=== PATIENT | female | born 2000 | race Caucasian/White ===

== ENCOUNTER 2024-07-14 10:36 | Outpatient (AMB) | payer OTHER, MEDICAID, SELFPAY ==
--- NOTE | 2024-07-14 10:40 | MHC.OFFVIS ---
Vital Signs 07/14/24 10:41 Height 5 ft 9 in Weight 154 lb 5.177 oz BMI 22.8 BP 110/72 Blood Pressure Location Rt brachial Position Sitting Pulse 92 Pulse Source Pulse Oximeter Pulse Oximetry (%) 99 Oxygen Delivery Method Room Air Intake Visit Reasons: asthma Allergies oxycodone Allergy (Intermediate, Verified 07/14/24 10:44) Hallucinations HPI Comments Details: The patient is here for a pulmonary evaluation. The patient is a 24-year-old woman with a known history of childhood asthma. She does have lifelong asthma and she has been followed closely by pediatric Pulmonary for many years. She has been on Wixela for many years and also at times may take additional Flovent HFA in case she is having a flare-up. And she also has a rescue inhaler. She states that throughout the year she will need prednisone between 5-8 times. The last time was over the fall where she had 3 courses of prednisone to try to finally settled on her symptoms. She does not like to take prednisone and she would like to avoid. She has had allergy testing in the past and is been negative that she is aware of. The patient did have a chest x-ray which we personally reviewed together demonstrating hyperinflation of the lungs. She has not had formal pulmonary function studies. Therefore, based on ongoing symptoms will go ahead and optimize her respiratory therapy by switching her from Wixela to Trelegy 200 mcg. She will continue the Singulair for now though she does carry a diagnosis of depression and once her symptoms are better we can see about maybe removing the singular just in case. In addition to that will assess blood work including allergy testing to assess to see biologics will be a reasonable option for the patient. Will plan to follow-up after the PFTs. [facility] Medical History (Updated 07/14/24 @ 20:14 by Josué Hatfield MD) Eczema Allergies Asthma Social History (Updated 07/14/24 @ 10:44 by Rachna Chery CMA) Patient Tobacco Use Status: Never used Tobacco Review of Systems Const Reports no additional complaints Eyes Reports no additional complaints ENT Reports nasal congestion and Reports nasal discharge Card Denies chest pain Resp Reports cough and Reports wheezing GI Reports no additional complaints Musc Reports no additional complaints Skin/Breast Denies rash Leroy/Lymph Reports no additional complaints Aller/Immun Reports wheezing Physical Exam Vital Signs: Last Vital Signs Pulse 92 07/14/24 10:41 BP 110/72 07/14/24 10:41 Pulse Ox 99 07/14/24 10:41 Oxygen Delivery Method Room Air 07/14/24 10:41 BMI result Body Mass Index 22.8 Const General: healthy appearing HEENT Head: Yes normocephalic Eyes General: appearance normal, both eyes and all related structures Neck Neck: Yes supple Chest Chest palpation & inspection: normal inspection of the chest Resp Effort & Inspection: normal respiratory effort Auscultation: clear to auscultation bilaterally Cardio Jugular venous distension: JVD Heart sounds: S1 normal heart sound present and S2 normal heart sound present GI Palpation (GI): Soft to palpation Skin General skin exam: no rashes or lesions noted Extrem General: Yes no clubbing, cyanosis or edema Assessment & Plan Assessment & Plan (1) Asthma: Code(s): J45.909 - Unspecified asthma, uncomplicated Category: Medical Qualifiers: Asthma severity: moderate Asthma persistence: persistent Asthma complication type: uncomplicated Qualified Code(s): J45.40 - Moderate persistent asthma, uncomplicated (2) Allergies: Code(s): T78.40XA - Allergy, unspecified, initial encounter Category: Medical Qualifiers: Encounter type: initial encounter Qualified Code(s): T78.40XA - Allergy, unspecified, initial encounter (3) Eczema: Code(s): L30.9 - Dermatitis, unspecified Category: Medical Qualifiers: Eczema type: flexural Qualified Code(s): L20.82 - Flexural eczema (4) OMAR positive: Code(s): R76.8 - Other specified abnormal immunological findings in serum Category: Medical Plan stop Wixela start Trelegy 200 daily NEW as needed continue singulair for now Bloodwork and allergy testing PFTs F/U 6-8 weeks Orders: Orders Hypersensitive Pneumonitis Prf Today J45.909 - Unspecified asthma, uncomplicated, R91.8 - Other nonspecific abnormal finding of lung field, T78.40XA - Allergy, unspecified, initial encounter OMAR Reflex Titer and Pattern Today J45.909 - Unspecified asthma, uncomplicated, T78.40XA - Allergy, unspecified, initial encounter Cyclic Citrullinated Peptide Today J45.909 - Unspecified asthma, uncomplicated, T78.40XA - Allergy, unspecified, initial encounter PFT pulmonary function test Today J45.909 - Unspecified asthma, uncomplicated, T78.40XA - Allergy, unspecified, initial encounter Resp Allergy Profile Region I Today J45.909 - Unspecified asthma, uncomplicated, R91.1 - Solitary pulmonary nodule, T78.40XA - Allergy, unspecified, initial encounter Complete Blood Count Auto Diff Today J45.909 - Unspecified asthma, uncomplicated, T78.40XA - Allergy, unspecified, initial encounter Immunoglobulin E Today J45.909 - Unspecified asthma, uncomplicated, T7.40XA - Allergy, unspecified, initial encounter Erythrocyte Sedimentation Rate Today J45.909 - Unspecified asthma, uncomplicated, T78.40XA - Allergy, unspecified, initial encounter Medications: New unrmvyztogb-nuvzyrhfh-aoopjzjg 200-62.5-25 mcg (Trelegy Ellipta) 1 inh inhalation DAILY 60 ea 12RF 30 days Coding Level of Care Code New Pt Level 4 (20641) Diagnoses Moderate persistent asthma without complication J45.40 Asthma severity: moderate Asthma persistence: persistent Asthma complication type: uncomplicated Allergy, initial encounter T78.40XA Encounter type: initial encounter Flexural eczema L20.82 Eczema type: flexural OMAR positive R76.8 Time Spent (min) 38
[2024-07-14 10:41] VITALS: BP 110/72; PULSE 92; O2SAT 99; BMI 22.8
--- OUTSIDE RECORDS SUMMARY | 2024-07-14 14:14 | XMS_ITS | Encounter Summary ---
Author Organization [facility] Address [address] [place] [address] Care Team Providers Care Game Farm Helper Name Role Phone Karlene Santana MD Primary Care Provider [phone] Reason for Visit * Consultation (Elective) - Authorized Specialty Diagnoses / Procedures Referred By Florinda chatman Referred To Contact Physical Therapy Diagnoses Knee pain Michael Santillan PA [facility] [address] [place] [address] [place] [address] Henry Watson PT Referral ID Status Reason Start Date Expiration Date Visits Requested Visits Authorized [id number] Authorized Consult and Treat 06/28/2024 06/28/2025 26 26 Encounter Details Date Type Department Care Team ([facility] Contact Info) Description 06/29/2024 9:30 AM EST Evaluation Physical Therapy - [address] [phone] Henry Watson PT Disorder of patellofemoral joint, unspecified laterality (Primary Dx); Knee pain Social History Tobacco Use Types Packs/Day Years Used Date Smoking Tobacco: Never Assessed Sex and Gender Information Value Date Recorded Sex Assigned at Not on file Gender Identity Not on file Sexual Orientation Not on file Job Start Date Occupation Industry Not on file Not on file Not on file documented as of this encounter Progress Notes * Henry Watson PT - 06/29/2024 9:30 AM EST [facility] Rehabilitation - Outpatient PHYSICAL THERAPY EVALUATION Date: 06/29/2024 Visit Number: 1 Patient Name: Usha Alaniz : 2000 Age: 24 y.o. Gender: female Diagnosis: ICD-10-CM ICD-9-CM 1. Knee pain M25.569 719.46 Ambulatory referral to Physical Therapy and Athletic Training Date of Onset/Surgery: Chronic Referring Provider: Michael Santillan PA Insurance: Payor: [facility] / Plan: [facility] / Product Type: *No Product type* / Patient identified by: Henry Watson PT Language: Speaks and understands Sinhala as preferred language with no candles pourer required Chart Reviewed: Yes Medications: No current outpatient medications on file prior to visit. No current facility-administered medications on file prior to visit. Discussed current medications that may impact therapy. Medication list obtained and reviewed. Referto document in medical record. Advised Patient to contact MD with any questions regarding medications and importance of managing medication information. has no past medical history on file. has no past surgical history on file. has no allergies on file. Precautions: None Concurrent Services: No Concurrent Services Previous Medical Care/Therapy: PT x 2 months at [facility] 3 months ago. SUBJECTIVE History of present condition: Patient reports several years ago having medial patellofemoral ligament reconstruction on her left knee by Dr. Martin. Has had some issues with her knee since then and feels like she favors her right side and now has right anterior knee pain as well. Did go through therapy x 2 months 3 months ago with fair to poor success. Patient was unable to pursue strengthening due to knee pain. Patient now trying therapy here but has a cortisone injection scheduled with [facility] orthopedics on July 19. Would like to do the evaluation today but wait to perform therapy till afterthe injection. I agree with this plan. Patient reports her pain is primarily with loading for her left knee with her knee bent. Functionally this affects her ability to get in and out of a chair or perform stairs. 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 Wants to improve her lower extremity mechanics, function and strength to allow her to perform regular daily activities without pain and possibly exercise moving forward. 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 Previous Level of Function: Long history of dysfunction due to the left knee patellar dislocations and subsequent patellofemoral ligament reconstruction and ongoing dysfunction of the left knee. Thatleft knee dysfunction has caused more strain on her right knee and has started to create pain in her right knee as well. Current Level of Function: Currently patient with difficulty with standing from a sitting position,getting at the floor work, squatting, stairs. Aggravating Factors: Squatting, stairs, PF load. Relieving Factors: Repositioning and unloading PF joint Pain: 0 out of 10 to 8 out of 10 with sharp stabbing pain left PF joint under wound OBJECTIVE Posture: Pronation bilaterally causing slight internal rotation at the hips and slight genu valgum. Range of Motion: Good full pain-free range of motion bilateral knees hips and ankles Strength: 3 out of 5 strength left quad, 4 out of 5 strength right quad, 4 out of 5 bilateral hamstrings, 4-5 bilateral hip abductors and extensors. Functional Mobility: Transfers: Difficulty with sit to stands and tends to shift weight significantly to the right. Wheelchair Mobility: N/A Gait/Ambulation: Normal gait pattern on level surface Stairs: Difficulty with stairs especially descending second to anterior left knee pain Special Tests: Positive lateral patellar tracking left greater than right. Positive patellar grind left greater than right. Pain with Genesis test on the left but good flexibility noted. Palpation: Tenderness lateral left PF joint and infrapatellar tendon/fat pad left knee. Mild tenderness right knee Reflexes: N/A Balance: Able to stand single-leg stance right and left x 30 seconds with slight increase hip and ankle instability noted on the left. Additional Findings: Severe lateral tilt and tracking of the left patella especially in the last 15degrees of extension. Patient has x-ray showing poor lateral ridge left knee. Right knee tracking is similar but less drastic. Education: Educated patient on PF syndrome and patellar mechanics. Discussed home exercise program and plan of care. Treatments/Interventions: Tape bilateral knees with 80 50K tape for patellar tracking ASSESSMENT/Response to Treatment: Usha Alaniz is a 24 y.o. female presenting for outpatient physical therapy evaluation with complaints of B anterior knee pain L > R. Significant clinical findings include: Poor patellar mechanics L > R, decreased strength, poor VMO timing, and difficulty with squatting and stairs. Patientsprogress may be limited by Severe lateral tracking L patella. . Skilled Physical therapy is medically necessary to Improved strength and mechanics B knees to allow for normal age appropriate activitiy. Rehabilitation Potential: Rehab Potential: Condition Has Potential to Improve Motivation for Rehab: Good Support Structure: Good Learning Needs: Were Patient Learning needs assessed: Yes Learning Preferences: Explanation, Demonstration, and Printed Materials Barriers to Learning: No Barriers to Learning Patient Education: [x] Discussed, with patient and/or caregiver, the recommended plan of care/goals, the importance oftherapy and appointment compliance in order to achieve goals in a timely manner. Education provided: HEP, POC, LE and PF mechanics Education Provided To: Patient utilizing Explanation and Demonstration as mode(s) of education. Response to Education: Applied Knowledge, Verbal Understanding, and Demonstrated Skills GOALS Short Term Goals: 5-6 visits 1. Able to perform half squat with good mechanics with minimal discomfort 2. Able to a send stairs with normal mechanics 3. Able to stand single-leg stance left lower extremity x 30 seconds without loss of balance 4. Increase VMO activity and improve timing noted with quad set 5. Able to perform 3 sets of 10 of straight leg raise with slight external rotation without lag Geriatrician Goals: 11-12 visits 1. Significantly improved VMO activity and at least 4 out of 5 strength left quad 2. 5 out of 5 strength other than left quad strength 3. Able to perform sit to stand squats with good mechanics 4. Able to descend stairs with good mechanics effectively 5. Independent with home exercise program and ability to initiate gym routine PLAN POC Development/Review: Initial Evaluation; Participants: Patient Skilled Therapy Plan Required: YES- Reasons for Rehab and Medical Necessity -- Function in Community Planned Therapy Interventions: Kinesiotaping, Manual Therapy, Neuromuscular Re- education, and Therapeutic Exercise Recommended Consults: none Equipment Recommended: none; Equipment Provided: none Frequency/Duration: 2x/week x 6 weeks BILLING TOTAL TREATMENT TIME: 55 Minutes Evaluation Medium Complexity Justification ::: A history of present problem with 1 - 2 personal factors and/or co-morbidities that impact the plan of care Documentation completed by Henry Watson PT PHYSICAL THERAPY - [address] [address] Dept: [phone] Dept documented in this encounter Plan of Treatment Upcoming Encounters Date Type Department Care Team (Late st Contact Info) Description 07/25/2024 10:30 AM EST Treatment Physical Therapy - [place] [address] [place] [address] Henry Watson, PT 07/28/2024 9:30 AM EST Treatment Physical Therapy - [place] [address] [facility] [place] [address] Henry Watson, PT 08/01/2024 9:30 AM EST Treatment Physical Therapy - [place] [address] [facility] [place] [address] Henry Watson, PT 08/04/2024 9:30 AM EST Treatment Physical Therapy - [place] [address] [facility] [place] [address] Henry Watson, PT 08/08/2024 9:30 AM EST Treatment Physical Therapy - [place] [address] [place] [address] Henry Watson, PT 08/11/2024 9:30 AM EST Treatment Physical Therapy - [place] [address] [place] [address] Henry Watson, PT 08/15/2024 9:30 AM EST Treatment Physical Therapy - [place] [address] [place] [address] Henry Watson, PT 08/18/2024 9:30 AM EST Treatment Physical Therapy - [place] [address] [place] [address] Henry Watson, PT documented as of this encounter Visit Diagnoses Diagnosis Disorder of patellofemoral joint, unspecified laterality- Primary Knee pain Pain in joint, lower leg documented in this encounter Orders Outpatient Referral Count Last Ordered Date Fir st Ordered Date AMB REFERRAL TO [facility]ICAL [facility] 1 06/29/2024 documented in this encounter Care Teams Game Farm Helper Relationship Specialty Start Date End Date Karlene Santana MD PCP - General 03/30/23 documented as of this encounter
--- OUTSIDE RECORDS SUMMARY | 2024-07-14 14:14 | XMS_ITS | Encounter Summary ---
Author Organization [facility] Address [address] [place] [address] Care Team Providers Care Field Foreman Name Role Phone Karlene Santana MD Primary Care Provider [phone] Encounter Details Date Type Department Care Team ([facility] Contact Info) Description 06/29/2024 Plan of Care Documentation Physical Therapy [facility] [address] [place] [phone] Social History Tobacco Use Types Packs/Day Years Used Date Smoking Tobacco: Never Assessed Sex and Gender Information Value Date Recorded Sex Assigned at Not on file Gender Identity Not on file Sexual Orientation Not on file Job Start Date Occupation Industry Not on file Not on file Not on file documented as of this encounter Plan of Treatment Upcoming Encounters Date Type Department Care Team ([facility] Contact Info) Description 07/25/2024 10:30 AM EST Treatment Physical Therapy [facility] [address] [place] [phone] Henry Watson, PT 07/28/2024 9:30 AM EST Treatment Physical Therapy [facility] [address] [place] [phone] Henry Watson, PT 08/01/2024 9:30 AM EST Treatment Physical Therapy [facility] [address] [place] [phone] Henry Watson, PT 08/04/2024 9:30 AM EST Treatment Physical Therapy [facility] [address] [place] [phone] Henry Watson, PT 08/08/2024 9:30 AM EST Treatment Physical Therapy [facility] [address] [place] [address] Henry Watson, PT 08/11/2024 9:30 AM EST Treatment Physical Therapy [facility] [address] [place] [address] Henry Watson, PT 08/15/2024 9:30 AM EST Treatment Physical Therapy [facility] [address] [place] [phone] Henry Watson, PT 08/18/2024 9:30 AM EST Treatment Physical Therapy [facility] [address] [place] [phone] Henry Watson, PT documented as of this encounter Visit Diagnoses Not on filedocumented in this encounter Care Teams Field Foreman Relationship Specialty Start Date End Date Karlene Santana MD PCP - General 03/30/23 documented as of this encounter
--- OUTSIDE RECORDS SUMMARY | 2024-07-14 14:15 | XMS_ITS | Clinical Summary ---
Author Organization [facility] Address [address] [place] [address] Phone Care Team Providers Care Erector Operator Name Role Phone Karlene Santana MD Primary Care Provider [phone] Encounters Date Type Department Care Team Description 06/29/2024 9:30 AM EST Evaluation Physical Therapy [facility] [address] [place] [phone] Henry Watson, PT Disorder of patellofemoral joint, unspecified laterality (Primary Dx); Knee pain 06/29/2024 Plan of Care Documentation Physical [facility] [place] [place] [phone] from Last 3 Months Social History Tobacco Use Types Packs/Day Years Used Date Smoking Tobacco: Never Assessed Sex and Gender Information Value Date Recorded Sex Assigned at Not on file Gender Identity Not on file Sexual Orientation Not on file Job Start Date Occupation Industry Not on file Not on file Not on file Plan of Treatment Upcoming Encounters Date Type Department Care Team (Late st Contact Info) Description 07/25/2024 10:30 AM EST Treatment Physical Therapy [facility] [address] [place] [phone] Henry Watson, PT 07/28/2024 9:30 AM EST Treatment Physical Therapy [facility] [address] [place] [phone] Henry Watson, PT 08/01/2024 9:30 AM EST Treatment Physical Therapy [facility] [address] [place] [address] Henry Watson, PT 08/04/2024 9:30 AM EST Treatment Physical Therapy - [place] [address] [place] [address] Henry Watson, PT 08/08/2024 9:30 AM EST Treatment Physical Therapy [facility] [address] [facility] [place] [address] Henry Watson, PT 08/11/2024 9:30 AM EST Treatment Physical Therapy [facility] [address] [facility] [place] [address] Henry Watson, PT 08/15/2024 9:30 AM EST Treatment Physical Therapy [facility] [address] [facility] [place] [address] Henry Watson, PT 08/18/2024 9:30 AM EST Treatment Physical Therapy [facility] [address] [place] [address] Henry Watson, PT Health Maintenance Due Date Last Done Comments Gonorrhea/Chlamydia Screening 2000 Pneumococcal Vaccine: Pediatrics (0 to 5 Years) and At-Risk Patients (6 to 64 Years) (1 of 1 - PPSV23 or PCV20) 2008 07/07/2003, 02/03/2003, 2002, Additional history exists Depression Screening 04/13/2023 HIV Screening 04/13/2023 Hepatitis C Screening 04/13/2023 Social Influencers of Health Screening 04/13/2023 Cervical Cancer Screening: Pap Smear 2023 COVID-19 Vaccine ( season) 2024 05/13/2023, 10/06/2021, 05/31/2021, Additional history exists DTaP,Tdap,and Td Vaccines (10 - Td or Tdap) 10/07/2033 10/08/2023, 10/08/2023, 05/26/2014, Additional history exists Hepatitis B Vaccines Completed 04/03/2003, 2002, 2002 HIB Vaccines Completed 11/29/2003, 01/14, 2002, Additional history exists MMR Vaccines Completed 06/05/2006, 11/29/2003 IPV Vaccines Completed 06/09/2007, 01/14, 2002, Additional history exists Varicella Vaccines Completed 06/09/2007, 07/07/2003 HPV Vaccines Completed 12/01/2014, 07/16, 05/26/2014 Meningococcal ACWY Vaccine Completed 08/09/2018, Hepatitis A Vaccines Completed 02/05/2021, 08/07/19 21 Influenza Vaccine Completed 03/22/2024, , 03/07/2021, Additional history exists RSV Immunization Patients Under 20 months Aged Out No longer eligible based on patient's age to complete this topic Care Teams Erector Operator Relationship Specialty Start Date End Date Karlene Santana MD PCP - General 03/30/23
--- OUTSIDE RECORDS SUMMARY | 2024-07-14 14:16 | XMS_ITS | Data Portability ---
Author Organization [place] - [facility], [facility] Address [address] [place] [address] Assessment Encounter Date Assessment Date Assessment LastModified by Organization Details LastModified Time 11/16/2023 11/16/2023 Fatigue - unchanged, nl labs, start mvit with Fe, try to eat regular meals and get good sleep, f/u prn; Plantar warts - resolved [email or web address] Not available 11/16/2023 12:57:42 02/16/2024 02/16/2024 Usha is a 23yo female here for neck pain and headaches. Discussed stretching and heat to the area along with OTC pain medications and supportive care for neck. Discussed referral to neurologist other than [facility], but should continue with regular visits with [facility] until they can be seen at [facility]. Discussed return and emergent precautions. Not available 02/16/2024 17:52:30 03/07/2024 03/07/2024 Pharyngitis - Strep neg, viral vs PND, sx care, f/u prn; Post viral reactive cough - Alb prn since asthmatic, sx care, f/u prn [email or web address] Not available 03/07/2024 14:08:05 03/11/2024 03/11/2024 23 y/o female O2 sat RA 99% scattered end expiratory wheezing, no WOB likely back to back illness (COVID and then another viral illness) will treat with amoxicillin for sinusitis advised to continue on sick asthma plan-will add on course of oral steroids advised to call for fevers, cough that worsens/persists or patient develops any other new concerning symptoms patient expresses understanding and agrees with the above listed plan [email or web address] Not available 03/16/2024 10:06:09 03/19/2024 03/19/2024 cough/ ? pneumonia- will treat- does have fu with pulm next week [email or web address] Not available 03/19/2024 12:29:11 Plan of Treatment Reminders Order Date Submit Date Provider Last Modified By Organization Details Last Modified Time Details Appointments None recorded. Lab strep group A, DNA, swab 2023 charlie In-Office Order, Internal Use Only DO Not Attach Compendium DO Not Attach Compendium, Do Not Delete/merge, [id number] 14:06:44 Referral neurologist referral - Migraine type and tension type headache without control with OTCs 2023 [facility], [address] [address], [place], [address], 04:02:38 Procedures None recorded. Surgeries None recorded. Imaging None recorded. Medication Orders prednisone 20 mg tablet 2023 [id number], [address], [place], [phone], 14:26:45 amoxicillin 875 mg tablet 2023 [id number], [address], [place], [phone], 14:26:45 azithromyci n 250 mg tablet 2023 [facility] #[id number], [address], [place], [phone], 11:38:57 Patient TargetsNo targets recorded. Patient Instructions Encounter Date Encounter Id Patient Instructions Last Modified By Organization Details Last Modified Time 02/16/2024 [id number] neck pain: care instructions Not available 02/16/2024 14:23:18 Reason for Referral Neurologist Referral for [facility] Migraine type and tension type headache without control with OTCs Referring Physician: Rachna Knight, Pediatric Medicine, Encounter Date: 02/16/2024 Results Created Date Observation Date Name Description Value Unit Range Abnormal Flag Note LastModifiedBy Organization Detail LastModifiedTime 10/27/19 24 10/28/2023 TSH+F REE T4 TSH 2.640 uIU/m L 0.450- 4.500 Not Available [facility] ([facility]) [address] [place], [address], 10/29/2023 16:07:02 10/27/19 24 10/28/2023 TSH+F REE T4 T4,free(dire ct) 1.11 NG/dL 0.82-1 .77 Not Available [facility] ([facility]) [address] [place], [address], 10/29/2023 16:07:02 10/27/19 24 10/28/2023 CBC WITH DIFFE RENTI AL/PL ATELE T WBC 7.9 x10e3 /uL 3.4-10 .8 Not Available [facility] ([facility]) [address] [place], [address], 10/29/2023 16:07:03 10/27/19 24 10/28/2023 CBC WITH DIFFE RENTI AL/PL ATELE T RBC 5.01 x10e6 /uL 3.77-5 .28 Not Available [facility] ([facility]) [address] [place], [address], 10/29/2023 16:07:03 10/27/19 24 10/28/2023 CBC WITH DIFFE RENTI AL/PL ATELE T hemoglobin 14.5 g/dL 11.1-1 5.9 Not Available [facility] ([facility]) [address] [place], [address], 10/29/2023 16:07:03 10/27/19 24 10/28/2023 CBC WITH DIFFE RENTI AL/PL ATELE T hematocrit 43.8 % 34.0-4 6.6 Not Available [facility] ([facility]) [address] [facility], [place], [address], 10/29/2023 16:07:03 10/27/19 24 10/28/2023 CBC WITH DIFFE RENTI AL/PL ATELE T MCV 87 fL 79-97 Not Available [facility] ([facility]) [address] [facility], [place], [address], 10/29/2023 16:07:03 10/27/19 24 10/28/2023 CBC WITH DIFFE RENTI AL/PL ATELE T MCH 28.9 pg 26.6-3 3.0 Not Available [facility] ([facility]) [address] [facility], [place], [address], 10/29/2023 16:07:03 10/27/19 24 10/28/2023 CBC WITH DIFFE RENTI AL/PL ATELE T MCHC 33.1 g/dL 31.5-3 5.7 Not Available [facility] ([facility]) [address] [facility], [place], [address], 10/29/2023 16:07:03 10/27/19 24 10/28/2023 CBC WITH DIFFE RENTI AL/PL ATELE T RDW 12.6 % 11.7-1 5.4 Not Available [facility] ([facility]) [address] [facility], [place], [address], 10/29/2023 16:07:03 10/27/19 24 10/28/2023 CBC WITH DIFFE RENTI AL/PL ATELE T platelets 258 x10e3 /uL 150-45 0 Not Available [facility] ([facility]) [address] [facility], [place], [address], 10/29/2023 16:07:03 10/27/19 24 10/28/2023 CBC WITH DIFFE RENTI AL/PL ATELE T neutrophils 63 % not estab. Not Available [facility] ([facility]) [address] [facility], [place], [address], 10/29/2023 16:07:03 10/27/19 24 10/28/2023 CBC WITH DIFFE RENTI AL/PL ATELE T lymphs 29 % not estab. Not Available [facility] ([facility]) [address] [facility], [place], [address], 10/29/2023 16:07:03 10/27/19 24 10/28/2023 CBC WITH DIFFE RENTI AL/PL ATELE T monocytes 7 % not estab. Not Available [facility] ([facility]) [address] [facility], [place], [address], 10/29/2023 16:07:03 10/27/19 24 10/28/2023 CBC WITH DIFFE RENTI AL/PL ATELE T eos 1 % not estab. Not Available [facility] ([facility]) [address] [facility], [place], [address], 10/29/2023 16:07:03 10/27/19 24 10/28/2023 CBC WITH DIFFE RENTI AL/PL ATELE T basos 0 % not estab. Not Available [facility] ([facility]) [address] [facility], [place], [address], 10/29/2023 16:07:03 10/27/19 24 10/28/2023 CBC WITH DIFFE RENTI AL/PL ATELE T immature cells [employer]ATOR Not Available [facility] ([facility]) [address] [facility], [place], [address], 10/29/2023 16:07:03 10/27/19 24 10/28/2023 CBC WITH DIFFE RENTI AL/PL ATELE T neutrophils (absolute) 5.0 x10e3 /uL 1.4-7. 0 Not Available [facility] ([facility]) [address] [facility], [place], [address], 10/29/2023 16:07:03 10/27/19 24 10/28/2023 CBC WITH DIFFE RENTI AL/PL ATELE T lymphs (absolute) 2.3 x10e3 /uL 0.7-3. 1 Not Available [facility] ([facility]) [address] [facility], [place], [address], 10/29/2023 16:07:03 10/27/19 24 10/28/2023 CBC WITH DIFFE RENTI AL/PL ATELE T monocytes(ab solute) 0.5 x10e3 /uL 0.1-0. 9 Not Available [facility] ([facility]) [address] [place], [address], 10/29/2023 16:07:03 10/27/19 24 10/28/2023 CBC WITH DIFFE RENTI AL/PL ATELE T eos (absolute) 0.0 x10e3 /uL 0.0-0. 4 Not Available [facility] ([facility]) [address] [facility], [place], [address], 10/29/2023 16:07:03 10/27/19 24 10/28/2023 CBC WITH DIFFE RENTI AL/PL ATELE T baso (absolute) 0.0 x10e3 /uL 0.0-0. 2 Not Available [facility] ([facility]) [address] [place], [address], 10/29/2023 16:07:03 10/27/19 24 10/28/2023 CBC WITH DIFFE RENTI AL/PL ATELE T immature granulocytes 0 % not estab. Not Available [facility] ([facility]) [address] [place], [address], 10/29/2023 16:07:03 10/27/19 24 10/28/2023 CBC WITH DIFFE RENTI AL/PL ATELE T immature grans (abs) 0.0 x10e3 /uL 0.0-0. 1 Not Available [facility] ([facility]) [address] [facility] [place], [address], 10/29/2023 16:07:03 10/27/19 24 10/28/2023 CBC WITH DIFFE RENTI AL/PL ATELE T NRBC [employer]AG[employer] OPERATOR Not Available [facility] ([facility]) [address], [place], [address], 10/29/2023 16:07:03 10/27/19 24 10/28/2023 CBC WITH DIFFE RENTI AL/PL ATELE T hematology comments: CAT WAGON OPERATOR Not Available [facility] ([facility]) [address], [place], [address], 10/29/2023 16:07:03 10/27/19 24 10/28/2023 COMP. METAB OLIC PANEL (14) glucose 76 mg/dL 70-99 Not Available [facility] ([facility]) [address], [place], [address], 10/29/2023 16:07:03 10/27/19 24 10/28/2023 COMP. METAB OLIC PANEL (14) BUN 6 mg/dL 6-20 Not Available [facility] ([facility]) [address], [place], [address], 10/29/2023 16:07:03 10/27/19 24 10/28/2023 COMP. METAB OLIC PANEL (14) creatinine 0.73 mg/dL 0.57-1 .00 Not Available [facility] ([facility]) [address] [facility], [place], [address], 10/29/2023 16:07:03 10/27/19 24 10/28/2023 COMP. METAB OLIC PANEL (14) BUN/creatini ne ratio 8 9-23 below low normal Not Available [facility] ([facility]) [address] [place], [address], 10/29/2023 16:07:03 10/27/19 24 10/28/2023 COMP. METAB OLIC PANEL (14) sodium 139 mmol/ L 134-14 4 Not Available [facility] ([facility]) [address] [facility] [place], [address], 10/29/2023 16:07:03 10/27/19 24 10/28/2023 COMP. METAB OLIC PANEL (14) potassium 4.0 mmol/ L 3.5-5. 2 Not Available [facility] ([facility]) [address] [facility] [place], [id number], 10/29/2023 16:07:03 10/27/19 24 10/28/2023 COMP. METAB OLIC PANEL (14) chloride 102 mmol/ L 96-106 Not Available [facility] ([facility]) [address] [facility] [place], [address], 10/29/2023 16:07:03 10/27/19 24 10/28/2023 COMP. METAB OLIC PANEL (14) carbon dioxide, total 21 mmol/ L 20-29 Not Available [facility] ([facility]) [address] [place], [address], 10/29/2023 16:07:03 10/27/19 24 10/28/2023 COMP. METAB OLIC PANEL (14) calcium 9.5 mg/dL 8.7-10 .2 Not Available [facility] ([facility]) [address] [facility] [place], [address], 10/29/2023 16:07:03 10/27/19 24 10/28/2023 COMP. METAB OLIC PANEL (14) protein, total 7.5 g/dL 6.0-8. 5 Not Available [facility] ([facility]) [address] [facility] [place], [address], 10/29/2023 16:07:03 10/27/19 24 10/28/2023 COMP. METAB OLIC PANEL (14) albumin 4.7 g/dL 4.0-5. 0 Not Available [facility] ([facility]) [address] [facility] [place], [address], 10/29/2023 16:07:03 10/27/19 24 10/28/2023 COMP. METAB OLIC PANEL (14) globulin, total 2.8 g/dL 1.5-4. 5 Not Available [facility] ([facility]) [address] [facility] [place], [address], 10/29/2023 16:07:03 10/27/19 24 10/28/2023 COMP. METAB OLIC PANEL (14) A/G ratio 1.7 1.2-2. 2 Not Available [facility] ([facility]) [address] [facility] [place], [address], 10/29/2023 16:07:03 10/27/19 24 10/28/2023 COMP. METAB OLIC PANEL (14) bilirubin, total <0.2 mg/dL 0.0-1. 2 Not Available [facility] ([facility]) [address] [facility] [place], [address], 10/29/2023 16:07:03 10/27/19 24 10/28/2023 COMP. METAB OLIC PANEL (14) alkaline phosphatase 46 IU/L 44-121 Not Available [facility] ([facility]) [address] [place], [address], 10/29/2023 16:07:03 10/27/19 24 10/28/2023 COMP. METAB OLIC PANEL (14) AST (SGOT) 19 IU/L 0-40 Not Available [facility] ([facility]) [address] [facility] [place], [address], 10/29/2023 16:07:03 10/27/19 24 10/28/2023 COMP. METAB OLIC PANEL (14) ALT (SGPT) 13 IU/L 0-32 Not Available [facility] ([facility]) [address] [place], [address], 10/29/2023 16:07:03 10/27/19 24 10/28/2023 VITAM IN D, 25-HY DROXY vitamin D, 25-hydroxy 30.9 NG/mL 30.0-1 00.0 Vitam in D defic iency has been defin ed by the Insti tute of Medic ine and an Endoc rine Socie ty pract ice guide line as a level of serum 25-OH vitam in D less than 20 ng/mL (1,2) . The Endoc rine Socie ty went on to furth er defin e vitam in D insuf ficie ncy as a level betwe en 21 and 29 ng/mL (2). 1. IOM (Inst itute of Medic ine). 2010. Dieta ry refer ence intak es for calci um and D. Marcus townsend [place]: [facility] . 2. Ange cabrera MF, Chester mcarthur [place], Diana off-F errar i MONTERO, et al. Evalu ation , treat ment, and preve ntion of vitam in D defic iency : an Endoc rine Socie ty clini amarjit pract ice guide line. JCEM. 2010; 96(7) :1911 -30. Not Available [facility] ([facility]) [address] [facility], [place], [address], 10/29/2023 16:07:04 10/27/19 24 10/28/2023 T-TRA NSGLU TAMIN ASE (TTG) IGA T-transgluta minase (ttg) IgA <2 U/mL 0-3 Negat az 0 - 3 Weak Posit az 4 - 10 Posit az >10 Tissu e Trans gluta carmen e (tTG) has been ident ified as the endom ysial antig en. Studi es have demon str- ated that endom ysial IgA antib odies have over 99% speci ficit y for glute n sensi tive enter opath y. Not Available [facility] ([facility]) [address] [facility], [place], [address], 10/29/2023 16:07:05 10/27/19 24 10/28/2023 MONON UCLEO SIS, QUAL W/REF MARCELL mononucleosi s test, qual Negati ve negati ve The sensi tivit y of Heter ophil e antib carla testi ng is 80-90 %. Epste in Gao IgM testi ng offer s highe r sensi tivit y. Not Available [facility] ([facility]) [address] [facility], [place], [address], 10/29/2023 16:07:05 10/27/19 24 10/28/2023 MONON UCLEO SIS, QUAL W/REF MARCELL interpretati on: Commen t EBV Inter preta tion Chart [place]: Antib carla Prese nt + Antib carla Absen t - Inter preta tion VCA-I gM VCA-I gG EBNA- IgG No previ ous infec tion/ - - - Susce ptibl e Prima ry infec tion (new + + - or recen t) Past Infec tion +or- + + See comme nt below * + - - *Resu lts indic ate infec tion with EBV at some time howev er canno t predi ct the timin g of the infec tion since antib odies to EBNA usual ly devel op after prima ry infec tion or, alter nativ breanna, appro ximat breanna 5-10% of patie nts with EBV never devel op antib odies to EBNA. Not Available [facility] ([facility]) [address] [facility], [place], [address], 10/29/2023 16:07:05 10/27/19 24 10/29/2023 MONON UCLEO SIS, QUAL W/REF MARCELL ebv Ab vca, IgM <36.0 U/mL 0.0-35 .9 Negat az <36.0 Equiv ocal 36.0 - 43.9 Posit az >43.9 Not Available [facility] ([facility]) [address] [facility], [place], [address], 10/29/2023 16:07:05 10/27/19 24 10/29/2023 MONON UCLEO SIS, QUAL W/REF MARCELL ebv Ab vca, IgG >600.0 U/mL 0.0-17 .9 above high normal Negat az <18.0 Equiv ocal 18.0 - 21.9 Posit az >21.9 Not Available [facility] ([facility]) [address] [facility], [place], [address], 10/29/2023 16:07:05 10/27/19 24 10/29/2023 MONON UCLEO SIS, QUAL W/REF MARCELL ebv nuclear antigen Ab, IgG >600.0 U/mL 0.0-17 .9 above high normal Negat az <18.0 Equiv ocal 18.0 - 21.9 Posit az >21.9 Not Available [facility] ([facility]) [address] [facility], [place], [address], 10/29/2023 16:07:05 10/27/19 24 10/28/2023 SEDIM ENTAT ION RATE- WESTE RGREN sedimentatio n rate-westerg omi 5 mm/HR 0-32 Not Available [facility] ([facility]) [address] [facility], [place], [address], 10/29/2023 16:07:06 10/27/19 24 10/28/2023 IMMUN OGLOB ULIN A, QN, SERUM immunoglobul in A, qn, serum 235 mg/dL 87-352 Not Available [facility] ([facility]) [address] [place], [address], 10/29/2023 16:07:06 03/07/20 24 03/07/2024 strep group A, DNA, swab Strep ID NOW negati ve Not Available In-Office Order Internal Use Only DO Not Attach Compendium DO Not Attach Compendium, Do Not Delete/merge, [id number] 03/07/2024 13:53:03 Result Notes None recorded. Problems Name Problem SNOMED Code Status Onset Date Resolution Date Notes Provider Name and Address Organization Details Recorded Time Upper respirat ory infectio n 54484961 Completed 03/10/2016 Karlene Santana MD [address] [place] [address], , [facility] 6 13:56:40 Sinusiti s [id number] Completed 10/06/2022 Karlene Santana MD [address] [place] [address], , [facility] 3 14:34:43 On examinat ion - mouth rash Completed 03/10/2016 Karlene Santana MD [address] [place] [address], , [facility] 6 13:56:53 Asthma without status asthmati cus [id number] Completed 03/10/2016 Karlene Santana MD [address] [place] [address], , [facility] 6 13:56:48 Verruca vulgaris 09559341 Completed 10/06/2022 Karlene Santana MD [address] [place] [address], , [facility] 3 14:34:48 Knee pain Active chronic, sees ortho, started PT, referred to Rheum, has +HLA B27 Karlene Santana MD [address] [place] [address], , [facility] 2 15:15:13 Idiopath ic scoliosi s [id number] Completed 08/09/2018 Karlene Santana MD [address] [place] [address], , [facility] 9 13:27:40 Moderate persiste nt asthma 276183321 Active 2017 onset 12/2008, followed by Dr. Paulino/Jesusita love, on Advair and Sing Karlene Santana MD [address] [place] [address], , [facility] 1 10:14:53 Vocal cord dysfunct ion 831239982 Active 2017 vocal cord adductio n noted by Pulm but not clinical ly signific ant Karlene Santana MD [address] [place] [address], , [facility] 8 08:56:11 Dysmenor chika 531951547 Active 2018 improved on Davian Santana MD [address] [place] [address], , [facility] 3 14:34:32 Menorrha everett 131938423 Active 2018 Karlene Santana MD [address] [place] [address], , [facility] 9 14:38:15 School problem 975509987 Completed 201910/06/2022 multiple tardies and absences Karlene Santana MD [address] [place] [address], , [facility] 3 14:34:40 Perioral dermatit is 614017090 Active 2019 Tierney Sal DO [address] [place] [address], , [facility] 0 20:07:55 Acne 92081276 Active 2020 improved with Davian Santana MD [address] [place] [address], , [facility] 3 14:34:02 Pneumoni tis 374857062 Active 2020 summer 2020 Karlene Santana MD [address] [place] [address], , [facility] 1 10:52:32 Disturba nce of attentio n 40594907 Completed 202004/24/2021 Karlene Santana MD [address] [place] [address], , [facility] 1 16:23:35 Child attentio n deficit disorder 924990272 Active 2020 +Vanderb ilts 2012, neuropsy eval 2012 Karlene Santana MD [address] [place] [address], , [facility] 1 10:13:29 Sleep disorder 55837050 Active 2020 Karlene Santana MD [address] [place] [address], , [facility] 1 15:21:51 Headache 70138792 Active 2020 worsenin g 2020 with college, referred to Neuro; starting cycloben zaprine Karlene Santana MD [address] [place] [address], , [facility] 2 15:13:42 Hemorrha gic cyst of ovary 391451638 Active 2021 R 5.6 x 4.4 x 5.1 cm, vol 64.8 cc 07/15/21 - to RELIEF PILOT Karlene Santana MD [address] [place] [address], , [facility] 3 14:33:51 Diet educatio n Completed 202101/07/2022 Karlene Santana MD [address] [place] [address], , [facility] 2 15:13:18 Migraine without aura 10256328 Active 2021 refer to Neuro 08/2021 Karlene Santaan MD [address] [place] [address], , [facility] 2 18:06:35 Depressi ve disorder 35177871 Active 2021 started Lexapro 11/2021, has psychological operations specialist 01/2022 Karlene Santana MD [address] [place] [address], , [facility] 2 15:13:16 Temporom andibula r joint disorder 68522999 Active 2022 Karlene Santana MD [address] [place] [address], , [facility] 3 08:23:44 Verruca plantari s 28226777 Active 2023 Karlene Santana MD [address] [place] [address], , [facility] 4 11:46:53 Nervous system symptoms Completed 10/06/2022 Karlene Santana MD [address] [place] [address], , [facility] 3 14:34:33 Viral disease 35783526 Completed 09/23/2011 Not Available [facility] 3 03:01:41 Viral disease 79141739 Completed 10/18/2012 Not Available [facility] 3 03:01:41 Viral disease 72817590 Completed 200804/21/2011 Not Available [facility] 3 03:01:41 Influenz a with respirat ory manifest ation other than pneumoni a Completed 04/21/2011 Not Available [facility] 3 03:01:41 Lymphade nopathy 92739805 Completed 200704/21/2011 Not Available [facility] 3 03:01:41 Diaper rash 03011570 Completed 200704/21/2011 Not Available [facility] 3 03:01:41 Allergic rhinitis 80829816 Active 2008 tested neg at allergis t 2022 for common environm ental allergen s Karlene Santana MD [address] [place] [address], , [facility] 3 14:19:41 Acute pharyngi tis 123353313 Completed 03/10/2016 Karlene Santana MD [address] [place] [address], , [facility] 6 13:56:37 Acute pharyngi tis 518103885 Completed 10/18/2012 Karlene Santana MD [address] [place] [address], , [facility] 6 13:56:37 Acute pharyngi tis 739685747 Completed 200704/21/2011 Karlene Santana MD [address] [place] [address], , [facility] 6 13:56:37 Acute bronchio litis 1902981 Completed 04/21/2011 Not Available [facility] 3 03:01:41 Pain in throat 422378306 Completed 04/21/2011 Not Available [facility] 3 03:01:41 Acute upper respirat ory infectio n 14946504 Completed 200604/21/2011 Not Available [facility] 3 03:01:41 Acute upper respirat ory infectio n 29784312 Completed 09/23/2011 Not Available [facility] 3 03:01:41 Pneumoni a 967809536 Completed 04/21/2011 Not Available [facility] 3 03:01:41 Nonvenom ous insect bite of multiple sites 811178615 Completed 200604/21/2011 Not Available [facility] 3 03:01:41 Non-supp urative otitis media with eustachi an tube disorder 559551096 Completed 04/21/2011 Not Available [facility] 3 03:01:41 Acute maxillar y sinusiti s 86978684 Completed 200704/21/2011 Not Available [facility] 3 03:01:41 Otitis externa 6830789 Completed 04/21/2011 Not Available [facility] 3 03:01:41 Conjunct ivitis 8636691 Completed 04/21/2011 Not Available [facility] 3 03:01:41 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 and needed OT, then needed accommod ations yearly for academic issues, IEP in high school Karlene Santana MD [address] [place] [address], , [facility] 1 10:14:13 Acute asthma 536764708 Completed 10/18/2012 Not Available [facility] 3 03:01:41 Acute asthma 519424257 Completed 04/21/2011 Not Available [facility] 3 03:01:41 Asthma 249543985 Completed 200802/08/2018 Karlene Santana MD [address] [place] [address], , [facility] 8 08:56:16 Streptoc occal sore throat 98989851 Completed 04/21/2011 Not Available [facility] 3 03:01:41 Noninfec tious gastroen teritis 22962224 Completed 200804/21/2011 Not Available [facility] 3 03:01:41 Problem Notes None recorded. Procedures Surgical History Date Name Laterality Status Provider Name and Address Organization Details Recorded Time 4 Pulse Oximetry completed Leelee Jenkins [address] [place] [address], , [facility] 03/11/2024 14:21:25 4 Wart removal completed Karlene Santana MD [address] [place] [address], , [facility] 10/19/2023 11:06:56 4 Wart removal completed Karlene Santana MD [address] [place] [address], , [facility] 10/13/2023 11:45:49 2 Wart removal completed Shree Plata MD [address] [place] [address], , [facility] 02/24/2022 12:31:34 2 Wart removal completed Shree Plata MD [address] [place] [address], , [facility] 07/22/2021 10:52:47 7 Knee arthroscopy/low rgery completed Karlene Santana MD [address] [place] [address], , [facility] 07/21/2017 09:11:04 6 Pulse Oximetry completed Karlene Santana MD [address] [place] [address], , [facility] 04/18/2016 17:03:29 5 Wart removal completed Karlene Santana MD [address] [place] [address], , [facility] 12/29/2014 09:40:26 5 Nebulizer tx completed Karlene Santana MD [address] [place] [address], , [facility] 11/22/2014 13:17:46 5 Pulse Oximetry completed Freeman Hernadez [facility] 09/27/2014 11:20:06 Imaging Results None recorded. Procedure Notes None recorded. Medical Equipment None Reported. Allergies No known drug allergies Medications Name Sig Start Date Stop Date Status Note LastModified by Organization Details LastModified Time binaxnow covid-19 ag card home test kit 07/31 completed Not Available Not Available Not Available cyclobenza karie 10 mg tablet TAKE 1 TABLET BY MOUTH EVERY DAY active Not Available Not Available No t Available amoxicilli n 500 mg capsule TAKE 2 CAPSULES BY MOUTH TWICE A DAY FOR 10 DAYS 06/16 completed Not Available Not Available Not Available Qvar 80 mcg/actuat ion Metered Aerosol oral inhaler inhale 2 puffs by mouth twice a day active Not Available Not Available No t Available cefprozil 500 mg tablet TAKE 1 TABLET BY MOUTH TWICE DAILY FOR 14 DAYS 11/11 completed Not Available Not Available Not Available prednisone 10 mg tablet Take 4 tabs PO daily x 5 days, then 2 tabs PO daily x 5 days, then 1 tab PO daily x 5 days. 10/07 completed Not Available Not Available Not Available prednisolo ne sodium phosphate 15 mg/5 mL (3 mg/mL) oral solution take 15 millilite r by mouth once daily for 2 days active Not Available Not Available No t Available albuterol sulfate 2.5 mg/3 mL (0.083 %) solution for nebulizati on USE 1 VIAL VIA NEBULIZER EVERY 4 HOURS NEEDED FOR COUGH OR WHEEZING OR SHORTNESS OF BREATH active Not Available Not Available No t Available Concerta 18 mg tablet,ext ended release TAKE 1 TABLET BY MOUTH EVERY DAY 07/15 completed Not Available Not Available Not Available azithromyc in 250 mg tablet TAKE 2 TABLETS BY MOUTH ONCE DAILY FOR 1 DAY THEN 1 TABLET ONCE DAILY FOR 4 DAYS active Not Available Not Available No t Available ibuprofen 800 mg tablet take 1 tablet by mouth three times a day 12/28 completed Not Available Not Available Not Available fluconazol e 150 mg tablet TAKE 1 TABLET BY MOUTH TODAY. REPEAT WITH 2 ND TABLET IN 72 HOURS 09/17 completed Not Available Not Available Not Available tretinoin 0.025 % topical cream APPLY TOPICALLY TO THE AFFECTED AREA EVERY DAY AT BEDTIME 03/26 completed Not Available Not Available Not Available prednisone 20 mg tablet TAKE 3 TABLETS BY MOUTH EVERY DAY FOR 5 DAYS active Not Available Not Available No t Available prednisone 5 mg tablet 4 po bid for 2 days, then 2 po bid for 2, then 1 bid for 2, then 1 po qd for 2 active Not Available Not Available No t Available penicillin V potassium 500 mg tablet take 1 tablet by mouth twice a day for 10 days 11/25 completed Not Available Not Available Not Available Advair Diskus 100 mcg-50 mcg/dose powder for inhalation INHALE 1 PUFF BY MOUTH EVERY DAY 03/26 completed Not Available Not Available Not Available metronidaz ole 500 mg tablet TAKE 1 TABLET BY MOUTH TWICE DAILY FOR 7 DAYS 01/07 completed Not Available Not Available Not Available sulfametho xazole 800 mg-trimeth oprim 160 mg tablet TK 1 T PO BID FOR 10 DAYS 12/11 completed Not Available Not Available Not Available SF 1.1 % dental gel AFTER BRUSHING WITH TOOTHPAST E, RINSE USUAL. APPLY GEL TO TEET... (REFER TO PRESCRIPT ION NOTES). 03/26 completed Not Available Not Available Not Available amoxicilli n 500 mg tablet TAKE 1 TABLET BY MOUTH EVERY 6 HOURS UNTIL GONE 06/26 completed Not Available Not Available Not Available oxycodone- acetaminop hen 5 mg-325 mg tablet TAKE 2 TABLETS BY MOUTH EVERY 6 HOURS NEEDED FOR PAIN DIRECTED (DO NOT DRIVE WHILE ON THIS MEDICATIO N) 04/15 completed Not Available Not Available Not Available amoxicilli n 875 mg tablet TAKE 1 TABLET BY MOUTH TWICE DAILY FOR 10 DAYS active Not Available Not Available No t Available clindamyci n 1 % topical gel GERALD THIN LAYER EXT AA BID 12/28 completed Not Available Not Available Not Available amoxicilli n 250 mg/5 mL oral suspension Take 10 mL twice a day by oral route for 10 days. 10/31 completed Not Available Not Available Not Available amitriptyl ine 10 mg tablet TAKE 2 TABLETS BY MOUTH DAILY AT SUPPER active Not Available Not Available No t Available benzonatat e 100 mg capsule take 1 capsule by mouth three times a day 11/25 completed Not Available Not Available Not Available Zithromax 200 mg/5 mL oral suspension Take 6 millilite rs (250 mg) by oral route once daily for 1 day then 3 millilite rs (125 mg) by oral route once daily for 4 days 2010 active Not Available Not Available Not Avai lable oseltamivi r 75 mg capsule Take 1 capsule twice a day by oral route for 5 days. 11/03 completed Not Available Not Available Not Available cephalexin 250 mg/5 mL oral suspension Take 5 mL 3 times a day by oral route for 10 days. 11/10 completed Not Available Not Available Not Available clotrimazo le-betamet hasone 1 %-0.05 % topical cream APPLY TOPICALLY TO THE AFFECTED AND SURROUNDI NG AREAS TWICE DAILY IN THE MORNING AND IN THE EVENING FOR 1 TO 2 WEEKS 09/17 completed Not Available Not Available Not Available polymyxin B sulfate 10,000 unit-trime thoprim 1 mg/mL eye drops INSTILL 2 DROPS IN BOTH EYES THREE TIMES DAILY FOR 5 DAYS 03/17 completed Not Available Not Available Not Available fluticason e 500 mcg-salmet mera 50 mcg/dose blistr powdr for inhalation INHALE 1 PUFF BY MOUTH EVERY 12 HOURS DIRECTED active Not Available Not Available No t Available Advair Diskus 250 mcg-50 mcg/dose powder for inhalation 02/08 completed Not Available Not Available Not Available Singulair 5 mg chewable tablet take 1 tablet by mouth once daily 2010 active Not Available Not Available Not Avai lable Adderall XR 10 mg capsule,ex tended release TAKE 1 CAPSULE BY MOUTH EVERY DAY 07/15 completed Not Available Not Available Not Available diclofenac sodium 75 mg tablet,del ayed release TAKE 1 TABLET BY MOUTH TWICE DAILY 09/04 completed Not Available Not Available Not Available azithromyc in 100 mg/5 mL oral suspension Take 10ml today, then 5 ml once daily for the next 4 days active Not Available Not Available No t Available montelukas t 10 mg tablet TAKE 1 TABLET BY MOUTH EVERY EVENING active Not Available Not Available No t Available hydroxyzin e HCl 25 mg tablet TAKE 1 TABLET BY MOUTH EVERY DAY NEEDED FOR ANXIETY active Not Available Not Available No t Available amoxicilli n 400 mg/5 mL oral suspension SHAKE LIQUID AND TAKE 12.5 ML BY MOUTH TWICE DAILY FOR 10 DAYS 11/11 completed Not Available Not Available Not Available mupirocin 2 % topical ointment APPLY BY TOPICAL ROUTE THREE TIMES A DAY UNTIL CLEAR 11/03 completed Not Available Not Available Not Available mirtazapin e 15 mg tablet TAKE 1 TABLET BY MOUTH DAILY AT SUPPER 09/17 completed Not Available Not Available Not Available lotepredno l etabonate 0.5 % eye drops,susp ension 03/26 completed Not Available Not Available Not Available methylpred nisolone 4 mg tablets in a dose pack FOLLOW PACKAGE DIRECTION S 11/18 completed Not Available Not Available Not Available albuterol sulfate HFA 90 mcg/actuat ion aerosol inhaler INHALE 2 TO 4 PUFFS BY MOUTH EVERY 4 HOURS NEEDED FOR COUGH OR WHEEZING OR SHORTNESS OF BREATH active Not Available Not Available No t Available ondansetro n 4 mg disintegra ting tablet DISSOLVE 1 TABLET ON THE TONGUE EVERY 8 HOURS FOR 3 DAYS NEEDED FOR NAUSEA OR VOMITING 10/06 completed Not Available Not Available Not Available SF 5000 Plus 1.1 % dental cream BRUSH WITH A PEA SIZED AMOUNT ON TEETH twice a day 06/01 completed Not Available Not Available Not Available fluticason e propionate 50 mcg/actuat ion nasal spray,susp ension SHAKE LIQUID AND USE 1 SPRAY IN EACH NOSTRIL EVERY DAY active Not Available Not Available No t Available adapalene 0.1 % topical gel APPLY A THIN LAYER TO THE AFFECTED AREAS EVERY DAY AT AT BEDTIME. 12/04 completed Not Available Not Available Not Available ipratropiu m bromide 21 mcg (0.03 %) nasal spray USE 1 SPRAY IN EACH NOSTRIL 1 TO 2 TIMES EVERY DAY NEEDED active Not Available Not Available No t Available naproxen 500 mg tablet TAKE 1 TABLET BY MOUTH TWICE DAILY WITH MEALS FOR 14 DAYS 07/21 completed Not Available Not Available Not Available amoxicilli n 875 mg-potassi um clavulanat e 125 mg tablet TAKE 1 TABLET BY MOUTH TWICE DAILY FOR 10 DAYS 07/31 completed Not Available Not Available Not Available erythromyc in with ethanol 2 % topical gel APPLY A THIN LAYER TO THE AFFECTED AREA(S) BY TOPICAL ROUTE 2 TIMES PER DAY IN THE MORNING AND EVENING UNTIL RESOLVED (up to 4 weeks) 12/28 completed PRN Not Available Not Available Not Available etonogestr el 0.12 mg-ethinyl estradiol 0.015 mg/24 hr vaginal ring INSERT 1 RING VAGINALLY FOR 3 WEEKS THEN REMOVE FOR 1 WEEK active Not Available Not Available No t Available Vortex Holding Chamber with Toddler Mask active Not Available Not Available Not Available escitalopr am 10 mg tablet TAKE 1 TABLET BY MOUTH EVERY DAY 06/26 completed Not Available Not Available Not Available atomoxetin e 25 mg capsule TAKE 1 CAPSULE BY MOUTH EVERY MORNING 06/26 completed Not Available Not Available Not Available atomoxetin e 40 mg capsule TAKE 1 CAPSULE BY MOUTH EVERY MORNING 06/26 completed Not Available Not Available Not Available cyclobenza karie 5 mg tablet TAKE 1 TABLET BY MOUTH THREE TIMES DAILY FOR UP TO 7 DAYS NEEDED FOR MUSCLE SPASMS 09/17 completed Not Available Not Available Not Available Vigamox 0.5 % eye drops Instill 1 drop into affected eye(s) by ophthalmi c route 3 times per day 2010 active Not Available Not Available Not Avai lable escitalopr am 5 mg tablet TAKE 1 TABLET BY MOUTH DAILY active Not Available Not Available No t Available OptiChambe r Advantage spacer active Not Available Not Available Not Available Flovent HFA 44 mcg/actuat ion aerosol inhaler active Not Available Not Available Not Available levalbuter ol HFA 45 mcg/actuat ion aerosol inhaler INHALE 2 PUFFS BY MOUTH EVERY 4 TO 6 HOURS NEEDED 06/26 completed Not Available Not Available Not Available chlorhexid ine gluconate 0.12 % mouthwash 12/09 completed Not Available Not Available Not Available multivitam in 03/22 completed Not Available Not Available Not Available atomoxetin e 80 mg capsule TAKE 1 CAPSULE BY MOUTH EVERY MORNING active Not Available Not Available No t Available Pulmicort Flexhaler 180 mcg/actuat ion breath activated active 2 puffs BID Not Available Not Available Not Available Symbicort 160 mcg-4.5 mcg/actuat ion HFA aerosol inhaler inhale 2 puffs by mouth twice a day active Not Available Not Available No t Available PreviDent 5000 Booster Plus 1.1 % dental paste USE DIRECTED TWICE DAILY 09/17 completed Not Available Not Available Not Available Isibloom 0.15 mg-0.03 mg tablet TAKE 1 TABLET BY MOUTH EVERY DAY 03/22 completed Not Available Not Available Not Available Aurovela Fe 1-20 (28) 1 mg-20 mcg (21)/75 mg (7) tablet TAKE 1 TABLET BY MOUTH EVERY DAY 01/27 completed Not Available Not Available Not Available COVID-19 test specimen collection TEST DIRECTED TODAY 07/22 completed Not Available Not Available Not Available BinaxNOW COVID-19 Ag Self Test kit FOLLOW PACKAGE DIRECTION S active Not Available Not Available No t Available Vitals Date Recorded Body height Provider Name an d Address Organization Details Last Updated DateTime 11/16/2023 173.99 cm Beata Plascencia R.N. [facility] 11/16/2023 10:22:09 Date Recorded Body height Oxygen saturation Oxygen saturation in Arterial blood by Pulse oximetry Systolic blood pressure Diastolic blood pressure Provider Name and Address Organization Details Last Updated DateTime 173.99 cm 99 % 99 % 114 mm[Hg] 64 mm[Hg] Alexsandra Roberts CMA [facility] 13:56:52 Social History Question Answer Notes LastModified by Organizat ion Details LastModified Time Tobacco Smoking Status Never Smoker Not Available [facility] 04/17/2020 03:14:38 What Type Of Diet Are You Following? REGULAR [id number] Information not available 04/17/2020 Have There Been Any Changes To Your Family Or Social Situation? No [id number] Information not available 04/17/2020 Hard Of Hearing Or Deaf In One Or Both Ears? No Information not available 11/06/2015 Legally Blind In One Or Both Eyes? 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 08/09/2018 [id number] Information not available 04/17/2020 What Is The Name Of Your School? [employer] [id number] Information not available 04/17/2020 Do You Use Your Seat Belt Or Car Seat Routinely? Yes [id number] Information not available 04/17/2020 Are You Passively Exposed To Smoke? No Information not available 10/20/2013 How Much Tobacco Do You Smoke? No [id number] Information not available 04/17/2020 Do You Use Any Illicit Or Recreational Drugs? No Information not available 08/07/2020 Have You Recently Traveled Abroad? No Information not available 08/07/2020 Year In School 1 Information not available 04/19/2011 Sex: Female Functional Status None recorded. Mental Status None recorded. Family History Relationship Description Onset Age of this Age Resolved Age Notes LastModified by Organization Details LastModified Time Father Asthma klisien Not available 08:34:15 Father Obese klisien Not available 08:34:15 Paternal Grandmother Mental disorder klisien Not available 2014 08:34:15 Maternal Grandfather Heart disease klisien Not available 2014 08:34:15 Sister Asthma klisien Not available 08:34:15 Sister Mental disorder klisien Not available 2014 08:34:15 Sister Allergy klisien Not available 1 07/29/2014 08:34:15 Sister Rheumatoid arthritis klisien Not available 2014 08:34:15 Mother Autoimmune disease klisien Not available 2014 08:34:15 Brother Mental disorder klisien Not available 2014 08:34:15 Maternal Grandmother Malignant tumor of lung 08/2021 kcamera Not available 09/11/2021 15:04:45 Notes:MUCH ASTHMA IN FAMILY !! Updated 10/06 Medical History Condition Response CARDIAC PROBLEMS N ALLERGIC AND IMMUNOLOGIC PROBLEMS N DEVELOPMENTAL/ BEHAVIORAL PROBLEMS Y GENITOURINARY N HOSPITALIZATIONS N ACCIDENTS INJURIES N VISION IMPAIRMENT N ENDOCRINE PROBLEMS/DIABETES N GI PROBLEMS/CONSTIPATION N OPHTHALMOLOGIC PROBLEMS N ORTHOPEDIC PROBLEMS Y CHICKEN POX / VARICELLA HISTORY or POSIT AZ TITER N HEARING IMPAIRMENT N MUSCLE/ JOINT/ BONE PROBLEMS N RHEUMATOLOGIC PROBLEMS N DERMATOLOGIC PROBLEMS/ECZEMA Y ENT PROBLEMS/OTITIS MEDIA/ CHRONIC N RELIEF PILOT PROBLEMS Y HEMATOLOGIC /ONCOLOGIC PROBLEMS N RENAL PROBLEMS N OTHER N NEUROLOGIC/ SEIZURES OR CONVULSIONS N ADHD N HEADACHES/MIGRAINES/DIZZINESS Y CONGENITAL AND GENETIC PROBLEMS N INFECTIOUS DISEASE PROBLEMS Y PUMONARY PROBLEMS/ ASTHMA Y PSYCH PROBLEMS Y Gynecological History Statement/Question Response Y Date of LMP 09/23/2023 Age at onset of periods 14 YRS Obstetrics History GPAL:G 0 P 0 0 0 0 Immunizations Vaccine Type Date Status Note Provider Name and Address Organization Details Recorded Time varicella 06/09/20 07 completed Not Available [facility] 04/19/2011 03:16:44 Influenza, split virus, trivalent, preservative 03/24/20 11 completed Not Available [facility] 07/02/2019 02:35:18 IPV 02/09/20 04 completed Not Available [facility] 04/19/2011 03:18:43 DTaP, unspecified formulation 02/09/20 04 completed Not Available [facility] 04/19/2011 03:18:43 varicella 07/07/19 04 completed Not Available [facility] 04/19/2011 03:18:43 DTaP, unspecified formulation 02/04/20 03 completed Not Available [facility] 04/19/2011 03:18:43 DTaP, unspecified formulation 11/19/19 03 completed Not Available [facility] 04/19/2011 03:18:43 IPV 08/23/19 03 completed Not Available [facility] 04/19/2011 03:18:43 DTaP, unspecified formulation 08/23/19 03 completed Not Available [facility] 04/19/2011 03:18:43 IPV 11/19/19 03 completed Not Available [facility] 04/19/2011 03:18:43 MMR 06/05/20 06 completed Not Available [facility] 04/19/2011 03:18:43 MMR 11/29/19 04 completed Not Available [facility] 04/19/2011 03:18:43 Hep B, unspecified formulation 04/03/20 03 completed Not Available [facility] 04/19/2011 03:18:43 Hep B, unspecified formulation 06/22/19 03 completed Not Available [facility] 04/19/2011 03:18:43 Hib, unspecified formulation 11/19/19 03 completed Not Available [facility] 04/19/2011 03:18:43 Hib, unspecified formulation 11/29/19 04 completed Not Available [facility] 04/19/2011 03:18:43 Hib, unspecified formulation 08/23/19 03 completed Not Available [facility] 04/19/2011 03:18:43 Hib, unspecified formulation 02/04/20 03 completed Not Available [facility] 04/19/2011 03:18:43 Hep B, unspecified formulation 07/20/19 03 completed Not Available [facility] 04/19/2011 03:18:43 pneumococcal conjugate PCV 7 11/19/19 03 completed Not Available [facility] 04/19/2011 03:18:43 pneumococcal conjugate PCV 7 07/07/19 04 completed Not Available [facility] 04/19/2011 03:19:20 pneumococcal conjugate PCV 7 08/23/19 03 completed Not Available [facility] 04/19/2011 03:18:43 pneumococcal conjugate PCV 7 02/04/20 03 completed Not Available [facility] 04/19/2011 03:18:43 Influenza, split virus, trivalent, preservative 06/17/19 13 completed Not Available [facility] 07/02/2019 02:35:26 Influenza, split virus, quadrivalent, PF 03/04/20 13 completed Not Available [facility] 07/02/2019 02:35:35 Influenza, split virus, quadrivalent, PF 03/20/20 14 completed Not Available [facility] 07/02/2019 02:35:57 Tdap 05/26/20 14 completed Not Available [facility] 07/02/2019 02:33:47 meningococcal MCV4P 05/26/20 14 completed Not Available [facility] 07/02/2019 02:33:36 HPV, quadrivalent 05/26/20 14 completed Not Available [facility] 07/02/2019 02:34:15 HPV, quadrivalent 08/01/19 15 completed Not Available [facility] 07/02/2019 02:34:17 HPV, quadrivalent 12/02/19 15 completed Not Available [facility] 07/02/2019 02:36:07 Influenza, split virus, quadrivalent, PF 04/05/20 15 completed Not Available [facility] 07/02/2019 02:36:20 Influenza, split virus, quadrivalent, PF 04/14/20 16 completed Not Available [facility] 07/02/2019 02:37:13 COVID-19, mRNA, LNP-S, PF, 30 mcg/0.3 mL dose 09/25/19 21 completed Kalpesh Ornelas, [facility] 09/04/2021 14:05:49 COVID-19, mRNA, LNP-S, PF, 30 mcg/0.3 mL dose 10/25/19 21 [facility] 14:06:00 COVID-19, mRNA, LNP-S, PF, 100 mcg/0.5mL dose or 50 mcg/0.25mL dose 05/30/20 21 [facility] 14:07:01 Influenza, split virus, quadrivalent, PF 07/02/19 18 completed Not Available [facility] 07/02/2019 02:38:10 meningococcal MCV4P 08/09/19 19 completed Not Available [facility] 07/02/2019 02:38:57 Influenza, split virus, quadrivalent, PF 04/05/20 19 completed Not Available [facility] 07/02/2019 02:39:12 meningococcal B, OMV 08/09/19 20 cancelled patient objection Karlene Santana MD [address] [place] [address], , [facility] 08/09/2019 13:52:44 Influenza, split virus, quadrivalent, PF 03/10/20 20 [facility]10[facility]2020 14:24:45 Hep A, ped/adol, 2 dose 08/07/19 21 completed Karlene Santana MD [address] [place] [address], , [facility] 08/07/2020 14:03:05 meningococcal B, OMV 08/07/19 21 completed Karlene Santana MD [address] [place] [address], , [facility] 08/07/2020 14:03:05 Hep A, ped/adol, 2 dose 02/06/20 21 [facility] 02/05/2021 08:21:00 meningococcal B, OMV 02/06/20 21 [facility]/05/2021 08:21:00 Influenza, split virus, quadrivalent, PF 03/08/20 22 completed Karlene Santana MD [address] [place] [address], , [facility] 03/08/2022 10:52:18 Tdap 10/08/19 24 completed Karlene Santana MD [address] [place] [address], , [facility] 10/08/2023 17:23:36 DTaP, unspecified formulation 06/09/20 07 completed Not Available [facility] 04/19/2011 03:16:44 IPV 06/09/20 07 completed Not Available [facility] 04/19/2011 03:16:44 Past Encounters Encounter ID Performer Location Encounter Start Date Encounter Closed Date Diagnosis/Indication Diagnosis SNOMED-CT Code Diagnosis ICD10 Code Diagnosis Note [id number] PVP Tingolu silva [address] [place] [address] [place] [id number] 01/18/2007 15:55:16 01/18/2007 17:18:16 [id number] PVP Narciso w [address] [place] [address] [place] [address] 03/02/2007 09:20:55 03/02/2007 10:01:54 [id number] PVP Sukhdevmeado w [address] [place] [address] 06/09/2007 14:15:04 06/09/2007 16:03:48 [id number] PVP Sukhdevmeado w [address] [place] [address] 06/09/2007 14:15:04 06/09/2007 16:03:48 [id number] PVP Sukhdevmeado w [address] [place] [id number] 08/20/2007 10:57:22 08/20/2007 11:17:38 [id number] PVP Sukhdevmeado w [address] [place] [address] 10/14/2007 15:42:44 02/22/2009 01:23:50 [id number] PVP [facility] [address] [place] [id number] 10/19/2007 10:35:29 10/19/2007 11:16:10 [id number] PVP Sukhdevmeado w [address] [place] [id number] 11/09/2007 17:36:13 11/09/2007 18:16:56 [id number] PVP Sukhdevmeado w [address] [place] [id number] 05/12/2008 17:04:58 05/12/2008 17:34:20 [id number] PVP Sukhdevmeado w [address] [place] [address] 07/12/2008 14:03:36 07/12/2008 14:51:19 [id number] PVP Sukhdevmeado w [address] [place] [id number] 07/25/2008 10:36:56 07/25/2008 11:06:57 [id number] PVP Sukhdevmeado w [address] [place] [address] 08/14/2008 13:17:39 02/22/2009 01:23:50 [id number] PVP Long[place] w [address] [place] [address] 10/28/2008 10:50:37 10/28/2008 11:27:44 [id number] PVP [place] w [address] [place] [address] 11/07/2008 14:31:35 11/07/2008 15:20:09 [id number] [facility] [address] [place] [address] 4 12/12/2008 17:08:10 12/12/2008 17:32:00 [id number] [facility] [address] [place] [address] 4 12/18/2008 16:33:02 12/18/2008 17:13:33 [id number] [facility] [address] [place] [address] 4 12/21/2008 13:05:00 12/21/2008 14:27:22 [id number] [facility] [address] [place] [address] 4 12/28/2008 10:57:32 12/28/2008 11:15:35 [id number] [facility] [address] [place] [address] 4 04/05/2009 10:21:51 04/05/2009 12:29:53 [id number] [facility] [address] [place] [address] 4 04/08/2009 12:57:27 04/08/2009 13:52:19 [id number] [facility] [address] [place] [address] 4 04/09/2009 15:04:14 04/09/2009 16:51:38 [id number] [facility] [address] [place] [address] 4 05/15/2009 16:12:57 05/15/2009 17:21:24 [id number] [facility] [address] [place] [address] 4 05/21/2009 14:00:45 05/21/2009 15:01:23 [id number] [facility] [address] [place] [address] 4 05/25/2009 11:16:12 05/25/2009 11:58:59 [id number] [facility] [address] [place] [address] 4 07/24/2009 17:18:34 07/24/2009 17:43:16 [id number] [facility] [address] [place] [address] 4 08/31/2009 17:13:07 08/31/2009 17:36:57 [id number] [facility] [address] [place] [address] 4 09/04/2009 16:00:08 09/04/2009 16:57:53 [id number] [facility] [address] [place] [address] 4 09/10/2009 15:46:08 09/10/2009 16:36:26 [id number] [facility] [address] [place] [address] 4 09/14/2009 11:02:44 09/14/2009 15:12:59 [id number] [facility] [address] [place] [address] 4 09/20/2009 16:32:13 09/20/2009 17:47:45 [id number] [facility] [address] [place] [address] 4 11/07/2009 16:39:38 11/08/2009 08:08:22 [id number] [facility] [address] [place] [address] 4 01/04/2010 15:57:00 01/04/2010 16:50:34 [id number] [facility] [address] [place] [address] 4 01/08/2010 12:47:46 01/08/2010 14:42:12 [id number] [facility] [address] [place] [address] 4 02/28/2010 16:53:36 02/28/2010 17:54:51 [id number] [facility] [address] [place] [address] 4 02/28/2010 16:53:55 02/28/2010 16:55:32 [id number] [facility] [address] [place] [address] 4 05/06/2010 12:57:39 05/06/2010 13:55:43 [id number] [facility] [address] [place] [address] 4 07/04/2010 10:15:06 07/04/2010 11:12:04 [id number] [facility] [address] [place] [address] 4 08/27/2010 16:22:49 08/27/2010 17:15:08 [id number] [facility] [address] [place] [address] 4 09/06/2010 12:53:57 09/06/2010 13:27:03 [id number] [facility] [address] [place] [address] 4 09/13/2010 10:29:20 09/13/2010 11:04:13 [id number] [facility] [address] [place] [address] 4 10/21/2010 13:32:17 10/21/2010 14:02:50 [id number] [facility] [address] [place] [address] 4 10/31/2010 13:32:35 10/31/2010 14:24:36 [id number] PVP [address] [address] 2 11/07/2010 11:44:04 11/07/2010 12:23:03 [id number] [facility] [address] [place] [address] 4 04/23/2011 13:32:49 04/23/2011 13:54:44 [id number] [facility] [address] [place] [address] 4 06/18/2011 16:29:57 06/18/2011 17:14:35 [id number] [facility] [address] [place] [address] 4 06/19/2011 10:57:31 06/19/2011 11:31:36 [id number] [facility] [address] [place] [address] 4 09/23/2011 16:11:31 09/23/2011 16:57:43 [id number] [facility] [address] [place] [address] 4 11/05/2011 10:17:40 11/05/2011 12:19:01 [id number] [facility] [address] [facility] [place] [address] 4 01/29/2012 11:41:16 01/29/2012 12:45:31 [id number] Freeman Hernadez P[facility] [address] [facility] [place] [address] 4 03/09/2012 10:58:19 03/09/2012 11:45:29 [id number] Ada Mayo [facility] [address] [place] [address] 4 07/15/2012 11:29:47 07/15/2012 13:20:52 [id number] Karlene Santana MD [facility] [address] [place] [address] [place] [address] 4 09/22/2012 12:47:56 09/22/2012 14:58:57 [id number] Zunilda Coffey [facility] [address] [facility] [place] [address] 4 10/18/2012 15:15:50 10/18/2012 16:30:47 [id number] Karlene Santana MD [facility] [address] [place] [address] 4 10/28/2012 16:52:04 10/28/2012 17:43:48 [id number] [facility] [address] [place] [address] 4 07/21/2013 16:59:25 07/21/2013 17:44:21 Upper respiratory infection 93157390 [id number] [facility] [address] [place] [address] 4 10/20/2013 12:53:31 10/20/2013 13:15:48 Acute pharyngitis 234643914 [id number] Pearl Shore M.A. [facility] [address] [place] [address] 4 10/25/2013 11:01:19 10/25/2013 11:38:39 Sinusitis 91507973 [id number] Shazia Arauz [facility] [address] [place] [address] 4 11/16/2013 14:30:34 11/17/2013 08:23:16 Acute pharyngitis 322098399 Asthma 952087442 [id number] Catherine Mejia [address] [address] 4 12/19/2013 14:26:31 12/19/2013 14:55:05 On examination - mouth rash 040593845 [id number] Karlene Santana MD [address] [address] 4 01/09/2014 16:42:01 01/09/2014 17:09:45 Upper respiratory infection 65795505 Asthma wit hout status asthmaticus 20744795 [id number] Catherine Mejia [address] [address] 2 01/12/2014 13:20:12 01/12/2014 14:12:36 Sinusitis 94501269 [id number] Tania Jarquin R.N. [address] [address] 4 02/24/2014 14:53:27 02/24/2014 15:20:14 Sinusitis 37530575 Asthma 628319392 [id number] Karlene Santana MD [address] [address] 4 03/20/2014 15:27:56 03/20/2014 15:43:38 Influenza vaccine needed 8990637208 106 [id number] Alexandra Trivedi M.A. [address] [address] 4 05/26/2014 09:57:08 05/26/2014 11:33:44 Well child 538531917 [id number] Yamile Qingever [address] [address] 4 06/04/2014 13:09:52 06/04/2014 13:46:54 Acute pharyngitis 202495266 Upper resp iratory infection 89552539 Asthma 788037760 968382 Becca Davis [address] [address] 4 07/12/2014 11:16:15 07/12/2014 12:12:30 Asthma without status asthmaticus 84312570 Acute pharyngitis 726475973 271643 [address] [address]557 2 07/15/2014 11:30:03 07/15/2014 11:57:50 Asthma 128494898 Cough 72343340 [id number] Martha Bella [address] [address] 4 08/01/2014 09:40:57 08/01/2014 09:54:25 Administration of viral vaccine [id number] Shot only HPV [id number] [address] [address]592 4 09/27/2014 10:59:46 09/27/2014 11:25:57 Acute pharyngitis 029455777 Upper resp iratory infection 74646787 3360[address] [address]734 4 11/19/2014 11:54:20 11/19/2014 12:28:21 Acute pharyngitis 571055648 Asthma wit hout status asthmaticus 98341523 [id number] Alexandra Trivedi M.A. [address] [address]896 4 11/22/2014 13:03:04 11/22/2014 14:34:24 Asthma without status asthmaticus 21028005 [id number] Catherine Mejia [address] [address] 4 11/24/2014 16:29:59 11/24/2014 16:57:23 Asthma without status asthmaticus 31312375 Sinusitis 42857600 [address] [address] 4 12/01/2014 09:12:26 12/01/2014 09:57:22 Administration of viral vaccine 56606601 Shot only HPV [id number] Karlene Santana MD [address] [address] 4 12/29/2014 09:20:52 12/29/2014 09:43:14 Verruca vulgaris 89453046 [id number] Lucero Hughes R.N. [address] [address]696 4 01/25/2015 16:27:51 01/25/2015 17:09:37 Knee pain 52608928 [id number] Shree Plata MD [address] [address]596 4 03/05/2015 10:58:50 03/05/2015 11:41:53 Acute pharyngitis 534380795 Upper resp iratory infection 87508202 916124 [address] [address]386 4 03/12/2015 16:18:46 03/12/2015 17:01:51 Asthma 610402942 Looks well without any evidence of wheeze despite no nebs today. Stressed importance of continuing sick plan - will do advair BID and albuterol q4hr. If not improving or worsening will RTO but do not think she needs oral steroids at this point. [id number] Karlene Santana MD [address] [address] 4 05/28/2015 08:22:53 05/28/2015 09:15:11 Well child 111292878 Z00.121 Knee pain 22963526 M25.5 69 M25.562 Idiopathic scoliosis 203 078654 M41.119 Asthma 861915746 J45.90 9 [id number] Isa Palma MD [address] [address]835 4 09/06/2015 11:24:58 09/06/2015 13:00:48 Viral syndrome 707292979 B34.9 [id number] Karlene Santana MD [address] [address] 4 09/21/2015 10:41:40 09/21/2015 13:03:38 Acute asthma 244345892 J45.901 Upper resp iratory infection 88441150 J06.9 Feeling stressed 4268190 06 Z73.3 [id number] Martha Bella [address] [address]776 4 11/06/2015 11:42:58 11/06/2015 12:29:59 Acute pharyngitis 651772653 J02.9 Strep throat-crystal l start antibiotic s. Sx Care for pain/disco mfort. F/u if not getting better over the next 3 days or worsening- sooner prn. Streptococ amarjit sore throat 62081719 J02.0 [id number] Karlene Santana MD [address] [address]33 4 03/10/2016 13:41:39 03/10/2016 14:38:57 Acute pharyngitis 119380076 J02.9 [id number] Karlene Santana MD [address] [address]254 4 03/17/2016 15:51:55 03/17/2016 16:49:04 Acute asthma 448557918 J45.901 Acute sinusitis 80052076 J01.90 Fatigue 57291050 R53.83 [id number] Karlene Santana MD [address] [address] 4 04/18/2016 16:26:27 04/18/2016 17:07:11 Acute asthma 894139133 J45.901 Anxiety 15335847 F41.9 [id number] Karlene Santana MD [address] [address] 4 04/22/2016 16:12:30 04/22/2016 17:07:27 Acute asthma 560435214 J45.901 Acute bronchitis 0092459 2 J20.9 [id number] Karlene Santana MD [address] [address]137 4 06/23/2016 12:53:15 06/23/2016 14:01:40 Well child 934977797 Z00.129 Asthma 870774376 J45.90 9 Idiopathic scoliosis 203 979009 M41.119 Knee pain 53673327 M25.5 69 M25.562 Anxiety 14740362 F41.9 [id number] Karlene Santana MD [address] [address]977 4 09/12/2016 11:01:16 09/12/2016 11:52:09 Streptococcal sore throat 69468191 J02.0 Pain in cheek 460900554 R51 [id number] Karlene Santana MD [address] [address]748 4 09/17/2016 09:43:00 09/17/2016 12:56:01 Acute asthma 729157990 J45.901 Streptococ amarjit sore throat 26539697 J02.0 414104 Karlene Santana MD [address] [address]559 4 09/19/2016 17:06:59 09/19/2016 17:54:48 Acute asthma 353233983 J45.901 [id number] Lalo Walden MD [address] [address] 4 09/22/2016 13:35:11 09/22/2016 15:55:19 Cough 15101943 R05 Lingering cough after asthma exacerbati on Streptococ amarjit sore throat 62118551 J02.0 Resolving - still on meds Acute asthma 245136281 J 45.901 Finished Prednisone , still on nebulizerN o wheeze, but cough persists [id number] Karlene Santana MD [address] [address]351 4 11/25/2016 10:48:29 11/25/2016 12:29:26 Acute pharyngitis 413192764 J02.9 Acute asthma 314815537 J 45.901 [id number] Freeman Hernadez [address] [address]72 4 04/13/2017 11:36:51 04/13/2017 13:40:33 Acute pharyngitis 903058973 J02.9 [id number] Karlene Santana MD [address] [address] 4 04/15/2017 13:55:36 04/15/2017 15:16:45 Acute asthma 601651907 J45.901 Acute otitis media 28067 03 H66.91 [id number] Shree Plata MD [address] [address]252 4 04/30/2017 14:02:00 04/30/2017 14:54:28 Pain in throat 748414759 R07.0 Viral syndrome 115789513 B34.9 [id number] Shree Plata MD [address] [address] 4 06/25/2017 16:52:27 06/25/2017 17:15:18 Acute pharyngitis 815089553 J02.9 [id number] Karlene Santana MD [address] [address]158 4 07/02/2017 15:07:13 07/02/2017 17:03:37 Well child 463868307 Z00.129 Normal weight 15222284 Z 68.52 Active or passive immunization 221013598 Z23 Asthma 575244815 J45.90 9 Knee pain 17718949 M25.5 69 M25.562 Developmen gwen academic disorder 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.9 [id number] Karlene Santana MD [address] [address] 4 10/28/2017 11:26:28 10/28/2017 13:49:09 Acute asthma 550527262 J45.901 Upper resp iratory infection 05205726 J06.9 Headache 58184834 R51 Disorder o f nasal cavity 899018498 J34.9 [id number] Karlene Santana MD [address] [address] 4 11/03/2017 11:29:29 11/03/2017 13:01:05 Acute asthma 684269170 J45.901 Acute sinusitis 13749400 J01.90 Headache 50355351 R51 [id number] Shree Plata MD [address] [address]774 4 03/05/2018 10:22:36 03/05/2018 12:40:44 Acute pharyngitis 905722762 J02.9 540014 Karlene Santana MD [address] [address]277 4 03/09/2018 14:40:48 03/09/2018 15:38:57 Acute asthma 247475926 J45.901 [id number] Karlene Santana MD [address] [address]429 4 03/16/2018 16:57:31 03/16/2018 17:59:07 Acute asthma 498741436 J45.901 Vocal cord dysfunction 843963897 R49.9 Allergic rhinitis 756009 04 J30.9 [id number] Martha Bella [address] [address] 4 04/14/2018 14:44:56 04/14/2018 15:10:35 Acute pharyngitis 988916624 J02.9 URI sx tx f/u prn- temp control- sore throat r/o strep but likely viral illness disc with parent Posterior rhinorrhea 758 25610 R09.82 saline nasal spray [id number] Nathalie Sepulveda MD [address] [address]82 2 06/01/2018 12:14:56 06/02/2018 08:20:15 Acute pharyngitis 661535311 J02.9 Upper resp iratory infection 40822464 J06.9 Asthma 135839022 J45.90 9 Exposure t o Bordetella pertussis 066895309 Z20.818 [id number] Karlene Santana MD [address] [address]210 4 08/09/2018 12:48:24 08/09/2018 15:15:50 Active or passive immunization 104900257 Z23 Well child 374625629 Z00 .129 Normal weight 78538838 Z 68.52 Moderate p ersistent asthma 033452312 J45.40 Anxiety 43574485 F41.9 Developmen gwen academic disorder 2771657 F81.9 Knee pain 06117643 M25.5 69 M25.562 [id number] Karlene Santana MD [address] [address]886 4 02/08/2019 14:04:16 02/08/2019 16:07:56 Dysmenorrhea 771747542 N94.6 Menorrhagia 263314362 N9 2.0 [id number] Karlene Santana MD [address] [address]-828 4 04/05/2019 13:53:46 04/05/2019 16:34:50 Dysmenorrhea 160553541 N94.6 Menorrhagia 479305580 N9 2.0 Active or passive immunization 817215546 Z23 [id number] Isa Palma MD [address] [address]207 4 04/21/2019 10:14:14 04/21/2019 17:52:22 Acute pharyngitis 680506583 J02.9 Asthma 347039094 J45.90 9 [id number] Myrnaher Shafereck [address] [address]482 4 05/30/2019 16:11:45 05/30/2019 17:45:36 Acute pharyngitis 202424845 J02.9 Lymphadenopathy 63510540 R59.0 [id number] Karlene Santana MD [facility] [address] [address] 4 08/09/2019 12:54:13 08/09/2019 16:54:13 Well child 487496975 Z00.129 Normal weight 18665983 Z 68.52 Active or passive immunization 077635517 Z23 Acne 58243285 L70.9 Developmen gwen academic disorder 9072294 F81.9 Moderate p ersistent asthma 554813023 J45.40 Anxiety 81230961 F41.9 Dysmenorrhea 905852160 N 94.6 Menorrhagia 852485716 N9 2.0 [id number] Tierney BolañosDO manuela [facility] [address] [place] [address] 4 08/17/2019 12:53:15 08/17/2019 13:44:55 Dysuria 62122234 R30.0 Urinary tr act infectious disease 57980908 N39.0 132454 Tierney Bolañosmanuela DO [facility] [address] [place] [address]148 4 12/12/2019 15:57:01 12/12/2019 16:42:21 Contact dermatitis 99336137 L25.9 [id number] Tierney Bolañosmanuela DO [facility] [address] [place] [address]-230 4 12/23/2019 17:37:28 12/23/2019 18:09:06 Perioral dermatitis 686607676 L71.0 [id number] Martha Bella [address] [address]-726 4 03/10/2020 10:32:21 03/10/2020 14:03:46 Active or passive immunization 932329818 Z23 [id number] Karlene Santana MD [address] [address]215 4 08/07/2020 12:45:51 08/07/2020 14:25:10 Active or passive immunization 730796883 Z23 Adult heal th examination 913341109 Z00.00 Normal bod y mass index 09577811 Z68.1 Anxiety 78911820 F41.9 Developmen gwen academic disorder 5785005 F81.9 Knee pain 02632077 M25.5 69 M25.562 Moderate p ersistent asthma 441849135 J45.40 [id number] Shree Plata MD [facility] [address] [address] 4 08/14/2020 15:54:59 08/14/2020 18:37:44 Nasal congestion 98457231 R09.81 Ear problem 016650602 H9 3.92 [id number] Karlene Santana MD [address] [address]-388 4 09/04/2020 15:29:41 09/04/2020 16:41:33 Impacted third molar tooth 958213127 K01.1 [id number] Shree Plata MD [address] [address]-395 4 11/18/2020 09:36:58 11/18/2020 10:01:16 Asthma 763065487 J45.909 [id number] Tierney Sal DO [address] [address]-592 4 11/28/2020 11:28:06 11/28/2020 14:11:25 Dysfunction of eustachian tube 43123756 H69.90 [id number] Karlene Santana MD [address] [address] 2 12/28/2020 09:46:00 12/28/2020 12:49:04 Acne 74123838 L70.9 [id number] ALVARO MODI MD [address] [address]-652 4 02/05/2021 08:12:35 02/05/2021 17:27:30 Active or passive immunization 764997417 Z23 [id number] Isa Palma MD [address] [address]-980 4 03/22/2021 16:57:23 03/23/2021 00:52:19 Viral syndrome 638452957 B34.9 Asthma 263408988 J45.90 9 [id number] Karlene Santana MD [address] [address] 4 03/27/2021 13:56:14 03/27/2021 17:04:38 Anxiety 09462092 F41.9 Disturbanc e of attention 48515812 R41.840 Developmen gwen academic disorder 1938281 F81.9 Child atte ntion deficit disorder 402982242 F90.9 Sleep disorder 56563755 G47.9 098348 Shree Plata MD [address] [address]-741 4 03/26/2021 16:17:27 03/26/2021 16:51:24 Asthma 876446992 J45.909 [id number] Karlene Santana MD [address] [address]-450 4 04/24/2021 15:53:56 04/24/2021 17:00:43 Headache 14066594 R51.9 Moderate p ersistent asthma 482286416 J45.40 Anxiety 20497659 F41.9 Child atte ntion deficit disorder 510699723 F90.9 Developmen gwen academic disorder 3488804 F81.9 [id number] Tierney Sal DO [address] [address]263 4 07/15/2021 14:14:22 07/15/2021 17:03:01 Dysuria 16396626 R30.0 Abdominal pain 48990857 R10.9 Lower abdominal pain 545 59689 R10.30 [id number] Shree Plata MD [address] [address]-506 4 07/22/2021 10:33:07 07/22/2021 10:54:00 Verruca vulgaris 58907167 B07.9 [id number] Karlene Santana MD [address] 8[address]-470 4 09/04/2021 13:56:00 09/04/2021 15:54:47 Adult health examination 478728400 Z00.00 Diet education 49996044 Z71.3 Exercises education, guidance, and counseling 876605718 Z71.82 Normal bod y mass index 71626264 Z68.1 Developmen gwen academic disorder 9272756 F81.9 Child atte ntion deficit disorder 570403154 F90.9 Anxiety 05886578 F41.9 Migraine without aura 56 675935 G43.009 Moderate p ersistent asthma 174080181 J45.40 [id number] Karlene Santana MD [address] [address]-875 4 09/11/2021 14:36:33 09/11/2021 15:07:17 Acute sinusitis 85393220 J01.90 [id number] Karlene Santana MD [address] [address]-659 4 12/04/2021 09:51:55 12/04/2021 13:02:24 Anxiety 78721502 F41.9 Child atte ntion deficit disorder 147123610 F90.9 Depressive disorder 3548 9007 F32.A Developmen gwen academic disorder 9337902 F81.9 Headache 42311466 R51.9 [id number] Karlene Santana MD [address] [address]77-201 4 01/07/2022 13:53:47 01/07/2022 15:23:43 Anxiety 57005146 F41.9 Child atte ntion deficit disorder 446194602 F90.9 Depressive disorder 3548 9007 F32.A Anterior knee pain 78617 3006 M25.569 132321 Tierney Sal DO [place] [address] [place] [address] 4 01/27/2022 16:37:36 01/28/2022 07:30:05 Suspected COVID-19 907465097 Z20.822 Fever 954930369 R50.9 Acute pharyngitis 548958 003 J02.9 [id number] Shree Plata MD [address] [address]-713 4 02/24/2022 11:35:53 02/24/2022 12:32:30 Verruca vulgaris 86898721 B07.9 [id number] Lalo Walden MD [address] [address] 2 03/17/2022 16:31:37 03/18/2022 07:56:25 Suspected COVID-19 954570587 Z20.822 Will isolate pending covid results Sinusitis 24897565 J32.9 clinical dx - will treat with PO amox. Will call by end of week if not improving and will switch to augmentin. Reviewed nasal saline/net tipot. [id number] Tierney Bolañosmanuela, [address] [address]882 4 06/26/2022 13:51:26 06/27/2022 07:14:30 Suspected COVID-19 682388744 Z20.822 Acute pharyngitis 920171 003 J02.9 Headache 91846163 R51.9 [id number] Karlene Santana MD [address] [address]-030 4 07/09/2022 10:48:40 07/09/2022 14:41:03 Acute sinusitis 04955238 J01.90 Moderate p ersistent asthma 877977972 J45.40 [id number] Karlene Santana MD [address] [address]-800 4 07/31/2022 13:40:08 07/31/2022 14:30:36 Suspected COVID-19 899353715 Z20.822 Acute sinusitis 45517600 J01.90 Exacerbati on of moderate persistent asthma 668954439 J45.41 [id number] Karlene Santana MD [address] [address]631 4 10/06/2022 12:39:26 10/06/2022 14:49:09 Active or passive immunization 140645341 Z23 Adult heal th examination 470005922 Z00.00 Diet education 14446210 Z71.3 Exercises education, guidance, and counseling 073215864 Z71.82 Normal bod y mass index 06623138 Z68.20 Hyperlipid emia screening 365947343 Z13.220 Developmen gwen academic disorder 4251665 F81.9 Depressive disorder 3548 9007 F32.A Anxiety 31142710 F41.9 Child atte ntion deficit disorder 930814625 F90.9 Acne 09359938 L70.9 Allergic rhinitis 767226 04 J30.9 Dysmenorrhea 014590362 N 94.6 Migraine without aura 56 537737 G43.009 Moderate p ersistent asthma 068346750 J45.40 589046 ALVARO MODI MD [address] [address]909 4 10/19/2022 08:28:49 10/19/2022 10:26:02 Acute pharyngitis 433904844 J02.9 [id number] ALVARO MODI MD [address] [address]-515 4 11/11/2022 09:37:10 11/11/2022 12:52:54 Diarrhea 97502355 R19.7 [id number] Karlene Santana MD [address] 9[address]22-101 4 12/09/2022 09:09:43 12/09/2022 10:33:59 Acute pharyngitis 577081093 J02.9 Suspected COVID-19 10117 4004 Z20.822 [id number] Shree Plata MD [address] [address]-666 4 01/01/2023 13:58:20 01/01/2023 14:32:08 Acute pharyngitis 038205653 J02.9 [id number] Nidia Carias MD P[facility] [address] [address]-086 4 01/02/2023 09:35:56 01/02/2023 10:04:46 Cough 96251508 R05.9 Exacerbati on of moderate persistent asthma 729423293 J45.41 [id number] Nidia Carias MD [address] 99021-829 4 01/07/2023 16:35:27 01/08/2023 07:10:09 Acute sinusitis 62910263 J01.90 Exacerbati on of moderate persistent asthma 604488245 J45.41 [id number] Lalo Walden MD [address] [address]216 4 03/21/2023 12:11:38 03/21/2023 13:22:50 Reactive lymphadenopathy 116540339 R59.1 Preauricul ar node - suspect related to acne but will need to monitor closely. She knows to call if increasing in size, red overlying, more painful, fevers, etc. [id number] Karlene Santana MD [address] [address]647 4 06/03/2023 13:27:48 06/03/2023 14:41:45 Exacerbation of moderate persistent asthma [id number] J45.41 [id number] ALVARO MODI MD [address] [address] 4 06/07/2023 11:33:21 06/07/2023 12:43:16 Atypical pneumonia 427626284 J18.9 Acute left otitis media 649197210 H66.92 Asthma 820578200 J45.90 9 [id number] Shree Plata MD [address] [address] 4 06/16/2023 13:32:38 06/16/2023 13:50:49 Upper respiratory infection 36734745 J06.9 [id number] Karlene Santana MD [address] [address] 4 07/21/2023 10:46:12 07/21/2023 12:54:53 Otalgia of right ear 5073159088 H92.01 Exacerbati on of mild persistent asthma 707891460 J45.31 [id number] Isa Palma MD [address] [address] 4 09/18/2023 12:49:25 09/18/2023 13:56:54 Acute pharyngitis 502496889 J02.9 Viral syndrome 736347149 B34.9 [id number] Karlene Santana MD [address] [address] 4 09/23/2023 13:46:22 09/23/2023 14:29:28 Exacerbation of moderate persistent asthma 672897698 J45.41 [id number] Karlene Santana MD [address] [address] 4 10/08/2023 15:02:09 10/08/2023 17:25:57 Active or passive immunization [id number] Z23 Adult [facility] th examination 151861792 Z00.00 Normal bod y mass index 50772245 Z68.21 Hyperlipid emia screening 451624471 Z13.220 Diet education 47556665 Z71.3 Exercises education, guidance, and counseling 124673485 Z71.82 Child atte ntion deficit disorder 426142590 F90.9 Depressive disorder 3548 9007 F32.A Developmen gwen academic disorder 5780859 F81.9 Moderate p ersistent asthma 661805302 J45.40 Headache 43133559 R51.9 Anxiety 64993655 F41.9 [id number] Karlene Santana MD [address] [address] 4 10/13/2023 10:53:29 10/13/2023 12:31:05 Verruca plantaris 61764050 B07.0 [id number] Karlene Santana MD [address] [address] 4 10/19/2023 10:49:01 10/19/2023 11:47:08 Verruca plantaris 78383769 B07.0 [id number] ALVARO MODI MD [address] [address] 4 10/27/2023 12:49:03 10/27/2023 19:03:34 Fatigue 35277043 R53.[address] rt of left foot [id number] 3185006 B07.0 [id number] Karlene Santana MD [address] [address] 4 11/16/2023 10:20:33 11/16/2023 15:13:03 Fatigue [id number] R53.83 Verruca plantaris [id number] 08 B07.0 [id number] RACHNA KNIGHT DO [address] [address] 02/16/2024 13:24:25 02/16/2024 19:36:36 Migraine 80060176 G43.909 Neck pain [id number] M54.2 [id number] Karlene Santana MD [address] [address] 4 03/07/2024 13:49:39 03/07/2024 14:18:41 Acute pharyngitis 329999021 J02.9 Postviral cough [id number] R05.3 [id number] Leelee HairTarik Jenkins [address] [address] 03/11/2024 13:39:42 03/16/2024 16:52:55 Exacerbation of moderate persistent asthma [id number] J45.41 Acute sinusitis 19460112 J01.90 [id number] Shree Plata MD [address] [address] 03/19/2024 11:19:49 03/19/2024 12:29:45 Atypical pneumonia [id number] J18.9 Health Concerns Section Related Observation LastModified by Organization Detai ls LastModified Time None Recorded Concern Status LastModified by Organization Details LastModified Time None Recorded Advance Directives Directive None Recorded Payers Encounter Date Sequence Insurance Name Policy Number Policy Haines Covered Member ID Haines Member ID Guarantor Name 11/16/2023 2 [place] Emalie Polanek [id number] Deepali Polanek 11/16/2023 1 [facility] [id number] Edjosé miguel Salazar Polanek [id number] Deepali Polanek 02/16/2024 2 [place] Emalie Polanek [id number] Deepali Polanek 02/16/2024 1 [facility] [id number] Edjosé miguel Salazar Pol[place] [id number] Deepali Polanek 03/07/2024 2 [place] Emalie Polanek [id number] Deepali Polanek 03/07/2024 1 [facility] [id number] Edjosé miguel Salazar Pol[place]k [id number] Deepali Polanek 03/11/2024 2 [place] Emalie Polanek [id number] Deepali Polanek 03/11/2024 1 [facility] [id number] Edjosé miguel Salazar Pol[place] [id number] Deepali Polanek 03/19/2024 2 [place] Emalie Polanek [id number] Deepali Polanek 03/19/2024 1 [facility] [id number] Edjosé miguel Salazar Polanek [id number] Deepali Polanek Notes Date Note Type Note Provider Name and Address Organization Details Recorded Time 11/16/2023 text/html RS Sick Visit Narrative HistoryReported bypatient.Notes:Pt here for recheck of fatigue and warts.Pt reports swollen lymph nodes and tonsil stones on and off.No recent sick sxs.Had screening labs done for ?thyroid disorder. Has strong FHx.Saw manager of product last week for asthma flare up. Rx'd ZPak w/good relief. PFTs are better than one month ago. Not taking allergy meds since worried will make her tired. On Sing at bedtime. Followed by [facility] - all negative results per pt. Has some plantar wart on feet she would like removed.Not taking any vits, could eat healthier but skips meals often, not depressed. Getting good amt of sleep. Karlene Santana MD [address] [place] [address], [place], [address], [facility] 11/16/2023 12:58:04 02/16/2024 text/html RS Sick Visit Narrative HistoryReported bypatient.Notes:Yina lo is a 23yo F here for Ongoing neck tension. Neck pain x 1 week. Started after dusting/cleaning up high and reaching. Mostly R side. Painful to look to the left and radiates down back. HAs and migraines have worsened/become daily since neck pain started. Also having difficulty focusing x 1 week. She has no numbness and tingling, no acute injury or direct trauma to the area. Would like to see different neurologist - Currently seeing [facility], Dr. Hutson. Is on amitryptaline nightly with no relief in migraine frequency. Tried Excedrin, tylenol and ibuprofen without much relief. No OTC meds taken today. Had swollen gland to R axilla 1 week ago - was tender to touch. No redness noticed. Now resolved. Afebrile, no cough, no congestion. RACHNA KNIGHT DO [address] [place] [address], , [facility] 02/16/2024 17:52:44 03/07/2024 text/html RS Sick Visit Narrative HistoryReported bypatient.Notes:Pt coming in w/continued congestion x2 weeks.Had covid 2 weeks ago. Sxs seemed to be resolving but then started w/ST 2 days ago. Resolved after 1 day. Now having sneezing and congestion but rare nasal drainage. Nonproductive cough Karlene Santana MD [address] [place] [address], , [facility] 03/07/2024 14:08:54 03/11/2024 text/html RS Sick Visit Narrative HistoryReported bypatient.Notes:Pt is here for a cough x 1-2wks. Pt is having SOB and chest tightness.Using inhaler w/ slight improvement feels like glue in the chest . Using albuterol inhaler 4p Q2-4hrs Last used 2hr ago. Hx of an asthma attack 2 days ago- resolved w/ inhaler, still having lingering chest tightness.continues to take advair BID (well plan)Will use nebulizer BID w/o relief and improvement.Intermitt ent Raspy wheezing and voice.Hot flashes, night sweats, (no fevers) brain fog x 2-3days.MONTERO and body aches x 1 wk. Head pressure when bending down, slight dizziness when standing up to quickly.Abd pain and decreased appetite x 1 wk. - No sharp pains. Nl voids and BM.Nasal congestion and drainage x 2-3 weeks - green mucus Pt had covid 2-3 wks ago (felt like she was getting better and then caught another viral illness)Will take tylenol and ibu prn- none today. Tried OTC cough and cold meds w/o relief.Afebrile, No N/V/D, No ear pain, No ST. had COVID, recovered and per patient got sick with other viral illness [place]en[place], tuckerd OTC Leelee Jenkins [address] [place], [place], , [facility] 03/16/2024 10:06:41 03/19/2024 text/html RS Sick Visit Narrative HistoryReported bypatient.Notes:Pt here for continued cough, MONTERO/sinus pressure, and wheezing. Still has green mucus.On day 8 of amox for sinusitis.Finished course of prednisone. Noticed improvement, but sx returned 1 day after completing course.Using albuterol inhaler every 3 hrs with only slight improvement. Afebrile. No N/V/D. Decreased appetite, still drinking fluids. Not sleeping well due to cough and night sweats. More tired during the day. No OTC meds taken recently. Shree Plata MD [address], [place], , [facility] 03/19/2024 12:29:15 OBGyn Episode No OBEpisode recorded.
--- OUTSIDE RECORDS SUMMARY | 2024-07-14 14:16 | XMS_ITS ---
Author Name [facility] Organization Unknown History of Medication Use Medication Directions Dispensed Refills Start Date End Date [facility] cefprozil 500 mg tablet TAKE 1 TABLET BY MOUTH TWICE DAILY FOR 14 DAYS 3 completed etonogestrel 0.12 mg-ethinyl estradiol 0.015 mg/24 hr vaginal ring INSERT 1 RING VAGINALLY FOR 3 WEEKS THEN REMOVE FOR 1 WEEK INSERT 1 RING VAGINALLY FOR 3 WEEKS THEN REMOVE FOR 1 WEEK completed Vigamox 0.5 % eye drops Instill 1 drop into affected eye(s) by ophthalmic route 3 times per day 07/04/2010 active metronidazole 500 mg tablet TAKE 1 TABLET BY MOUTH TWICE DAILY FOR 7 DAYS TAKE 1 TABLET BY MOUTH TWICE DAILY FOR 7 DAYS completed amoxicillin 400 mg/5 mL oral suspension SHAKE LIQUID AND TAKE 12.5 ML BY MOUTH TWICE DAILY FOR 10 DAYS 3 completed Singulair 5 mg chewable tablet take 1 tablet by mouth once daily 05/06/2011 active amoxicillin 875 mg-potassium clavulanate 125 mg tablet TAKE 1 TABLET BY MOUTH TWICE DAILY FOR 10 DAYS 3 completed benzonatate 100 mg capsule take 1 capsule by mouth three times a day 7 completed PreviDent 5000 Booster Plus 1.1 % dental paste USE DIRECTED TWICE DAILY 4 completed montelukast 10 mg tablet TAKE 1 TABLET BY MOUTH EVERY EVENING TAKE 1 TABLET BY MOUTH EVERY EVENING complete d fluticasone propionate 50 mcg/actuation nasal spray,suspension SHAKE LIQUID AND USE 1 SPRAY IN EACH NOSTRIL EVERY DAY active Wixela Inhub 500 mcg-50 mcg/dose powder for inhalation INHALE 1 PUFF BY MOUTH EVERY 12 HOURS DIRECTED active oxycodone-acetamino phen 5 mg-325 mg tablet TAKE 2 TABLETS BY MOUTH EVERY 6 HOURS NEEDED FOR PAIN DIRECTED (DO NOT DRIVE WHILE ON THIS MEDICATION) 7 completed amoxicillin 875 mg tablet active prednisone 10 mg tablet Take 4 tabs PO daily x 5 days, then 2 tabs PO daily x 5 days, then 1 tab PO daily x 5 days. 09/23/2023 4 active amoxicillin 875 mg tablet Take 1 tablet twice a day by oral route for 10 days. 03/11/2024 3 active chlorhexidine gluconate 0.12 % mouthwash chlorhexidine gluconate 0.12 % mouthwash completed amoxicillin 400 mg/5 mL oral suspension Take 12.5 mL every day by oral route for 10 days. Take 12.5 mL every day by oral route for 10 days. completed adapalene 0.1 % topical gel APPLY A THIN LAYER TO THE AFFECTED AREAS EVERY DAY AT AT BEDTIME. 12/31/2020 2 completed amitriptyline 10 mg tablet TAKE 2 TABLETS BY MOUTH DAILY AT SUPPER active Qvar 80 mcg/actuation Metered Aerosol oral inhaler inhale 2 puffs by mouth twice a day active albuterol sulfate 2.5 mg/3 mL (0.083 %) solution for nebulization USE 1 VIAL VIA NEBULIZER EVERY 4 TO 6 HOURS USE 1 VIAL VIA NEBULIZER EVERY 4 TO 6 HOURS completed Qvolve 5000 Booster Plus 1.1 % dental paste USE DIRECTED TWICE DAILY USE DIRECTED TWICE DAILY completed prednisone 20 mg tablet Take 3 tablets every day by oral route for 5 days. 06/03/2023 4 active NuvaRing 0.12 mg-0.015 mg/24 hr vaginal INSERT 1 RING VAGINALLY FOR 3 WEEKS THEN REMOVE FOR 1 WEEK INSERT 1 RING VAGINALLY FOR 3 WEEKS THEN REMOVE FOR 1 WEEK completed metronidazole 500 mg tablet TAKE 1 TABLET BY MOUTH TWICE DAILY FOR 7 DAYS 3 completed ibuprofen 800 mg tablet take 1 tablet by mouth three times a day 1 completed prednisone 20 mg tablet active adapalene 0.1 % topical gel APPLY A THIN LAYER TO THE AFFECTED AREAS EVERY DAY AT AT BEDTIME. APPLY A THIN LAYER TO THE AFFECTED AREAS EVERY DAY AT AT BEDTIME. completed Flovent HFA 44 mcg/actuation aerosol inhaler active mupirocin 2 % topical ointment APPLY BY TOPICAL ROUTE THREE TIMES A DAY UNTIL CLEAR 8 completed escitalopram 10 mg tablet TAKE 1 TABLET BY MOUTH EVERY DAY 3 completed amoxicillin 500 mg capsule TAKE 2 CAPSULES BY MOUTH TWICE A DAY FOR 10 DAYS 4 completed azithromycin 100 mg/5 mL oral suspension Take 10ml today, then 5 ml once daily for the next 4 days active etonogestrel 0.12 mg-ethinyl estradiol 0.015 mg/24 hr vaginal ring INSERT 1 RING VAGINALLY FOR 3 WEEKS THEN REMOVE FOR 1 WEEK active naproxen 500 mg tablet TAKE 1 TABLET BY MOUTH TWICE DAILY TAKE 1 TABLET BY MOUTH TWICE DAILY completed fluconazole 150 mg tablet TAKE 1 TABLET BY MOUTH TODAY. REPEAT WITH 2 ND TABLET IN 72 HOURS completed albuterol sulfate HFA 90 mcg/actuation aerosol inhaler INHALE 2 PUFFS BY MOUTH EVERY 4 TO 6 HOURS NEEDED INHALE 2 PUFFS BY MOUTH EVERY 4 TO 6 HOURS NEEDED completed atomoxetine 80 mg capsule TAKE 1 CAPSULE BY MOUTH EVERY MORNING TAKE 1 CAPSULE BY MOUTH EVERY MORNING complete d Symbicort 160 mcg-4.5 mcg/actuation HFA aerosol inhaler inhale 2 puffs by mouth twice a day active Problems Problem Status Onset Date Problem Type Date of Resoluti on Source Child attention deficit disorder active 2021-03-27 ProblemAct [facility]P Developmental academic disorder active ProblemAct [facility] Sleep disorder active 2021-03-27 ProblemAct CTH LPVP Dysmenorrhea active 2019-02-08 ProblemAct [facility]LP [employer] Headache active 2021-04-24 ProblemAct [facility] Acne active 2020-12-28 ProblemAct [facility] Depressive disorder active 2021-12-04 ProblemAct [facility] Pneumonitis active 2021-02-20 ProblemAct CTHLPV P Moderate persistent asthma active 2018-02-08 ProblemAct C[facility]P Verruca plantaris active 2023-10-13 ProblemAct [facility] Perioral dermatitis active 2019-12-23 ProblemAct [facility] 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 ProblemAct [facility] Hemorrhagic cyst of ovary active 2021-07-16 ProblemAct [facility] Migraine without aura active 2021-09-04 ProblemAct [facility] Vocal cord dysfunction active 2018-02-08 ProblemAct [facility] Allergic rhinitis active 2008-12-12 ProblemAct [facility] Menorrhagia active 2019-02-08 ProblemAct [facility]LPV P Immunizations Vaccine Date Source Lot Number Status IPV 2002 [facility]PVP completed pneumococcal conjugate PCV 7 07/07/2003 [facility]PVP completed Influenza, split virus, quadrivalent, PF 03/20/2014 CTHLPV P [id number] completed Influenza, split virus, triv alent, preservative 03/24/2011 [facility]P [id number] completed Influenza, split virus, quadrivalent, PF 07/02/2017 CTHLPV P [id number] completed COVID-19, mRNA, LNP-S, PF, 30 mcg/0.3 mL dose 10/24/2020 C THLPVP completed meningococcal MCV4P 08/09/2018 CTHLPVP [id number] compl eted Hib, unspecified formulation 02/03/2003 C[facility]LPVP completed COVID-19, mRNA, LNP-S, PF, 1 00 mcg/0.5mL dose or 50 mcg/0.25mL dose 05/30/2021 CTHLPVP completed HPV, quadrivalent 08/01/2014 C[facility]LPVP [id number] complet ed Hib, unspecified formulation 11/29/2003 C[facility]PVP completed Tdap 10/08/2023 [facility]PVP [id number] completed Hib, unspecified formulation 2002 C[facility]LPVP completed Hib, unspecified formulation 2002 C[facility]LPVP completed Influenza, split virus, triv alent, preservative 06/17/2012 C[facility]LPVP [id number] completed Influenza, split virus, quadrivalent, PF 04/05/2019 CTHLPV P [id number] completed pneumococcal conjugate PCV 7 2002 CTHLPVP completed Hep A, ped/adol, 2 dose 02/05/2021 CTHLPVP [id number] c ompleted Hep B, unspecified formulation 2002 C[facility]LPVP completed Influenza, split virus, quadrivalent, PF 04/14/2016 CTHLPV P [id number] completed DTaP, unspecified formulation 02/09/2004 CTHLPVP completed IPV 2002 C[facility]LPVP completed HPV, quadrivalent 05/26/2014 CTHLPVP [id number] complet ed Hep A, ped/adol, 2 dose 08/07/2020 CTHLPVP [id number] c ompleted MMR 06/05/2006 [facility]LPVP completed MMR 11/29/2003 C[facility]LPVP completed HPV, quadrivalent 12/01/2014 C[facility]LPVP [id number] complet ed meningococcal MCV4P 05/26/2014 CTHLPVP [id number] compl eted IPV 02/09/2004 C[facility]LPVP completed varicella 07/07/2003 CTHLPVP completed Hep B, unspecified formulation 2002 CTHLPVP completed DTaP, unspecified formulation 02/03/2003 CTHLPVP completed DTaP, unspecified formulation 2002 C[facility]LPVP completed Hep B, unspecified formulation 04/03/2003 CTHLPVP completed Influenza, split virus, quadrivalent, PF 03/08/2022 CTHLPV P [id number] completed pneumococcal conjugate PCV 7 02/03/2003 CTHLPVP completed pneumococcal conjugate PCV 7 2002 C[facility]LPVP completed Influenza, split virus, quadrivalent, PF 03/10/2020 CTHLPV P [id number] completed Influenza, split virus, quadrivalent, PF 03/04/2013 CTHLPV P [id number] completed Influenza, split virus, quadrivalent, PF 04/05/2015 CTHLPV P [id number] completed meningococcal B, OMV 02/05/2021 CTHLPVP [id number] comp leted Tdap 05/26/2014 CTHLPVP [id number] completed varicella 06/09/2007 CTHLPVP completed meningococcal B, OMV 08/07/2020 CTHLPVP [id number] comp leted DTaP, unspecified formulation 2002 C[facility]LPVP completed IPV 06/09/2007 C[facility]LPVP completed DTaP, unspecified formulation 06/09/2007 CTHLPVP completed COVID-19, mRNA, LNP-S, PF, 30 mcg/0.3 mL dose 09/24/2020 C THLPVP completed
== END 2024-07-14 11:19 | disposition home or self-care (01) ==
PROVIDERS: PCP Physician Assistant Medical; Visit Provider Hospitalist
DX: J45.40 Moderate persistent asthma, uncomplicated (principal); T78.40XA Allergy, unspecified, initial encounter; L20.82 Flexural eczema; R76.8 Other specified abnormal immunological findings in serum
CPT/HCPCS: 99204

== ENCOUNTER → 2024-07-14 10:36 | Outpatient (BNVA) | payer OTHER, MEDICAID, SELFPAY | PROVIDERS: PCP Physician Assistant Medical; Visit Provider Hospitalist ==

== ENCOUNTER 2024-08-10 13:35 | Outpatient (AMB) | payer OTHER, MEDICAID, SELFPAY ==
--- NOTE | 2024-08-10 13:15 | MHC.OFFVIS ---
Vital Signs 08/10/24 13:35 Height 5 ft 9 in Weight 158 lb BMI 23.3 BP 114/62 Blood Pressure Location Rt brachial Position Sitting Pulse 114 H Pulse Source Pulse Oximeter Pulse Oximetry (%) 98 Oxygen Delivery Method Room Air Intake Visit Reasons: Shortness of breath [employer] Solution Specialist Required: No Network Project Manager: Network Project Manager offered & declined Accompanied by: Self / Same As Patient Allergies oxycodone Allergy (Intermediate, Verified 08/10/24 13:41) Hallucinations Medication List - Last Reconciled 08/10/24 by Namrata Anderson LPN albuterol sulfate 90 mcg/actuation (Ventolin HFA) 2 puffs inhalation Q4-6H PRN amitriptyline 25 mg PO BEDTIME atomoxetine (Strattera) 80 mg PO DAILY doxycycline hyclate 100 mg PO BID 10 days escitalopram oxalate (Lexapro) 5 mg PO DAILY eyzvpsltycg-ayetsktvp-bbkbpvbr 200-62.5-25 mcg (Trelegy Ellipta) 1 inh inhalation DAILY 30 days montelukast (Singulair) 10 mg PO DAILY HPI HPI Shortness of breath: Details: Usha is a pleasant 24 year old female, never smoker, with underlying asthma since childhood. She is under the care of Dr. Hatfield and presents today for an acute visit. She was recently switched from Wixela 500 mcg to Trelegy 200 mcg 4 weeks ago and unfortunately contracted the flu so unable to assess effectiveness. During that time she had worsening respiratory symptoms warranting doxycycline and prednisone on 07/28. Per previous documentation she completed the prednisone however did not start the doxycycline as she noted cough was less productive now with clear sputum. Today reports overall improvement in symptoms and wanted to ensure her respiratory exam was unremarkable. Of note, she has labs, including RAST as well as screening for autoimmune conditions given +OMAR and PFT pending from Dr. Hatfield. She is aware of labs and plans to get done on Thursday. [facility] Medical History (Updated 07/14/24 @ 20:14 by Josué Hatfield MD) Eczema Allergies Asthma Social History Patient Tobacco Use Status: Never used Tobacco Review of Systems Const Denies chills, Denies excessive sweating, Denies fever(s), Denies headache(s) and Denies night sweats Eyes Denies dry eyes, Denies irritation and Denies itchy eyes ENT Reports Normal hearing present, Denies headache(s), Denies nasal congestion, Denies nasal discharge, Denies post nasal drip and Denies sore throat Card Denies chest pain, Denies chest pain at rest, Denies chest pain with activity, Denies claudication, Denies leg edema, Denies orthopnea and Denies paroxysmal nocturnal dyspnea Resp Denies chest congestion, Denies excessive phlegm production, Denies pain on inspiration, Denies pain with cough, Denies stridor and Denies wheezing Musc Denies myalgias Neuro Reports Normal hearing present and Denies headache(s) Endo Denies excessive sweating Leroy/Lymph Denies lymphadenopathy Aller/Immun Denies itchy eyes, Denies seasonal rhinorrhea and Denies wheezing Physical Exam Vital Signs: Last Vital Signs Pulse 114 H 08/10/24 13:35 BP 114/62 08/10/24 13:35 Pulse Ox 98 08/10/24 13:35 Oxygen Delivery Method Room Air 08/10/24 13:35 BMI result Body Mass Index 23.3 Const General: cooperative, healthy appearing, comfortable, no acute distress, well developed and alert Orientation/consciousness: patient oriented x3 Limitations: no limitations HEENT Head: Yes normal to inspection, Yes normocephalic and Yes atraumatic Ears: hearing grossly normal bilaterally and external ears normal Eyes General: appearance normal, both eyes and all related structures Eyelids: Yes eyelids normal Sclerae: sclerae normal EOM: EOMs intact bilaterally Neck Neck: Yes normal visual inspection and Yes no lymphadenopathy Lymphatic: no lymphadenopathy noted Chest Chest palpation & inspection: normal inspection of the chest Resp Effort & Inspection: normal respiratory effort, able to speak in complete sentences, no audible wheezes, no cough, no stridor, not tachypneic, no tripod positioning and no use of accessory muscles Auscultation: clear to auscultation bilaterally Cardio Jugular venous distension: no JVD Rate: regular rate Rhythm: regular rhythm Skin Other: warm, dry General skin exam: no rashes or lesions noted Neuro General: patient oriented x3 Cranial nerves: Yes Normal hearing present Cognition (Neuro): normal cognition Gait exam (Neuro): Normal gait present Extrem General: Yes normal to inspection, Yes capillary refill normal, Yes no clubbing, cyanosis or edema and Yes no pedal edema Psych Appearance: grossly normal and well kempt Speech and movement: Normal speech and movement present and Clear speech present Affect: normal affect Attitude: cooperative Thought process: Normal thought process present Thought content: Normal thought content present Insight: Good insight present (Psych) Judgement: Good judgement present (Psych) Assessment & Plan Assessment & Plan (1) Asthma: Code(s): J45.909 - Unspecified asthma, uncomplicated Category: Medical Qualifiers: Asthma complication type: uncomplicated Asthma persistence: persistent Asthma severity: moderate Qualified Code(s): J45.40 - Moderate persistent asthma, uncomplicated (2) Allergies: Code(s): T78.40XA - Allergy, unspecified, initial encounter Category: Medical Qualifiers: Encounter type: initial encounter Qualified Code(s): T78.40XA - Allergy, unspecified, initial encounter (3) OMAR positive: Code(s): R76.8 - Other specified abnormal immunological findings in serum Category: Medical Plan At this time Usha's respiratory exam and VSS WNL, with notable improvement in respiratory symptoms since completing prednisone. Advised to continue Trelegy and albuterol PRN. She is requesting refills for albuterol neb solution, will send as well as spacer. All questions were answered and patient is in agreement of plan. Will follow up for regularly scheduled with Dr. Hatfield next week. Medications: New albuterol sulfate 2.5 mg (3 mL) inhalation Q4-6H PRN 180 mL 1RF shortness of breath or wheezing inhalational spacing device (Aerochamber Plus Z Stat spacer) As directed 1 ea 0RF Coding Level of Care Code Est Pt Level 4 (66010) Diagnoses Moderate persistent asthma without complication J45.40 Asthma complication type: uncomplicated Asthma persistence: persistent Asthma severity: moderate Allergy, initial encounter T78.40XA Encounter type: initial encounter OMAR positive R76.8
[2024-08-10 13:35] VITALS: BP 114/62; PULSE 114; O2SAT 98; BMI 23.3
--- OUTSIDE RECORDS SUMMARY | 2024-08-10 16:41 | XMS_ITS | Continuity of Care Document ---
Author Organization [facility] Address [address] [facility], 3r d Floor, [address] [place] [phone] Care Team Providers Care Epic Manager Name Role Phone Capri Soliz Primary Care Physician [id number] Date(s): 04/08/24 - 07/23/24 [facility] [address] [facility] 3rd Floor, [address] [place] [address] Attending Physician: Charo Sung NP Admitting Physician: Charo Sung NP Encounter Type: Pre-OutPatient One Time Allergies, Adverse Reactions, Alerts Substance Criticality Severity Reaction Reaction Severity Status oxyCODONE Unable to assess criticality Persistent Moderate Vomiting Itching Hallucinations Active Immunizations Given and Recorded Vaccine Date Status Refusal Reason pneumococcal 23-valent vaccine 07/18/24 Recorded influenza virus vaccine, inactivated 03/22/24 Give n influenza virus vaccine, inactivated 03/07/21 Doroteo rded diphtheria/tetanus/pertussis, acel(DTaP) 1 10/08/23 Recorded diphtheria/tetanus/pertussis, acel(DTaP) 2 05/26/14 Recorded diphtheria/tetanus/pertussis, acel(DTaP) 06/09/07 Recorded diphtheria/tetanus/pertussis, acel(DTaP) 02/09/04 Recorded diphtheria/tetanus/pertussis, acel(DTaP) 02/03/03 Recorded diphtheria/tetanus/pertussis, acel(DTaP) 02 Recorded diphtheria/tetanus/pertussis, acel(DTaP) 02 Recorded tetanus/diphtheria/pertussis, acel(Tdap) 10/08/23 Recorded tetanus/diphtheria/pertussis, acel(Tdap) 05/26/14 Recorded SARS-CoV-2(COVID-19)mRNA-LNP vac([id number]) 05/13/23 Recorded Influenza Virus Vaccine (oldterm) 3 03/08/22 Recor ded Influenza Virus Vaccine (oldterm) 4 03/10/20 Recor ded Influenza Virus Vaccine (oldterm) 5 04/05/19 Recor ded Influenza Virus Vaccine (oldterm) 6 07/02/17 Recor ded Influenza Virus Vaccine (oldterm) 7 04/14/16 Recor ded Influenza Virus Vaccine (oldterm) 8 04/05/15 Recor ded Influenza Virus Vaccine (oldterm) 9 03/20/14 Recor ded Influenza Virus Vaccine (oldterm) 10 03/04/13 Doroteo rded Influenza Virus Vaccine (oldterm) 11 06/17/12 Doroteo rded Influenza Virus Vaccine (oldterm) 12 03/24/11 Doroteo rded SARS-CoV-2 (COVID-19) mRNA-1273 vaccine 10/06/21 R ecorded SARS-CoV-2 (COVID-19) mRNA-1273 vaccine 05/31/21 R ecorded SARS-CoV-2 mRNA (aipuipz-gcbc-bwuix) vax 13 05/30/21 Recorded SARS-CoV-2 mRNA (midlgve-pkho-rcdtx) vax 14 10/24/20 Recorded SARS-CoV-2 mRNA (rrepmel-wvpn-bzkiw) vax 15 09/24/20 Recorded Hepatitis A Vaccine (oldterm) 16 02/05/21 Recorded Hepatitis A Vaccine (oldterm) 17 08/07/20 Recorded meningococcal group B vaccine 18 02/05/21 Recorded meningococcal group B vaccine 19 08/07/20 Recorded SARS-CoV-2 (COVID-19) mRNA BNT-162b2 vac 10/16/20 Recorded Meningococcal Conjugate Vaccine 20 08/09/18 Record ed Meningococcal Conjugate Vaccine 21 05/26/14 Record ed Human Papillomavirus Vaccine 22 12/01/14 Recorded Human Papillomavirus Vaccine 23 08/01/14 Recorded Human Papillomavirus Vaccine 24 05/26/14 Recorded Poliovirus Vaccine, Inactivated 06/09/07 Recorded Poliovirus Vaccine, Inactivated 02/09/04 Recorded Poliovirus Vaccine, Inactivated 02 Recorded Poliovirus Vaccine, Inactivated 02 Recorded Varicella Virus Vaccine 06/09/07 Recorded Varicella Virus Vaccine 07/07/03 Recorded Measles/Mumps/Rubella Virus Vaccine 06/05/06 Recor ded Measles/Mumps/Rubella Virus Vaccine 11/29/03 Recor ded Hepatitis B Immune Globulin 11/29/03 Recorded Hepatitis B Immune Globulin 02/03/03 Recorded Hepatitis B Immune Globulin 02 Recorded Hepatitis B Immune Globulin 02 Recorded Haemophilus B Conj Vaccine (oldterm) 11/29/03 Doroteo rded Haemophilus B Conj Vaccine (oldterm) 02/03/03 Doroteo rded Haemophilus B Conj Vaccine (oldterm) 02 Doroteo rded Haemophilus B Conj Vaccine (oldterm) 02 Doroteo rded pneumococcal 13-valent vaccine 07/07/03 Recorded pneumococcal 13-valent vaccine 07/07/03 Recorded pneumococcal 13-valent vaccine 02/03/03 Recorded pneumococcal 13-valent vaccine 02/03/03 Recorded pneumococcal 13-valent vaccine 02 Recorded pneumococcal 13-valent vaccine 02 Recorded pneumococcal 13-valent vaccine 02 Recorded pneumococcal 13-valent vaccine 02 Recorded Hepatitis B Vaccine (old term) 04/03/03 Recorded Hepatitis B Vaccine (old term) 02 Recorded Hepatitis B Vaccine (old term) 02 Recorded 1Result Comment: Unit: Unknown Route: Intramuscular use 2Result Comment: Chip Bin Operator: Sanofi Pasteur 3Result Comment: Chip Bin Operator: Sanofi Pasteur 4Result Comment: Chip Bin Operator: [employer] 5Result Comment: Chip Bin Operator: [employer] 6Result Comment: Unit: Unknown Chip Bin Operator: [employer] 7Result Comment: Chip Bin Operator: GlaxoSmithKline 8Result Comment: Chip Bin Operator: GlaxoSmithKline 9Result Comment: Unit: Unknown Chip Bin Operator: GlaxoSmithKline 10Result Comment: Chip Bin Operator: Sanofi Pasteur 11Result Comment: Chip Bin Operator: Sanofi Pasteur 12Result Comment: Chip Bin Operator: Sanofi Pasteur 13Result Comment: Unit: Unknown Chip Bin Operator: [employer] 14Result Comment: Chip Bin Operator: [employer] 15Result Comment: Chip Bin Operator: Pfizer, Inc 16Result Comment: Chip Bin Operator: Merck and Co., Inc. 17Result Comment: Chip Bin Operator: Merck and Co., Inc. 18Result Comment: Unit: Unknown Chip Bin Operator: GlaxoSmithKline 19Result Comment: Unit: Unknown Chip Bin Operator: GlaxoSmithKline 20Result Comment: Chip Bin Operator: Sanofi Pasteur 21Result Comment: Chip Bin Operator: Sanofi Pasteur 22Result Comment: Chip Bin Operator: Merck and Co., Inc. 23Result Comment: Chip Bin Operator: Merck and Co., Inc. 24Result Comment: Chip Bin Operator: Merck and Co[employer] Inc. Medications Albuterol 2 puffs, Inhalation, Every 4 hours, PRN Wheezing/Shortness of Breath, 0 Refills, Maintenance, 01/05/12 10:06:14 PM EDT Start Date: 01/05/12 Status: Ordered Repeat number: 1 albuterol 0.083% inhalation solution 3 mL = 2.5 mg, Inhalation, Every 6 hours, PRN for wheezing, # 25 each, 0 Refills, Maintenance, 09/05/20 3:18:00 PM EDT, Solution, Partial fill upon patient request if the prescription is for a schedule II opioid drug. Start Date: 09/05/20 Status: Ordered Quantity: 25.0 Unit: each Repeat number: 1 amitriptyline 25 mg oral tablet 37.5 mg, 1.5, tablet, By Mouth, Daily at bedtime, # 60 tablet, Refills 3, Tot. Refills 3, Maintenance, 06/28/24 3:03:00 PM EST, Route to Pharmacy Electronically, [facility] #[id number], Partial fill upon patient request if the prescription is for a schedule II opioid drug., 175.26, cm, 06/28/24 14:43:00 EST, Height, 71.81, kg, 06/28/24 14:43:00 EST, Dry Weight Start Date: 06/28/24 Status: Ordered Quantity: 60.0 Unit: tablet Repeat number: 4 atomoxetine 80 mg oral capsule 30 each, 0 Refill(s), TAKE 1 CAPSULE BY MOUTH EVERY MORNING, 0 Refills, 03/15/24 10:12:00 AM EDT, Partial fill upon patient request if the prescription is for a schedule II opioid drug. Start Date: 03/15/24 Status: Ordered Repeat number: 1 Benefiber oral powder for reconstitution See Instructions, 4 Gm dissolved in 4 to 8 oz of beverage- hot or cold taking by mouth daily. May inrease up to 3 times a day as needed., # 245 Gm, 2 Refills, Maintenance, 03/25/24 4:26:00 PM EDT, REC Powder, [facility] #[id number], Partial fill upon patient request if the prescription is for a schedule II opioid drug., 4 Gm dissolved in 4 to 8 oz of beverage- hot or cold taking by mouth daily. May inrease up to 3 times a day as needed., 175.26, cm, 03/25/24 16:03:00 EDT, Height Start Date: 03/25/24 Status: Ordered Quantity: 245.0 Unit: g Repeat number: 3 Indication: Constipation, unspecified ethinyl estradiol-etonogestrel 0.015 mg-0.120 mg/24 hours vaginal ring 3 each, 0 Refill(s), INSERT 1 RING VAGINALLY FOR 3 WEEKS THEN REMOVE FOR 1 WEEK, 0 Refills, 03/15/2410:12:00 AM EDT, Partial fill upon patient request if the prescription is for a schedule II opioid drug. Start Date: 03/15/24 Status: Ordered Repeat number: 1 fluticasone 50 mcg/inh nasal spray 16 Gm, 0 Refill(s), SHAKE LIQUID AND USE 1 SPRAY IN EACH NOSTRIL EVERY DAY, 0 Refills, 03/15/24 10:12:00 AM EDT, Partial fill upon patient request if the prescription is for a schedule II opioid drug. Start Date: 03/15/24 Status: Ordered Repeat number: 1 fluticasone 50 mcg/inh nasal spray 1 sprays = 50 mcg, Nares, Both, 2 times a day, # 16 Gm, 0 Refills, Maintenance, 06/05/24 11:31:00 AM EST, [place], [facility]/pharmacy #[id number], Partial fill upon patient request if the prescription is for a schedule II opioid drug., 1 sprays Nares, Both 2 times a day, 175.26, cm, 06/05/24 10:50:00 EST, Height, 67.9, kg, 04/08/24 13:46:00 EDT, Dry Weight Start Date: 06/05/24 Status: Ordered Quantity: 16.0 Unit: g Repeat number: 1 Lexapro 5 mg oral tablet 2 tablet = 10 mg, By Mouth, Daily, 0 Refills, Maintenance, 10/27/22 1:05:00 PM EDT, Partial fill upon patient request if the prescription is for a schedule II opioid drug. Start Date: 10/27/22 Status: Ordered Repeat number: 1 MiraLax oral powder for reconstitution = 17 Gm, By Mouth, Daily, dissolve in water or juice. My increase to 2-3 times a day as needed for constipation, # 255 Gm, 2 Refills, Maintenance, 03/25/24 4:26:00 PM EDT, [facility] #[id number], Partial fill upon patient request if the prescription is for a schedule II opioid drug., 17 Gm By Mouth Daily,x30 days,Instr:dissolve in water or juice. My increase to 2-3 times a day as needed for constipation, 175.26, cm, 03/25/24 16:03:00 EDT, Height Start Date: 03/25/24 Stop Date: 06/23/24 Status: Ordered Quantity: 255.0 Unit: g Repeat number: 3 Indication: Constipation, unspecified MiraLax oral powder for reconstitution = 17 Gm, By Mouth, Daily, # 1 bottle, 0 Refills, Maintenance, 01/06/12 12:12:21 AM EDT Start Date: 01/06/12 Status: Ordered Quantity: 1.0 Unit: bottle Repeat number: 1 montelukast 10 mg oral tablet 10 mg, 1, tablet, By Mouth, Daily, Refills 0, Maintenance, 03/15/24 10:13:00 AM EDT, Partial fill upon patient request if the prescription is for a schedule II opioid drug. Start Date: 03/15/24 Status: Ordered Repeat number: 1 SUMAtriptan 50 mg oral tablet 1 tablet, By Mouth, Daily, PRN NEEDED FOR MIGRAINE HEADACHE, MAY REPEAT DOSE AFTER 2 HOURS UP TOA. MAXIMUM OF 2, # 9 tablet, 4 Refills, Maintenance, 06/28/24 3:04:00 PM EST, [facility] #[id number], 175.26, cm, 06/28/24 14:43:00 EST, Height, 71.81, kg, 06/28/24 14:43:00 EST, Dry Weight Start Date: 06/28/24 Status: Ordered Quantity: 9.0 Unit: tablet Repeat number: 5 Wixela Inhub 500 mcg-50 mcg inhalation powder 1 inhalation, Inhalation, 2 times a day, 0 Refills, Maintenance, 03/15/24 10:10:00 AM EDT, Partial fill upon patient request if the prescription is for a schedule II opioid drug. Start Date: 03/15/24 Status: Ordered Repeat number: 1 Xyzal 5 mg oral tablet 1 tablet = 5 mg, By Mouth, Daily in PM, # 30 tablet, 5 Refills, Maintenance, 06/16/24 8:30:00 AM EST,Tablet, [facility] #[id number], Partial fill upon patient request if the prescription is for aschedule II opioid drug., 1 tablet By Mouth Daily in PM, 175.26, cm, 06/16/24 8:06:00 EST, Height, 67.9, kg, 04/08/24 13:46:00 EDT, Dry Weight Start Date: 06/16/24 Status: Ordered Quantity: 30.0 Unit: tablet Repeat number: 6 Problem List Condition Confirmation Course Effective Dates Status H ealth Status Informant Asthma Confirmed 12/18/08 Active ADHD (attention deficit hyperactivity disorder) Confirmed Active Constipation Confirmed Active BRBPR (bright red blood per rectum) Confirmed Active HLA B27 positive Confirmed Active Migraine without aura 1 Confirmed 09/04/21 Active Sleep disorder Confirmed 03/27/21 Active 1Outside Source Comment: refer to Neuro 08/2021 Social History Social History Type Response Smoking Status Never (less than 100 in lifetime) entered on: 03/22/24 Sex Sex Representation Female (finding) Patient Care team information Care Team Personnel Name: Capri Soliz Position: [facility] Associate Professional Member Role: PCP Address: [address] [place] [address] Telecom: Care Team Related Persons Name: JULES ERIC Name: LUCILA ERIC Name: LUCILA ERIC Name: SAQIB ERIC Name: SAQIB ERIC Name: SAQIB ERIC Insurance Providers Guarantor name: SAQIB ERIC Health Plan Information #: 2 Payer: [employer] Member Number: [id number] Policy Number: DARLENE Group Number: DARLENE Health Plan Information #: 1 Payer: [place] [employer] Member Number: [id number] Policy Number: DARLENE Group Number: [id number]
--- OUTSIDE RECORDS SUMMARY | 2024-08-10 16:42 | XMS_ITS | Encounter Summary ---
Author Organization [facility] Address [address] [place] [address] Care Team Providers Care Labor Trainer Name Role Phone Karlene Santana MD Primary Care Provider [phone] Reason for Visit * Consultation (Elective) - Authorized Specialty Diagnoses / Procedures Referred By Florinda chatman Referred To Contact Physical Therapy Diagnoses Knee pain Michael Santillan PA [facility] [address] [place] [address] [place] [address] Phone: tel: fax: Henry Watson PT Referral ID Status Reason Start Date Expiration Date Visits Requested Visits Authorized [id number] Authorized Consult and Treat 06/28/2024 06/28/2025 Encounter Details Date Type Department Care Team ([facility] st Contact Info) Description 08/10/2024 12:00 PM EST Treatment Physical Therapy - [address] [phone] Henry Watson PT Chronic pain of both knees (Primary Dx); Disorder of patellofemoral joint, unspecified laterality Social History Tobacco Use Types Packs/Day Years Used Date Smoking Tobacco: Never Assessed Comments Unknown Sex and Gender Information Value Date Recorded Sex Assigned at Not on file Legal Sex Female 8:03 PM EDT Gender Identity Not on file Sexual Orientation Not on file documented as of this encounter Progress Notes * Henry Watson PT - 08/10/2024 12:00 PM EST [facility] - Outpatient PHYSICAL THERAPY DAILY TREATMENT NOTE - OP Date: 08/10/2024 Visit Number: 4 Patient Name: Usha Alaniz : 2000 Age: 24 y.o. Gender: female Diagnosis: ICD-10-CM ICD-9-CM 1. Chronic pain of both knees M25.561 719.46 M25.562 338.29 G89.29 2. Disorder of patellofemoral joint, unspecified laterality M22.2X9 719.96 Date of Onset/Surgery: 06/29/2024 Referring Provider: Michael Santillan PA Insurance: Payor: [place] [employer] / Plan: [facility] [employer] / Product Type: *No Product type* / Patient Identified by: Henry Watson PT Language: Speaks and understands Bulgarian as preferred language with no keg raiser required Medications: No current outpatient medications on file prior to visit. No current facility-administered medications on file prior to visit. Allergies: has no allergies on file. Precautions: None Fall risk: No SUBJECTIVE: Subjective Report: A little sore after last visit. Chart Reviewed: Yes Pain: 2/10 coming up the stairs to PT L > R. OBJECTIVE: Vitals: There were no vitals filed for this visit.; TREATMENT INTERVENTION: Manual Tech: L patella medial glides B Resendez taping for medial glides Therex: Nu step x 4min SLR with slight ER L and R 3 x 10 Bridges x 10. Bridges with marching x 10 Calf raises 2 x 10 Sit to stands 2 x 10 Stool scoots x 2 laps Sidestepping with green at ankles x 6 lengths of table ASSESSMENT/Response to Treatment Good Needed Cuing to improve sit to stand ex to be more like a squat from the frontal plane. Patient Education: Education provided: Tape management Education Provided To: Patient utilizing Explanation, Demonstration, and Printed Material mode(s) of education Response to Education: Applied Knowledge, Verbal Understanding, and Demonstrated Skills PLAN POC Development/Review: No Change in the Plan of Care; Participants: Patient Interventions Time Entry: Therapeutic procedures: Manual Therapy Time Entry: 13 Therapeutic Exercise Time Entry: 31 Total Treatment Time: 45 Documentation completed by Henry Watson PT documented in this encounter Plan of Treatment Upcoming Encounters Date Type Department Care Team (Late st Contact Info) Description 08/15/2024 9:30 AM EST Treatment Physical Therapy [facility] [address] [facility] [place] [address] Henry Watson, PT 08/18/2024 9:30 AM EST Treatment Physical Therapy [facility] [address] [place] [address] Henry Watson, PT 08/22/2024 11:00 AM EDT Treatment Physical Therapy [facility] [address] [place] [address] Henry Watson, PT 08/26/2024 9:30 AM EDT Treatment Physical [facility] [address] [place] [address] Henry Watson, PT 08/29/2024 10:15 AM EDT Treatment Physical [facility] [address] [facility] [place] [address] Henry Watson, PT documented as of this encounter Visit Diagnoses Diagnosis Chronic pain of both knees- Primary Disorder of patellofemoral joint, unspecified laterality documented in this encounter Care Teams Labor Trainer Relationship Specialty Start Date End Date Karlene Santana MD [address] [place] [address] [place] [address] PCP - General 03/30/23 documented as of this encounter
--- OUTSIDE RECORDS SUMMARY | 2024-08-10 16:42 | XMS_ITS | Encounter Summary ---
Author Organization [facility] Address [address] [place] [address] Care Team Providers Care Entry Operator Name Role Phone Karlene Santana MD Primary Care Provider [phone] Reason for Visit * Consultation (Elective) - Authorized Specialty Diagnoses / Procedures Referred By Florinda chatman Referred To Contact Physical Therapy Diagnoses Knee pain Michael Santillan PA [facility] [address] [place] [address] [place] [address] Phone: tel: fax: Henry Watson PT Referral ID Status Reason Start Date Expiration Date Visits Requested Visits Authorized [id number] Authorized Consult and Treat 06/28/2024 06/28/2025 26 26 Encounter Details Date Type Department Care Team (Late st Contact Info) Description 08/08/2024 9:30 AM EST Treatment Physical Therapy - [address] [phone] Henry Watson PT Chronic pain of both [...] Progress Notes * Henry Watson PT - 08/08/2024 9:30 AM EST [facility] - Outpatient PHYSICAL THERAPY DAILY TREATMENT NOTE - OP Date: 08/08/2024 Visit Number: 3 Patient Name: Usha Alaniz : 2000 Age: 24 y.o. Gender: female Diagnosis: ICD-10-CM ICD-9-CM 1. Chronic pain of both knees M25.561 719.46 M25.562 338.29 G89.29 2. Disorder of patellofemoral joint, unspecified laterality M22.2X9 719.96 Date of Onset/Surgery: 06/29/2024 Referring Provider: Michael Santillan PA Insurance: Payor: [place] [employer] / Plan: [facility] [employer] / Product Type: *No Product type* / Patient Identified by: Henry Watson PT Language: Speaks and understands Bolivian as preferred language with no die inspector required Medications: No current outpatient medications on file prior to visit. No current facility-administered medications on file prior to visit. Allergies: has no allergies on file. Precautions: None Fall risk: No SUBJECTIVE: Subjective Report: Still feel better since cortisone. Sick with flu so missed a couple visits. Better now. Chart Reviewed: Yes Pain: 0/10 right now OBJECTIVE: Vitals: There were no vitals filed [...] lengths of table ASSESSMENT/Response to Treatment Good Pt did well today. Mild Pes ansurine irritation L > R. No pain with exs. Patient Education: Education provided: HEP and POC Education Provided To: Patient utilizing Explanation, Demonstration, and Printed Material mode(s) of education Response to Education: Applied Knowledge, Verbal Understanding, and Demonstrated Skills PLAN POC Development/Review: No Change in the Plan of Care; Participants: Patient Interventions Time Entry: Therapeutic procedures: Manual Therapy Time Entry: 13 Therapeutic Exercise Time Entry: 30 Total Treatment Time: 45 Documentation completed by Henry Watson PT documented in this encounter Plan of Treatment Upcoming Encounters Date Type Department Care Team (Late st Contact Info) Description 08/15/2024 9:30 AM EST Treatment Physical Therapy [facility] [address] [place] [address] Henry Watson, PT 08/18/2024 9:30 AM EST Treatment Physical Therapy [facility] [address] [facility] [place] [address] Henry Watson, PT 08/22/2024 11:00 AM EDT Treatment Physical [facility] [address] [place] [address] Henry Watson, PT 08/26/2024 9:30 AM EDT Treatment Physical [facility] [address] [place] [address] Henry Watson, PT 08/29/2024 10:15 AM EDT Treatment Physical [facility] [address] [place] [address] Henry Watson, PT documented as of this encounter Visit Diagnoses Diagnosis Chronic pain of both knees- Primary Disorder of patellofemoral joint, unspecified laterality documented in this encounter Care Teams Entry Operator Relationship Specialty Start Date End Date Karlene Santana MD [address] [place] [address] [place] [address] PCP - General 03/30/23 documented as of this encounter
--- OUTSIDE RECORDS SUMMARY | 2024-08-10 16:42 | XMS_ITS | Encounter Summary ---
Author Organization [facility] Address [address] [place] [address] Care Team Providers Care Real Estate Lawyer Name Role Phone Karlene Santana MD Primary Care Provider [phone] Reason for Visit * Consultation (Elective) - Authorized Specialty Diagnoses / Procedures Referred By Florinda chatman Referred To Contact Physical Therapy Diagnoses Knee pain Michael Santillan PA [facility] [address] [place] [address] [place] [address] Phone: tel: fax: Henry Watson PT Referral ID Status Reason Start Date Expiration Date Visits Requested Visits Authorized [id number] Authorized Consult and Treat 06/28/2024 06/28/2025 26 26 Encounter Details Date Type Department Care Team ([facility] st Contact Info) Description 07/25/2024 10:30 AM EST Treatment Physical Therapy - [address] [phone] Henry Watson PT Chronic pain of both [...] Progress Notes * Henry Watson PT - 07/25/2024 10:30 AM EST [facility] - Outpatient PHYSICAL THERAPY DAILY TREATMENT NOTE - OP Date: 07/25/2024 Visit Number: 2 Patient Name: Usha Alaniz : 2000 Age: 24 y.o. Gender: female Diagnosis: ICD-10-CM ICD-9-CM 1. Chronic pain of both knees M25.561 719.46 M25.562 338.29 G89.29 2. Disorder of patellofemoral joint, unspecified laterality M22.2X9 719.96 Date of Onset/Surgery: 06/29/2024 Referring Provider: Michael Santillan PA Insurance: Payor: [id number] / Plan: [facility] [employer] / Product Type: *No Product type* / Patient Identified by: Henry Watson PT Language: Speaks and understands Scottish as preferred language with no deaf interpreter required Medications: No current outpatient medications on file prior to visit. No current facility-administered medications on file prior to visit. Allergies: has no allergies on file. Precautions: None Fall risk: No SUBJECTIVE: Subjective Report: OK. The cortisone helped. Minimal pain L knee and no pain R right now. Still really weak and difficulty with stairs and sit to stand Chart Reviewed: Yes Pain: 2/10 L knee OBJECTIVE: Vitals: There were no vitals filed for this visit.; TREATMENT INTERVENTION: Manual Tech: L patella medial glides B Resendez taping for medial glides Therex: Nu step x 3 min SLR with slight ER L and R 3 x 10 Bridges with abd 2 x 10 Calf raises 2 x 10 Sit to stands 2 x 10 Brief reassessment B knees Issued printout and reviewed HEP as above. ASSESSMENT/Response to Treatment Good Pt demonstrates improved tolerance to PF load but still has significant lateral tracking B patellas L > R. Increased sx with PF load on sit to stands and stairs. Minimal VMO activity on L. General weakness B quads but today was able to tolerate some PF load since cortisone. Patient Education: Education provided: HEP and POC Education Provided To: Patient utilizing Explanation, Demonstration, and Printed Material mode(s) of education Response to Education: Applied Knowledge, Verbal Understanding, and Demonstrated Skills PLAN POC Development/Review: No Change in the Plan of Care; Participants: Patient Interventions Time Entry: Therapeutic procedures: Manual Therapy Time Entry: 12 Therapeutic Exercise Time Entry: 30 Total Treatment Time: 45 Documentation completed by Henry Brown, PT documented in this encounter Plan of Treatment Upcoming Encounters Date Type Department Care Team (Late st Contact Info) Description 08/15/2024 9:30 AM EST Treatment Physical Therapy [facility] [address] [facility] [place] [address] Henry Watson, PT 08/18/2024 9:30 AM EST Treatment Physical Therapy [facility] [address] [place] [address] Henyr Watson, PT 08/22/2024 11:00 AM EDT Treatment Physical [facility] [address] [facility] [place] [address] Henry Watson, PT 08/26/2024 9:30 AM EDT Treatment Physical [facility] [address] [place] [phone] Henry Watson, PT 08/29/2024 10:15 AM EDT Treatment Physical [facility] [address] [place] [address] Henry Watson, PT documented as of this encounter Visit Diagnoses Diagnosis Chronic pain of both knees- Primary Disorder of patellofemoral joint, unspecified laterality documented in this encounter Care Teams Real Estate Lawyer Relationship Specialty Start Date End Date Karlene Santana MD [address] [facility] [place] [address] PCP - General 03/30/23 documented as of this encounter
--- OUTSIDE RECORDS SUMMARY | 2024-08-10 16:42 | XMS_ITS | Data Portability ---
Author Organization [place] - [facility], [facility] Address [address] [place] [address] Assessment Encounter Date Assessment Date Assessment LastModified [...] neck. Discussed referral to neurologist other than [facility], but should continue with regular visits with [facility] until they can be seen at [...] DO Not Attach Compendium, Do Not Delete/merge, 52012 14:06:44 Referral neurologist referral - Migraine type and tension type headache without control with OTCs 2023 [facility], [address] [address], [place], [address], 04:02:38 Procedures None recorded. Surgeries None recorded. Imaging None recorded. Medication Orders azithromyci n 250 mg tablet 2023 [facility] #[id number], [address], [place], [phone], 11:38:57 prednisone 20 mg tablet 2023 [facility] #[id number], [address], [place], [id number], 14:26:45 amoxicillin 875 mg tablet 2023 024 [facility] #[id number], [address], [place], [phone], 14:26:45 Patient TargetsNo targets recorded. Patient Instructions Encounter Date Encounter Id Patient Instructions Last Modified By Organization Details Last Modified Time 02/16/2024 [id number] neck pain: care instructions Not available 02/16/2024 14:23:18 Reason for Referral Neurologist Referral for [facility] Migraine type and tension type headache without control with OTCs Referring Physician: Rachna Knight, Pediatric Medicine, Encounter Date: 02/16/2024 Results Created Date Observation Date Name Description Value Unit Range Abnormal Flag Note LastModifiedBy Organization Detail LastModifiedTime 10/27/19 24 10/28/2023 TSH+F REE T4 TSH 2.640 uIU/m L 0.450- 4.500 Not Available [facility] ([facility]) [address] [place], [address], 10/29/2023 16:07:02 10/27/19 24 10/28/2023 TSH+F REE T4 T4,free(dire ct) 1.11 NG/dL 0.82-1 .77 Not Available [facility] ([facility]) [address] [place], [address], 10/29/2023 16:07:02 10/27/19 24 10/28/2023 CBC WITH DIFFE RENTI AL/PL ATELE T WBC 7.9 x10e3 /uL 3.4-10 .8 Not Available [facility] ([facility]) [address] [place], [address], 10/29/2023 16:07:03 10/27/19 24 10/28/2023 CBC WITH DIFFE RENTI AL/PL ATELE T RBC 5.01 x10e6 /uL 3.77-5 .28 Not Available [facility] ([facility]) [address] [place], [address], 10/29/2023 16:07:03 10/27/19 24 10/28/2023 CBC WITH DIFFE RENTI AL/PL ATELE T hemoglobin 14.5 g/dL 11.1-1 5.9 Not Available [facility] ([facility]) [address] [place], [address], 10/29/2023 16:07:03 10/27/19 24 10/28/2023 CBC WITH DIFFE RENTI AL/PL ATELE T hematocrit 43.8 % 34.0-4 6.6 Not Available [facility] ([facility]) [address] [facility], [place], [address], 10/29/2023 16:07:03 10/27/19 24 10/28/2023 CBC WITH DIFFE RENTI AL/PL ATELE T MCV 87 fL 79-97 Not Available [facility] ([facility]) [address] [facility], [place], [address], 10/29/2023 16:07:03 10/27/19 24 10/28/2023 CBC WITH DIFFE RENTI AL/PL ATELE T MCH 28.9 pg 26.6-3 3.0 Not Available [facility] ([facility]) [address] [facility], [place], [address], 10/29/2023 16:07:03 10/27/19 24 10/28/2023 CBC WITH DIFFE RENTI AL/PL ATELE T MCHC 33.1 g/dL 31.5-3 5.7 Not Available [facility] ([facility]) [address] [facility], [place], [address], 10/29/2023 16:07:03 10/27/19 24 10/28/2023 CBC WITH DIFFE RENTI AL/PL ATELE T RDW 12.6 % 11.7-1 5.4 Not Available [facility] ([facility]) [address] [facility], [place], [address], 10/29/2023 16:07:03 10/27/19 24 10/28/2023 CBC WITH DIFFE RENTI AL/PL ATELE T platelets 258 x10e3 /uL 150-45 0 Not Available [facility] ([facility]) [address] [facility], [place], [address], 10/29/2023 16:07:03 10/27/19 24 10/28/2023 CBC WITH DIFFE RENTI AL/PL ATELE T neutrophils 63 % not estab. Not Available [facility] ([facility]) [address] [facility], [place], [address], 10/29/2023 16:07:03 10/27/19 24 10/28/2023 CBC WITH DIFFE RENTI AL/PL ATELE T lymphs 29 % not estab. Not Available [facility] ([facility]) [address] [facility], [place], [address], 10/29/2023 16:07:03 10/27/19 24 10/28/2023 CBC WITH DIFFE RENTI AL/PL ATELE T monocytes 7 % not estab. Not Available [facility] ([facility]) [address] [facility], [place], [address], 10/29/2023 16:07:03 10/27/19 24 10/28/2023 CBC WITH DIFFE RENTI AL/PL ATELE T eos 1 % not estab. Not Available [facility] ([facility]) [address] [facility], [place], [address], 10/29/2023 16:07:03 10/27/19 24 10/28/2023 CBC WITH DIFFE RENTI AL/PL ATELE T basos 0 % not estab. Not Available [facility] ([facility]) [address] [facility], [place], [address], 10/29/2023 16:07:03 10/27/19 24 10/28/2023 CBC WITH DIFFE RENTI AL/PL ATELE T immature cells GOLF TECHNICIAN Not Available [facility] ([facility]) [address] [facility], [place], [address], 10/29/2023 16:07:03 10/27/19 24 10/28/2023 CBC WITH DIFFE RENTI AL/PL ATELE T neutrophils (absolute) 5.0 x10e3 /uL 1.4-7. 0 Not Available [facility] ([facility]) [address] [facility], [place], [address], 10/29/2023 16:07:03 10/27/19 24 10/28/2023 CBC WITH DIFFE RENTI AL/PL ATELE T lymphs (absolute) 2.3 x10e3 /uL 0.7-3. 1 Not Available [facility] ([facility]) [address] [facility], [place], [address], 10/29/2023 16:07:03 10/27/19 24 10/28/2023 CBC WITH DIFFE RENTI AL/PL ATELE T monocytes(ab solute) 0.5 x10e3 /uL 0.1-0. 9 Not Available [facility] ([facility]) [address] [place], [address], 10/29/2023 16:07:03 10/27/19 24 10/28/2023 CBC WITH DIFFE RENTI AL/PL ATELE T eos (absolute) 0.0 x10e3 /uL 0.0-0. 4 Not Available [facility] ([facility]) [address] [facility], [place], [address], 10/29/2023 16:07:03 10/27/19 24 10/28/2023 CBC WITH DIFFE RENTI AL/PL ATELE T baso (absolute) 0.0 x10e3 /uL 0.0-0. 2 Not Available [facility] ([facility]) [address] [place], [address], 10/29/2023 16:07:03 10/27/19 24 10/28/2023 CBC WITH DIFFE RENTI AL/PL ATELE T immature granulocytes 0 % not estab. Not Available [facility] ([facility]) [address] [place], [address], 10/29/2023 16:07:03 10/27/19 24 10/28/2023 CBC WITH DIFFE RENTI AL/PL ATELE T immature grans (abs) 0.0 x10e3 /uL 0.0-0. 1 Not Available [facility] ([facility] [facility]) [address] [place], [address], 10/29/2023 16:07:03 10/27/19 24 10/28/2023 CBC WITH DIFFE RENTI AL/PL ATELE T NRBC GOLF TECHNICIAN Not Available [facility] ([facility]) [address], [place], [address], 10/29/2023 16:07:03 10/27/19 24 10/28/2023 CBC WITH DIFFE RENTI AL/PL ATELE T hematology comments: GOLF TECHNICIAN Not Available [facility] ([facility]) [address], [place], [address], 10/29/2023 16:07:03 10/27/19 24 10/28/2023 COMP. METAB OLIC PANEL (14) glucose 76 mg/dL 70-99 Not Available [facility] ([facility]) [address], [place], [address], 10/29/2023 16:07:03 10/27/19 24 10/28/2023 COMP. METAB OLIC PANEL (14) BUN 6 mg/dL 6-20 Not Available [facility] ([facility]) [address], [place], [address], 10/29/2023 16:07:03 10/27/19 24 10/28/2023 COMP. METAB OLIC PANEL (14) creatinine 0.73 mg/dL 0.57-1 .00 Not Available [facility] ([facility]) [address] [facility], [place], [address], 10/29/2023 16:07:03 10/27/19 24 10/28/2023 COMP. METAB OLIC PANEL (14) BUN/creatini ne ratio 8 9-23 below low normal Not Available [facility] ([facility]) [address] [place], [address], 10/29/2023 16:07:03 10/27/19 24 10/28/2023 COMP. METAB OLIC PANEL (14) sodium 139 mmol/ L 134-14 4 Not Available [facility] ([facility]) [address] [facility] [place], [address], 10/29/2023 16:07:03 10/27/19 24 10/28/2023 COMP. METAB OLIC PANEL (14) potassium 4.0 mmol/ L 3.5-5. 2 Not Available [facility] ([facility]) [address] [facility] [place], [address], 10/29/2023 16:07:03 10/27/19 24 10/28/2023 COMP. METAB OLIC PANEL (14) chloride 102 mmol/ L 96-106 Not Available [facility] ([facility]) [address] [facility] [place], [address], 10/29/2023 16:07:03 10/27/19 24 10/28/2023 COMP. METAB OLIC PANEL (14) carbon dioxide, total 21 mmol/ L 20-29 Not Available [facility] ([facility]) [address] [facility] [place], [address], 10/29/2023 16:07:03 10/27/19 24 10/28/2023 COMP. METAB OLIC PANEL (14) calcium 9.5 mg/dL 8.7-10 .2 Not Available [facility] ([facility]) [address] [facility] [place], [address], 10/29/2023 16:07:03 10/27/19 24 10/28/2023 COMP. METAB OLIC PANEL (14) protein, total 7.5 g/dL 6.0-8. 5 Not Available [facility] ([facility]) [address] [facility] [place], [address], 10/29/2023 16:07:03 10/27/19 24 10/28/2023 COMP. METAB OLIC PANEL (14) albumin 4.7 g/dL 4.0-5. 0 Not Available [facility] ([facility]) [address] [facility] [place], [address], 10/29/2023 16:07:03 10/27/19 24 10/28/2023 COMP. METAB OLIC PANEL (14) globulin, total 2.8 g/dL 1.5-4. 5 Not Available [facility] ([facility]) [address] [facility] [place], [address], 10/29/2023 16:07:03 10/27/19 24 10/28/2023 COMP. METAB OLIC PANEL (14) A/G ratio 1.7 1.2-2. 2 Not Available [facility] ([facility]) [address] [facility] [place], [address], 10/29/2023 16:07:03 10/27/19 24 10/28/2023 COMP. METAB OLIC PANEL (14) bilirubin, total <0.2 mg/dL 0.0-1. 2 Not Available [facility] ([facility]) [address] [facility] [place], [address], 10/29/2023 16:07:03 10/27/19 24 10/28/2023 COMP. METAB OLIC PANEL (14) alkaline phosphatase 46 IU/L 44-121 Not Available [facility] ([facility]) [address] [facility] [place], [address], 10/29/2023 16:07:03 10/27/19 24 10/28/2023 COMP. METAB OLIC PANEL (14) AST (SGOT) 19 IU/L 0-40 Not Available [facility] ([facility]) [address] [facility] [place], [address], 10/29/2023 16:07:03 10/27/19 24 10/28/2023 COMP. METAB OLIC PANEL (14) ALT (SGPT) 13 IU/L 0-32 Not Available [facility] ([facility]) [address] [place], [address], 10/29/2023 16:07:03 10/27/19 24 10/28/2023 VITAM IN [...] um and D. Marcus townsend [place]: [facility] . 2. Ange cabrera MF, Chester mcarthur [place], Diana off-F errar i MONTERO, et al. Evalu ation , treat ment, and preve ntion of vitam in D defic iency : an Endoc rine Socie ty clini amarjit pract ice guide line. JCEM. 2010; 96(7) :1911 -30. Not Available [facility] ([facility]) [address] [facility], [place], [address], 10/29/2023 16:07:04 10/27/19 24 10/28/2023 T-TRA NSGLU [...] tive enter opath y. Not Available [facility] ([facility]) [address] [facility], [place], [address], 10/29/2023 16:07:05 10/27/19 24 10/28/2023 MONON UCLEO SIS, QUAL W/REF MARCELL mononucleosi s test, qual Negati ve negati ve The sensi tivit y of Heter ophil e antib carla testi ng is 80-90 %. Epste in Gao IgM testi ng offer s highe r sensi tivit y. Not Available [facility] ([facility]) [address] [facility], [place], [address], 10/29/2023 16:07:05 10/27/19 24 10/28/2023 MONON UCLEO [...] antib odies to [facility]NA. Not Available [facility] ([facility]) [address] [facility] [address], [place], [address], 10/29/2023 16:07:05 10/27/19 24 10/29/2023 MONON UCLEO SIS, QUAL W/REF MARCELL ebv Ab vca, IgM <36.0 U/mL 0.0-35 .9 Negat az <36.0 Equiv ocal 36.0 - 43.9 Posit az >43.9 Not Available [facility] ([facility]) [address] [facility], [place], [address], 10/29/2023 16:07:05 10/27/19 24 10/29/2023 MONON UCLEO SIS, QUAL W/REF MARCELL ebv Ab vca, IgG >600.0 U/mL 0.0-17 .9 above high normal Negat az <18.0 Equiv ocal 18.0 - 21.9 Posit az >21.9 Not Available [facility] ([facility]) [address] [facility], [place], [address], 10/29/2023 16:07:05 10/27/19 24 10/29/2023 MONON UCLEO SIS, QUAL W/REF MARCELL ebv nuclear antigen Ab, IgG >600.0 U/mL 0.0-17 .9 above high normal Negat az <18.0 Equiv ocal 18.0 - 21.9 Posit az >21.9 Not Available [facility] ([facility]) [address] [facility], [place], [address], 10/29/2023 16:07:05 10/27/19 24 10/28/2023 SEDIM ENTAT ION RATE- WESTE RGREN sedimentatio n rate-westerg omi 5 mm/HR 0-32 Not Available [facility] ([facility]) [address] [facility], [place], [address], 10/29/2023 16:07:06 10/27/19 24 10/28/2023 IMMUN OGLOB ULIN A, QN, SERUM immunoglobul in A, qn, serum 235 mg/dL 87-352 Not Available [facility] ([facility]) [address] [place], [address], 10/29/2023 16:07:06 03/07/20 24 03/07/2024 strep group A, DNA, swab Strep ID NOW negati ve Not Available In-Office Order Internal Use Only DO Not Attach Compendium DO Not Attach Compendium, Do Not Delete/merge, [id number] 03/07/2024 13:53:03 Result Notes None recorded. Problems Name Problem SNOMED Code Status Onset Date Resolution Date Notes Provider Name and Address Organization Details Recorded Time Upper respirat ory infectio n 45650167 Completed 03/10/2016 Karlene Santana MD [address] [place] [address], , [facility] 6 13:56:40 Sinusiti s [id number] Completed 10/06/2022 Karlene Santana MD [address] [place] [address], , [facility] 3 14:34:43 On examinat ion - mouth rash Completed 03/10/2016 Karlene Santana MD [address] [place] [address], , [facility] 6 13:56:53 Asthma without status asthmati cus [id number] Completed 03/10/2016 Karlene Santana MD [address] [place] [address], , [facility] 6 13:56:48 Verruca vulgaris 98908294 Completed 10/06/2022 Karlene Santana MD [address] [place] [address], , [facility] 3 14:34:48 Knee pain Active chronic, sees ortho, started PT, referred to Rheum, has +HLA B27 Karlene Santana MD [address] [place] [address], , [facility] 2 15:15:13 Idiopath ic scoliosi s [id number] Completed 08/09/2018 Karlene Santana MD [address] [place] [address], , [facility] 9 13:27:40 Moderate persiste nt asthma 427833493 Active 2017 onset 12/2008, followed by Dr. 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 noted by Pulm but not clinical ly signific ant Karlene Santana MD [address] [place] [address], , [facility] 8 08:56:11 Dysmenor chika 481482610 Active 2018 improved on Davian Santana MD [address] [place] [address], , [facility] 3 14:34:32 Menorrha everett 555936893 Active 2018 Karlene Santana MD [address] [place] [address], , [facility] 9 14:38:15 School problem [id number] Completed 201910/06/2022 multiple tardies and absences Karlene Santana MD [address] [place] [address], , [facility] 3 14:34:40 Perioral dermatit is 871735652 Active 2019 Tierney Sal DO [address] [place] [address], , [facility] 0 20:07:55 Acne 80163485 Active 2020 improved with Davian Santana MD [address] [place] [address], , [facility] 3 14:34:02 Pneumoni tis 839973558 Active 2020 summer 2020 Karlene Santana MD [address] [place] [address], , [facility] 1 10:52:32 Disturba nce of attentio n 46642745 Completed 202004/24/2021 Karlene Santana MD [address] [place] [address], , [facility] 1 16:23:35 Child attentio n deficit disorder 468939256 Active 2020 +Vanderb ilts 2012, neuropsy eval 2012 Karlene Santana MD [address] [place] [address], , [facility] 1 10:13:29 Sleep disorder 84380526 Active 2020 Karlene Santana MD [address] [place] [address], , [facility] 1 15:21:51 Headache 50298733 Active 2020 worsenin g 2020 with college, referred to Neuro; starting cycloben zaprine Karlene Santana MD [address] [place] [address], , [facility] 2 15:13:42 Hemorrha gic cyst of ovary 756119343 Active 2021 R 5.6 x 4.4 x 5.1 cm, vol 64.8 cc 07/15/21 - 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 Karlene Santana MD [address] [place] [address], , [facility] 3 14:33:51 Diet educatio n Completed 202101/07/2022 Karlene Santana MD [address] [place] [address], , [facility] 2 15:13:18 Migraine without aura 04740917 Active 2021 refer to Neuro 08/2021 Karlene Santana MD [address] [place] [address], , [facility] 2 18:06:35 Depressi ve disorder 29192289 Active 2021 started Lexapro 11/2021, has psychiatry adult physician 01/2022 Karlene Santana MD [address] [place] [address], , [facility] 2 15:13:16 Temporom andibula r joint disorder 94952339 Active 2022 Karlene Santana MD [address] [place] [address], , [facility] 3 08:23:44 Verruca plantari s 09483220 Active 2023 Karlene Santana MD [address] [place] [address], , [facility] 4 11:46:53 Nervous system symptoms Completed 10/06/2022 Karlene Santana MD [address] [place] [address], , [facility] 3 14:34:33 Viral disease 00243673 Completed 09/23/2011 Not Available [facility] 3 03:01:41 Viral disease 09592915 Completed 10/18/2012 Not Available [facility] 3 03:01:41 Viral disease 80571898 Completed 200804/21/2011 Not Available [facility] 3 03:01:41 Influenz a with respirat ory manifest ation other than pneumoni a Completed 04/21/2011 Not Available [facility] 3 03:01:41 Lymphade nopathy 00117667 Completed 200704/21/2011 Not Available [facility] 3 03:01:41 Diaper rash 34461856 Completed 200704/21/2011 Not Available [facility] 3 03:01:41 Allergic rhinitis 41242035 Active 2008 tested neg at allergis t 2022 for common environm ental allergen s Karlene Santana MD [address] [place] [address], , [facility] 3 14:19:41 Acute pharyngi tis 478944992 Completed 03/10/2016 Karlene Santana MD [address] [place] [address], , [facility] 6 13:56:37 Acute pharyngi tis 066674701 Completed 10/18/2012 Karlene Santana MD [address] [place] [address], , [facility] 6 13:56:37 Acute pharyngi tis 016374600 Completed 200704/21/2011 Karlene Santana MD [address] [place] [address], , [facility] 6 13:56:37 Acute bronchio litis 5157284 Completed 04/21/2011 Not Available [facility] 3 03:01:41 Pain in throat 471199103 Completed 04/21/2011 Not Available [facility] 3 03:01:41 Acute upper respirat ory infectio n 33973775 Completed 200604/21/2011 Not Available [facility] 3 03:01:41 Acute upper respirat ory infectio n 79180910 Completed 09/23/2011 Not Available [facility] 3 03:01:41 Pneumoni a 681460287 Completed 04/21/2011 Not Available [facility] 3 03:01:41 Nonvenom ous insect bite of multiple sites 352495996 Completed 200604/21/2011 Not Available [facility] 3 03:01:41 Non-supp urative otitis media with eustachi an tube disorder 865889664 Completed 04/21/2011 Not Available [facility] 3 03:01:41 Acute maxillar y sinusiti s 86020353 Completed 200704/21/2011 Not Available [facility] 3 03:01:41 Otitis externa 4940018 Completed 04/21/2011 Not Available [facility] 3 03:01:41 Conjunct ivitis 5589889 Completed 04/21/2011 Not Available [facility] 3 03:01:41 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 and needed OT, then needed accommod ations yearly for academic issues, IEP in high school Karlene Santana MD [address] [place] [address], , [facility] 1 10:14:13 Acute asthma 085954049 Completed 10/18/2012 Not Available [facility] 3 03:01:41 Acute asthma 595996583 Completed 04/21/2011 Not Available [facility] 3 03:01:41 Asthma 596241916 Completed 200802/08/2018 Karlene Santana MD [address] [place] [address], , [facility] 8 08:56:16 Streptoc occal sore throat 81621668 Completed 04/21/2011 Not Available [facility] 3 03:01:41 Noninfec tious gastroen teritis 57523903 Completed 200804/21/2011 Not Available [facility] 3 03:01:41 Problem Notes None recorded. Procedures Surgical History Date Name Laterality Status Provider Name and Address Organization Details Recorded Time 4 Pulse Oximetry completed Leelee Jenkins [address] [place] [address], , [facility] 03/11/2024 14:21:25 4 Wart removal completed Karlene Santana MD [address] [place] [address], , [facility] 10/19/2023 11:06:56 4 Wart removal completed Karlene Santana MD [address] [place] [address], , [facility] 10/13/2023 11:45:49 2 Wart removal completed Shree Plata MD [address] [place] [address], , [facility] 02/24/2022 12:31:34 2 Wart removal completed Shree Plata MD [address] [place] [address], , [facility] 07/22/2021 10:52:47 7 Knee arthroscopy/low rgery completed Karlene Santana MD [address] [place] [address], , [facility] 07/21/2017 09:11:04 6 Pulse Oximetry completed Karlene Santana MD [address] [place] [address], , [facility] 04/18/2016 17:03:29 5 Wart removal completed Karlene Santana MD [address] [place] [address], , [facility] 12/29/2014 09:40:26 5 Nebulizer tx completed Karlene Santana MD [address] [place] [address], , [facility] 11/22/2014 13:17:46 5 Pulse Oximetry completed [facility] 09/27/2014 11:20:06 Imaging Results None recorded. [...] Available Not Available prednisone 10 mg tablet TAKE 4 TABLETS BY MOUTH DAILY FOR 5 DAYS THEN TAKE 2 TABLETS BY MOUTH DAILY FOR 5 DAYS THEN TAKE 1 TABLET BY MOUTH DAILY FOR 5 DAYS active Not Available Not Available No t Available prednisolo ne sodium phosphate 15 mg/5 [...] DateTime 11/16/2023 173.99 cm Beata Plascencia R.N. [facility] 11/16/2023 10:22:09 Date Recorded Body height Oxygen saturation Oxygen saturation in Arterial blood by Pulse oximetry Systolic blood pressure Diastolic blood pressure Provider Name and Address Organization Details Last Updated DateTime 173.99 cm 99 % 99 % 114 mm[Hg] 64 mm[Hg] Alexsandra Roberts CMA [facility] 13:56:52 Social History Question Answer Notes LastModified by Organizat ion Details LastModified Time Tobacco Smoking Status Never Smoker Not Available [facility] 04/17/2020 03:14:38 What Type Of Diet Are You Following? REGULAR [id number] Information not available 04/17/2020 Have There Been Any Changes To Your Family Or Social Situation? 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 08/09/2018 [id number] Information not available 04/17/2020 What Is The Name Of Your School? [employer] [id number] Information not available 04/17/2020 Do You Use Your Seat Belt Or Car Seat Routinely? Yes [id number] Information not available 04/17/2020 Are You Passively Exposed To Smoke? No Information not available 10/20/2013 How Much Tobacco Do You Smoke? No [id number] Information not available 04/17/2020 Do You Use [...] PROBLEMS/ECZEMA Y ENT PROBLEMS/OTITIS MEDIA/ CHRONIC N DEPUTY COMMISSIONER PROBLEMS Y HEMATOLOGIC /ONCOLOGIC PROBLEMS N RENAL [...] Time varicella 06/09/20 07 completed Not Available [facility] 04/19/2011 03:16:44 Influenza, split virus, trivalent, preservative 03/24/20 11 completed Not Available [facility] 07/02/2019 02:35:18 IPV 02/09/20 04 completed Not Available [facility] 04/19/2011 03:18:43 DTaP, unspecified formulation 02/09/20 04 completed Not Available [facility] 04/19/2011 03:18:43 varicella 07/07/19 04 completed Not Available [facility] 04/19/2011 03:18:43 DTaP, unspecified formulation 02/04/20 03 completed Not Available [facility] 04/19/2011 03:18:43 DTaP, unspecified formulation 11/19/19 03 completed Not Available [facility] 04/19/2011 03:18:43 IPV 08/23/19 03 completed Not Available [facility] 04/19/2011 03:18:43 DTaP, unspecified formulation 08/23/19 03 completed Not Available [facility] 04/19/2011 03:18:43 IPV 11/19/19 03 completed Not Available [facility] 04/19/2011 03:18:43 MMR 06/05/20 06 completed Not Available [facility] 04/19/2011 03:18:43 MMR 11/29/19 04 completed Not Available [facility] 04/19/2011 03:18:43 Hep B, unspecified formulation 04/03/20 03 completed Not Available [facility] 04/19/2011 03:18:43 Hep B, unspecified formulation 06/22/19 03 completed Not Available [facility] 04/19/2011 03:18:43 Hib, unspecified formulation 11/19/19 03 completed Not Available [facility] 04/19/2011 03:18:43 Hib, unspecified formulation 11/29/19 04 completed Not Available [facility] 04/19/2011 03:18:43 Hib, unspecified formulation 08/23/19 03 completed Not Available [facility] 04/19/2011 03:18:43 Hib, unspecified formulation 02/04/20 03 completed Not Available [facility] 04/19/2011 03:18:43 Hep B, unspecified formulation 07/20/19 03 completed Not Available [facility] 04/19/2011 03:18:43 pneumococcal conjugate PCV 7 11/19/19 03 completed Not Available [facility] 04/19/2011 03:18:43 pneumococcal conjugate PCV 7 07/07/19 04 completed Not Available [facility] 04/19/2011 03:19:20 pneumococcal conjugate PCV 7 08/23/19 03 completed Not Available [facility] 04/19/2011 03:18:43 pneumococcal conjugate PCV 7 02/04/20 03 completed Not Available [facility] 04/19/2011 03:18:43 Influenza, split virus, trivalent, preservative 06/17/19 13 completed Not Available [facility] 07/02/2019 02:35:26 Influenza, split virus, quadrivalent, PF 03/04/20 13 completed Not Available [facility] 07/02/2019 02:35:35 Influenza, split virus, quadrivalent, PF 03/20/20 14 completed Not Available [facility] 07/02/2019 02:35:57 Tdap 05/26/20 14 completed Not Available [facility] 07/02/2019 02:33:47 meningococcal MCV4P 05/26/20 14 completed Not Available [facility] 07/02/2019 02:33:36 HPV, quadrivalent 05/26/20 14 completed Not Available [facility] 07/02/2019 02:34:15 HPV, quadrivalent 08/01/19 15 completed Not Available [facility] 07/02/2019 02:34:17 HPV, quadrivalent 12/02/19 15 completed Not Available [facility] 07/02/2019 02:36:07 Influenza, split virus, quadrivalent, PF 04/05/20 15 completed Not Available [facility] 07/02/2019 02:36:20 Influenza, split virus, quadrivalent, PF 04/14/20 16 completed Not Available [facility] 07/02/2019 02:37:13 COVID-19, mRNA, LNP-S, PF, 30 mcg/0.3 mL dose 09/25/19 21 completed Kalpesh Ornelas, [facility] 09/04/2021 14:05:49 COVID-19, mRNA, LNP-S, PF, 30 mcg/0.3 mL dose 10/25/19 21 completed Kalpesh Ornelas [facility] 09/04/2021 14:06:00 COVID-19, mRNA, LNP-S, PF, 100 mcg/0.5mL dose or 50 mcg/0.25mL dose 05/30/20 21 completed Kalpesh Ornelas [facility] 09/04/2021 14:07:01 Influenza, split virus, quadrivalent, PF 07/02/19 18 completed Not Available [facility] 07/02/2019 02:38:10 meningococcal MCV4P 08/09/19 19 completed Not Available [facility] 07/02/2019 02:38:57 Influenza, split virus, quadrivalent, PF 04/05/20 19 completed Not Available [facility] 07/02/2019 02:39:12 meningococcal B, OMV 08/09/19 20 cancelled patient objection Karlene Santana MD [address] [place] [address], [id number], [facility] 08/09/2019 13:52:44 Influenza, split virus, quadrivalent, PF 03/10/20 20 completed Martah erickson, [facility] 03/10/2020 14:24:45 Hep A, ped/adol, 2 dose 08/07/19 21 completed Karlene Santana MD [address] [place] [address], , [facility] 08/07/2020 14:03:05 meningococcal B, OMV 08/07/19 21 completed Karlene Santana MD [address] [place] [address], , [facility] 08/07/2020 14:03:05 Hep A, ped/adol, 2 dose 02/06/20 21 completed Mariella erickson, [facility] 02/05/2021 08:21:00 meningococcal B, OMV 02/06/20 21 [facility] 02/05/2021 08:21:00 Influenza, split virus, quadrivalent, PF 03/08/20 22 completed Karlene Santana MD [address] [place] [address], , [facility] 03/08/2022 10:52:18 Tdap 10/08/19 24 completed Karlene Santana MD [address] [place] [address], , [facility] 10/08/2023 17:23:36 DTaP, unspecified formulation 06/09/20 07 completed Not Available [facility] 04/19/2011 03:16:44 IPV 06/09/20 07 completed Not Available [facility] 04/19/2011 03:16:44 Past Encounters Encounter ID Performer Location Encounter Start Date Encounter Closed Date Diagnosis/Indication Diagnosis SNOMED-CT Code Diagnosis ICD10 Code Diagnosis Note [id number] [facility] w [address] [place] [address] [place] [address] 01/18/2007 15:55:16 01/18/2007 17:18:16 [id number] [facility] [address] [place] [address] [place] [address] 4 03/02/2007 09:20:55 03/02/2007 10:01:54 [id number] [facility] [address] [place] [address] 06/09/2007 14:15:04 06/09/2007 16:03:48 [id number] [facility] [address] [place] [address] 4 06/09/2007 14:15:04 06/09/2007 16:03:48 [id number] [facility] [address] [place] [address] 4 08/20/2007 10:57:22 08/20/2007 11:17:38 [id number] [facility] [address] [place] [address] 4 10/14/2007 15:42:44 02/22/2009 01:23:50 [id number] [facility] [place] [address] [place] [address] 10/19/2007 10:35:29 10/19/2007 11:16:10 [id number] [facility] [address] [place] [address] 4 11/09/2007 17:36:13 11/09/2007 18:16:56 [id number] P[facility] [address] [place] [address] 4 05/12/2008 17:04:58 05/12/2008 17:34:20 [id number] [facility] [address] [place] [address] 4 07/12/2008 14:03:36 07/12/2008 14:51:19 [id number] P[facility] [address] [place] [address] 4 07/25/2008 10:36:56 07/25/2008 11:06:57 [id number] [facility] [address] [place] [address] 4 08/14/2008 13:17:39 02/22/2009 01:23:50 [id number] P[facility] [address] [place] [address] 4 10/28/2008 10:50:37 10/28/2008 11:27:44 [id number] [facility] [address] [place] [address] 4 11/07/2008 14:31:35 11/07/2008 15:20:09 [id number] [facility] [address] [place] [address] 4 12/12/2008 17:08:10 12/12/2008 17:32:00 [id number] [facility] [address] [place] [address] 4 12/18/2008 16:33:02 12/18/2008 17:13:33 [id number] [facility] [address] [place] [address] 4 12/21/2008 13:05:00 12/21/2008 14:27:22 [id number] [facility] [address] [place] [address] 4 12/28/2008 10:57:32 12/28/2008 11:15:35 [id number] [facility] [address] [place] [address] 4 04/05/2009 10:21:51 04/05/2009 12:29:53 [id number] [facility] [address] [place] [address] 4 04/08/2009 12:57:27 04/08/2009 13:52:19 [id number] P[facility] [address] [place] [address] 4 04/09/2009 15:04:14 04/09/2009 16:51:38 [id number] [facility] [address] [place] [address] 4 05/15/2009 16:12:57 05/15/2009 17:21:24 [id number] [facility] [address] [place] [address] 4 05/21/2009 14:00:45 05/21/2009 15:01:23 [id number] P[facility] [address] [place] [address] 4 05/25/2009 11:16:12 05/25/2009 11:58:59 [id number] [facility] [address] [place] [address] 4 07/24/2009 17:18:34 07/24/2009 17:43:16 [id number] P[facility] [address] [place] [address] 4 08/31/2009 17:13:07 08/31/2009 17:36:57 [id number] P[facility] [address] [place] [address] 4 09/04/2009 16:00:08 09/04/2009 16:57:53 [id number] [facility] [address] [place] [address] 4 09/10/2009 15:46:08 09/10/2009 16:36:26 [id number] P[facility] [address] [place] [address] 4 09/14/2009 11:02:44 09/14/2009 15:12:59 [id number] P[facility] [address] [place] [address] 4 09/20/2009 16:32:13 09/20/2009 17:47:45 [id number] P[facility] [address] [place] [address] 4 11/07/2009 16:39:38 11/08/2009 08:08:22 [id number] P[facility] [address] [place] [address] 4 01/04/2010 15:57:00 01/04/2010 16:50:34 [id number] [facility] [address] [place] [address] 4 01/08/2010 12:47:46 01/08/2010 14:42:12 [id number] P[facility] [address] [place] [address] 4 02/28/2010 16:53:36 02/28/2010 17:54:51 [id number] [facility] [address] [place] [address] 4 02/28/2010 16:53:55 02/28/2010 16:55:32 [id number] [facility] [address] [place] [address] 4 05/06/2010 12:57:39 05/06/2010 13:55:43 [id number] P[facility] [address] [place] [address] 4 07/04/2010 10:15:06 07/04/2010 11:12:04 [id number] P[facility] [address] [place] [address] 4 08/27/2010 16:22:49 08/27/2010 17:15:08 [id number] [facility] [address] [place] [address] 4 09/06/2010 12:53:57 09/06/2010 13:27:03 [id number] P[facility] [address] [place] [address] 4 09/13/2010 10:29:20 09/13/2010 11:04:13 [id number] P[facility] [address] [place] [address] 4 10/21/2010 13:32:17 10/21/2010 14:02:50 [id number] P[facility] [address] [place] [address] 4 10/31/2010 13:32:35 10/31/2010 14:24:36 [id number] PVP [address] [place] [address] 11/07/2010 11:44:04 11/07/2010 12:23:03 [id number] P[facility] [address] [place] [address] 4 04/23/2011 13:32:49 04/23/2011 13:54:44 [id number] PVP [facility] w [address] [place] [address] 4 06/18/2011 16:29:57 06/18/2011 17:14:35 [id number] P[facility] [address] [place] [address] 4 06/19/2011 10:57:31 06/19/2011 11:31:36 [id number] PVP [facility] w [address] [place] [address] 4 09/23/2011 16:11:31 09/23/2011 16:57:43 [id number] PVP [facility] [address] [place] [address] 4 11/05/2011 10:17:40 11/05/2011 12:19:01 [id number] P[facility] [address] [place] [address] 01/29/2012 11:41:16 01/29/2012 12:45:31 [id number] Freeman Hernadez P[facility] [address] [facility] [place] [address] 4 03/09/2012 10:58:19 03/09/2012 11:45:29 [id number] Ada Mayo [facility] [address] [place] [address] 4 07/15/2012 11:29:47 07/15/2012 13:20:52 [id number] Karlene Santana MD [facility] [address] [place] [address] [place] [address] 4 09/22/2012 12:47:56 09/22/2012 14:58:57 [id number] Zunilda Bonillarmgina [facility] [address] [facility] [place] [address] 4 10/18/2012 15:15:50 10/18/2012 16:30:47 [id number] Karlene Santana MD [facility] [address] [place] [address] 4 10/28/2012 16:52:04 10/28/2012 17:43:48 [id number] [facility] [address] [place] [address] 4 07/21/2013 16:59:25 07/21/2013 17:44:21 Upper respiratory infection [id number] P[facility] [address] [place] [address] 4 10/20/2013 12:53:31 10/20/2013 13:15:48 Acute pharyngitis [id number] Pearl Shore M.A. [facility] [address] [place] [address] 4 10/25/2013 11:01:19 10/25/2013 11:38:39 Sinusitis 97683231 [id number] Shazia Arauz [facility] [address] [place] [address] 4 11/16/2013 14:30:34 11/17/2013 08:23:16 Acute pharyngitis 458485456 Asthma 161541620 [id number] Catherine Mejia [address] [address] 4 12/19/2013 14:26:31 12/19/2013 14:55:05 On examination - mouth rash 186891533 [id number] Karlene Santana MD [address] [address] 4 01/09/2014 16:42:01 01/09/2014 17:09:45 Upper respiratory infection 31440366 Asthma wit hout status asthmaticus 61007302 [id number] Catherine Mejia [address] [address] 2 01/12/2014 13:20:12 01/12/2014 14:12:36 Sinusitis 84609513 [id number] Tania Jarquin R.N. [address] [address] 4 02/24/2014 14:53:27 02/24/2014 15:20:14 Sinusitis 38521891 Asthma 912061971 [id number] Karlene Santana MD [address] [address] 4 03/20/2014 15:27:56 03/20/2014 15:43:38 Influenza vaccine needed 3470188205 106 [id number] Alexandra Trivedi M.A. [address] [address] 4 05/26/2014 09:57:08 05/26/2014 11:33:44 Well child 670734209 [id number] Yamile Philippe [address] [address] 4 06/04/2014 13:09:52 06/04/2014 13:46:54 Acute pharyngitis 035471870 Upper resp iratory infection 98804583 Asthma 458464992 [id number] Becca Davis [address] [address] 4 07/12/2014 11:16:15 07/12/2014 12:12:30 Asthma without status asthmaticus 72079886 Acute pharyngitis 596059188 [id number] [address] [address] 2 07/15/2014 11:30:03 07/15/2014 11:57:50 Asthma 259031555 Cough 41028157 [id number] Martha Bella [address] [address] 4 08/01/2014 09:40:57 08/01/2014 09:54:25 Administration of viral vaccine [id number] Shot only HPV [id number] [address] [address] 4 09/27/2014 10:59:46 09/27/2014 11:25:57 Acute pharyngitis 400317579 Upper resp iratory infection 79223013 [id number] [address] [address] 4 11/19/2014 11:54:20 11/19/2014 12:28:21 Acute pharyngitis 437470960 Asthma wit hout status asthmaticus 68617651 [id number] Alexandra Trivedi M.A. [address] [address] 4 11/22/2014 13:03:04 11/22/2014 14:34:24 Asthma without status asthmaticus 03715706 [id number] Catherine Mejia [address] [address] 4 11/24/2014 16:29:59 11/24/2014 16:57:23 Asthma without status asthmaticus 69877269 Sinusitis 31812779 [id number] [address] 4 12/01/2014 09:12:26 12/01/2014 09:57:22 Administration of viral vaccine [id number] Shot only HPV [id number] Karlene Santana MD [address] [address] 4 12/29/2014 09:20:52 12/29/2014 09:43:14 Verruca vulgaris 37432848 [id number] Lucero Hughes R.N. [address] [address] 4 01/25/2015 16:27:51 01/25/2015 17:09:37 Knee pain 24132956 [id number] Shree Plata MD [address] [address] 4 03/05/2015 10:58:50 03/05/2015 11:41:53 Acute pharyngitis 835883559 Upper resp iratory infection 03426869 [id number] [address] [address] 4 03/12/2015 16:18:46 03/12/2015 17:01:51 Asthma 779910961 Looks well without any evidence of wheeze despite no nebs today. Stressed importance of continuing sick plan - will do advair BID and albuterol q4hr. If not improving or worsening will RTO but do not think she needs oral steroids at this point. 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 Sx Care for pain/disco mfort. F/u if not getting better over the next 3 days or worsening- sooner prn. Streptococ amarjit sore throat 12280029 J02.0 [id number] Karlene Santana MD [address] [address] 4 03/10/2016 13:41:39 03/10/2016 14:38:57 Acute pharyngitis 131826982 J02.9 [id number] Karlene Santana MD [address] [address] 4 03/17/2016 15:51:55 03/17/2016 16:49:04 Acute asthma 662408982 J45.901 Acute sinusitis 73567730 J01.90 Fatigue 32395703 R53.83 [id number] Karlene Santana MD [address] [address] 4 04/18/2016 16:26:27 04/18/2016 17:07:11 Acute asthma 980586470 J45.901 Anxiety 35996443 F41.9 [id number] Karlene Santana MD [address] [address] 4 04/22/2016 16:12:30 04/22/2016 17:07:27 Acute asthma 878174236 J45.901 Acute bronchitis 8960118 2 J20.9 [id number] Karlene Santana MD [address] [address] 4 06/23/2016 12:53:15 06/23/2016 14:01:40 Well child 513340137 Z00.129 Asthma 129238725 J45.90 9 Idiopathic scoliosis 203 740619 M41.119 Knee pain 20561981 M25.5 69 M25.562 Anxiety 75158848 F41.9 [id number] Karlene Santana MD [address] [address] 4 09/12/2016 11:01:16 09/12/2016 11:52:09 Streptococcal sore throat 20298920 J02.0 Pain in cheek 827241512 R51 [id number] Karlene Santana MD [address] [address] 4 09/17/2016 09:43:00 09/17/2016 12:56:01 Acute asthma 622675571 J45.901 Streptococ amarjit sore throat 09847416 J02.0 [id number] Karlene Santana MD [address] [address] 4 09/19/2016 17:06:59 09/19/2016 17:54:48 Acute asthma 504299226 J45.901 [id number] Lalo Walden MD [address] [address] 4 09/22/2016 13:35:11 09/22/2016 15:55:19 Cough 96836866 R05 Lingering cough after asthma exacerbati on Streptococ amarjit sore throat 41641222 J02.0 Resolving - still on meds Acute asthma 300792190 J 45.901 Finished Prednisone , still on nebulizerN o wheeze, but cough persists [id number] Karlene Santana MD [address] [address] 4 11/25/2016 10:48:29 11/25/2016 12:29:26 Acute pharyngitis 111866412 J02.9 Acute asthma 757921240 J 45.901 [id number] Freeman Hernadez [address] [address] 4 04/13/2017 11:36:51 04/13/2017 13:40:33 Acute pharyngitis 706885930 J02.9 [id number] Karlene Santana MD [address] [address] 4 04/15/2017 13:55:36 04/15/2017 15:16:45 Acute asthma 266349958 J45.901 Acute otitis media 14493 03 H66.91 [id number] Shree Plata MD [address] [address] 4 04/30/2017 14:02:00 04/30/2017 14:54:28 Pain in throat 619941242 R07.0 Viral syndrome 704994688 B34.9 [id number] Shree Plata MD [facility] [address] [address] 4 06/25/2017 16:52:27 06/25/2017 17:15:18 Acute pharyngitis 432463128 J02.9 [id number] Karlene Santana MD [address] [address] 4 07/02/2017 15:07:13 07/02/2017 17:03:37 Well child 140733472 Z00.129 Normal weight 56368896 Z 68.52 Active or passive immunization 181744319 Z23 Asthma 215479442 J45.90 9 Knee pain 35627384 M25.5 69 M25.562 Developmen gwen academic disorder 3744643 F81.9 [id number] Karlene Santana MD [facility] [address] [address] 4 10/28/2017 11:26:28 10/28/2017 13:49:09 Acute asthma 806266694 J45.901 Upper resp iratory infection 08627489 J06.9 Headache 78393083 R51 Disorder o f nasal cavity 927423404 J34.9 [id number] Karlene Santana MD [facility] [address] [address] 4 11/03/2017 11:29:29 11/03/2017 13:01:05 Acute asthma 834226956 J45.901 Acute sinusitis 22689221 J01.90 Headache 96675713 R51 [id number] Shree Plata MD [address] [address] 4 03/05/2018 10:22:36 03/05/2018 12:40:44 Acute pharyngitis 581611825 J02.9 [id number] Karlene Santana MD [address] [address] 4 03/09/2018 14:40:48 03/09/2018 15:38:57 Acute asthma 370586935 J45.901 [id number] Karlene Santana MD [address] [address] 4 03/16/2018 16:57:31 03/16/2018 17:59:07 Acute asthma 606770785 J45.901 Vocal cord dysfunction 481203952 R49.9 Allergic rhinitis 635602 04 J30.9 [id number] Martha Bella [address] [address] 4 04/14/2018 14:44:56 04/14/2018 15:10:35 Acute pharyngitis 714563197 J02.9 URI sx tx f/u prn- temp control- sore throat r/o strep but likely viral illness disc with parent Posterior rhinorrhea 758 97918 R09.82 saline nasal spray [id number] Nathalie Sepulveda MD [address] [address] 06/01/2018 12:14:56 06/02/2018 08:20:15 Acute pharyngitis 157711333 J02.9 Upper resp iratory infection 75739440 J06.9 Asthma 001593230 J45.90 9 Exposure t o Bordetella pertussis 753539469 Z20.818 [id number] Karlene Santana MD [address] [address] 4 08/09/2018 12:48:24 08/09/2018 15:15:50 Active or passive immunization 872994839 Z23 Well child 618101866 Z00 .129 Normal weight 02527878 Z 68.52 Moderate p ersistent asthma 513688749 J45.40 Anxiety 74741112 F41.9 Developmen gwen academic disorder 8668578 F81.9 Knee pain 57635046 M25.5 69 M25.562 [id number] Karlene Santana MD [address] [address] 4 02/08/2019 14:04:16 02/08/2019 16:07:56 Dysmenorrhea 960314849 N94.6 Menorrhagia 271483255 N9 2.0 [id number] Karlene Santnaa MD [address] [address] 4 04/05/2019 13:53:46 04/05/2019 16:34:50 Dysmenorrhea 802710203 N94.6 Menorrhagia 685684487 N9 2.0 Active or passive immunization 679630612 Z23 [id number] Isa Palma MD [address] [address] 4 04/21/2019 10:14:14 04/21/2019 17:52:22 Acute pharyngitis 803198541 J02.9 Asthma [id number] J45.90 9 [id number] Myrna Tirpaeck [address] [address] 05/30/2019 16:11:45 05/30/2019 17:45:36 Acute pharyngitis 285079041 J02.9 Lymphadenopathy 20199308 R59.0 [id number] Karlene Santana MD [address] [address] 08/09/2019 12:54:13 08/09/2019 16:54:13 Well child [id number] Z00.129 Normal weight 22301681 Z 68.52 Active or passive immunization 505143384 Z23 Acne 19016258 L70.9 Developmen gwen academic disorder 7564501 F81.9 Moderate p ersistent asthma 983060785 J45.40 Anxiety 65037249 F41.9 Dysmenorrhea 184549489 N 94.6 Menorrhagia [id number] N9 2.0 [id number] Tierney SalDO PVP [address] [address] 4 08/17/2019 12:53:15 08/17/2019 13:44:55 Dysuria 27543893 R30.0 Urinary tr act infectious disease 87006370 N39.0 [id number] [facility] Sal [facility] [address] [place] [address]715 4 12/12/2019 15:57:01 12/12/2019 16:42:21 Contact dermatitis 50481299 L25.9 [id number] Tierney Sal DO PVP [facility] w [address] [place] [address]854-798 4 12/23/2019 17:37:28 12/23/2019 18:09:06 Perioral dermatitis 070263040 L71.0 [id number] Martha Bella PVP [address] [address] 4 03/10/2020 10:32:21 03/10/2020 14:03:46 Active or passive immunization 200425830 Z23 [id number] Karlene Santana MD [facility] [address] [address] 4 08/07/2020 12:45:51 08/07/2020 14:25:10 Active or passive immunization 969079662 Z23 Adult heal th examination 018510287 Z00.00 Normal bod y mass index 75463584 Z68.1 Anxiety 18953423 F41.9 Developmen gwen academic disorder 3290600 F81.9 Knee pain 93100328 M25.5 69 M25.562 Moderate p ersistent asthma 148316765 J45.40 [id number] Shree Plata MD [facility] [address] [address] 4 08/14/2020 15:54:59 08/14/2020 18:37:44 Nasal congestion 13566753 R09.81 Ear problem 156006693 H9 3.92 [id number] Karlene Santana MD [address] [address]442 4 09/04/2020 15:29:41 09/04/2020 16:41:33 Impacted third molar tooth 391721888 K01.1 [id number] Shree Plata MD [address] [address]583 4 11/18/2020 09:36:58 11/18/2020 10:01:16 Asthma 463510912 J45.909 [id number] Tierney Sal DO [address] [address]-873 4 11/28/2020 11:28:06 11/28/2020 14:11:25 Dysfunction of eustachian tube 19312411 H69.90 [id number] Karlene Santana MD [address] [address] 2 12/28/2020 09:46:00 12/28/2020 12:49:04 Acne 60507278 L70.9 [id number] ALVARO MODI MD [address] [address]117 4 02/05/2021 08:12:35 02/05/2021 17:27:30 Active or passive immunization 082159027 Z23 [id number] Isa Palma MD [address] [address]890 4 03/22/2021 16:57:23 03/23/2021 00:52:19 Viral syndrome 416644512 B34.9 Asthma 283914530 J45.90 9 [id number] Karlene Santana MD [address] [address]39-770 4 03/27/2021 13:56:14 03/27/2021 17:04:38 Anxiety 43858721 F41.9 Disturbanc e of attention 56857811 R41.840 Developmen gwen academic disorder 6322410 F81.9 Child atte ntion deficit disorder 504972062 F90.9 Sleep disorder 56433626 G47.9 [id number] Shree Plata MD [address] [address]308 4 03/26/2021 16:17:27 03/26/2021 16:51:24 Asthma 953362526 J45.909 [id number] Karlene aSntana MD [address] [address] 4 04/24/2021 15:53:56 04/24/2021 17:00:43 Headache 46273331 R51.9 Moderate p ersistent asthma 759758492 J45.40 Anxiety 38710023 F41.9 Child atte ntion deficit disorder 329236109 F90.9 Developmen gwen academic disorder 1926185 F81.9 [id number] Tierney Sal DO [address] [address] 4 07/15/2021 14:14:22 07/15/2021 17:03:01 Dysuria 80592965 R30.0 Abdominal pain 48499225 R10.9 Lower abdominal pain 545 96025 R10.30 [id number] Shree Plata MD [address] [address]-506 4 07/22/2021 10:33:07 07/22/2021 10:54:00 Verruca vulgaris 35378399 B07.9 [id number] Karlene Santana MD [address] [address]706 4 09/04/2021 13:56:00 09/04/2021 15:54:47 Adult health examination 623508751 Z00.00 Diet education 50655674 Z71.3 Exercises education, guidance, and counseling 073911927 Z71.82 Normal bod y mass index 87265405 Z68.1 Developmen gewn academic disorder 8617828 F81.9 Child atte ntion deficit disorder 824971794 F90.9 Anxiety 55620957 F41.9 Migraine without aura 56 842412 G43.009 Moderate p ersistent asthma 700813602 J45.40 [id number] Karlene Santana MD [address] [address]-031 4 09/11/2021 14:36:33 09/11/2021 15:07:17 Acute sinusitis 62167107 J01.90 [id number] Karlene Santana MD [address] [address]-491 4 12/04/2021 09:51:55 12/04/2021 13:02:24 Anxiety 66266679 F41.9 Child atte ntion deficit disorder 435679662 F90.9 Depressive disorder 3548 9007 F32.A Developmen gwen academic disorder 4572286 F81.9 Headache 42225294 R51.9 [id number] Karlene Santana MD [address] [address]-275 4 01/07/2022 13:53:47 01/07/2022 15:23:43 Anxiety 21131944 F41.9 Child atte ntion deficit disorder 807634102 F90.9 Depressive disorder 3548 9007 F32.A Anterior knee pain 41224 3006 M25.569 [id number] Tierney Sal DO PVP [address] [address] 4 01/27/2022 16:37:36 01/28/2022 07:30:05 Suspected COVID-19 487531272 Z20.822 Fever 499103567 R50.9 Acute pharyngitis 066569 003 J02.9 [id number] Shree Plata MD [address] [address] 4 02/24/2022 11:35:53 02/24/2022 12:32:30 Verruca vulgaris 30943350 B07.9 [id number] Lalo Walden MD [address] [address] 2 03/17/2022 16:31:37 03/18/2022 07:56:25 Suspected COVID-19 370119603 Z20.822 Will isolate pending covid results Sinusitis 61936163 J32.9 clinical dx - will treat with PO amox. Will call by end of week if not improving and will switch to augmentin. Reviewed nasal saline/net tipot. [id number] Tierney Sal DO [address] [address]420 4 06/26/2022 13:51:26 06/27/2022 07:14:30 Suspected COVID-19 626653546 Z20.822 Acute pharyngitis 702167 003 J02.9 Headache 62839531 R51.9 [id number] Karlene Santana MD [address] [address]-560 4 07/09/2022 10:48:40 07/09/2022 14:41:03 Acute sinusitis 27622157 J01.90 Moderate p ersistent asthma 217504707 J45.40 [id number] Karlene Santana MD [address] [address]257-560 4 07/31/2022 13:40:08 07/31/2022 14:30:36 Suspected COVID-19 287646757 Z20.822 Acute sinusitis 99809654 J01.90 Exacerbati on of moderate persistent asthma 257502318 J45.41 [id number] Karlene Santana MD [address] 7[address]03-363 4 10/06/2022 12:39:26 10/06/2022 14:49:09 Active or passive immunization 686427219 Z23 Adult heal th examination 789666174 Z00.00 Diet education 54311947 Z71.3 Exercises education, guidance, and counseling 545216677 Z71.82 Normal bod y mass index 39237498 Z68.20 Hyperlipid emia screening 059737645 Z13.220 Developmen gwen academic disorder 3650218 F81.9 Depressive disorder 3548 9007 F32.A Anxiety 52461040 F41.9 Child atte ntion deficit disorder 959772603 F90.9 Acne 02196951 L70.9 Allergic rhinitis 849472 04 J30.9 Dysmenorrhea 254003493 N 94.6 Migraine without aura 56 876863 G43.009 Moderate p ersistent asthma 638462971 J45.40 [id number] ALVARO MODI MD [address] [address]-502 4 10/19/2022 08:28:49 10/19/2022 10:26:02 Acute pharyngitis 535549929 J02.9 [id number] ALVARO MODI MD [address] 04116-080 4 11/11/2022 09:37:10 11/11/2022 12:52:54 Diarrhea 08449968 R19.7 [id number] Karlene Santana MD [address] 98946-543 4 12/09/2022 09:09:43 12/09/2022 10:33:59 Acute pharyngitis 344749873 J02.9 Suspected COVID-19 98030 4004 Z20.822 [id number] Shree Plata MD [address] [address]152-841 4 01/01/2023 13:58:20 01/01/2023 14:32:08 Acute pharyngitis 337478860 J02.9 [id number] Nidia Carias MD [address] [address]-574 4 01/02/2023 09:35:56 01/02/2023 10:04:46 Cough 65936462 R05.9 Exacerbati on of moderate persistent asthma 388729563 J45.41 [id number] Nidia Carias MD [address] [address]-775 4 01/07/2023 16:35:27 01/08/2023 07:10:09 Acute sinusitis 72806003 J01.90 Exacerbati on of moderate persistent asthma 684774531 J45.41 [id number] Lalo Walden MD [address] [address]-913 4 03/21/2023 12:11:38 03/21/2023 13:22:50 Reactive lymphadenopathy 053404382 R59.1 Preauricul ar node - suspect related to acne but will need to monitor closely. She knows to call if increasing in size, red overlying, more painful, fevers, etc. [id number] Karlene Santana MD [address] [address]54-693 4 06/03/2023 13:27:48 06/03/2023 14:41:45 Exacerbation of moderate persistent asthma 006808050 J45.41 [id number] ALVARO MODI MD [address] [address]79-075 4 06/07/2023 11:33:21 06/07/2023 12:43:16 Atypical pneumonia 124567921 J18.9 Acute left otitis media 695422247 H66.92 Asthma 501519859 J45.90 9 [id number] Shree Plata MD [address] [address]39-881 4 06/16/2023 13:32:38 06/16/2023 13:50:49 Upper respiratory infection 31069566 J06.9 [id number] Karlene Santana MD [address] 76[address]-991 4 07/21/2023 10:46:12 07/21/2023 12:54:53 Otalgia of right ear 9464131276 H92.01 Exacerbati on of mild persistent asthma 656496421 J45.31 [id number] Isa Palma MD [address] [address]804-852 4 09/18/2023 12:49:25 09/18/2023 13:56:54 Acute pharyngitis 481455328 J02.9 Viral syndrome 503461434 B34.9 [id number] Karlene Santana MD [address] 89464-815 4 09/23/2023 13:46:22 09/23/2023 14:29:28 Exacerbation of moderate persistent asthma 586853544 J45.41 [id number] Karlene Santana MD [address] [address]750-672 4 10/08/2023 15:02:09 10/08/2023 17:25:57 Active or passive immunization 998270285 Z23 Adult heal th examination 498131160 Z00.00 Normal bod y mass index 29534944 Z68.21 Hyperlipid emia screening 695963107 Z13.220 Diet education 80176044 Z71.3 Exercises education, guidance, and counseling 736274191 Z71.82 Child atte ntion deficit disorder 057636100 F90.9 Depressive disorder 3548 9007 F32.A 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 Moderate p ersistent asthma 445571076 J45.40 Headache 05942978 R51.9 Anxiety 50480710 F41.9 [id number] Karlene Santana MD [address] 04455-112 4 10/13/2023 10:53:29 10/13/2023 12:31:05 Verruca plantaris 57200742 B07.0 [id number] Karlene Santana MD [address] 07608-593 4 10/19/2023 10:49:01 10/19/2023 11:47:08 Verruca plantaris 74397167 B07.0 [id number] ALVARO MODI MD [address] [address]-602 4 10/27/2023 12:49:03 10/27/2023 19:03:34 Fatigue 43438264 R53.83 Plantar wa rt of left foot 1439977899 1284667 B07.0 [id number] Karlene Santana MD [address] [address]-951 4 11/16/2023 10:20:33 11/16/2023 15:13:03 Fatigue 17618970 R53.83 Verruca plantaris 383015 08 B07.0 [id number] RACHNA KNIGHT DO [address] 98558-587 4 02/16/2024 13:24:25 02/16/2024 19:36:36 Migraine 22241396 G43.909 Neck pain 50383378 M54.2 [id number] Karlene Santana MD [address] [address]-514 4 03/07/2024 13:49:39 03/07/2024 14:18:41 Acute pharyngitis 551482567 J02.9 Postviral cough 68862203 4 R05.3 [id number] Leelee HairTarik Jenkins [address] [address]889 4 03/11/2024 13:39:42 03/16/2024 16:52:55 Exacerbation of moderate persistent asthma 243468483 J45.41 Acute sinusitis 48842206 J01.90 [id number] Shree Plata MD [address] [address]-391 4 03/19/2024 11:19:49 03/19/2024 12:29:45 Atypical pneumonia 247754255 J18.9 Health Concerns Section Related Observation LastModified by Organization Detai ls LastModified Time None Recorded Concern Status LastModified by Organization Details LastModified Time None Recorded Advance Directives Directive None Recorded Payers Encounter Date Sequence Insurance Name Policy Number Policy Haines Covered Member ID Haines Member ID Guarantor Name 11/16/2023 2 [place] Emalie Polanek [id number] Deepali Polanek 11/16/2023 1 [facility] [id number] Edjosé miguel Salazar Polanek [id number] Deepali Polanek 02/16/2024 2 [place] Emalie Polanek [id number] Deepali Polanek 02/16/2024 1 [facility] [id number] Edjosé miguel Salazar Polanek [id number] Deepali Polanek 03/07/2024 2 [place] Emalie Polanek [id number] Deepali Polanek 03/07/2024 1 [facility] [id number] Edjosé miguel Salazar Polanek [id number] Deepali Polanek 03/11/2024 2 [place] Emalie Polanek [id number] Deepali Polanek 03/11/2024 1 [facility] [id number] Edjosé miguel Salazar Polanek [id number] Deepali Polanek 03/19/2024 2 [place] Emalie Polanek [id number] Deepali Polanek 03/19/2024 1 [facility] [id number] Edjosé miguel Salazar Polanek [id number] Deepali Polanek Notes Date Note Type Note Provider Name and Address Organization Details Recorded Time 11/16/2023 text/html RS Sick Visit Narrative HistoryReported bypatient.Notes:Pt here for recheck of fatigue and warts.Pt reports swollen lymph nodes and tonsil stones on and off.No recent sick sxs.Had screening labs done for ?thyroid disorder. 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 Rx'd [...] good amt of sleep. Karlene Santana MD [address] [place] [address], [phone], [facility] 11/16/2023 12:58:04 02/16/2024 text/html RS Sick [...] to see different neurologist - Currently seeing [facility], Dr. Hutson. Is on amitryptaline nightly with no relief in migraine frequency. Tried Excedrin, tylenol and ibuprofen without much relief. No OTC meds taken today. Had swollen gland to R axilla 1 week ago - was tender to touch. No redness noticed. Now resolved. Afebrile, no cough, no congestion. RACHNA KNIGHT DO [address] [place], [place], , [facility] 02/16/2024 17:52:44 03/07/2024 text/html RS Sick Visit Narrative HistoryReported bypatient.Notes:Pt coming in w/continued congestion x2 weeks.Had covid 2 weeks ago. Sxs seemed to be resolving but then started w/ST 2 days ago. Resolved after 1 day. Now having sneezing and congestion but rare nasal drainage. Nonproductive cough Karlene Santana MD [address] [place] [address], , [facility] 03/07/2024 14:08:54 03/11/2024 text/html RS Sick [...] patient got sick with other viral illness mucinex, sudafed OTC Leelee Jenkins [address] [place], [place], , [facility] 03/16/2024 10:06:41 03/19/2024 text/html RS Sick [...] meds taken recently. Shree Plata MD [address] [place], [place], , [facility] 03/19/2024 12:29:15 OBGyn Episode No OBEpisode recorded.
--- OUTSIDE RECORDS SUMMARY | 2024-08-10 16:42 | XMS_ITS | Clinical Summary ---
Author Organization [facility] Address [address] [place] [address] Phone Care Team Providers Care Getterer Name Role Phone Karlene Santana MD Primary Care Provider [phone] Encounters Date Type Department Care Team Description 08/10/2024 12:00 PM EST Treatment Physical [facility] [address] [place] [phone] Brown, Henry, PT Chronic pain of both knees (Primary Dx); Disorder of patellofemoral joint, unspecified laterality 08/08/2024 9:30 AM EST Treatment Physical [facility] [place] [address] [place] [address] Brown, Henry, PT Chronic pain of both knees (Primary Dx); Disorder of patellofemoral joint, unspecified laterality 07/25/2024 10:30 AM EST Treatment Physical [facility] [address] [place] [address] Brown, Henry, PT Chronic pain of both knees (Primary Dx); Disorder of patellofemoral joint, unspecified laterality 06/29/2024 9:30 AM EST Evaluation Physical [facility] [address] [place] [address] Brown, Henry, PT Disorder of patellofemoral joint, unspecified laterality (Primary Dx); Knee pain 06/29/2024 Plan of Care Documentation Physical [place] [address] [place] [phone] from Last 3 Months Social History Tobacco Use Types Packs/Day Years Used Date Smoking Tobacco: Never Assessed Comments Unknown Sex and Gender Information Value Date Recorded Sex Assigned at Not on file Legal Sex Female 8:03 PM EDT Gender Identity Not on file Sexual Orientation Not on file Plan of Treatment Upcoming Encounters Date Type Department Care Team (Late st Contact Info) Description 08/15/2024 9:30 AM EST Treatment Physical Therapy - [place] [address] [place] [address] Henry Watson, PT 08/18/2024 9:30 AM EST Treatment Physical Therapy - [place] [address] [place] [address] Henry Watson, PT 08/22/2024 11:00 AM EDT Treatment Physical Therapy [facility] [address] [place] [address] Henry Watson, PT 08/26/2024 9:30 AM EDT Treatment Physical Therapy [facility] [address] [place] [address] Henry Watson, PT 08/29/2024 10:15 AM EDT Treatment Physical Therapy [facility] [address] [place] [address] Henry Watson, PT Health Maintenance Due Date Last Done Comments Gonorrhea/Chlamydia Screening 2002 Depression Screening 04/13/2023 HIV Screening 04/13/2023 Hepatitis C Screening 04/13/2023 Social Influencers of Health Screening 04/13/2023 Cervical Cancer Screening: Pap Smear 2023 COVID-19 Vaccine ( season) 2024 05/13/2023, 10/06/2021, 05/31/2021, Additional history exists DTaP,Tdap,and Td Vaccines (10 - Td or Tdap) 10/07/2033 10/08/2023, 10/08/2023, 05/26/2014, Additional history exists Pneumococcal Vaccine: Pediatrics (0 to 5 Years) and At-Risk Patients (6 to 64 Years) (2 of 2 - PCV20 or PCV21) 2052 07/18/2024, 07/07/2003, 02/03/2003, Additional history exists Hepatitis B Vaccines Completed 04/03/2003, 2002, 2002 HIB Vaccines Completed 11/29/2003, 01/14, 2002, Additional history exists MMR Vaccines Completed 06/05/2006, 11/29/2003 IPV Vaccines Completed 06/09/2007, 01/14, 2002, Additional history exists Varicella Vaccines Completed 06/09/2007, 07/07/2003 HPV Vaccines Completed 12/01/2014, 07/16, 05/26/2014 Meningococcal ACWY Vaccine Completed 08/09/2018, Hepatitis A Vaccines Completed 02/05/2021, 08/07/19 21 Meningococcal B Vacine Completed 02/05/2021, 2020 Influenza Vaccine Completed 03/22/2024, , 03/07/2021, Additional history exists RSV Immunization Patients Under 20 months Aged Out No longer eligible based on patient's age to complete this topic Insurance [place] Member Subscriber Plan / Payer (Ef fective 2024-Present) Name:Usha Alaniz Relation to Subscriber:Self Name:Usha Alaniz Payer ID:[id number] Group ID:Not on file Type:Not on file Address: [facility] [address] Care Teams Getterer Relationship Specialty Start Date End Date Karlene Santana MD [address] [place] [address] PCP - General 03/30/23
== END 2024-08-10 14:02 | disposition home or self-care (01) ==
PROVIDERS: PCP Physician Assistant Medical; Visit Provider Nurse Practitioner Family
DX: J45.40 Moderate persistent asthma, uncomplicated (principal); T78.40XA Allergy, unspecified, initial encounter; R76.8 Other specified abnormal immunological findings in serum
CPT/HCPCS: 99214

== ENCOUNTER → 2024-08-10 13:35 | Outpatient (BNVA) | payer OTHER, MEDICAID, SELFPAY | PROVIDERS: PCP Physician Assistant Medical; Visit Provider Nurse Practitioner Family ==

== ENCOUNTER 2024-08-24 11:07 | Outpatient (REF) | payer OTHER, MEDICAID, SELFPAY ==
--- NOTE | 2024-08-24 11:12 | PFT_ITS ---
Flows: FEV1: 102 % of predicted at 3.92 L FVC: 103 % of predicted at 5.03 L FEV1/FVC: 78 % Bronchodilator response: Absent Volumes: Total lung capacity: 112 % of predicted at 6.49 L Residual volume: 115 % of predicted at 1.45 L Slow vital capacity: 115 % of predicted at 5.04 L Expiratory reserve volume: 102 % of predicted at 1.55 L Diffusion capacity: Normal Impression: No obstructive or restrictive ventilatory defect. No bronchodilator response. Normal pulmonary function test. MTDD
[2024-08-24 11:42] VITALS: PULSE 100
--- OUTSIDE RECORDS SUMMARY | 2024-08-24 13:07 | XMS_ITS | Encounter Summary ---
Author Organization [facility] Address [address] [place] [address] Care Team Providers Care Director Fraud Name Role Phone Karlene Santana MD Primary Care Provider [phone] Reason for Visit * Consultation (Elective) - Authorized Specialty Diagnoses / Procedures Referred By Florinda chatman Referred To Contact Physical Therapy Diagnoses Knee pain Michael Santillan PA [facility] [address] [place] [address] [place] [address] Phone: tel: fax: Henry Watson PT Referral ID Status Reason Start Date Expiration Date Visits Requested Visits Authorized [id number] Authorized Consult and Treat 06/28/2024 06/28/2025 26 26 Encounter Details Date Type Department Care Team ([facility] st Contact Info) Description 08/18/2024 9:30 AM EST Treatment Physical Therapy - [address] [phone] Henry Watson PT Chronic pain of both [...] Progress Notes * Henry Watson PT - 08/18/2024 9:30 AM EST [facility] - Outpatient PHYSICAL THERAPY DAILY TREATMENT NOTE - OP Date: 08/18/2024 Visit Number: [id number] Patient Name: Usha Alaniz : 2000 Age: 24 y.o. Gender: female Diagnosis: ICD-10-CM ICD-9-CM 1. Chronic pain of both knees M25.561 719.46 M25.562 338.29 G89.29 2. Disorder of patellofemoral joint, unspecified laterality M22.2X9 719.96 Date of Onset/Surgery: 06/29/2024 Referring Provider: Michael Santillan PA Insurance: Payor: [place] Modify / Plan: [facility] [employer] / Product Type: *No Product type* / Patient Identified by: Henry Watson PT Language: Speaks and understands Bermudian as preferred language with no historical interpreter required Medications: No current outpatient medications on file prior to visit. No current facility-administered medications on file prior to visit. Allergies: has no allergies on file. Precautions: None Fall risk: No SUBJECTIVE: Subjective Report: My hip muscle were sore. L knee still hurts on stairs. Tape is helpful. Chart Reviewed: Yes OBJECTIVE: Vitals: There were no vitals filed for this visit.; TREATMENT INTERVENTION: Manual Tech: L patella medial glides B Resendez taping for medial glides Taught self taping Therex: Nu step x 4min SLR with slight ER L and R 3 x 10 Bridges x 10. Bridges with marching (4) x 5, U bridges x 5 on R and 5 with min A on L. Calf raises 2 x 10 Side and zig zag stepping with green at ankles x 3 lengths of gym SLS with fwd and rotational reaches to ball x 10 each L and R. ASSESSMENT/Response to Treatment Good. L quad weakness is the greatest limitation, but some proprioceptive limitation noted as well. Patient Education: Education provided: Tape management and hip control benefits Education Provided To: Patient utilizing Explanation, Demonstration, and Printed Material mode(s) of education Response to Education: Applied Knowledge, Verbal Understanding, and Demonstrated Skills PLAN POC Development/Review: No Change in the Plan of Care; Participants: Patient Interventions Time Entry: Therapeutic procedures: Manual Therapy Time Entry: 16 Therapeutic Exercise Time Entry: 28 Total Treatment Time: 45 Documentation completed by Henry Watson PT documented in this encounter Plan of Treatment Upcoming Encounters Date Type Department Care Team (Late st Contact Info) Description 08/26/2024 9:30 AM EDT Treatment Physical [facility] [address] [address] Henry Watson, PT 08/29/2024 10:15 AM EDT Treatment Physical [facility] [address] [place] [address] Henry Watson, PT documented as of this encounter Visit Diagnoses Diagnosis Chronic pain of both knees- Primary Disorder of patellofemoral joint, unspecified laterality documented in this encounter Care Teams Director Fraud Relationship Specialty Start Date End Date Karlene Santana MD [address] [facility] [place] [address] PCP - General 03/30/23 documented as of this encounter
--- OUTSIDE RECORDS SUMMARY | 2024-08-24 13:07 | XMS_ITS | Encounter Summary ---
Author Organization [facility] Address [address] [place] [address] Care Team Providers Care Latex Caster Name Role Phone Karlene Santana MD Primary Care Provider [phone] Reason for Visit * Consultation (Elective) - Authorized Specialty Diagnoses / Procedures Referred By Florinda chatman Referred To Contact Physical Therapy Diagnoses Knee pain Michael Santillan PA [facility] [address] [place] [address] [place] [address] Phone: tel: fax: Henry Watson PT Referral ID Status Reason Start Date Expiration Date Visits Requested Visits Authorized [id number] Authorized Consult and Treat 06/28/2024 06/28/2025 26 26 Encounter Details Date Type Department Care Team ([facility] st Contact Info) Description 08/22/2024 11:00 AM EDT Treatment Physical Therapy - [address] [phone] Henry Watson PT Chronic pain of both [...] Progress Notes * Henry Watson PT - 08/22/2024 11:00 AM EDT [facility] - Outpatient PHYSICAL THERAPY DAILY TREATMENT NOTE - OP Date: 08/22/2024 Visit Number: 7 Patient Name: Usha Alaniz : 2000 Age: 24 y.o. Gender: female Diagnosis: ICD-10-CM ICD-9-CM 1. Chronic pain of both knees M25.561 719.46 M25.562 338.29 G89.29 2. Disorder of patellofemoral joint, unspecified laterality M22.2X9 719.96 Date of Onset/Surgery: 06/29/2024 Referring Provider: Michael Santillan PA Insurance: Payor: [employer] / Plan: [facility] [employer] ACO / Product Type: *No Product type* / Patient Identified by: Henry Watson PT Language: Speaks and understands Kazakh as preferred language with no immersion metal cleaner required Medications: No current outpatient medications on [...] for this visit.; TREATMENT INTERVENTION: Manual Tech: B Dipti taping for medial glides Therex: Nu step x 4min SLR with slight ER L and R 3 x 10 Bridges x 10. Bridges with marching (4) x 5, U bridges 2 x 5 each Sit to stands x 10 and slight offset footing x 10 L and R Calf raises 2 x 10 Side and zig zag stepping with green at ankles x 3 lengths of gym SLS with fwd and rotational reaches to ball x 10 each L and R. ASSESSMENT/Response to Treatment Good. Overall gaining strength but having slight increased pain with PF load recently. Patient Education: Education provided: Tape management and [...] Description 08/26/2024 9:30 AM EDT Treatment Physical Therapy [facility] [address] [place] [address] Henry Watson, PT 08/29/2024 10:15 AM EDT Treatment Physical [facility] [address] [place] [address] Henry Watson, PT documented as of this encounter Visit Diagnoses Diagnosis Chronic pain of both knees- Primary Disorder of patellofemoral joint, unspecified laterality documented in this encounter Care Teams Latex Caster Relationship Specialty Start Date End Date Karlene Santana MD [address] [place] [address] PCP - General 03/30/23 documented as of this encounter
--- OUTSIDE RECORDS SUMMARY | 2024-08-24 13:08 | XMS_ITS | Encounter Summary ---
Author Organization [facility] Address [address] [place] [address] Care Team Providers Care Retarder Operator Name Role Phone Karlene Santana MD Primary Care Provider [phone] Reason for Visit * Consultation (Elective) - Authorized Specialty Diagnoses / Procedures Referred By Florinda chatman Referred To Contact Physical Therapy Diagnoses Knee pain Michael Santillan PA [facility] [address] [place] [address] [place] [address] Phone: tel: fax: Henry Watson PT Referral ID Status Reason Start Date Expiration Date Visits Requested Visits Authorized [id number] Authorized Consult and Treat 06/28/2024 06/28/2025 26 26 Encounter Details Date Type Department Care Team ([facility] st Contact Info) Description 08/15/2024 9:30 AM EST Treatment Physical Therapy - [address] [phone] Henry Watson PT Chronic pain of both [...] Progress Notes * Henry Watson PT - 08/15/2024 9:30 AM EST [facility] - Outpatient PHYSICAL THERAPY DAILY TREATMENT NOTE - OP Date: 08/15/2024 Visit Number: 5 Patient Name: Usha Alaniz : 2000 Age: 24 y.o. Gender: female Diagnosis: ICD-10-CM ICD-9-CM 1. Chronic pain of both knees M25.561 719.46 M25.562 338.29 G89.29 2. Disorder of patellofemoral joint, unspecified laterality M22.2X9 719.96 Date of Onset/Surgery: 06/29/2024 Referring Provider: Michael Santillan PA Insurance: Payor: [employer] / Plan: [facility] [employer] ACO / Product Type: *No Product type* / Patient Identified by: Henry Watson PT Language: Speaks and understands Ivorian as preferred language with no media buyer required Medications: No current outpatient medications on file prior to visit. No current facility-administered medications on file prior to visit. Allergies: has no allergies on file. Precautions: None Fall risk: No SUBJECTIVE: Subjective Report: Feeling a little stronger Chart Reviewed: Yes Pain: 2/10 coming up the stairs to PT L > R. OBJECTIVE: Vitals: There were no vitals filed for this visit.; TREATMENT INTERVENTION: Manual Tech: L patella medial glides B Resendez taping for medial glides Therex: Nu step x 4min SLR with slight ER L and R 3 x 10 Bridges x 10. Bridges with marching (4) x 10 Calf raises 2 x 10 Sit to stands x 10 squats at table x 10 Stool scoots x 1 lap. U x 1 laps R and L. Side and zig zag stepping with green at ankles x 3 lengths of gym ASSESSMENT/Response to Treatment Good Progressing well with closed chain exs. Patient Education: Education provided: Tape management Education Provided To: Patient utilizing Explanation, Demonstration, and Printed Material mode(s) of education Response to Education: Applied Knowledge, Verbal Understanding, and Demonstrated Skills PLAN POC Development/Review: No Change in the Plan of Care; Participants: Patient Interventions Time Entry: Therapeutic procedures: Manual Therapy Time Entry: 15 Therapeutic Exercise Time Entry: 30 Total Treatment Time: 45 Documentation completed by Henry Watson PT documented in this encounter Plan of Treatment Upcoming Encounters Date Type Department Care Team (Late st Contact Info) Description 08/26/2024 9:30 AM EDT Treatment Physical [facility] [address] [place] [address] Henry Watson, PT 08/29/2024 10:15 AM EDT Treatment Physical Therapy [facility] [address] [place] [phone] Henry Watson, PT documented as of this encounter Visit Diagnoses Diagnosis Chronic pain of both knees- Primary Disorder of patellofemoral joint, unspecified laterality documented in this encounter Care Teams Retarder Operator Relationship Specialty Start Date End Date Karlene Santana MD [address] [place] [address] PCP - General 03/30/23 documented as of this encounter
--- OUTSIDE RECORDS SUMMARY | 2024-08-24 13:08 | XMS_ITS | Encounter Summary ---
Author Organization [facility] Address [address] [place] [address] Care Team Providers Care Contact Lens Blocker Name Role Phone Karlene Santana MD Primary Care Provider [phone] Reason for Visit * Consultation (Elective) - Authorized Specialty Diagnoses / Procedures Referred By Florinda chatman Referred To Contact Physical Therapy Diagnoses Knee pain Michael Santillan PA [facility] [address] [place] [address] [place] [address] Phone: tel: fax: Henry Watson PT Referral ID Status Reason Start Date Expiration Date Visits Requested Visits Authorized [id number] Authorized Consult and Treat 06/28/2024 06/28/2025 26 26 Encounter Details Date Type Department Care Team ([facility] st Contact Info) Description 08/08/2024 9:30 AM EST Treatment Physical Therapy - [address] [phone] eHnry Watson PT Chronic pain of both knees [...] Watson PT - 08/08/2024 9:30 AM EST [facility] - Outpatient PHYSICAL THERAPY DAILY TREATMENT NOTE - OP Date: 08/08/2024 Visit Number: 3 Patient Name: Usha Alaniz : 2000 Age: 24 y.o. Gender: female Diagnosis: ICD-10-CM ICD-9-CM 1. Chronic pain of both knees M25.561 719.46 M25.562 338.29 G89.29 2. Disorder of patellofemoral joint, unspecified laterality M22.2X9 719.96 Date of Onset/Surgery: 06/29/2024 Referring Provider: Michael Santillan PA Insurance: Payor: [employer] / Plan: [facility] [employer] ACO / Product Type: *No Product type* / Patient Identified by: Henry Watson PT Language: Speaks and understands North Korean as preferred language with no cell room supervisor required Medications: No current outpatient medications on [...] Description 08/26/2024 9:30 AM EDT Treatment Physical [facility] [address] [place] [address] Henry Watson, PT 08/29/2024 10:15 AM EDT Treatment Physical Therapy [facility] [address] [place] [phone] Henry Watson, PT documented as of this encounter Visit Diagnoses Diagnosis Chronic pain of both knees- Primary Disorder of patellofemoral joint, unspecified laterality documented in this encounter Care Teams Contact Lens Blocker Relationship Specialty Start Date End Date Karlene Santana MD [address] [place] [address] PCP - General 03/30/23 documented as of this encounter
--- OUTSIDE RECORDS SUMMARY | 2024-08-24 13:08 | XMS_ITS | Encounter Summary ---
Author Organization [facility] Address [address] [place] [address] Care Team Providers Care Yard Associate Name Role Phone Karlene Santana MD Primary Care Provider [phone] Reason for Visit * Consultation (Elective) - Authorized Specialty Diagnoses / Procedures Referred By Florinda chatman Referred To Contact Physical Therapy Diagnoses Knee pain Michael Santillan PA [facility] [address] [place] [address] [place] [address] Phone: tel: fax: Henry Watson PT Referral ID Status Reason Start Date Expiration Date Visits Requested Visits Authorized [id number] Authorized Consult and Treat 06/28/2024 06/28/2025 26 26 Encounter Details Date Type Department Care Team ([facility] Contact Info) Description 08/10/2024 12:00 PM EST Treatment Physical Therapy - [address] [phone] Henry Watson PT Chronic pain of both [...] Watson PT - 08/10/2024 12:00 PM EST [facility] - Outpatient PHYSICAL THERAPY DAILY TREATMENT NOTE - OP Date: 08/10/2024 Visit Number: 4 Patient Name: Usha Alaniz : 2000 Age: 24 y.o. Gender: female Diagnosis: ICD-10-CM ICD-9-CM 1. Chronic pain of both knees M25.561 719.46 M25.562 338.29 G89.29 2. Disorder of patellofemoral joint, unspecified laterality M22.2X9 719.96 Date of Onset/Surgery: 06/29/2024 Referring Provider: Michael Santillan PA Insurance: Payor: [employer] / Plan: [facility] [employer] ACO / Product Type: *No Product type* / Patient Identified by: Henry Watson PT Language: Speaks and understands Maori as preferred language with no faceter required Medications: No current outpatient medications on [...] 08/26/2024 9:30 AM EDT Treatment Physical Therapy [facility] [address] [place] [phone] Henry Watson, PT 08/29/2024 10:15 AM EDT Treatment Physical Therapy [facility] [address] [place] [phone] Henry Watson, PT documented as of this encounter Visit Diagnoses Diagnosis Chronic pain of both knees- Primary Disorder of patellofemoral joint, unspecified laterality documented in this encounter Care Teams Yard Associate Relationship Specialty Start Date End Date Karlene Santana MD [address] [facility] [place] [address] PCP - General 03/30/23 documented as of this encounter
--- OUTSIDE RECORDS SUMMARY | 2024-08-24 13:08 | XMS_ITS | Clinical Summary ---
Author Organization [facility] Address [address] [place] [address] Phone Care Team Providers Care Dna Analyst Name Role Phone Karlene Santana MD Primary Care Provider [phone] Encounters Date Type Department Care Team Description 08/22/2024 11:00 AM EDT Treatment Physical [facility] [address] [place] [phone] Brown, Henry, PT Chronic pain of both knees (Primary Dx); Disorder of patellofemoral joint, unspecified laterality 08/18/2024 9:30 AM EST Treatment Physical [facility] [address] [place] [phone] Brown, Henry, PT Chronic pain of both knees (Primary Dx); Disorder of patellofemoral joint, unspecified laterality 08/15/2024 9:30 AM EST Treatment Physical [facility] [address] [place] [phone] Brown, Henry, PT Chronic pain of both knees (Primary Dx); Disorder of patellofemoral joint, unspecified laterality 08/10/2024 12:00 PM EST Treatment Physical [facility] [address] [place] [phone] Brown, Henry, PT Chronic pain of both knees (Primary Dx); Disorder of patellofemoral joint, unspecified laterality 08/08/2024 9:30 AM EST Treatment Physical Therapy [place] [address] [place] [address] Henry Watson, PT Chronic pain of both knees (Primary Dx); Disorder of patellofemoral joint, unspecified laterality 07/25/2024 10:30 AM EST Treatment Physical [place] [address] [place] [address] Henry Watson, PT Chronic pain of both knees (Primary Dx); Disorder of patellofemoral joint, unspecified laterality 06/29/2024 9:30 AM EST Evaluation Physical [place] [address] [place] [address] Henry Watson, PT Disorder of patellofemoral joint, unspecified laterality (Primary Dx); Knee pain 06/29/2024 Plan of Care Documentation Physical [address] [place] [address] from Last 3 Months Social History Tobacco [...] Description 08/26/2024 9:30 AM EDT Treatment Physical [address] [place] [address] Henry Watson, PT 08/29/2024 10:15 AM EDT Treatment Physical Therapy [address] [place] [address] Henry Watson, PT Health Maintenance Due Date [...] ID:Not on file Type:Not on file Address: [facility] [address] Care Teams Dna Analyst Relationship Specialty Start Date End Date Karlene Santana MD [address] [place] [address] PCP - General 03/30/23
--- OUTSIDE RECORDS SUMMARY | 2024-08-24 13:08 | XMS_ITS | Data Portability ---
Author Organization [place] - [facility], [facility] Address [address] [place] [address] Assessment Encounter Date Assessment Date Assessment LastModified by Organization Details LastModified Time 11/16/2023 11/16/2023 Fatigue - unchanged, nl labs, start mvit with Fe, try to eat regular meals and get good sleep, f/u prn; Plantar warts - resolved kcamera Not available 11/16/2023 12:57:42 02/16/2024 02/16/2024 sUha is a 23yo female here for neck pain and headaches. Discussed stretching and heat to the area along with OTC pain medications and supportive care for neck. Discussed referral to neurologist other than [facility], but should continue with regular visits with [facility] until they can be seen at [...] DO Not Attach Compendium, Do Not Delete/merge, [id number] 14:06:44 Referral neurologist referral - Migraine type and tension type headache without control with OTCs 2023 [facility], [address] [address], [place], [address], 04:02:38 Procedures None recorded. Surgeries None recorded. Imaging None recorded. Medication Orders azithromyci n 250 mg tablet 2023 [facility] #[id number], [address], [place], [id number], 11:38:57 prednisone 20 mg tablet 2023 [facility] #[id number], [address], [place], [phone], 14:26:45 amoxicillin 875 mg tablet 2023 024 [facility] #[id number], [address], [place], [phone], 14:26:45 Patient TargetsNo targets recorded. Patient Instructions Encounter Date Encounter Id Patient Instructions Last Modified By Organization Details Last Modified Time 02/16/2024 [id number] neck pain: care instructions Not available 02/16/2024 14:23:18 Reason for Referral Neurologist Referral for [facility] Migraine type and tension type headache without control with OTCs Referring Physician: Rachna Knight, Pediatric Medicine, Encounter Date: 02/16/2024 Results Created Date Observation Date Name Description Value Unit Range Abnormal Flag Note LastModifiedBy Organization Detail LastModifiedTime 10/27/19 24 10/28/2023 TSH+F REE T4 TSH 2.640 uIU/m L 0.450- 4.500 Not Available [facility] ([facility]) [address] [place], [address], 10/29/2023 16:07:02 10/27/19 24 10/28/2023 TSH+F REE T4 T4,free(dire ct) 1.11 NG/dL 0.82-1 .77 Not Available [facility] ([facility]) [address] [place], [address], 10/29/2023 16:07:02 10/27/19 24 10/28/2023 CBC WITH DIFFE RENTI AL/PL ATELE T WBC 7.9 x10e3 /uL 3.4-10 .8 Not Available [facility] ([facility]) [address] [place], [address], 10/29/2023 16:07:03 10/27/19 24 10/28/2023 CBC WITH DIFFE RENTI AL/PL ATELE T RBC 5.01 x10e6 /uL 3.77-5 .28 Not Available [facility] ([facility]) [address] [place], [address], 10/29/2023 16:07:03 10/27/19 24 10/28/2023 CBC WITH DIFFE RENTI AL/PL ATELE T hemoglobin 14.5 g/dL 11.1-1 5.9 Not Available [facility] ([facility]) [address] [place], [address], 10/29/2023 16:07:03 10/27/19 24 10/28/2023 CBC WITH DIFFE RENTI AL/PL ATELE T hematocrit 43.8 % 34.0-4 6.6 Not Available [facility] ([facility]) [address] [facility], [place], [address], 10/29/2023 16:07:03 10/27/19 24 10/28/2023 CBC WITH DIFFE RENTI AL/PL ATELE T MCV 87 fL 79-97 Not Available [facility] ([facility]) [address] [facility], [place], [address], 10/29/2023 16:07:03 10/27/19 24 10/28/2023 CBC WITH DIFFE RENTI AL/PL ATELE T MCH 28.9 pg 26.6-3 3.0 Not Available [facility] ([facility]) [address] [facility], [place], [address], 10/29/2023 16:07:03 10/27/19 24 10/28/2023 CBC WITH DIFFE RENTI AL/PL ATELE T MCHC 33.1 g/dL 31.5-3 5.7 Not Available [facility] ([facility]) [address] [facility], [place], [address], 10/29/2023 16:07:03 10/27/19 24 10/28/2023 CBC WITH DIFFE RENTI AL/PL ATELE T RDW 12.6 % 11.7-1 5.4 Not Available [facility] ([facility]) [address] [facility], [place], [address], 10/29/2023 16:07:03 10/27/19 24 10/28/2023 CBC WITH DIFFE RENTI AL/PL ATELE T platelets 258 x10e3 /uL 150-45 0 Not Available [facility] ([facility]) [address] [facility], [place], [address], 10/29/2023 16:07:03 10/27/19 24 10/28/2023 CBC WITH DIFFE RENTI AL/PL ATELE T neutrophils 63 % not estab. Not Available [facility] ([facility]) [address] [facility], [place], [address], 10/29/2023 16:07:03 10/27/19 24 10/28/2023 CBC WITH DIFFE RENTI AL/PL ATELE T lymphs 29 % not estab. Not Available [facility] ([facility]) [address] [facility], [place], [address], 10/29/2023 16:07:03 10/27/19 24 10/28/2023 CBC WITH DIFFE RENTI AL/PL ATELE T monocytes 7 % not estab. Not Available [facility] ([facility]) [address] [facility], [place], [address], 10/29/2023 16:07:03 10/27/19 24 10/28/2023 CBC WITH DIFFE RENTI AL/PL ATELE T eos 1 % not estab. Not Available [facility] ([facility]) [address] [facility], [place], [address], 10/29/2023 16:07:03 10/27/19 24 10/28/2023 CBC WITH DIFFE RENTI AL/PL ATELE T basos 0 % not estab. Not Available [facility] ([facility]) [address] [facility], [place], [address], 10/29/2023 16:07:03 10/27/19 24 10/28/2023 CBC WITH DIFFE RENTI AL/PL ATELE T immature cells [employer] Not Available [facility] ([facility]) [address] [facility], [place], [address], 10/29/2023 16:07:03 10/27/19 24 10/28/2023 CBC WITH DIFFE RENTI AL/PL ATELE T neutrophils (absolute) 5.0 x10e3 /uL 1.4-7. 0 Not Available [facility] ([facility]) [address] [facility], [place], [address], 10/29/2023 16:07:03 10/27/19 24 10/28/2023 CBC WITH DIFFE RENTI AL/PL ATELE T lymphs (absolute) 2.3 x10e3 /uL 0.7-3. 1 Not Available [facility] ([facility]) [address] [facility], [place], [address], 10/29/2023 16:07:03 10/27/19 24 10/28/2023 CBC WITH DIFFE RENTI AL/PL ATELE T monocytes(ab solute) 0.5 x10e3 /uL 0.1-0. 9 Not Available [facility] ([facility]) [address] [place], [address], 10/29/2023 16:07:03 10/27/19 24 10/28/2023 CBC WITH DIFFE RENTI AL/PL ATELE T eos (absolute) 0.0 x10e3 /uL 0.0-0. 4 Not Available [facility] ([facility]) [address] [facility], [place], [address], 10/29/2023 16:07:03 10/27/19 24 10/28/2023 CBC WITH DIFFE RENTI AL/PL ATELE T baso (absolute) 0.0 x10e3 /uL 0.0-0. 2 Not Available [facility] ([facility]) [address] [place], [address], 10/29/2023 16:07:03 10/27/19 24 10/28/2023 CBC WITH DIFFE RENTI AL/PL ATELE T immature granulocytes 0 % not estab. Not Available [facility] ([facility]) [address] [place], [address], 10/29/2023 16:07:03 10/27/19 24 10/28/2023 CBC WITH DIFFE RENTI AL/PL ATELE T immature grans (abs) 0.0 x10e3 /uL 0.0-0. 1 Not Available [facility] ([facility]) [address] [place], [address], 10/29/2023 16:07:03 10/27/19 24 10/28/2023 CBC WITH DIFFE RENTI AL/PL ATELE T NRBC [employer] Not Available [facility] ([facility]) [address], [place], [address], 10/29/2023 16:07:03 10/27/19 24 10/28/2023 CBC WITH DIFFE RENTI AL/PL ATELE T hematology comments: [employer] Not Available [facility] ([facility]) [address], [place], [address], 10/29/2023 16:07:03 10/27/19 24 10/28/2023 COMP. METAB OLIC PANEL (14) glucose 76 mg/dL 70-99 Not Available [facility] ([facility]) [address], [place], [address], 10/29/2023 16:07:03 10/27/19 24 10/28/2023 COMP. METAB OLIC PANEL (14) BUN 6 mg/dL 6-20 Not Available [facility] ([facility]) [address], [place], [address], 10/29/2023 16:07:03 10/27/19 24 10/28/2023 COMP. METAB OLIC PANEL (14) creatinine 0.73 mg/dL 0.57-1 .00 Not Available [facility] ([facility]) [address] [facility], [place], [address], 10/29/2023 16:07:03 10/27/19 24 10/28/2023 COMP. METAB OLIC PANEL (14) BUN/creatini ne ratio 8 9-23 below low normal Not Available [facility] ([facility]) [address], [address], 10/29/2023 16:07:03 10/27/19 24 10/28/2023 COMP. METAB OLIC PANEL (14) sodium 139 mmol/ L 134-14 4 Not Available [facility] ([facility]) [address] [facility] [place], [address], 10/29/2023 16:07:03 10/27/19 24 10/28/2023 COMP. METAB OLIC PANEL (14) potassium 4.0 mmol/ L 3.5-5. 2 Not Available [facility] ([facility]) [address] [facility] [place], [address], 10/29/2023 16:07:03 10/27/19 24 10/28/2023 COMP. METAB OLIC PANEL (14) chloride 102 mmol/ L 96-106 Not Available [facility] ([facility]) [address] [facility] [place], [address], 10/29/2023 16:07:03 10/27/19 24 10/28/2023 COMP. METAB OLIC PANEL (14) carbon dioxide, total 21 mmol/ L 20-29 Not Available [facility] ([facility]) [address] [facility] [place], [address], 10/29/2023 16:07:03 10/27/19 24 10/28/2023 COMP. METAB OLIC PANEL (14) calcium 9.5 mg/dL 8.7-10 .2 Not Available [facility] ([facility]) [address] [facility] [place], [address], 10/29/2023 16:07:03 10/27/19 24 10/28/2023 COMP. METAB OLIC PANEL (14) protein, total 7.5 g/dL 6.0-8. 5 Not Available [facility] ([facility]) [address] [facility] [place], [address], 10/29/2023 16:07:03 10/27/19 24 10/28/2023 COMP. METAB OLIC PANEL (14) albumin 4.7 g/dL 4.0-5. 0 Not Available [facility] ([facility]) [address] [facility] [place], [address], 10/29/2023 16:07:03 10/27/19 24 10/28/2023 COMP. METAB OLIC PANEL (14) globulin, total 2.8 g/dL 1.5-4. 5 Not Available [facility] ([facility]) [address] [facility] [place], [address], 10/29/2023 16:07:03 10/27/19 24 10/28/2023 COMP. METAB OLIC PANEL (14) A/G ratio 1.7 1.2-2. 2 Not Available [facility] ([facility]) [address] [facility] [place], [address], 10/29/2023 16:07:03 10/27/19 24 10/28/2023 COMP. METAB OLIC PANEL (14) bilirubin, total <0.2 mg/dL 0.0-1. 2 Not Available [facility] ([facility]) [address] [facility] [place], [address], 10/29/2023 16:07:03 10/27/19 24 10/28/2023 COMP. METAB OLIC PANEL (14) alkaline phosphatase 46 IU/L 44-121 Not Available [facility] ([facility]) [address] [facility] [place], [address], 10/29/2023 16:07:03 10/27/19 24 10/28/2023 COMP. METAB OLIC PANEL (14) AST (SGOT) 19 IU/L 0-40 Not Available [facility] ([facility]) [address] [facility] [place], [address], 10/29/2023 16:07:03 10/27/19 24 10/28/2023 COMP. METAB OLIC PANEL (14) ALT (SGPT) 13 IU/L 0-32 Not Available [facility] ([facility]) [address] [place], [address], 10/29/2023 16:07:03 10/27/19 24 10/28/2023 VITAM IN [...] um and D. Marcus townsend [place]: [facility] . 2. Ange cabrera [place], Chester mcarthur [place], Diana off-F errar i MONTERO, et al. Evalu ation , treat ment, and preve ntion of vitam in D defic iency : an Endoc rine Socie ty clini amarjit pract ice guide line. JCEM. 2010; 96(7) :1911 -30. Not Available [facility] ([facility]) [address] [facility], [place], [address], 10/29/2023 16:07:04 10/27/19 24 10/28/2023 T-TRA NSGLU [...] tive enter opath y. Not Available [facility] ([facility]) [address] [facility], [place], [address], 10/29/2023 16:07:05 10/27/19 24 10/28/2023 MONON UCLEO SIS, QUAL W/REF MARCELL mononucleosi s test, qual Negati ve negati ve The sensi tivit y of Heter ophil e antib carla testi ng is 80-90 %. Epste in Gao IgM testi ng offer s highe r sensi tivit y. Not Available [facility] ([facility]) [address] [facility], [place], [address], 10/29/2023 16:07:05 10/27/19 24 10/28/2023 MONON UCLEO [...] antib odies to EBNA. Not Available [facility] ([facility]) [address] [facility], [place], [address], 10/29/2023 16:07:05 10/27/19 24 10/29/2023 MONON UCLEO SIS, QUAL W/REF MARCELL ebv Ab vca, IgM <36.0 U/mL 0.0-35 .9 Negat az <36.0 Equiv ocal 36.0 - 43.9 Posit az >43.9 Not Available [facility] ([facility]) [address] [facility], [place], [address], 10/29/2023 16:07:05 10/27/19 24 10/29/2023 MONON UCLEO SIS, QUAL W/REF MARCELL ebv Ab vca, IgG >600.0 U/mL 0.0-17 .9 above high normal Negat az <18.0 Equiv ocal 18.0 - 21.9 Posit az >21.9 Not Available [facility] ([facility]) [address] [facility], [place], [address], 10/29/2023 16:07:05 10/27/19 24 10/29/2023 MONON UCLEO SIS, QUAL W/REF MARCELL ebv nuclear antigen Ab, IgG >600.0 U/mL 0.0-17 .9 above high normal Negat az <18.0 Equiv ocal 18.0 - 21.9 Posit az >21.9 Not Available [facility] ([facility]) [address] [facility], [place], [address], 10/29/2023 16:07:05 10/27/19 24 10/28/2023 SEDIM ENTAT ION RATE- WESTE RGREN sedimentatio n rate-westerg omi 5 mm/HR 0-32 Not Available [facility] ([facility]) [address] [facility], [place], [address], 10/29/2023 16:07:06 10/27/19 24 10/28/2023 IMMUN OGLOB ULIN A, QN, SERUM immunoglobul in A, qn, serum 235 mg/dL 87-352 Not Available [facility] ([facility]) [address] [place], [address], 10/29/2023 16:07:06 03/07/20 24 03/07/2024 strep group A, DNA, swab Strep ID NOW negati ve Not Available In-Office Order Internal Use Only DO Not Attach Compendium DO Not Attach Compendium, Do Not Delete/merge, [id number] 03/07/2024 13:53:03 Result Notes None recorded. Problems Name Problem SNOMED Code Status Onset Date Resolution Date Notes Provider Name and Address Organization Details Recorded Time Upper respirat ory infectio n 44381180 Completed 03/10/2016 Karlene Santana MD [address] [place] [address], , [facility] 6 13:56:40 Sinusiti s [id number] Completed 10/06/2022 Karlene Santana MD [address] [place] [address], , [facility] 3 14:34:43 On examinat ion - mouth rash Completed 03/10/2016 Karlene Santana MD [address] [place] [address], , [facility] 6 13:56:53 Asthma without status asthmati cus [id number] Completed 03/10/2016 Karlene Santana MD [address] [place] [address], , [facility] 6 13:56:48 Verruca vulgaris 04870003 Completed 10/06/2022 Karlene Santana MD [address] [place] [address], , [facility] 3 14:34:48 Knee pain Active chronic, sees ortho, started PT, referred to Rheum, has +HLA B27 Karlene Santana MD [address] [place] [address], , [facility] 2 15:15:13 Idiopath ic scoliosi s [id number] Completed 08/09/2018 Karlene Santana MD [address] [place] [address], , [facility] 9 13:27:40 Moderate persiste nt asthma 778250436 Active 2017 onset 12/2008, followed by Dr. 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 Active 2017 vocal cord adductio n noted by Pulm but not clinical ly signific ant Karlene Santana MD [address] [place] [address], , [facility] 8 08:56:11 Dysmenor chika 122409500 Active 2018 improved on Davian Santana MD [address] [place] [address], , [facility] 3 14:34:32 Menorrha everett 896178014 Active 2018 Karlene Santana MD [address] [place] [address], , [facility] 9 14:38:15 School problem 542317150 Completed 201910/06/2022 multiple tardies and absences Karlene Santana MD [address] [place] [address], , [facility] 3 14:34:40 Perioral dermatit is 271607944 Active 2019 Tierney Sal DO [address] [place] [address], , [facility] 0 20:07:55 Acne 54083244 Active 2020 improved with Davian Santana MD [address] [place] [address], , [facility] 3 14:34:02 Pneumoni tis 278152849 Active 2020 summer 2020 Karlene Santana MD [address] [place] [address], , [facility] 1 10:52:32 Disturba nce of attentio n 53236259 Completed 202004/24/2021 Karlene Santana MD [address] [place] [address], , [facility] 1 16:23:35 Child attentio n deficit disorder 361986978 Active 2020 +Vanderb ilts 2012, neuropsy eval 2012 Karlene Santana MD [address] [place] [address], , [facility] 1 10:13:29 Sleep disorder 50949070 Active 2020 Karlene Santana MD [address] [place] [address], , [facility] 1 15:21:51 Headache 20155564 Active 2020 worsenin g 2020 with college, referred to Neuro; starting cycloben zaprine Karlene Santana MD [address] [place] [address], , [facility] 2 15:13:42 Hemorrha gic cyst of ovary 526752423 Active 2021 R 5.6 x 4.4 x 5.1 cm, vol 64.8 cc 07/15/21 - 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 Karlene Santana MD [address] [place] [address], , [facility] 3 14:33:51 Diet educatio n Completed 202101/07/2022 Karlene Santana MD [address] [place] [address], , [facility] 2 15:13:18 Migraine without aura 21358308 Active 2021 refer to Neuro 08/2021 Karlene Santana MD [address] [place] [address], , [facility] 2 18:06:35 Depressi ve disorder 07374218 Active 2021 started Lexapro 11/2021, has biopsychologist 01/2022 Karlene Santana MD [address] [place] [address], , [facility] 2 15:13:16 Temporom andibula r joint disorder 36878942 Active 2022 Karlene Santana MD [address] [place] [address], , [facility] 3 08:23:44 Verruca plantari s 31806497 Active 2023 Karlene Santana MD [address] [place] [address], , [facility] 4 11:46:53 Nervous system symptoms Completed 10/06/2022 Karlene Santana MD [address] [place] [address], , [facility] 3 14:34:33 Viral disease 13098895 Completed 09/23/2011 Not Available [facility] 3 03:01:41 Viral disease 84327929 Completed 10/18/2012 Not Available [facility] 3 03:01:41 Viral disease 59865331 Completed 200804/21/2011 Not Available [facility] 3 03:01:41 Influenz a with respirat ory manifest ation other than pneumoni a Completed 04/21/2011 Not Available [facility] 3 03:01:41 Lymphade nopathy 73071966 Completed 200704/21/2011 Not Available [facility] 3 03:01:41 Diaper rash 91691727 Completed 200704/21/2011 Not Available [facility] 3 03:01:41 Allergic rhinitis 13356237 Active 2008 tested neg at allergis t 2022 for common environm ental allergen s Karlene Santana MD [address] [place] [address], , [facility] 3 14:19:41 Acute pharyngi tis 541989710 Completed 03/10/2016 Karlene Santana MD [address] [place] [address], , [facility] 6 13:56:37 Acute pharyngi tis 016052590 Completed 10/18/2012 Karlene Santana MD [address] [place] [address], , [facility] 6 13:56:37 Acute pharyngi tis 280769472 Completed 200704/21/2011 Karlene Santana MD [address] [place] [address], , [facility] 6 13:56:37 Acute bronchio litis 3603408 Completed 04/21/2011 Not Available [facility] 3 03:01:41 Pain in throat 607023275 Completed 04/21/2011 Not Available [facility] 3 03:01:41 Acute upper respirat ory infectio n 70664954 Completed 200604/21/2011 Not Available [facility] 3 03:01:41 Acute upper respirat ory infectio n 17569451 Completed 09/23/2011 Not Available [facility] 3 03:01:41 Pneumoni a 165131436 Completed 04/21/2011 Not Available [facility] 3 03:01:41 Nonvenom ous insect bite of multiple sites 131947588 Completed 200604/21/2011 Not Available [facility] 3 03:01:41 Non-supp urative otitis media with eustachi an tube disorder 502219074 Completed 04/21/2011 Not Available [facility] 3 03:01:41 Acute maxillar y sinusiti s 75331565 Completed 200704/21/2011 Not Available [facility] 3 03:01:41 Otitis externa 6581864 Completed 04/21/2011 Not Available [facility] 3 03:01:41 Conjunct ivitis 5565380 Completed 04/21/2011 Not Available [facility] 3 03:01:41 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 and needed OT, then needed accommod ations yearly for academic issues, IEP in high school Karlene Santana MD [address] [place] [address], , [facility] 1 10:14:13 Acute asthma 758464604 Completed 10/18/2012 Not Available [facility] 3 03:01:41 Acute asthma 700310966 Completed 04/21/2011 Not Available [facility] 3 03:01:41 Asthma 075229713 Completed 200802/08/2018 Karlene Santana MD [address] [place] [address], , [facility] 8 08:56:16 Streptoc occal sore throat 13289052 Completed 04/21/2011 Not Available [facility] 3 03:01:41 Noninfec tious gastroen teritis 20358038 Completed 200804/21/2011 Not Available [facility] 3 03:01:41 Problem Notes None recorded. Procedures Surgical History Date Name Laterality Status Provider Name and Address Organization Details Recorded Time 4 Pulse Oximetry completed Leelee Jenkins [address] [place] [address], , [facility] 03/11/2024 14:21:25 4 Wart removal completed Karlene Santana MD [address] [place] [address], , [facility] 10/19/2023 11:06:56 4 Wart removal completed Karlene Santana MD [address] [place] [address], , [facility] 10/13/2023 11:45:49 2 Wart removal completed Shree Plata MD [address] [place] [address], , [facility] 02/24/2022 12:31:34 2 Wart removal completed Shree Plata MD [address] [place] [address], , [facility] 07/22/2021 10:52:47 7 Knee arthroscopy/low rgery completed Karlene Santana MD [address] [place] [address], , [facility] 07/21/2017 09:11:04 6 Pulse Oximetry completed Karlene Santana MD [address] [place] [address], , [facility] 04/18/2016 17:03:29 5 Wart removal completed Karlene Santana MD [address] [place] [address], , [facility] 12/29/2014 09:40:26 5 Nebulizer tx completed Karlene Santnaa MD [address] [place] [address], , [facility] 11/22/2014 13:17:46 5 Pulse Oximetry completed Freeman Hernadez [facility] 09/27/2014 11:20:06 Imaging Results None [...] DateTime 11/16/2023 173.99 cm Beata Plascencia R.N. [facility] 11/16/2023 10:22:09 Date Recorded Body height Oxygen saturation Oxygen saturation in Arterial blood by Pulse oximetry Systolic blood pressure Diastolic blood pressure Provider Name and Address Organization Details Last Updated DateTime 173.99 cm 99 % 99 % 114 mm[Hg] 64 mm[Hg] Alexsandra Roberts CMA [facility] [facility] 13:56:52 Social History Question Answer Notes LastModified by Organizat ion Details LastModified Time Tobacco Smoking Status Never Smoker Not Available [facility] 04/17/2020 03:14:38 What Type Of Diet Are You Following? REGULAR [id number] Information not available 04/17/2020 Have There Been Any Changes To Your Family Or Social Situation? No [id number] Information not available 04/17/2020 Hard Of Hearing [...] available 04/19/2011 Year In School College Working [employer] Information not available 09/04/2021 Parent's Name Deepali Alaniz Information not available 04/19/2011 Parent's Name Johnny Alaniz [id number] Information not available 04/19/2011 DSS/DCF Custody No Informati on not available 11/06/2015 What Was The Date Of Your Most Recent Tobacco Screening? 08/09/2018 [id number] Information not available 04/17/2020 What Is The Name Of Your School? [employer] [id number] Information not available 04/17/2020 Do You Use Your Seat Belt Or Car Seat Routinely? Yes [id number] Information not available 04/17/2020 Are You Passively Exposed To Smoke? No Information not available 10/20/2013 How Much Tobacco Do You Smoke? No [id number] Information not available 04/17/2020 Do You Use [...] PROBLEMS/ECZEMA Y ENT PROBLEMS/OTITIS MEDIA/ CHRONIC N CAMP MANAGER PROBLEMS Y HEMATOLOGIC /ONCOLOGIC PROBLEMS N RENAL [...] Time varicella 06/09/20 07 completed Not Available [facility] 04/19/2011 03:16:44 Influenza, split virus, trivalent, preservative 03/24/20 11 completed Not Available [facility] 07/02/2019 02:35:18 IPV 02/09/20 04 completed Not Available [facility] 04/19/2011 03:18:43 DTaP, unspecified formulation 02/09/20 04 completed Not Available [facility] 04/19/2011 03:18:43 varicella 07/07/19 04 completed Not Available [facility] 04/19/2011 03:18:43 DTaP, unspecified formulation 02/04/20 03 completed Not Available [facility] 04/19/2011 03:18:43 DTaP, unspecified formulation 11/19/19 03 completed Not Available [facility] 04/19/2011 03:18:43 IPV 08/23/19 03 completed Not Available [facility] 04/19/2011 03:18:43 DTaP, unspecified formulation 08/23/19 03 completed Not Available [facility] 04/19/2011 03:18:43 IPV 11/19/19 03 completed Not Available [facility] 04/19/2011 03:18:43 MMR 06/05/20 06 completed Not Available [facility] 04/19/2011 03:18:43 MMR 11/29/19 04 completed Not Available [facility] 04/19/2011 03:18:43 Hep B, unspecified formulation 04/03/20 03 completed Not Available [facility] 04/19/2011 03:18:43 Hep B, unspecified formulation 06/22/19 03 completed Not Available [facility] 04/19/2011 03:18:43 Hib, unspecified formulation 11/19/19 03 completed Not Available [facility] 04/19/2011 03:18:43 Hib, unspecified formulation 11/29/19 04 completed Not Available [facility] 04/19/2011 03:18:43 Hib, unspecified formulation 08/23/19 03 completed Not Available [facility] 04/19/2011 03:18:43 Hib, unspecified formulation 02/04/20 03 completed Not Available [facility] 04/19/2011 03:18:43 Hep B, unspecified formulation 07/20/19 03 completed Not Available [facility] 04/19/2011 03:18:43 pneumococcal conjugate PCV 7 11/19/19 03 completed Not Available [facility] 04/19/2011 03:18:43 pneumococcal conjugate PCV 7 07/07/19 04 completed Not Available [facility] 04/19/2011 03:19:20 pneumococcal conjugate PCV 7 08/23/19 03 completed Not Available [facility] 04/19/2011 03:18:43 pneumococcal conjugate PCV 7 02/04/20 03 completed Not Available [facility] 04/19/2011 03:18:43 Influenza, split virus, trivalent, preservative 06/17/19 13 completed Not Available [facility] 07/02/2019 02:35:26 Influenza, split virus, quadrivalent, PF 03/04/20 13 completed Not Available [facility] 07/02/2019 02:35:35 Influenza, split virus, quadrivalent, PF 03/20/20 14 completed Not Available [facility] hospital 07/02/2019 02:35:57 Tdap 05/26/20 14 completed Not Available [facility] 07/02/2019 02:33:47 meningococcal MCV4P 05/26/20 14 completed Not Available [facility] 07/02/2019 02:33:36 HPV, quadrivalent 05/26/20 14 completed Not Available [facility] 07/02/2019 02:34:15 HPV, quadrivalent 08/01/19 15 completed Not Available [facility] 07/02/2019 02:34:17 HPV, quadrivalent 12/02/19 15 completed Not Available [facility] 07/02/2019 02:36:07 Influenza, split virus, quadrivalent, PF 04/05/20 15 completed Not Available [facility] 07/02/2019 02:36:20 Influenza, split virus, quadrivalent, PF 04/14/20 16 completed Not Available [facility] 07/02/2019 02:37:13 COVID-19, mRNA, LNP-S, PF, 30 mcg/0.3 mL dose 09/25/19 21 completed Kalpesh Ornelas, [facility] 09/04/2021 14:05:49 COVID-19, mRNA, LNP-S, PF, 30 mcg/0.3 mL dose 10/25/19 21 completed Kalpesh Ornelas [facility] 09/04/2021 14:06:00 COVID-19, mRNA, LNP-S, PF, 100 mcg/0.5mL dose or 50 mcg/0.25mL dose 05/30/20 21 completed Kalpesh Ornelas [facility] 09/04/2021 14:07:01 Influenza, split virus, quadrivalent, PF 07/02/19 18 completed Not Available [facility] 07/02/2019 02:38:10 meningococcal MCV4P 08/09/19 19 completed Not Available [facility] 07/02/2019 02:38:57 Influenza, split virus, quadrivalent, PF 04/05/20 19 completed Not Available [facility] 07/02/2019 02:39:12 meningococcal B, OMV 08/09/19 20 cancelled patient objection Karlene Santana MD [address] [place] [address], [id number], [facility] 08/09/2019 13:52:44 Influenza, split virus, quadrivalent, PF 03/10/20 20 completed Martha erickson, [facility] 03/10/2020 14:24:45 Hep A, ped/adol, 2 dose 08/07/19 21 completed Karlene Santana MD [address] [place] [address], , [facility] 08/07/2020 14:03:05 meningococcal B, OMV 08/07/19 21 completed Karlene Santana MD [address] [place] [address], , [facility] 08/07/2020 14:03:05 Hep A, ped/adol, 2 dose 02/06/20 21 completed Mariella erickson, [facility] 02/05/2021 08:21:00 meningococcal B, OMV 02/06/20 [facility] 08:21:00 Influenza, split virus, quadrivalent, PF 03/08/20 22 completed Karlene Santana MD [address] [place] [address], , [facility] 03/08/2022 10:52:18 Tdap 10/08/19 24 completed Karlene Santana MD [address] [place] [address], , [facility] 10/08/2023 17:23:36 DTaP, unspecified formulation 06/09/20 07 completed Not Available [facility] 04/19/2011 03:16:44 IPV 06/09/20 07 completed Not Available [facility] 04/19/2011 03:16:44 Past Encounters Encounter ID Performer Location Encounter Start Date Encounter Closed Date Diagnosis/Indication Diagnosis SNOMED-CT Code Diagnosis ICD10 Code Diagnosis Note [id number] [facility] [address] [place] [address] [place] [address] 4 01/18/2007 15:55:16 01/18/2007 17:18:16 [id number] [facility] [address] [place] [address] [place] [address] 4 03/02/2007 09:20:55 03/02/2007 10:01:54 [id number] [facility] [address] [place] [address] 4 06/09/2007 14:15:04 06/09/2007 16:03:48 [id number] [facility] [address] [place] [address] 4 06/09/2007 14:15:04 06/09/2007 16:03:48 [id number] [facility] [address] [place] [address] 4 08/20/2007 10:57:22 08/20/2007 11:17:38 [id number] [facility] [address] [place] [address] 4 10/14/2007 15:42:44 02/22/2009 01:23:50 [id number] [facility] [place] [address] [place] [address] 10/19/2007 10:35:29 10/19/2007 11:16:10 [id number] [facility] [address] [place] [address] 4 11/09/2007 17:36:13 11/09/2007 18:16:56 [id number] [facility] [address] [place] [address] 4 05/12/2008 17:04:58 05/12/2008 17:34:20 [id number] [facility] [address] [place] [address] 4 07/12/2008 14:03:36 07/12/2008 14:51:19 [id number] [facility] [address] [place] [address] 4 07/25/2008 10:36:56 07/25/2008 11:06:57 [id number] [facility] [address] [place] [address] 4 08/14/2008 13:17:39 02/22/2009 01:23:50 [id number] [facility] [address] [place] [address] 4 10/28/2008 10:50:37 10/28/2008 11:27:44 [id number] [facility] [address] [place] [address] 4 11/07/2008 14:31:35 11/07/2008 15:20:09 [id number] [facility] [address] [place] [address] 4 12/12/2008 17:08:10 12/12/2008 17:32:00 [id number] [facility] [address] [place] [address] 4 12/18/2008 16:33:02 12/18/2008 17:13:33 [id number] [facility] [address] [place] [address] 4 12/21/2008 13:05:00 12/21/2008 14:27:22 [id number] [facility] [address] [place] [address] 4 12/28/2008 10:57:32 12/28/2008 11:15:35 [id number] [facility] [address] [place] [address] 4 04/05/2009 10:21:51 04/05/2009 12:29:53 [id number] [facility] [address] [place] [address] 4 04/08/2009 12:57:27 04/08/2009 13:52:19 [id number] [facility] [address] [place] [address] 4 04/09/2009 15:04:14 04/09/2009 16:51:38 [id number] [facility] [address] [place] [address] 4 05/15/2009 16:12:57 05/15/2009 17:21:24 [id number] [facility] [address] [place] [address] 4 05/21/2009 14:00:45 05/21/2009 15:01:23 [id number] [facility] [address] [place] [address] 4 05/25/2009 11:16:12 05/25/2009 11:58:59 [id number] [facility] [address] [place] [address] 4 07/24/2009 17:18:34 07/24/2009 17:43:16 [id number] [facility] [address] [place] [address] 4 08/31/2009 17:13:07 08/31/2009 17:36:57 [id number] [facility] [address] [place] [address] 4 09/04/2009 16:00:08 09/04/2009 16:57:53 [id number] [facility] [address] [place] [address] 4 09/10/2009 15:46:08 09/10/2009 16:36:26 [id number] [facility] [address] [place] [address] 4 09/14/2009 11:02:44 09/14/2009 15:12:59 [id number] [facility] [address] [place] [address] 4 09/20/2009 16:32:13 09/20/2009 17:47:45 [id number] [facility] [address] [place] [address] 4 11/07/2009 16:39:38 11/08/2009 08:08:22 [id number] [facility] [address] [place] [address] 4 01/04/2010 15:57:00 01/04/2010 16:50:34 [id number] [facility] [address] [place] [address] 4 01/08/2010 12:47:46 01/08/2010 14:42:12 [id number] [facility] [address] [place] [address] 4 02/28/2010 16:53:36 02/28/2010 17:54:51 [id number] [facility] [address] [place] [address] 4 02/28/2010 16:53:55 02/28/2010 16:55:32 [id number] [facility] [address] [place] [address] 4 05/06/2010 12:57:39 05/06/2010 13:55:43 [id number] [facility] [address] [place] [address] 4 07/04/2010 10:15:06 07/04/2010 11:12:04 [id number] [facility] [address] [place] [address] 4 08/27/2010 16:22:49 08/27/2010 17:15:08 [id number] [facility] [address] [place] [address] 4 09/06/2010 12:53:57 09/06/2010 13:27:03 [id number] [facility] [address] [place] [address] 4 09/13/2010 10:29:20 09/13/2010 11:04:13 [id number] [facility] [address] [place] [address] 4 10/21/2010 13:32:17 10/21/2010 14:02:50 [id number] [facility] [address] [place] [address] 4 10/31/2010 13:32:35 10/31/2010 14:24:36 [id number] [address] [place] [address] 11/07/2010 11:44:04 11/07/2010 12:23:03 [id number] [facility] [address] [place] [address] 4 04/23/2011 13:32:49 04/23/2011 13:54:44 [id number] [facility] [address] [place] [address] 4 06/18/2011 16:29:57 06/18/2011 17:14:35 [id number] [facility] [address] [place] [address] 4 06/19/2011 10:57:31 06/19/2011 11:31:36 [id number] [facility] [address] [place] [address] 4 09/23/2011 16:11:31 09/23/2011 16:57:43 [id number] [facility] [address] [place] [address] 4 11/05/2011 10:17:40 11/05/2011 12:19:01 [id number] [facility] [address] [place] [address] 4 01/29/2012 11:41:16 01/29/2012 12:45:31 [id number] Freeman Hernadez [facility] [address] [facility] [place] [address] 4 03/09/2012 10:58:19 03/09/2012 11:45:29 [id number] Ada Mayo [facility] [address] [place] [address] 4 07/15/2012 11:29:47 07/15/2012 13:20:52 [id number] Karlene Santana MD [facility] [address] [place] [address] [place] [address] 4 09/22/2012 12:47:56 09/22/2012 14:58:57 [id number] Zunilda Bonillarmgina [facility] [address] [facility] [place] [address] 4 10/18/2012 15:15:50 10/18/2012 16:30:47 [id number] Karlene Santana MD [facility] [address] [place] [address] 4 10/28/2012 16:52:04 10/28/2012 17:43:48 [id number] [facility] [address] [place] [address] 4 07/21/2013 16:59:25 07/21/2013 17:44:21 Upper respiratory infection [id number] [facility] [address] [place] [address] 4 10/20/2013 12:53:31 10/20/2013 13:15:48 Acute pharyngitis [id number] Pearl Shore M.A. [facility] [address] [place] [address] 4 10/25/2013 11:01:19 10/25/2013 11:38:39 Sinusitis [id number] Shazia Arauz [facility] [address] [place] [address] 4 11/16/2013 14:30:34 11/17/2013 08:23:16 Acute pharyngitis [id number] Asthma [id number] Catherine Mejia [address] [address] 4 12/19/2013 14:26:31 12/19/2013 14:55:05 On examination - mouth rash 954157933 [id number] Karlene Santana MD [address] [address] 4 01/09/2014 16:42:01 01/09/2014 17:09:45 Upper respiratory infection 76406773 Asthma wit hout status asthmaticus [id number] Catherine Mejia [address] [address] 2 01/12/2014 13:20:12 01/12/2014 14:12:36 Sinusitis 93896491 [id number] Tania Jarquin R.N. [address] [address] 4 02/24/2014 14:53:27 02/24/2014 15:20:14 Sinusitis 81591685 Asthma 692796794 [id number] Karlene Santana MD [address] [address] 4 03/20/2014 15:27:56 03/20/2014 15:43:38 Influenza vaccine needed [id number] 106 [id number] Alexandra Trivedi M.A. [address] [address] 4 05/26/2014 09:57:08 05/26/2014 11:33:44 Well child [id number] Yamile Philippe [address] [address] 4 06/04/2014 13:09:52 06/04/2014 13:46:54 Acute pharyngitis 774660530 Upper resp iratory infection 72755297 Asthma 332058856 [id number] Becca Davis [address] [address] 4 07/12/2014 11:16:15 07/12/2014 12:12:30 Asthma without status asthmaticus [id number] Acute pharyngitis 003947260 436756 [address] [address] 2 07/15/2014 11:30:03 07/15/2014 11:57:50 Asthma 223970226 Cough 55592128 [id number] Martha Bella [address] [address] 4 08/01/2014 09:40:57 08/01/2014 09:54:25 Administration of viral vaccine 65655419 Shot only HPV [id number] [address] [address] 4 09/27/2014 10:59:46 09/27/2014 11:25:57 Acute pharyngitis 464492363 Upper resp iratory infection 93519288 335346 [address] [address] 4 11/19/2014 11:54:20 11/19/2014 12:28:21 Acute pharyngitis 499254007 Asthma wit hout status asthmaticus 02113593 [id number] Alexandra Trivedi M.A. [address] [address] 4 11/22/2014 13:03:04 11/22/2014 14:34:24 Asthma without status asthmaticus 48168412 [id number] Catherine Mejia [address] [address] 4 11/24/2014 16:29:59 11/24/2014 16:57:23 Asthma without status asthmaticus 62549925 Sinusitis 28266238 295339 [address] [address] 4 12/01/2014 09:12:26 12/01/2014 09:57:22 Administration of viral vaccine 34547010 Shot only HPV [id number] Karlene Santana MD [address] [address] 4 12/29/2014 09:20:52 12/29/2014 09:43:14 Verruca vulgaris 04469211 [id number] Lucero Hughes R.N. [address] [address] 4 01/25/2015 16:27:51 01/25/2015 17:09:37 Knee pain 52286929 [id number] Shree Plata MD [address] [address] 4 03/05/2015 10:58:50 03/05/2015 11:41:53 Acute pharyngitis 440313244 Upper resp iratory infection 44403472 [id number] [address] 4 03/12/2015 16:18:46 03/12/2015 17:01:51 Asthma 201266377 Looks well without any evidence of wheeze despite no nebs today. Stressed importance of continuing sick plan - will do advair BID and albuterol q4hr. If not improving or worsening will RTO but do not think she needs oral steroids at this point. 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 Sx Care for pain/disco mfort. F/u if not getting better over the next 3 days or worsening- sooner prn. Streptococ amarjit sore throat 47342490 J02.0 [id number] Karlene Santana MD [address] [address] 4 03/10/2016 13:41:39 03/10/2016 14:38:57 Acute pharyngitis 001189614 J02.9 [id number] Karlene Santana MD [address] [address] 4 03/17/2016 15:51:55 03/17/2016 16:49:04 Acute asthma 679668594 J45.901 Acute sinusitis 33627080 J01.90 Fatigue 80745056 R53.83 [id number] Karlene Santana MD [address] [address] 4 04/18/2016 16:26:27 04/18/2016 17:07:11 Acute asthma 991407227 J45.901 Anxiety 27333127 F41.9 [id number] Karlene Santana MD [address] [address] 4 04/22/2016 16:12:30 04/22/2016 17:07:27 Acute asthma 976078731 J45.901 Acute bronchitis 5269602 2 J20.9 [id number] Karlene Santana MD [address] [address] 4 06/23/2016 12:53:15 06/23/2016 14:01:40 Well child 305972239 Z00.129 Asthma 168527774 J45.90 9 Idiopathic scoliosis 203 854120 M41.119 Knee pain 79036863 M25.5 69 M25.562 Anxiety 79001790 F41.9 [id number] Karlene Santana MD [address] [address] 4 09/12/2016 11:01:16 09/12/2016 11:52:09 Streptococcal sore throat 62330277 J02.0 Pain in cheek 409315641 R51 [id number] Karlene Santana MD [address] [address] 4 09/17/2016 09:43:00 09/17/2016 12:56:01 Acute asthma 012603249 J45.901 Streptococ amarjit sore throat 75861784 J02.0 [id number] Karlene Santana MD [address] [address] 4 09/19/2016 17:06:59 09/19/2016 17:54:48 Acute asthma 163220978 J45.901 [id number] Lalo Walden MD [address] [address] 4 09/22/2016 13:35:11 09/22/2016 15:55:19 Cough 62199152 R05 Lingering cough after asthma exacerbati on Streptococ amarjit sore throat 20841974 J02.0 Resolving - still on meds Acute asthma 772043082 J 45.901 Finished Prednisone , still on nebulizerN o wheeze, but cough persists [id number] Karlene Santana MD [address] [address] 4 11/25/2016 10:48:29 11/25/2016 12:29:26 Acute pharyngitis 599851983 J02.9 Acute asthma 452857644 J 45.901 [id number] Freeman Hernadez [address] [address] 4 04/13/2017 11:36:51 04/13/2017 13:40:33 Acute pharyngitis 121130211 J02.9 [id number] Karlene Santana MD [address] [address] 4 04/15/2017 13:55:36 04/15/2017 15:16:45 Acute asthma 793663239 J45.901 Acute otitis media 12020 03 H66.91 [id number] Shree Plata MD [address] [address] 4 04/30/2017 14:02:00 04/30/2017 14:54:28 Pain in throat 483763574 R07.0 Viral syndrome 401992481 B34.9 [id number] Shere Plata MD [facility] [address] [address] 4 06/25/2017 16:52:27 06/25/2017 17:15:18 Acute pharyngitis 059547479 J02.9 [id number] Karlene Santana MD [address] [address] 4 07/02/2017 15:07:13 07/02/2017 17:03:37 Well child 155863766 Z00.129 Normal weight 59325216 Z 68.52 Active or passive immunization 846195794 Z23 Asthma 593877040 J45.90 9 Knee pain 17051372 M25.5 69 M25.562 Developmen gwen academic disorder 8675808 F81.9 [id number] Karlene Santana MD [facility] [address] [address] 4 10/28/2017 11:26:28 10/28/2017 13:49:09 Acute asthma 130812596 J45.901 Upper resp iratory infection 78799582 J06.9 Headache 56113588 R51 Disorder o f nasal cavity 479305353 J34.9 [id number] Karlene Santana MD [facility] [address] [address] 4 11/03/2017 11:29:29 11/03/2017 13:01:05 Acute asthma 885014251 J45.901 Acute sinusitis 81523316 J01.90 Headache 02337160 R51 [id number] Shree Plata MD [address] [address] 4 03/05/2018 10:22:36 03/05/2018 12:40:44 Acute pharyngitis 669700481 J02.9 [id number] Karlene Santana MD [address] [address] 4 03/09/2018 14:40:48 03/09/2018 15:38:57 Acute asthma 251750047 J45.901 [id number] Karlene Santana MD [address] [address] 4 03/16/2018 16:57:31 03/16/2018 17:59:07 Acute asthma 592272102 J45.901 Vocal cord dysfunction 522077539 R49.9 Allergic rhinitis 820257 04 J30.9 [id number] Martha Bella [address] [address] 4 04/14/2018 14:44:56 04/14/2018 15:10:35 Acute pharyngitis 947293503 J02.9 URI sx tx f/u prn- temp control- sore throat r/o strep but likely viral illness disc with parent Posterior rhinorrhea 758 54714 R09.82 saline nasal spray [id number] Nathalie Sepulveda MD [address] [address] 2 06/01/2018 12:14:56 06/02/2018 08:20:15 Acute pharyngitis 385925699 J02.9 Upper resp iratory infection 64210518 J06.9 Asthma 998290307 J45.90 9 Exposure t o Bordetella pertussis 215639418 Z20.818 [id number] Karlene Santana MD [address] [address] 4 08/09/2018 12:48:24 08/09/2018 15:15:50 Active or passive immunization 265111931 Z23 Well child 804303645 Z00 .129 Normal weight 05063939 Z 68.52 Moderate p ersistent asthma 826293979 J45.40 Anxiety 20285695 F41.9 Developmen gwen academic disorder 5046434 F81.9 Knee pain 81817897 M25.5 69 M25.562 [id number] Karlene Santana MD [address] [address] 4 02/08/2019 14:04:16 02/08/2019 16:07:56 Dysmenorrhea 204570096 N94.6 Menorrhagia 774900093 N9 2.0 [id number] Karlene Santana MD [address] [address] 4 04/05/2019 13:53:46 04/05/2019 16:34:50 Dysmenorrhea 476663968 N94.6 Menorrhagia 506115360 N9 2.0 Active or passive immunization 022061547 Z23 [id number] Isa Palma MD [address] [address] 4 04/21/2019 10:14:14 04/21/2019 17:52:22 Acute pharyngitis 755754653 J02.9 Asthma 531766477 J45.90 9 [id number] Myrna Tirpaeck [address] [address] 4 05/30/2019 16:11:45 05/30/2019 17:45:36 Acute pharyngitis 981733563 J02.9 Lymphadenopathy 39878212 R59.0 [id number] Karlene Santana MD [address] [address] 4 08/09/2019 12:54:13 08/09/2019 16:54:13 Well child 849458501 Z00.129 Normal weight 97432200 Z 68.52 Active or passive immunization 639057995 Z23 Acne 32256738 L70.9 Developmen gwen academic disorder 6188898 F81.9 Moderate p ersistent asthma 190018925 J45.40 Anxiety 71969987 F41.9 Dysmenorrhea 133422060 N 94.6 Menorrhagia 410468245 N9 2.0 [id number] Tierney SalDO PVP [facility] [address] 08/17/2019 12:53:15 08/17/2019 13:44:55 Dysuria 23975688 R30.0 Urinary tr act infectious disease 21184688 N39.0 [id number] Tierney Sal DO [facility] [address] [place] [address] 4 12/12/2019 15:57:01 12/12/2019 16:42:21 Contact dermatitis 62047304 L25.9 [id number] Tierney Sal DO [facility] [address] [place] [address] 4 12/23/2019 17:37:28 12/23/2019 18:09:06 Perioral dermatitis 656334975 L71.0 [id number] Martha Bella PVP [address] [address] 4 03/10/2020 10:32:21 03/10/2020 14:03:46 Active or passive immunization 314054206 Z23 [id number] Karlene Santana MD [facility] [address] [address] 4 08/07/2020 12:45:51 08/07/2020 14:25:10 Active or passive immunization 602021832 Z23 Adult heal th examination 683015662 Z00.00 Normal bod y mass index 60238812 Z68.1 Anxiety 04882967 F41.9 Developmen gwen academic disorder 1159660 F81.9 Knee pain 51008033 M25.5 69 M25.562 Moderate p ersistent asthma 339524006 J45.40 [id number] Shree Plata MD [facility] [address] [address] 4 08/14/2020 15:54:59 08/14/2020 18:37:44 Nasal congestion 92476341 R09.81 Ear problem 817549946 H9 3.92 [id number] Karlene Santana MD [address] [address] 4 09/04/2020 15:29:41 09/04/2020 16:41:33 Impacted third molar tooth 549119353 K01.1 [id number] Shree Plata MD [address] [address] 4 11/18/2020 09:36:58 11/18/2020 10:01:16 Asthma 232545889 J45.909 [id number] Tierney Sal DO [address] [address] 4 11/28/2020 11:28:06 11/28/2020 14:11:25 Dysfunction of eustachian tube 72142726 H69.90 [id number] Karlene Santana MD [address] [address] 2 12/28/2020 09:46:00 12/28/2020 12:49:04 Acne 26489114 L70.9 [id number] ALVARO MODI MD [address] [address]665 4 02/05/2021 08:12:35 02/05/2021 17:27:30 Active or passive immunization 325119679 Z23 [id number] Isa Palma MD [address] [address] 4 03/22/2021 16:57:23 03/23/2021 00:52:19 Viral syndrome 319501120 B34.9 Asthma 240550669 J45.90 9 [id number] Karlene Santana MD [address] [address]486 4 03/27/2021 13:56:14 03/27/2021 17:04:38 Anxiety 49619854 F41.9 Disturbanc e of attention 80816926 R41.840 Developmen gwen academic disorder 9458719 F81.9 Child atte ntion deficit disorder 236983392 F90.9 Sleep disorder 29662515 G47.9 [id number] Shree Plata MD [address] [address] 4 03/26/2021 16:17:27 03/26/2021 16:51:24 Asthma 260676820 J45.909 [id number] Karlene Santana MD [address] [address]347 4 04/24/2021 15:53:56 04/24/2021 17:00:43 Headache 95145897 R51.9 Moderate p ersistent asthma 902239738 J45.40 Anxiety 96793116 F41.9 Child atte ntion deficit disorder 578800729 F90.9 Developmen gwen academic disorder 8389936 F81.9 [id number] Tierney Sal DO [address] [address]058 4 07/15/2021 14:14:22 07/15/2021 17:03:01 Dysuria 10112842 R30.0 Abdominal pain 75723340 R10.9 Lower abdominal pain 545 20824 R10.30 [id number] hSree Plata MD [address] [address] 4 07/22/2021 10:33:07 07/22/2021 10:54:00 Verruca vulgaris 32432089 B07.9 [id number] Karlene Santana MD [address] [address] 4 09/04/2021 13:56:00 09/04/2021 15:54:47 Adult health examination 579449038 Z00.00 Diet education 91360056 Z71.3 Exercises education, guidance, and counseling 265508482 Z71.82 Normal bod y mass index 50841584 Z68.1 Developmen gewn academic disorder 8778989 F81.9 Child atte ntion deficit disorder 952885566 F90.9 Anxiety 40172660 F41.9 Migraine without aura 56 964354 G43.009 Moderate p ersistent asthma 110540650 J45.40 [id number] Karlene Santana MD [address] [address] 4 09/11/2021 14:36:33 09/11/2021 15:07:17 Acute sinusitis 98585766 J01.90 [id number] Karlene Santana MD [address] [address] 4 12/04/2021 09:51:55 12/04/2021 13:02:24 Anxiety 06246811 F41.9 Child atte ntion deficit disorder 187221164 F90.9 Depressive disorder 3548 9007 F32.A Developmen gwen academic disorder 1764990 F81.9 Headache 18119191 R51.9 [id number] Karlene Santana MD [address] [address]687 4 01/07/2022 13:53:47 01/07/2022 15:23:43 Anxiety 60319789 F41.9 Child atte ntion deficit disorder 878817767 F90.9 Depressive disorder 3548 9007 F32.A Anterior knee pain 45064 3006 M25.569 [id number] Tierney Sal DO [facility] [address] [address]851 4 01/27/2022 16:37:36 01/28/2022 07:30:05 Suspected COVID-19 757428034 Z20.822 Fever 141915299 R50.9 Acute pharyngitis 840633 003 J02.9 [id number] Shree Plata MD [address] [address]463 4 02/24/2022 11:35:53 02/24/2022 12:32:30 Verruca vulgaris 23242222 B07.9 [id number] Lalo Walden MD [address] [address] 2 03/17/2022 16:31:37 03/18/2022 07:56:25 Suspected COVID-19 972251826 Z20.822 Will isolate pending covid results Sinusitis 13491045 J32.9 clinical dx - will treat with PO amox. Will call by end of week if not improving and will switch to augmentin. Reviewed nasal saline/net tipot. [id number] Tierney Sal DO [address] [address]468 4 06/26/2022 13:51:26 06/27/2022 07:14:30 Suspected COVID-19 718758781 Z20.822 Acute pharyngitis 237506 003 J02.9 Headache 93066858 R51.9 [id number] Karlene Santana MD [address] [address] 4 07/09/2022 10:48:40 07/09/2022 14:41:03 Acute sinusitis 81397309 J01.90 Moderate p ersistent asthma 613241863 J45.40 [id number] Karlene Santana MD [address] [address]045 4 07/31/2022 13:40:08 07/31/2022 14:30:36 Suspected COVID-19 141617083 Z20.822 Acute sinusitis 09114953 J01.90 Exacerbati on of moderate persistent asthma 885431371 J45.41 [id number] Karlene Santana MD [address] [address]506 4 10/06/2022 12:39:26 10/06/2022 14:49:09 Active or passive immunization 541333866 Z23 Adult heal th examination 294059662 Z00.00 Diet education 87192064 Z71.3 Exercises education, guidance, and counseling 833366570 Z71.82 Normal bod y mass index 07593102 Z68.20 Hyperlipid emia screening 046903542 Z13.220 Developmen gwen academic disorder 5855525 F81.9 Depressive disorder 3548 9007 F32.A Anxiety 15839777 F41.9 Child atte ntion deficit disorder 685482803 F90.9 Acne 38054968 L70.9 Allergic rhinitis 964939 04 J30.9 Dysmenorrhea 207044755 N 94.6 Migraine without aura 56 537467 G43.009 Moderate p ersistent asthma 390570476 J45.40 [id number] ALVARO MODI MD [address] [address]81 4 10/19/2022 08:28:49 10/19/2022 10:26:02 Acute pharyngitis 232951737 J02.9 [id number] ALVARO MODI MD [address] [address]276 4 11/11/2022 09:37:10 11/11/2022 12:52:54 Diarrhea 10400859 R19.7 [id number] Karlene Santana MD [address] [address]641 4 12/09/2022 09:09:43 12/09/2022 10:33:59 Acute pharyngitis 771507653 J02.9 Suspected COVID-19 13093 4004 Z20.822 [id number] Shree Plata MD [address] [address]-877 4 01/01/2023 13:58:20 01/01/2023 14:32:08 Acute pharyngitis 197728529 J02.9 [id number] Nidia Carias MD [address] [address] 4 01/02/2023 09:35:56 01/02/2023 10:04:46 Cough 76079868 R05.9 Exacerbati on of moderate persistent asthma 205983501 J45.41 [id number] Nidia Carias MD [address] [address] 4 01/07/2023 16:35:27 01/08/2023 07:10:09 Acute sinusitis 97944124 J01.90 Exacerbati on of moderate persistent asthma 115372026 J45.41 [id number] Lalo Walden MD [address] [address]-333 4 03/21/2023 12:11:38 03/21/2023 13:22:50 Reactive lymphadenopathy 054937171 R59.1 Preauricul ar node - suspect related to acne but will need to monitor closely. She knows to call if increasing in size, red overlying, more painful, fevers, etc. [id number] Karlene Santana MD [address] [address]548 4 06/03/2023 13:27:48 06/03/2023 14:41:45 Exacerbation of moderate persistent asthma 066838356 J45.41 [id number] ALVARO MODI MD [address] [address]19-099 4 06/07/2023 11:33:21 06/07/2023 12:43:16 Atypical pneumonia 316178995 J18.9 Acute left otitis media 579656389 H66.92 Asthma 764756776 J45.90 9 [id number] Shree Plata MD [address] [address]547 4 06/16/2023 13:32:38 06/16/2023 13:50:49 Upper respiratory infection 29449654 J06.9 [id number] Karlene Santana MD [address] [address]-171 4 07/21/2023 10:46:12 07/21/2023 12:54:53 Otalgia of right ear 8311192182 H92.01 Exacerbati on of mild persistent asthma 500608715 J45.31 [id number] Isa Palma MD [address] [address]-313 4 09/18/2023 12:49:25 09/18/2023 13:56:54 Acute pharyngitis 761721988 J02.9 Viral syndrome 558002910 B34.9 [id number] Karlene Santana MD [address] [address]-776 4 09/23/2023 13:46:22 09/23/2023 14:29:28 Exacerbation of moderate persistent asthma 760122956 J45.41 [id number] Karlene Santana MD [address] [address]-053 4 10/08/2023 15:02:09 10/08/2023 17:25:57 Active or passive immunization 248492360 Z23 Adult heal th examination 328578965 Z00.00 Normal bod y mass index 71444088 Z68.21 Hyperlipid emia screening 017664681 Z13.220 Diet education 66622951 Z71.3 Exercises education, guidance, and counseling 695221141 Z71.82 Child atte ntion deficit disorder 509393748 F90.9 Depressive disorder 3548 9007 F32.A 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 Moderate p ersistent asthma 388253908 J45.40 Headache 63022893 R51.9 Anxiety 32238649 F41.9 [id number] Karlene Santana MD [address] 04493-041 4 10/13/2023 10:53:29 10/13/2023 12:31:05 Verruca plantaris 16466669 B07.0 [id number] Karlene Santana MD [address] [address]239 4 10/19/2023 10:49:01 10/19/2023 11:47:08 Verruca plantaris 78551492 B07.0 [id number] ALVARO MODI MD [address] [address]-125 4 10/27/2023 12:49:03 10/27/2023 19:03:34 Fatigue 14473991 R53.83 Plantar wa rt of left foot 4928116512 3632028 B07.0 [id number] Karlene Santana MD [address] [address]312 4 11/16/2023 10:20:33 11/16/2023 15:13:03 Fatigue 85008944 R53.83 Verruca plantaris 978478 08 B07.0 [id number] RACHNA KNIGHT DO [address] 6[address]77-410 4 02/16/2024 13:24:25 02/16/2024 19:36:36 Migraine 09504805 G43.909 Neck pain 66666271 M54.2 [id number] Karlene Santana MD [address] [address] 4 03/07/2024 13:49:39 03/07/2024 14:18:41 Acute pharyngitis 775429621 J02.9 Postviral cough 27851388 4 R05.3 [id number] Leelee HairTarik Jenkins [address] [address]177 4 03/11/2024 13:39:42 03/16/2024 16:52:55 Exacerbation of moderate persistent asthma 787203053 J45.41 Acute sinusitis 40377853 J01.90 [id number] Shree Plata MD [address] [address]-712 4 03/19/2024 11:19:49 03/19/2024 12:29:45 Atypical pneumonia 814009322 J18.9 Health Concerns Section Related Observation LastModified by Organization Detai ls LastModified Time None Recorded Concern Status LastModified by Organization Details LastModified Time None Recorded Advance Directives Directive None Recorded Payers Encounter Date Sequence Insurance Name Policy Number Policy Haines Covered Member ID Haines Member ID Guarantor Name 11/16/2023 2 [place] [facility] Emalie Polanek [id number] Deepali Polanek 11/16/2023 1 [facility] [id number] Edjosé miguel Salazar Polanek [id number] Deepali Polanek 02/16/2024 2 [place] [facility] Emalie Polanek [id number] Deepali Polanek 02/16/2024 1 [facility] [id number] Edjosé miguel De Lunaanek [id number] Deepali Polanek 03/07/2024 2 [place] [facility] Emalie Polanek [id number] Deepali Polanek 03/07/2024 1 [facility] [id number] josé miguel Salazar Polanek [id number] Deepali Polanek 03/11/2024 2 [place] [facility] Emalie Polanek [id number] Deepali Polanek 03/11/2024 1 [facility] [id number] josé miguel De Lunaanek [id number] Deepali Polanek 03/19/2024 2 [place] [facility] [employer] Rxlie Polanek [id number] Deepali Polanek 03/19/2024 1 [facility] [id number] josé miguel De Lunaanek [id number] Deepali Polanek Notes Date Note Type Note Provider Name and Address Organization Details Recorded Time 11/16/2023 text/html RS Sick Visit Narrative HistoryReported bypatient.Notes:Pt here for recheck of fatigue and warts.Pt reports swollen lymph nodes and tonsil stones on and off.No recent sick sxs.Had screening labs done for ?thyroid disorder. Has strong FHx.Saw automotive diagnostic technician last week for asthma flare up. Rx'd [...] good amt of sleep. Karlene Santana MD [address], [place], , [facility] 11/16/2023 12:58:04 02/16/2024 text/html RS [...] to see different neurologist - Currently seeing [facility], Dr. Hutson. Is on amitryptaline nightly with no relief in migraine frequency. Tried Excedrin, tylenol and ibuprofen without much relief. No OTC meds taken today. Had swollen gland to R axilla 1 week ago - was tender to touch. No redness noticed. Now resolved. Afebrile, no cough, no congestion. RACHNA KNIGHT DO [address], [place], , [facility] 02/16/2024 17:52:44 03/07/2024 text/html RS Sick Visit Narrative HistoryReported bypatient.Notes:Pt coming in w/continued congestion x2 weeks.Had covid 2 weeks ago. Sxs seemed to be resolving but then started w/ST 2 days ago. Resolved after 1 day. Now having sneezing and congestion but rare nasal drainage. Nonproductive cough Karlene Santana MD [address], [place], , [facility] 03/07/2024 14:08:54 03/11/2024 text/html RS [...] illness mucinex, sudafed OTC Leelee Jenkins [address], [place], , [facility] 03/16/2024 10:06:41 03/19/2024 text/html RS [...] meds taken recently. Shree Plata MD [address], [place], , [facility] 03/19/2024 12:29:15 OBGyn Episode No OBEpisode recorded.
--- OUTSIDE RECORDS SUMMARY | 2024-08-24 13:09 | XMS_ITS | Encounter Summary ---
Author Organization [facility] Address [address] [place] [address] Care Team Providers Care Hand Marker Name Role Phone Karlene Santana MD Primary Care Provider [phone] Reason for Visit * Consultation (Elective) - Authorized Specialty Diagnoses / Procedures Referred By Florinda chatman Referred To Contact Physical Therapy Diagnoses Knee pain Michael Santillan PA [facility] [address] [place] [address] [place] [address] Phone: tel: fax: Henry Watson PT Referral ID Status Reason Start Date Expiration Date Visits Requested Visits Authorized [id number] Authorized Consult and Treat 06/28/2024 06/28/2025 26 26 Encounter Details Date Type Department Care Team ([facility] st Contact Info) Description 07/25/2024 10:30 AM EST Treatment Physical Therapy - [address] [phone] Henry Watson PT Chronic pain of both [...] Watson PT - 07/25/2024 10:30 AM EST [facility] - Outpatient PHYSICAL THERAPY DAILY TREATMENT NOTE - OP Date: 07/25/2024 Visit Number: 2 Patient Name: Usha Alaniz : 2000 Age: 24 y.o. Gender: female Diagnosis: ICD-10-CM ICD-9-CM 1. Chronic pain of both knees M25.561 719.46 M25.562 338.29 G89.29 2. Disorder of patellofemoral joint, unspecified laterality M22.2X9 719.96 Date of Onset/Surgery: 06/29/2024 Referring Provider: Michael Santillan PA Insurance: Payor: [employer] / Plan: [facility] [employer] / Product Type: *No Product type* / Patient Identified by: Henry Watson PT Language: Speaks and understands Upper Sorbian as preferred language with no core cutter and reamer required Medications: No current outpatient medications on [...] Description 08/26/2024 9:30 AM EDT Treatment Physical [facility] [address] [place] [address] Henry Watson, LIA 08/29/2024 10:15 AM EDT Treatment Physical Therapy [facility] [address] [place] [address] Henry Watson, PT documented as of this encounter Visit Diagnoses Diagnosis Chronic pain of both knees- Primary Disorder of patellofemoral joint, unspecified laterality documented in this encounter Care Teams Hand Marker Relationship Specialty Start Date End Date Karlene Santana MD [address] [facility] [place] [address] PCP - General 03/30/23 documented as of this encounter
== END 2024-08-24 11:08 | disposition home or self-care (01) ==
LOC: HO.RESP 11:07
PROVIDERS: PCP Physician Assistant Medical; Visit Provider Hospitalist
DX: J45.909 Unspecified asthma, uncomplicated (principal); T78.40XA Allergy, unspecified, initial encounter
CPT/HCPCS: 94010; 94640; 94727; 94729

== ENCOUNTER → 2024-08-24 11:12 | Outpatient (BNV) | payer OTHER, MEDICAID, SELFPAY | PROVIDERS: PCP Physician Assistant Medical; Visit Provider Internal Medicine Pulmonary Disease | DX: J45.909 Unspecified asthma, uncomplicated (principal) | CPT/HCPCS: 94060; 94727; 94729 ==

== ENCOUNTER 2024-08-31 09:59 | Outpatient (AMB) | payer OTHER, MEDICAID, SELFPAY ==
--- NOTE | 2024-08-31 10:02 | A.OFFVIS_ITS ---
Vital Signs 08/31/24 10:03 Height 5 ft 9 in Weight 154 lb 5.177 oz BMI 22.8 BP 112/80 Blood Pressure Location Rt brachial Position Sitting Pulse 85 Pulse Source Pulse Oximeter Pulse Oximetry (%) 99 Oxygen Delivery Method Room Air Intake Visit Reasons: asthma Allergies oxycodone Allergy (Intermediate, Verified 08/31/24 10:05) Hallucinations HPI Comments Details: The patient is a 24-year-old woman with a known history of childhood asthma. She does have lifelong asthma and she has been followed closely by pediatric P ulmonary for many years. She has been on Wixela for many years and also at times may take additional Flovent HFA in case she is having a flare-up. And she also has a rescue inhaler. She states that throughout the year she will need prednisone between 5-8 times. The last time was over the fall where she had 3 courses of prednisone to try to finally settled on her symptoms. She does not like to take prednisone and she would like to avoid. She has had allergy testing in the past and is been negative that she is aware of. The patient did have a chest x-ray which we personally reviewed together demonstrating hyperinflation of the lungs. She has not had formal pulmonary function studies. Therefore, based on ongoing symptoms will go ahead and optimize her respiratory therapy by switching her from Wixela to Trelegy 200 mcg. She will continue the Singulair for now though she does carry a diagnosis of depression and once her symptoms are better we can see about maybe removing the singular just in case. In addition to that will assess blood work including allergy testing to assess to see biologics will be a reasonable option for the patient. Will plan to follow-up after the PFTs. 08/31/2024 the patient is here for pulmonary follow-up visit. Overall she is doing better. She did have the flu and did develop significant asthma afterwards. She did require prednisone. Definitely is doing better. We did review her blood work. No significant allergies that we can appreciate. And seems like she has a additional blood work including IgG pneumococcal titers were also reassuring suggesting a robust immune system. She did have pulmonary function studies which we did review. She had a little bit of small airways disease which is suspected with a history of asthma. She has been using the Trelegy has been effective. Although she has not been taking it regularly. Going to the spring she should try to get daily. If she would like to be in any inhaler that could be easily titrated up and down the may be Breztri may be a good better option for her in the future. But she can call and I can send a prescription. Otherwise the patient is doing well plan to follow-up in 6-8 months. If she has any difficulties prior to that she will call for an earlier assessment. [facility] Medical History (Updated 07/14/24 @ 20:14 by Josué Hatfield MD) Eczema Allergies Asthma Social History Patient Tobacco Use Status: Never used Tobacco Review of Systems Const Reports no additional complaints Eyes Reports no additional complaints ENT Reports nasal congestion and Reports nasal discharge Card Denies chest pain Resp Reports cough and Reports wheezing GI Reports no additional complaints Musc Reports no additional complaints Skin/Breast Reports rash Leroy/Lymph Reports no additional complaints Aller/Immun Reports wheezing Physical Exam Vital Signs: Last Vital Signs Pulse 85 08/31/24 10:03 BP 112/80 08/31/24 10:03 Pulse Ox 99 08/31/24 10:03 Oxygen Delivery Method Room Air 08/31/24 10:03 BMI result Body Mass Index 22.8 Const General: healthy appearing HEENT Head: Yes normocephalic Eyes General: appearance normal, both eyes and all related structures Neck Neck: Yes supple Chest Chest palpation & inspection: normal inspection of the chest Resp Effort & Inspection: normal respiratory effort Auscultation: clear to auscultation bilaterally Cardio Jugular venous distension: JVD Heart sounds: S1 normal heart sound present and S2 normal heart sound present GI Palpation (GI): Soft to palpation Skin General skin exam: no rashes or lesions noted Extrem General: Yes no clubbing, cyanosis or edema Assessment & Plan Assessment & Plan (1) Asthma: Code(s): J45.909 - Unspecified asthma, uncomplicated Category: Medical Qualifiers: Asthma complication type: uncomplicated Asthma persistence: persistent Asthma severity: moderate Qualified Code(s): J45.40 - Moderate persistent asthma, uncomplicated (2) Allergies: Code(s): T78.40XA - Allergy, unspecified, initial encounter Category: Medical Qualifiers: Encounter type: initial encounter Qualified Code(s): T78.40XA - Allergy, unspecified, initial encounter (3) Eczema: Code(s): L30.9 - Dermatitis, unspecified Category: Medical Qualifiers: Eczema type: flexural Qualified Code(s): L20.82 - Flexural eczema Plan Trelegy 200 daily, consider switching to Breztri NEW as needed continue singulair for now F/U 6-8 months Coding Level of Care Code Est Pt Level 4 (94382) Diagnoses Moderate persistent asthma without complication J45.40 Asthma complication type: uncomplicated Asthma persistence: persistent Asthma severity: moderate Allergy, initial encounter T78.40XA Encounter type: initial encounter Flexural eczema L20.82 Eczema type: flexural Time Spent (min) 17
[2024-08-31 10:03] VITALS: BP 112/80; PULSE 85; O2SAT 99; BMI 22.8
--- OUTSIDE RECORDS SUMMARY | 2024-08-31 11:28 | XMS_ITS | Encounter Summary ---
Author Organization [facility] Address [address] [place] [address] Care Team Providers Care Correspondence Section Supervisor Name Role Phone Karlene Santana MD Primary Care Provider [phone] Reason for Visit * Consultation (Elective) - Authorized Specialty Diagnoses / Procedures Referred By Florinda chatman Referred To Contact Physical Therapy Diagnoses Knee pain Michael Santillan PA [facility] [address] [place] [address] [place] [address] Phone: tel: fax: Henry Watson PT Referral ID Status Reason Start Date Expiration Date Visits Requested Visits Authorized [id number] Authorized Consult and Treat 06/28/2024 06/28/2025 26 26 Encounter Details Date Type Department Care Team ([facility] st Contact Info) Description 08/29/2024 10:15 AM EDT Treatment Physical Therapy - [address] [phone] Henry Watson PT Chronic pain of both [...] Progress Notes * Henry Watson PT - 08/29/2024 10:15 AM EDT [facility] - Outpatient PHYSICAL THERAPY DAILY TREATMENT NOTE - OP Date: 08/29/2024 Visit Number: 9 Patient Name: Usha Alaniz : 2000 Age: 24 y.o. Gender: female Diagnosis: ICD-10-CM ICD-9-CM 1. Chronic pain of both knees M25.561 719.46 M25.562 338.29 G89.29 2. Disorder of patellofemoral joint, unspecified laterality M22.2X9 719.96 Date of Onset/Surgery: 06/29/2024 Referring Provider: Michael Santillan PA Insurance: Payor: [place] [employer] / Plan: [facility] [employer] ACO / Product Type: *No Product type* / Patient Identified by: Henry Watson PT Language: Speaks and understands Tajik as preferred language with no science interpreter required Medications: No current outpatient medications on file prior to visit. No current facility-administered medications on file prior to visit. Allergies: has no allergies on file. Precautions: None Fall risk: No SUBJECTIVE: Subjective Report: Chart Reviewed: Yes Its feeling a little better than last week,. OBJECTIVE: Vitals: There were no vitals filed for this visit.; TREATMENT INTERVENTION: Manual Tech: Pat mobs grade 2 for pain control. B Resendez taping for medial glides Therex: Nu step x 4min SLR with slight ER L and R 3 x 10 LAQ 2 x 10 with emphasis on full ext. Bridges x 10. Bridges with marching (4) x 5, U bridges 2 x 5 each Sit to stands x 10 and slight offset footing 2 x 10 R SLS with rotational and fwd reaching 2 x 10 L and R CP x 10 min B knees (no charge) ASSESSMENT/Response to Treatment Good. Pt did better today with PF load. Improved L knee pain. Still benefits from tape. Pt was 15 min late so did not do the lunges to bosu. Patient Education: Education provided: Tape management and hip control benefits Education Provided To: Patient utilizing Explanation, Demonstration, and Printed Material mode(s) of education Response to Education: Applied Knowledge, Verbal Understanding, and Demonstrated Skills PLAN POC Development/Review: No Change in the Plan of Care return to therex as able L LE. Participants: Patient Interventions Time Entry: Therapeutic procedures: Manual Therapy Time Entry: 9 Therapeutic Exercise Time Entry: 20 Total Treatment Time: 45 Documentation completed by Henry Brown, PT documented in this encounter Plan of Treatment Upcoming Encounters Date Type Department Care Team (Late st Contact Info) Description 09/02/2024 12:45 PM EDT Treatment Physical Therapy [facility] [address] [place] [address] Henry Watson, PT 09/05/2024 1:15 PM EDT Treatment Physical Therapy - [place] [address] [place] [address] Henry Watson, PT 09/09/2024 9:30 AM EDT Treatment Physical Therapy - [place] [address] [facility] [place] [address] Henry Watson, PT 09/12/2024 1:00 PM EDT Treatment Physical Therapy [facility] [address] [place] [address] Henry Watson, PT 09/14/2024 10:15 AM EDT Treatment Physical Therapy [facility] [address] [place] [address] Henry Watson, PT 09/19/2024 9:30 AM EDT Treatment Physical Therapy [facility] [address] [place] [address] Henry Watson, PT 09/21/2024 10:15 AM EDT Treatment Physical Therapy [facility] [address] [place] [address] Henry Watson, PT 09/26/2024 1:00 PM EDT Treatment Physical Therapy [facility] [address] [place] [address] Henry Watson, PT documented as of this encounter Visit Diagnoses Diagnosis Chronic pain of both knees- Primary Disorder of patellofemoral joint, unspecified laterality documented in this encounter Care Teams Correspondence Section Supervisor Relationship Specialty Start Date End Date Karlene Santana MD [address] [place] [address] [place] [address] PCP - General 03/30/23 documented as of this encounter
--- OUTSIDE RECORDS SUMMARY | 2024-08-31 11:28 | XMS_ITS | Clinical Summary ---
Author Organization [facility] Address [address] [place] [address] Phone Care Team Providers Care Tax Collection Coordinator Name Role Phone Karlene Santana MD Primary Care Provider [phone] Encounters Date Type Department Care Team Description 08/29/2024 10:15 AM EDT Treatment Physical [facility] [address] [place] [phone] Brown, Henry, PT Chronic pain of both knees (Primary Dx); Disorder of patellofemoral joint, unspecified laterality 08/26/2024 9:30 AM EDT Treatment Physical [place] [address] [place] [address] Brown, Henry, PT Chronic pain of both knees (Primary Dx); Disorder of patellofemoral joint, unspecified laterality 08/22/2024 11:00 AM EDT Treatment Physical [facility] [address] [place] [address] Brown, Henry, PT Chronic pain of both knees (Primary Dx); Disorder of patellofemoral joint, unspecified laterality 08/18/2024 9:30 AM EST Treatment Physical [facility] [address] [place] [address] Brown, Henry, PT Chronic pain of both knees (Primary Dx); Disorder of patellofemoral joint, unspecified laterality 08/15/2024 9:30 AM EST Treatment Physical Therapy [address] [place] [address] Brown, Henry, PT Chronic pain of both knees (Primary Dx); Disorder of patellofemoral joint, unspecified laterality 08/10/2024 12:00 PM EST Treatment Physical [place] [address] [place] [address] Brown, Henry, PT Chronic pain of both knees (Primary Dx); Disorder of patellofemoral joint, unspecified laterality 08/08/2024 9:30 AM EST Treatment Physical Therapy [place] [address] [place] [address] Brown, Henry, PT Chronic pain of both knees (Primary Dx); Disorder of patellofemoral joint, unspecified laterality 07/25/2024 10:30 AM EST Treatment Physical [place] [address] [place] [address] Brown, Henry, PT Chronic pain of both knees (Primary Dx); Disorder of patellofemoral joint, unspecified laterality 06/29/2024 9:30 AM EST Evaluation Physical [place] [address] [place] [address] Brown, Henry, PT Disorder of patellofemoral joint, unspecified laterality (Primary Dx); Knee pain 06/29/2024 Plan of Care Documentation Physical [place] [address] [place] [address] from Last 3 Months Social History Tobacco [...] Description 09/02/2024 12:45 PM EDT Treatment Physical [place] [address] [place] [address] Brown, Henry, PT 09/05/2024 1:15 PM EDT Treatment Physical Therapy [facility] [address] [place] [address] Henry Watson, PT 09/09/2024 9:30 AM EDT Treatment Physical Therapy - [place] [address] [place] [address] Henry Watson, PT 09/12/2024 1:00 PM EDT Treatment Physical Therapy - [place] [address] [place] [address] Henry Watson, PT 09/14/2024 10:15 AM EDT Treatment Physical Therapy - [place] [address] [place] [address] Henry Watson, PT 09/19/2024 9:30 AM EDT Treatment Physical Therapy [facility] [address] [place] [address] Henry Watson, PT 09/21/2024 10:15 AM EDT Treatment Physical Therapy [facility] [address] [place] [address] Henry Watson, PT 09/26/2024 1:00 PM EDT Treatment Physical Therapy [facility] [address] [place] [address] Henry Watson, PT Health Maintenance Due Date [...] complete this topic Insurance MED[place] - [place] [facility] Care Teams Tax Collection Coordinator Relationship Specialty Start Date End Date Karlene Santana MD [address] [place] [address] PCP - General 03/30/23
--- OUTSIDE RECORDS SUMMARY | 2024-08-31 11:28 | XMS_ITS | Encounter Summary ---
Author Organization [facility] Address [address] [place] [address] Care Team Providers Care Forensic Specialist Name Role Phone Karlene Santana MD Primary Care Provider [phone] Reason for Visit * Consultation (Elective) - Authorized Specialty Diagnoses / Procedures Referred By Florinda chatman Referred To Contact Physical Therapy Diagnoses Knee pain Michael Santillan PA [facility] [address] [place] [address] [place] [address] Phone: tel: fax: Henry Watson PT Referral ID Status Reason Start Date Expiration Date Visits Requested Visits Authorized [id number] Authorized Consult and Treat 06/28/2024 06/28/2025 26 26 Encounter Details Date Type Department Care Team ([facility] st Contact Info) Description 08/26/2024 9:30 AM EDT Treatment Physical Therapy - [address] [phone] Henry Watson PT Chronic pain of both [...] Progress Notes * Henry Watson PT - 08/26/2024 9:30 AM EDT [facility] - Outpatient PHYSICAL THERAPY DAILY TREATMENT NOTE - OP Date: 08/26/2024 Visit Number: 8 Patient Name: Usha Alaniz : 2000 Age: 24 y.o. Gender: female Diagnosis: No diagnosis found. Date of Onset/Surgery: 06/29/2024 Referring Provider: Michael Santillan PA Insurance: Payor: [facility] / Plan: [facility] [employer] ACO / Product Type: *No Product type* / Patient Identified by: Henry Watson PT Language: Speaks and understands Tajik as preferred language with no wax machine operator required Medications: No current outpatient medications on file prior to visit. No current facility-administered medications on file prior to visit. Allergies: has no allergies on file. Precautions: None Fall risk: No SUBJECTIVE: Subjective Report: Chart Reviewed: Yes OBJECTIVE: Vitals: There were no vitals filed for this visit.; TREATMENT INTERVENTION: Manual Tech: Dianna greer grade 2 for pain control. B Resendez taping for medial glides Therex: Nu step x 4min SLR with slight ER L and R 3 x 10 LAQ 2 x 10 with emphasis on full ext. Bridges x 10. Bridges with marching (4) x 5, U bridges 2 x 5 each Sit to stands x 10 and slight offset footing 2 x 10 R Lunge to bosu fwd with R only 2 x 10 Calf raises 2 x 10 CP x 10 min B knees (no charge) ASSESSMENT/Response to Treatment Good. Again had increased sx L knee with taking a walk after PT last visit. L quad activity has decreased and more PF pain under load in Wt bearing Patient Education: Education provided: Tape management and hip control benefits Education Provided To: Patient utilizing Explanation, Demonstration, and Printed Material mode(s) of education Response to Education: Applied Knowledge, Verbal Understanding, and Demonstrated Skills PLAN POC Development/Review: No Change in the Plan of Care return to therex as able L LE. Participants: Patient Interventions Time Entry: Therapeutic procedures: Total Treatment Time: 45 Documentation completed by Henry Watson PT documented in this encounter Plan of Treatment Upcoming Encounters Date Type Department Care Team (Late st Contact Info) Description 09/02/2024 12:45 PM EDT Treatment Physical Therapy - [place] [address] [place] [address] Henry Watson, PT 09/05/2024 1:15 PM EDT Treatment Physical Therapy [facility] [address] [facility] [place] [address] Henry Watson, PT 09/09/2024 9:30 AM EDT Treatment Physical [facility] [address] [facility] [place] [address] Henry Watson, PT 09/12/2024 1:00 PM EDT Treatment Physical Therapy [facility] [address] [facility] [place] [address] Henry Watson, PT 09/14/2024 10:15 AM EDT Treatment Physical [facility] [address] [facility] [place] [address] Henry Watson, PT 09/19/2024 9:30 AM EDT Treatment Physical [facility] [address] [facility] [place] [address] Henry Watson, PT 09/21/2024 10:15 AM EDT Treatment Physical [facility] [address] [place] [address] Henry Watson, PT 09/26/2024 1:00 PM EDT Treatment Physical [facility] [address] [place] [address] Henry Watson, PT documented as of this encounter Visit Diagnoses Diagnosis Chronic pain of both knees- Primary Disorder of patellofemoral joint, unspecified laterality documented in this encounter Care Teams Forensic Specialist Relationship Specialty Start Date End Date Karlene Santana MD [address] [facility] [place] [address] PCP - General 03/30/23 documented as of this encounter
--- OUTSIDE RECORDS SUMMARY | 2024-08-31 11:28 | XMS_ITS | Encounter Summary ---
Author Organization [facility] Address [address] [place] [address] Care Team Providers Care Rn Cvicu Name Role Phone Karlene Santana MD Primary Care Provider [phone] Reason for Visit * Consultation (Elective) - Authorized Specialty Diagnoses / Procedures Referred By Florinda chatman Referred To Contact Physical Therapy Diagnoses Knee pain Michael Santillan PA [facility] [address] [place] [address] [place] [address] Phone: tel: fax: Henry Watson PT Referral ID Status Reason Start Date Expiration Date Visits Requested Visits Authorized [id number] Authorized Consult and Treat 06/28/2024 06/28/2025 26 26 Encounter Details Date Type Department Care Team ([facility] st Contact Info) Description 08/22/2024 11:00 AM EDT Treatment Physical Therapy - [address] [phone] Henry Watson PT Chronic pain of both [...] Watson PT - 08/22/2024 11:00 AM EDT [facility] - Outpatient PHYSICAL THERAPY DAILY TREATMENT NOTE - OP Date: 08/22/2024 Visit Number: 7 Patient Name: Usha Alaniz : 2000 Age: 24 y.o. Gender: female Diagnosis: ICD-10-CM ICD-9-CM 1. Chronic pain of both knees M25.561 719.46 M25.562 338.29 G89.29 2. Disorder of patellofemoral joint, unspecified laterality M22.2X9 719.96 Date of Onset/Surgery: 06/29/2024 Referring Provider: Michael Santillan PA Insurance: Payor: [place] [employer] / Plan: [facility] [employer] ACO / Product Type: *No Product type* / Patient Identified by: Henry Watson PT Language: Speaks and understands Kyrgyz as preferred language with no certified court interpreter required Medications: No current outpatient medications [...] 09/02/2024 12:45 PM EDT Treatment Physical Therapy [facility] [address] [facility] [place] [address] Henry Watson, PT 09/05/2024 1:15 PM EDT Treatment Physical Therapy [facility] [address] [place] [address] Henry Watson, PT 09/09/2024 9:30 AM EDT Treatment Physical Therapy [facility] [address] [facility] [place] [address] Henry Watson, PT 09/12/2024 1:00 PM EDT Treatment Physical Therapy [facility] [address] [facility] [place] [address] Henry Watson, PT 09/14/2024 10:15 AM EDT Treatment Physical Therapy [facility] [address] [address] Henry Watson, PT 09/19/2024 9:30 AM EDT Treatment Physical Therapy [facility] [address] [place] [address] Henry Watson, PT 09/21/2024 10:15 AM EDT Treatment Physical Therapy [facility] [address] [address] Henry Watson, PT 09/26/2024 1:00 PM EDT Treatment Physical Therapy [facility] [address] [address] Henry Watson, PT documented as of this encounter Visit Diagnoses Diagnosis Chronic pain of both knees- Primary Disorder of patellofemoral joint, unspecified laterality documented in this encounter Care Teams Rn Cvicu Relationship Specialty Start Date End Date Karlene Santana MD [address] [facility] [place] [address] PCP - General 03/30/23 documented as of this encounter
--- OUTSIDE RECORDS SUMMARY | 2024-08-31 11:28 | XMS_ITS | Encounter Summary ---
Author Organization [facility] Address [address] [place] [address] Care Team Providers Care Team Facilitator Name Role Phone Karlene Santana MD Primary Care Provider [phone] Reason for Visit * Consultation (Elective) - Authorized Specialty Diagnoses / Procedures Referred By Florinda chatman Referred To Contact Physical Therapy Diagnoses Knee pain Michael Santillan PA [facility] [address] [place] [address] [place] [address] Phone: tel: fax: Henry Watson PT Referral ID Status Reason Start Date Expiration Date Visits Requested Visits Authorized [id number] Authorized Consult and Treat 06/28/2024 06/28/2025 26 26 Encounter Details Date Type Department Care Team ([facility] st Contact Info) Description 08/18/2024 9:30 AM EST Treatment Physical Therapy - [address] [phone] Henry Watson PT Chronic pain of both [...] Watson PT - 08/18/2024 9:30 AM EST [facility] - Outpatient PHYSICAL THERAPY DAILY TREATMENT NOTE - OP Date: 08/18/2024 Visit Number: 6 Patient Name: Usha Alaniz : 2000 Age: 24 y.o. Gender: female Diagnosis: ICD-10-CM ICD-9-CM 1. Chronic pain of both knees M25.561 719.46 M25.562 338.29 G89.29 2. Disorder of patellofemoral joint, unspecified laterality M22.2X9 719.96 Date of Onset/Surgery: 06/29/2024 Referring Provider: Michael Santillan PA Insurance: Payor: [place] [employer] / Plan: [facility] [employer] ACO / Product Type: *No Product type* / Patient Identified by: Henry Watson PT Language: Speaks and understands Monegasque as preferred language with no american sign language interpreter required Medications: No current outpatient medications [...] 09/02/2024 12:45 PM EDT Treatment Physical Therapy [facility] [address] [facility] [place] [address] Henry Watson, PT 09/05/2024 1:15 PM EDT Treatment Physical Therapy [facility] [address] [place] [address] Henry Watson, PT 09/09/2024 9:30 AM EDT Treatment Physical Therapy [facility] [address] [facility] [place] [address] Henry Watson, PT 09/12/2024 1:00 PM EDT Treatment Physical Therapy [facility] [address] [facility] [place] [address] Henry Watson, PT 09/14/2024 10:15 AM EDT Treatment Physical Therapy [facility] [address] [place] [address] Henry Watson, PT 09/19/2024 9:30 AM EDT Treatment Physical Therapy [facility] [address] [facility] [place] [address] Henry Watson, PT 09/21/2024 10:15 AM EDT Treatment Physical Therapy [facility] [address] [place] [address] Henry Watson, PT 09/26/2024 1:00 PM EDT Treatment Physical Therapy [facility] [address] [place] [address] Henry Watson, PT documented as of this encounter Visit Diagnoses Diagnosis Chronic pain of both knees- Primary Disorder of patellofemoral joint, unspecified laterality documented in this encounter Care Teams Team Facilitator Relationship Specialty Start Date End Date Karlene Santana MD [address] [place] [address] PCP - General 03/30/23 documented as of this encounter
--- OUTSIDE RECORDS SUMMARY | 2024-08-31 11:28 | XMS_ITS | Encounter Summary ---
Author Organization [facility] Address [address] [place] [address] Care Team Providers Care Naval Architect Specialist Name Role Phone Karlene Santana MD Primary Care Provider [phone] Reason for Visit * Consultation (Elective) - Authorized Specialty Diagnoses / Procedures Referred By Florinda chatman Referred To Contact Physical Therapy Diagnoses Knee pain Michael Santillan PA [facility] [address] [place] [address] [place] [address] Phone: tel: fax: Henry Watson PT Referral ID Status Reason Start Date Expiration Date Visits Requested Visits Authorized [id number] Authorized Consult and Treat 06/28/2024 06/28/2025 26 26 Encounter Details Date Type Department Care Team ([facility] st Contact Info) Description 08/15/2024 9:30 AM EST Treatment Physical Therapy - [address] [phone] Henry Watson PT Chronic pain of both [...] Watson PT - 08/15/2024 9:30 AM EST [facility] - Outpatient PHYSICAL THERAPY DAILY TREATMENT NOTE - OP Date: 08/15/2024 Visit Number: 5 Patient Name: Usha Alaniz : 2000 Age: 24 y.o. Gender: female Diagnosis: ICD-10-CM ICD-9-CM 1. Chronic pain of both knees M25.561 719.46 M25.562 338.29 G89.29 2. Disorder of patellofemoral joint, unspecified laterality M22.2X9 719.96 Date of Onset/Surgery: 06/29/2024 Referring Provider: Michael Santillan PA Insurance: Payor: [place] Crest[employer] / Plan: [facility] [employer] / Product Type: *No Product type* / Patient Identified by: Henry Watson PT Language: Speaks and understands Japanese as preferred language with no water purifier operator required Medications: No current outpatient medications [...] 09/02/2024 12:45 PM EDT Treatment Physical Therapy [facility] [address] [facility] [place] [address] Henry Watson, PT 09/05/2024 1:15 PM EDT Treatment Physical Therapy [facility] [address] [facility] [place] [address] Henry Watson, PT 09/09/2024 9:30 AM EDT Treatment Physical Therapy [facility] [address] [facility] [place] [address] Henry Watson, PT 09/12/2024 1:00 PM EDT Treatment Physical Therapy [facility] [place] [address] [facility] [place] [address] Henry Watson, PT 09/14/2024 10:15 AM EDT Treatment Physical Therapy [facility] [address] [facility] [place] [address] Henry Watson, PT 09/19/2024 9:30 AM EDT Treatment Physical Therapy [facility] [address] [facility] [place] [address] Henry Watson, PT 09/21/2024 10:15 AM EDT Treatment Physical Therapy [facility] [address] [place] [address] Henry Watson, PT 09/26/2024 1:00 PM EDT Treatment Physical Therapy [facility] [address] [place] [address] Henry Watson, PT documented as of this encounter Visit Diagnoses Diagnosis Chronic pain of both knees- Primary Disorder of patellofemoral joint, unspecified laterality documented in this encounter Care Teams Naval Architect Specialist Relationship Specialty Start Date End Date Karlene Santaan MD [address] [facility] [place] [address] PCP - General 03/30/23 documented as of this encounter
--- OUTSIDE RECORDS SUMMARY | 2024-08-31 11:28 | XMS_ITS | Encounter Summary ---
Author Organization [facility] Address [address] [place] [address] Care Team Providers Care Personal Lines Sales Rep Name Role Phone Karlene Santana MD Primary Care Provider [phone] Reason for Visit * Consultation (Elective) - Authorized Specialty Diagnoses / Procedures Referred By Florinda chatman Referred To Contact Physical Therapy Diagnoses Knee pain Michael Santillan PA [facility] [address] [place] [address] [place] [address] Phone: tel: fax: Henry Watson PT Referral ID Status Reason Start Date Expiration Date Visits Requested Visits Authorized [id number] Authorized Consult and Treat 06/28/2024 06/28/2025 26 26 Encounter Details Date Type Department Care Team ([facility] st Contact Info) Description 08/08/2024 9:30 AM EST Treatment Physical Therapy - [address] [phone] Henry Watson PT Chronic pain of both [...] Watson PT - 08/08/2024 9:30 AM EST [facility] - Outpatient PHYSICAL THERAPY DAILY TREATMENT NOTE - OP Date: 08/08/2024 Visit Number: 3 Patient Name: Usha Alaniz : 2000 Age: 24 y.o. Gender: female Diagnosis: ICD-10-CM ICD-9-CM 1. Chronic pain of both knees M25.561 719.46 M25.562 338.29 G89.29 2. Disorder of patellofemoral joint, unspecified laterality M22.2X9 719.96 Date of Onset/Surgery: 06/29/2024 Referring Provider: Michael Santillan PA Insurance: Payor: [place] [employer] / Plan: [facility] [employer] ACO / Product Type: *No Product type* / Patient Identified by: Henry Watson PT Language: Speaks and understands Armenian as preferred language with no accounts receivable specialist required Medications: No current outpatient medications on [...] 09/02/2024 12:45 PM EDT Treatment Physical Therapy [facility] [address] [facility] [place] [address] Henry Watson, PT 09/05/2024 1:15 PM EDT Treatment Physical Therapy [facility] [address] [facility] [place] [address] Henry Watson, PT 09/09/2024 9:30 AM EDT Treatment Physical Therapy [facility] [address] [facility] [place] [address] Henry Watson, PT 09/12/2024 1:00 PM EDT Treatment Physical Therapy [facility] [address] [facility] [place] [address] Henry Watson, PT 09/14/2024 10:15 AM EDT Treatment Physical Therapy [facility] [address] [facility] [place] [address] Henry Watson, PT 09/19/2024 9:30 AM EDT Treatment Physical Therapy [facility] [address] [facility] [place] [address] Henry Watson, PT 09/21/2024 10:15 AM EDT Treatment Physical Therapy [facility] [address] [place] [address] Henry Watson, PT 09/26/2024 1:00 PM EDT Treatment Physical Therapy [facility] [address] [place] [address] Henry Watson, PT documented as of this encounter Visit Diagnoses Diagnosis Chronic pain of both knees- Primary Disorder of patellofemoral joint, unspecified laterality documented in this encounter Care Teams Personal Lines Sales Rep Relationship Specialty Start Date End Date Karlene Santana MD [address] [facility] [place] [address] PCP - General 03/30/23 documented as of this encounter
--- OUTSIDE RECORDS SUMMARY | 2024-08-31 11:29 | XMS_ITS | Encounter Summary ---
Author Organization [facility] Address [address] [place] [address] Care Team Providers Care Systems Program Manager Name Role Phone Karlene Santana MD Primary Care Provider [phone] Reason for Visit * Consultation (Elective) - Authorized Specialty Diagnoses / Procedures Referred By Florinda chatman Referred To Contact Physical Therapy Diagnoses Knee pain Michael Santillan PA [facility] [address] [place] [address] [place] [address] Phone: tel: fax: Henry Watson PT Referral ID Status Reason Start Date Expiration Date Visits Requested Visits Authorized [id number] Authorized Consult and Treat 06/28/2024 06/28/2025 26 26 Encounter Details Date Type Department Care Team ([facility] Contact Info) Description 08/10/2024 12:00 PM EST Treatment Physical Therapy - [address] [phone] Henry Watson PT Chronic pain of both [...] Watson PT - 08/10/2024 12:00 PM EST [facility] - Outpatient PHYSICAL THERAPY DAILY TREATMENT NOTE - OP Date: 08/10/2024 Visit Number: 4 Patient Name: Usha Alaniz : 2000 Age: 24 y.o. Gender: female Diagnosis: ICD-10-CM ICD-9-CM 1. Chronic pain of both knees M25.561 719.46 M25.562 338.29 G89.29 2. Disorder of patellofemoral joint, unspecified laterality M22.2X9 719.96 Date of Onset/Surgery: 06/29/2024 Referring Provider: Michael Santillan PA Insurance: Payor: SHARON Jostle / Plan: [facility] [employer] / Product Type: *No Product type* / Patient Identified by: Henry Watson PT Language: Speaks and understands Icelandic as preferred language with no ink technician required Medications: No current outpatient medications on [...] 12:45 PM EDT Treatment Physical Therapy [facility] [address] [place] [address] Henry Watson, PT 09/05/2024 1:15 PM EDT Treatment Physical Therapy [facility] [address] [place] [address] Henry Watson, PT 09/09/2024 9:30 AM EDT Treatment Physical Therapy [facility] [address] [place] [address] Henry Watson, PT 09/12/2024 1:00 PM EDT Treatment Physical Therapy [facility] [address] [facility] [place] [address] Henry Watson, PT 09/14/2024 10:15 AM EDT Treatment Physical Therapy [facility] [address] [place] [address] Henry Watson, PT 09/19/2024 9:30 AM EDT Treatment Physical Therapy [facility] [address] [place] [address] Henry Watson, PT 09/21/2024 10:15 AM EDT Treatment Physical Therapy [facility] [address] [place] [address] Henry Watson, PT 09/26/2024 1:00 PM EDT Treatment Physical Therapy [facility] [address] [place] [address] Henry Watson, PT documented as of this encounter Visit Diagnoses Diagnosis Chronic pain of both knees- Primary Disorder of patellofemoral joint, unspecified laterality documented in this encounter Care Teams Systems Program Manager Relationship Specialty Start Date End Date Karlene Santana MD [address] [place] [address] [place] [address] PCP - General 03/30/23 documented as of this encounter
== END 2024-08-31 10:31 | disposition home or self-care (01) ==
LOC: HO.HPS 10:00
PROVIDERS: PCP Physician Assistant Medical; Visit Provider Hospitalist
DX: J45.40 Moderate persistent asthma, uncomplicated (principal); T78.40XA Allergy, unspecified, initial encounter; L20.82 Flexural eczema
CPT/HCPCS: 99214

== ENCOUNTER 2025-03-07 09:51 | Outpatient (REF) | payer OTHER, MEDICAID, SELFPAY ==
--- NOTE | ~2025-03-07 | XR_ITS ---
EXAMINATION: XR CHEST CLINICAL INFORMATION: J45.40 - Moderate persistent asthma, uncomplicated COMPARISON: None available. TECHNIQUE: 2 views of the chest were obtained. FINDINGS: No significant abnormality is noted involving the heart, lungs, mediastinum, bony thorax or soft tissues. XR/XR chest 2V IMPRESSION: Unremarkable examination. Electronically signed by: Eh Villalobos MD 03/07/2025 10:28 AM EDT
--- OUTSIDE RECORDS SUMMARY | 2025-03-07 11:52 | XMS_ITS ---
Author Name [facility] Organization Unknown History of Medication Use Medication Directions Dispensed Refills Start Date End Date [facility] amoxicillin 875 mg tablet Take 1 tablet twice a day by oral route for 10 days. 03/11/2024 3 active prednisone 10 mg tablet Take 4 tabs PO daily x 5 days, then 2 tabs PO daily x 5 days, then 1 tab PO daily x 5 days. 09/23/2023 4 active prednisone 20 mg tablet Take 3 tablets every day by oral route for 5 days. 06/03/2023 4 active adapalene 0.1 % topical gel APPLY A THIN LAYER TO THE AFFECTED AREAS EVERY DAY AT AT BEDTIME. 12/31/2020 2 completed Singulair 5 mg chewable tablet take 1 tablet by mouth once daily 05/06/2011 active Vigamox 0.5 % eye drops Instill 1 drop into affected eye(s) by ophthalmic route 3 times per day 07/04/2010 active fluconazole 150 mg tablet TAKE 1 TABLET BY MOUTH TODAY. REPEAT WITH 2 ND TABLET IN 72 HOURS 4 completed PreviDent 5000 Booster Plus 1.1 % dental paste USE DIRECTED TWICE DAILY 4 completed amoxicillin 500 mg capsule TAKE 2 CAPSULES BY MOUTH TWICE A DAY FOR 10 DAYS 4 completed metronidazole 500 mg tablet TAKE 1 TABLET BY MOUTH TWICE DAILY FOR 7 DAYS 3 completed amoxicillin 400 mg/5 mL oral suspension SHAKE LIQUID AND TAKE 12.5 ML BY MOUTH TWICE DAILY FOR 10 DAYS 3 completed cefprozil 500 mg tablet TAKE 1 TABLET BY MOUTH TWICE DAILY FOR 14 DAYS 3 completed amoxicillin 875 mg-potassium clavulanate 125 mg tablet TAKE 1 TABLET BY MOUTH TWICE DAILY FOR 10 DAYS 3 completed escitalopram 10 mg tablet TAKE 1 TABLET BY MOUTH EVERY DAY 3 completed ibuprofen 800 mg tablet take 1 tablet by mouth three times a day 1 completed mupirocin 2 % topical ointment APPLY BY TOPICAL ROUTE THREE TIMES A DAY UNTIL CLEAR 8 completed oxycodone-acetamino phen 5 mg-325 mg tablet TAKE 2 TABLETS BY MOUTH EVERY 6 HOURS NEEDED FOR PAIN DIRECTED (DO NOT DRIVE WHILE ON THIS MEDICATION) 7 completed benzonatate 100 mg capsule take 1 capsule by mouth three times a day 7 completed prednisone 20 mg tablet active amoxicillin 875 mg tablet active amitriptyline 10 mg tablet TAKE 2 TABLETS BY MOUTH DAILY AT SUPPER active azithromycin 100 mg/5 mL oral suspension Take 10ml today, then 5 ml once daily for the next 4 days active etonogestrel 0.12 mg-ethinyl estradiol 0.015 mg/24 hr vaginal ring INSERT 1 RING VAGINALLY FOR 3 WEEKS THEN REMOVE FOR 1 WEEK active Flovent HFA 44 mcg/actuation aerosol inhaler active fluticasone propionate 50 mcg/actuation nasal spray,suspension SHAKE LIQUID AND USE 1 SPRAY IN EACH NOSTRIL EVERY DAY active Qvar 80 mcg/actuation Metered Aerosol oral inhaler inhale 2 puffs by mouth twice a day active Symbicort 160 mcg-4.5 mcg/actuation HFA aerosol inhaler inhale 2 puffs by mouth twice a day active Wixela Inhub 500 mcg-50 mcg/dose powder for inhalation INHALE 1 PUFF BY MOUTH EVERY 12 HOURS DIRECTED active adapalene 0.1 % topical gel APPLY A THIN LAYER TO THE AFFECTED AREAS EVERY DAY AT AT BEDTIME. APPLY A THIN LAYER TO THE AFFECTED AREAS EVERY DAY AT AT BEDTIME. completed albuterol sulfate 2.5 mg/3 mL (0.083 %) solution for nebulization USE 1 VIAL VIA NEBULIZER EVERY 4 TO 6 HOURS USE 1 VIAL VIA NEBULIZER EVERY 4 TO 6 HOURS completed albuterol sulfate HFA 90 mcg/actuation aerosol inhaler INHALE 2 PUFFS BY MOUTH EVERY 4 TO 6 HOURS NEEDED INHALE 2 PUFFS BY MOUTH EVERY 4 TO 6 HOURS NEEDED completed amoxicillin 400 mg/5 mL oral suspension Take 12.5 mL every day by oral route for 10 days. Take 12.5 mL every day by oral route for 10 days. completed atomoxetine 80 mg capsule TAKE 1 CAPSULE BY MOUTH EVERY MORNING TAKE 1 CAPSULE BY MOUTH EVERY MORNING complete d chlorhexidine gluconate 0.12 % mouthwash chlorhexidine gluconate 0.12 % mouthwash completed etonogestrel 0.12 mg-ethinyl estradiol 0.015 mg/24 hr vaginal ring INSERT 1 RING VAGINALLY FOR 3 WEEKS THEN REMOVE FOR 1 WEEK INSERT 1 RING VAGINALLY FOR 3 WEEKS THEN REMOVE FOR 1 WEEK completed metronidazole 500 mg tablet TAKE 1 TABLET BY MOUTH TWICE DAILY FOR 7 DAYS TAKE 1 TABLET BY MOUTH TWICE DAILY FOR 7 DAYS completed montelukast 10 mg tablet TAKE 1 TABLET BY MOUTH EVERY EVENING TAKE 1 TABLET BY MOUTH EVERY EVENING complete d naproxen 500 mg tablet TAKE 1 TABLET BY MOUTH TWICE DAILY TAKE 1 TABLET BY MOUTH TWICE DAILY completed NuvaRing 0.12 mg-0.015 mg/24 hr vaginal INSERT 1 RING VAGINALLY FOR 3 WEEKS THEN REMOVE FOR 1 WEEK INSERT 1 RING VAGINALLY FOR 3 WEEKS THEN REMOVE FOR 1 WEEK completed PreviDent 5000 Booster Plus 1.1 % dental paste USE DIRECTED TWICE DAILY USE DIRECTED TWICE DAILY completed Problems Problem Status Onset Date Problem Type Date of Resoluti on Source Child attention deficit disorder active 2021-03-27 ProblemAct [facility] Developmental academic disorder active ProblemAct [facility] Verruca plantaris active 2023-10-13 ProblemAct [facility] Perioral dermatitis active 2019-12-23 ProblemAct [facility] Sleep disorder active 2021-03-27 ProblemAct CTH LPVP Dysmenorrhea active 2019-02-08 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 Allergic rhinitis active 2008-12-12 ProblemAct [facility] Headache active 2021-04-24 ProblemAct [facility] Acne active 2020-12-28 ProblemAct [facility] 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 ProblemAct [facility] Depressive disorder active 2021-12-04 ProblemAct [facility] Menorrhagia active 2019-02-08 ProblemAct [facility] P Pneumonitis active 2021-02-20 ProblemAct [facility] P Hemorrhagic cyst of ovary active 2021-07-16 ProblemAct [facility] Moderate persistent asthma active 2018-02-08 ProblemAct [facility] Migraine without aura active 2021-09-04 ProblemAct [facility] Vocal cord dysfunction active 2018-02-08 ProblemAct [facility] Immunizations Vaccine Date Source Lot Number Status Tdap 10/08/2023 [facility] [id number] completed Influenza, split virus, quadrivalent, PF 03/08/2022 [facility] P [id number] completed COVID-19, mRNA, LNP-S, PF, 1 00 mcg/0.5mL dose or 50 mcg/0.25mL dose 05/30/2021 [facility] completed Hep A, ped/adol, 2 dose 02/05/2021 [facility] [id number] c ompleted meningococcal B, OMV 02/05/2021 [facility] [id number] comp leted COVID-19, mRNA, LNP-S, PF, 30 mcg/0.3 mL dose 10/24/2020 C [facility] completed COVID-19, mRNA, LNP-S, PF, 30 mcg/0.3 mL dose 09/24/2020 C THLPVP completed Hep A, ped/adol, 2 dose 08/07/2020 [facility]P [id number] c ompleted meningococcal B, OMV 08/07/2020 [facility] [id number] comp leted Influenza, split virus, quadrivalent, PF 03/10/2020 CTHLPV P [id number] completed Influenza, split virus, quadrivalent, PF 04/05/2019 [facility]LPV P [id number] completed meningococcal MCV4P 08/09/2018 [facility] [id number] compl eted Influenza, split virus, quadrivalent, PF 07/02/2017 [facility] P [id number] completed Influenza, split virus, quadrivalent, PF 04/14/2016 [facility]PV P [id number] completed Influenza, split virus, quadrivalent, PF 04/05/2015 [facility]LPV P [id number] completed HPV, quadrivalent 12/01/2014 [facility] [id number] complet ed HPV, quadrivalent 08/01/2014 [facility] [id number] complet ed HPV, quadrivalent 05/26/2014 [facility] [id number] complet ed meningococcal MCV4P 05/26/2014 [facility] [id number] compl eted Tdap 05/26/2014 [facility] [id number] completed Influenza, split virus, quadrivalent, PF 03/20/2014 [facility] P [id number] completed Influenza, split virus, quadrivalent, PF 03/04/2013 [facility] P [id number] completed Influenza, split virus, triv alent, preservative 06/17/2012 [facility]P [id number] completed Influenza, split virus, triv alent, preservative 03/24/2011 [facility] [id number] completed DTaP, unspecified formulation 06/09/2007 [facility] completed IPV 06/09/2007 [facility] completed varicella 06/09/2007 [facility] completed MMR 06/05/2006 [facility] completed DTaP, unspecified formulation 02/09/2004 [facility] completed IPV 02/09/2004 [facility] completed Hib, unspecified formulation 11/29/2003 [facility] completed MMR 11/29/2003 [facility] completed pneumococcal conjugate PCV 7 07/07/2003 [facility] completed varicella 07/07/2003 [facility] completed Hep B, unspecified formulation 04/03/2003 [facility] completed DTaP, unspecified formulation 02/03/2003 [facility] completed Hib, unspecified formulation 02/03/2003 [facility] completed pneumococcal conjugate PCV 7 02/03/2003 [facility] completed DTaP, unspecified formulation 2002 C[facility]PVP completed Hib, unspecified formulation 2002 C[facility]PVP completed IPV 2002 [facility] completed pneumococcal conjugate PCV 7 2002 [facility]P completed DTaP, unspecified formulation 2002 [facility] completed Hib, unspecified formulation 2002 C[facility] completed IPV 2002 [facility] completed pneumococcal conjugate PCV 7 2002 [facility] completed Hep B, unspecified formulation 2002 C[facility]P completed Hep B, unspecified formulation 2002 C[facility]P completed Encounters Encounter Type Encounter Reason Primary Diagnosis Location Date Ambulatory Moderate persistent asthma with (acute) exacerbation Moderate persistent asthma with (acute) exacerbation [facility] 03/19/2024 Ambulatory Acute pharyngitis, unspecified Acute pharyngitis, unspecified [facility] 03/11/2024 Ambulatory Migraine, unsp, not intractable, without status migrainosus Migraine, unsp, not intractable, without status migrainosus [facility] 03/07/2024 Ambulatory Other fatigue Other fatigue [facility] 02/16/2024 Ambulatory Other fatigue Other fatigue [facility] 11/16/2023 Ambulatory Plantar wart Plantar wart [facility] 10/27/2023 Ambulatory Plantar wart Plantar wart [facility] 10/19/2023 Ambulatory Encntr for general adult medical exam w/o abnormal findings Encntr for general adult medical exam w/o abnormal findings [facility] 10/13/2023 Ambulatory Moderate persistent asthma with (acute) exacerbation Moderate persistent asthma with (acute) exacerbation [facility] 10/08/2023 Ambulatory Acute pharyngitis, unspecified Acute pharyngitis, unspecified [facility] 09/23/2023 Ambulatory Otalgia, right ear Otalgia, right ear [facility] 09/18/2023 Ambulatory Acute upper respiratory infection, unspecified [facility] 07/21/2023 Ambulatory Pneumonia, unspecified organism [facility] 06/16/2023 Ambulatory Moderate persistent asthma with (acute) exacerbation [facility] 06/07/2023 Ambulatory Generalized enlarged lymph nodes [facility] 06/03/2023 Ambulatory Acute sinusitis, unspecified [facility] 03/21/2023 Ambulatory [facility] 01/07/2023 Ambulatory [facility] 01/02/2023 Ambulatory [facility] 01/01/2023 Ambulatory [facility] 12/09/2022 Ambulatory [facility] 11/11/2022 Ambulatory [facility] 10/19/2022 Ambulatory [facility] 10/06/2022 Ambulatory [facility] 07/31/2022 Ambulatory [facility] 07/09/2022 Ambulatory [facility] 06/26/2022 Ambulatory [facility] 03/17/2022 Ambulatory [facility] 03/08/2022 Ambulatory [facility] 02/24/2022 Ambulatory [facility] 01/27/2022 Ambulatory [facility] 01/07/2022 Ambulatory [facility] 12/04/2021 Ambulatory [facility] 09/11/2021 Ambulatory [facility] 09/04/2021 Ambulatory [facility] 07/22/2021 Ambulatory [facility] 07/15/2021 Ambulatory [facility] 04/24/2021 Ambulatory [facility] 03/27/2021 Ambulatory [facility] 03/26/2021 Ambulatory [facility] 03/22/2021 Care Team Organization Name Specialty Phone Email Start Date End Da te [facility] 04/14/2023 02/01/2024 [facility] 2021 [facility] 202003/17/2022
--- OUTSIDE RECORDS SUMMARY | 2025-03-07 11:52 | XMS_ITS | Clinical Summary ---
Author Organization [facility] Address [address] [place] [address] Phone Care Team Providers Care Secretary Administrative Assistant Name Role Phone Karlene Santana MD Primary Care Provider [phone] Social History Tobacco Use Types Packs/Day Years Used Date Smoking Tobacco: Never Assessed Comments Unknown Sex and Gender Information Value Date Recorded Sex Assigned at Not on file Legal Sex Female 8:03 PM EDT Gender Identity Not on file Sexual Orientation Not on file Plan of Treatment Health Maintenance Due Date Last Done Comments Gonorrhea/Chlamydia Screening 2002 HIV Screening 04/13/2023 Hepatitis C Screening 04/13/2023 Social Influencers of Health Screening 04/13/2023 Cervical Cancer Screening: Pap Smear 2023 Depression Screening 06/15/2024 COVID-19 Vaccine ( season) 2025 05/13/2023, 10/06/2021, 05/31/2021, Additional history exists Influenza Vaccine (#1) 2025 , 03/08/2022, 03/07/2021, Additional history exists DTaP,Tdap,and Td Vaccines (10 - Td or Tdap) 10/07/2033 10/08/2023, 10/08/2023, 05/26/2014, Additional history exists Pneumococcal Vaccine: Pediatrics (0 to 5 Years) and At-Risk Patients (6 to 49 Years) (2 of 2 - PCV20 or [...] 08/09/2018, Hepatitis A Vaccines Completed 02/05/2021, 08/07/19 Meningococcal B Vaccine Completed 02/05/2021, 08/07 RSV Immunization Patients Under 20 months Aged Out No longer eligible based on patient's age to complete this topic Insurance [place] - [place] [facility] Care Teams Secretary Administrative Assistant Relationship Specialty Start Date End Date Karlene Santana MD [address] [place] [address] PCP - General 03/30/23
== END 2025-03-07 09:52 | disposition home or self-care (01) ==
LOC: HO.XRAY 09:51
PROVIDERS: PCP Physician Assistant Medical; Visit Provider Hospitalist
DX: J45.40 Moderate persistent asthma, uncomplicated (principal)
CPT/HCPCS: 71046

== ENCOUNTER → 2025-03-07 09:57 | Outpatient (BNV) | payer OTHER, MEDICAID, SELFPAY | PROVIDERS: PCP Physician Assistant Medical; Visit Provider Radiology Diagnostic Radiology | DX: J45.40 Moderate persistent asthma, uncomplicated (principal) | CPT/HCPCS: 71046 ==

== ENCOUNTER 2025-03-09 10:07 | Outpatient (AMB) | payer OTHER, MEDICAID, SELFPAY ==
[2025-03-09 10:09] VITALS: BP 90/50; PULSE 93; O2SAT 98; BMI 22.6
--- NOTE | 2025-03-09 10:09 | A.OFFVIS_ITS ---
Vital Signs 03/09/25 10:09 Height 5 ft 9 in Weight 153 lb 3.54 oz BMI 22.6 BP 90/50 L Blood Pressure Location Lt brachial Pulse 93 Pulse Source Pulse Oximeter Pulse Oximetry (%) 98 Oxygen Delivery Method Room Air Intake Visit Reasons: Asthma Application Lead Required: No Accompanied by: Self / Same As Patient Allergies oxycodone Allergy (Intermediate, Verified 03/09/25 10:11) Hallucinations HPI Comments Details: The patient is a 24-year-old woman with a known history of childhood asthma. She does have lifelong asthma and she has been followed closely by pediatric Pulmonary for many years. She has been on Wixela for many years and also at times may take additional Flovent HFA in case she is having a flare-up. And she also has a rescue inhaler. She states that throughout the year she will need prednisone between 5-8 times. The last time was over the fall where she had 3 courses of prednisone to try to finally settled on her symptoms. She does not like to take prednisone and she would like to avoid. She has had allergy testing in the past and is been negative that she is aware of. The patient did have a chest x-ray which we personally reviewed together demonstrating hyperinflation of the lungs. She has not had formal pulmonary function studies. Therefore, based on ongoing symptoms will go ahead and optimize her respiratory therapy by switching her from Wixela to Trelegy 200 mcg. She will continue the Singulair for now though she does carry a diagnosis of depression and once her symptoms are better we can see about maybe removing the singular just in case. In addition to that will assess blood work including allergy testing to assess to see biologics will be a reasonable option for the patient. Will plan to follow-up after the PFTs. 08/31/2024 the patient is here for pulmonary follow-up visit. Overall she is doing better. She did have the flu and did develop significant asthma afterwards. She did require prednisone. Definitely is doing better. We did review her blood work. No significant allergies that we can appreciate. . And seems like she has a additional blood work including IgG pneumococcal titers were also reassuring suggesting a robust immune system. She did have pulmonary function studies which we did review. She had a little bit of small airways disease which is suspected with a history of asthma. She has been using the Trelegy has been effective. Although she has not been taking it regularly. Going to the spring she should try to get daily. If she would like to be in any inhaler that could be easily titrated up and down the may be Breztri may be a good better option for her in the future. But she can call and I can send a pre scription. Otherwise the patient is doing well plan to follow-up in 6-8 months. If she has any difficulties prior to that she will call for an earlier assessment. 03/09/2025 the patient is here for pulmonary follow-up visit. Overall she is doing well. She was able to have the asbestos removed from her house. They also found mold damage in the bathroom because of the water leaking issue. That was also abated. 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 Overall she feels like her health is overall better. She is responding well to the Breztri. The patient has stopped using the Singulair because she was getting allergy testing. She does have does have dust mite allergies. She should consider going back on the Singulair spe cially with significant allergies and postnasal drip. She is using nasal sprays. She can also use her nasal rinse specially at nighttime to minimize allergic reactions. Overall the patient is doing well. She typically has a hard time in the winter time so will have her come back in June. If she is doing okay though she can always push out her appointment to a later time. As far as the asbestos exposure her last chest x-ray was reassuring without any evidence of any acute disease. Will plan to have serial chest x-rays moving forward. [facility] Medical History (Updated 07/14/24 @ 20:14 by Josué Hatfield MD) Eczema Allergies Asthma Social History Patient Tobacco Use Status: Never used Tobacco Review of Systems Const Reports no additional complaints Eyes Reports no additional complaints ENT Reports nasal congestion and Reports nasal discharge Card Denies chest pain Resp Reports cough and Denies wheezing GI Reports no additional complaints Musc Reports no additional complaints Skin/Breast Reports rash Leroy/Lymph Reports no additional complaints Aller/Immun Denies wheezing Physical Exam Vital Signs: Last Vital Signs Pulse 93 03/09/25 10:09 BP 90/50 L 03/09/25 10:09 Pulse Ox 98 03/09/25 10:09 Oxygen Delivery Method Room Air 03/09/25 10:09 BMI result Body Mass Index 22.6 Const General: healthy appearing HEENT Head: Yes normocephalic Throat: Yes cobblestoning Eyes General: appearance normal, both eyes and all related structures Neck Neck: Yes supple Chest Chest palpation & inspection: normal inspection of the chest Resp Effort & Inspection: normal respiratory effort Auscultation: clear to auscultation bilaterally Cardio Jugular venous distension: JVD Heart sounds: S1 normal heart sound present and S2 normal heart sound present GI Palpation (GI): Soft to palpation Skin General skin exam: no rashes or lesions noted Extrem General: Yes no clubbing, cyanosis or edema Assessment & Plan Assessment & Plan (1) Asthma: Code(s): J45.909 - Unspecified asthma, uncomplicated Category: Medical Qualifiers: Asthma severity: moderate Asthma persistence: persistent Asthma complication type: uncomplicated Qualified Code(s): J45.40 - Moderate persistent asthma, uncomplicated (2) Allergies: Code(s): T78.40XA - Allergy, unspecified, initial encounter Category: Medical Qualifiers: Encounter type: initial encounter Qualified Code(s): T78.40XA - Allergy, unspecified, initial encounter (3) Eczema: Code(s): L30.9 - Dermatitis, unspecified Category: Medical Qualifiers: Eczema type: flexural Qualified Code(s): L20.82 - Flexural eczema Plan continue Breztri NEW as needed continue singulair nasal spray nasal rinsing F/U 4-6 months Coding Level of Care Code Tele Est Pt Level 4 (33871) Diagnoses Moderate persistent asthma without complication J45.40 Asthma severity: moderate Asthma persistence: persistent Asthma complication type: uncomplicated Allergy, initial encounter T78.40XA Encounter type: initial encounter Flexural eczema L20.82 Eczema type: flexural Time Spent (min) 16
--- OUTSIDE RECORDS SUMMARY | 2025-03-09 12:18 | XMS_ITS | Clinical Summary ---
Author Organization [facility] Address [address] [place] [address] Phone Care Team Providers Care Solar Energy Systems Designer Name Role Phone Karlene Santana MD Primary Care Provider [phone] Social History Tobacco Use Types Packs/Day Years [...] complete this topic Insurance [place] - [place] [facility] Care Teams Solar Energy Systems Designer Relationship Specialty Start Date End Date Karlene Santana MD [address] [place] [address] PCP - General 03/30/23
--- OUTSIDE RECORDS SUMMARY | 2025-03-09 12:18 | XMS_ITS | Data Portability ---
Author Organization [place] - [facility], [facility] Address [address] [place] [address] Assessment Encounter Date Assessment Date Assessment LastModified [...] neck. Discussed referral to neurologist other than [facility], but should continue with regular visits with [facility] until they can be seen at [facility]. Discussed return and emergent precautions. Not available [...] DO Not Attach Compendium, Do Not Delete/merge, [id number] 14:06:44 Referral neurologist referral - Migraine type and tension type headache without control with OTCs 2023 [facility], [address] [facility] [address], [place], [address], 05:00:58 Procedures None recorded. Surgeries None recorded. Imaging None recorded. Medication Orders azithromyci n 250 mg tablet 2023 [facility][id number], [address], [place], [phone], 11:38:57 prednisone 20 mg tablet 2023 [facility] #[id number], [address], [place], [phone], 14:26:45 amoxicillin 875 mg tablet 2023 024 [facility] #[id number], [address], [place], [phone], 14:26:45 Patient TargetsNo targets recorded. Patient Instructions Encounter Date Encounter Id Patient Instructions Last Modified By Organization Details Last Modified Time 02/16/2024 [id number] neck pain: care instructions Not available 02/16/2024 14:23:18 Reason for Referral Neurologist Referral for [facility] Migraine type and tension type headache without control with OTCs Referring Physician: Rachna Knight, Pediatric Medicine, Encounter Date: 02/16/2024 Results Created Date Observation Date Name Description Value Unit Range Abnormal Flag Note LastModifiedBy Organization Detail LastModifiedTime 10/27/19 24 10/28/2023 TSH+F REE T4 TSH 2.640 uIU/m L 0.450- 4.500 Not Available [facility] ([facility]) [address] [place], [address], 10/29/2023 16:07:02 10/27/19 24 10/28/2023 TSH+F REE T4 T4,free(dire ct) 1.11 NG/dL 0.82-1 .77 Not Available [facility] ([facility]) [address] [place], [address], 10/29/2023 16:07:02 10/27/19 24 10/28/2023 CBC WITH DIFFE RENTI AL/PL ATELE T WBC 7.9 x10e3 /uL 3.4-10 .8 Not Available [facility] ([facility]) [address] [place], [address], 10/29/2023 16:07:03 10/27/19 24 10/28/2023 CBC WITH DIFFE RENTI AL/PL ATELE T RBC 5.01 x10e6 /uL 3.77-5 .28 Not Available [facility] ([facility]) [address] [place], [address], 10/29/2023 16:07:03 10/27/19 24 10/28/2023 CBC WITH DIFFE RENTI AL/PL ATELE T hemoglobin 14.5 g/dL 11.1-1 5.9 Not Available [facility] ([facility]) [address] [place], [address], 10/29/2023 16:07:03 10/27/19 24 10/28/2023 CBC WITH DIFFE RENTI AL/PL ATELE T hematocrit 43.8 % 34.0-4 6.6 Not Available [facility] ([facility]) [address] [facility], [place], [address], 10/29/2023 16:07:03 10/27/19 24 10/28/2023 CBC WITH DIFFE RENTI AL/PL ATELE T MCV 87 fL 79-97 Not Available [facility] ([facility]) [address] [facility], [place], [address], 10/29/2023 16:07:03 10/27/19 24 10/28/2023 CBC WITH DIFFE RENTI AL/PL ATELE T MCH 28.9 pg 26.6-3 3.0 Not Available [facility] ([facility]) [address] [facility], [place], [address], 10/29/2023 16:07:03 10/27/19 24 10/28/2023 CBC WITH DIFFE RENTI AL/PL ATELE T MCHC 33.1 g/dL 31.5-3 5.7 Not Available [facility] ([facility]) [address] [facility], [place], [address], 10/29/2023 16:07:03 10/27/19 24 10/28/2023 CBC WITH DIFFE RENTI AL/PL ATELE T RDW 12.6 % 11.7-1 5.4 Not Available [facility] ([facility]) [address] [facility], [place], [address], 10/29/2023 16:07:03 10/27/19 24 10/28/2023 CBC WITH DIFFE RENTI AL/PL ATELE T platelets 258 x10e3 /uL 150-45 0 Not Available [facility] ([facility]) [address] [place], [address], 10/29/2023 16:07:03 10/27/19 24 10/28/2023 CBC WITH DIFFE RENTI AL/PL ATELE T neutrophils 63 % not estab. Not Available [facility] ([facility]) [address] [facility], [place], [address], 10/29/2023 16:07:03 10/27/19 24 10/28/2023 CBC WITH DIFFE RENTI AL/PL ATELE T lymphs 29 % not estab. Not Available [facility] ([facility]) [address] [facility], [place], [address], 10/29/2023 16:07:03 10/27/19 24 10/28/2023 CBC WITH DIFFE RENTI AL/PL ATELE T monocytes 7 % not estab. Not Available [facility] ([facility]) [address] [facility], [place], [address], 10/29/2023 16:07:03 10/27/19 24 10/28/2023 CBC WITH DIFFE RENTI AL/PL ATELE T eos 1 % not estab. Not Available [facility] ([facility]) [address] [facility], [place], [address], 10/29/2023 16:07:03 10/27/19 24 10/28/2023 CBC WITH DIFFE RENTI AL/PL ATELE T basos 0 % not estab. Not Available [facility] ([facility]) [address] [facility], [place], [address], 10/29/2023 16:07:03 10/27/19 24 10/28/2023 CBC WITH DIFFE RENTI AL/PL ATELE T immature cells NUCLEAR MEDICINE TECH Not Available [facility] ([facility]) [address] [facility], [place], [address], 10/29/2023 16:07:03 10/27/19 24 10/28/2023 CBC WITH DIFFE RENTI AL/PL ATELE T neutrophils (absolute) 5.0 x10e3 /uL 1.4-7. 0 Not Available [facility] ([facility]) [address] [facility], [place], [address], 10/29/2023 16:07:03 10/27/19 24 10/28/2023 CBC WITH DIFFE RENTI AL/PL ATELE T lymphs (absolute) 2.3 x10e3 /uL 0.7-3. 1 Not Available [facility] ([facility]) [address] [facility], [place], [address], 10/29/2023 16:07:03 10/27/19 24 10/28/2023 CBC WITH DIFFE RENTI AL/PL ATELE T monocytes(ab solute) 0.5 x10e3 /uL 0.1-0. 9 Not Available [facility] ([facility]) [address] [facility], [place], [address], 10/29/2023 16:07:03 10/27/19 24 10/28/2023 CBC WITH DIFFE RENTI AL/PL ATELE T eos (absolute) 0.0 x10e3 /uL 0.0-0. 4 Not Available [facility] ([facility]) [address] [facility], [place], [address], 10/29/2023 16:07:03 10/27/19 24 10/28/2023 CBC WITH DIFFE RENTI AL/PL ATELE T baso (absolute) 0.0 x10e3 /uL 0.0-0. 2 Not Available [facility] ([facility]) [address] [facility], [place], [address], 10/29/2023 16:07:03 10/27/19 24 10/28/2023 CBC WITH DIFFE RENTI AL/PL ATELE T immature granulocytes 0 % not estab. Not Available [facility] ([facility]) [address] [facility], [place], [address], 10/29/2023 16:07:03 10/27/19 24 10/28/2023 CBC WITH DIFFE RENTI AL/PL ATELE T immature grans (abs) 0.0 x10e3 /uL 0.0-0. 1 Not Available [facility] ([facility]) [address], [place], [address], 10/29/2023 16:07:03 10/27/19 24 10/28/2023 CBC WITH DIFFE RENTI AL/PL ATELE T NRBC NUCLEAR MEDICINE TECH Not Available [facility] ([facility]) [address], [place], [address], 10/29/2023 16:07:03 10/27/19 24 10/28/2023 CBC WITH DIFFE RENTI AL/PL ATELE T hematology comments: NUCLEAR MEDICINE TECH Not Available [facility] ([facility]) [address], [place], [address], 10/29/2023 16:07:03 10/27/19 24 10/28/2023 COMP. METAB OLIC PANEL (14) glucose 76 mg/dL 70-99 Not Available [facility] ([facility]) [address], [place], [address], 10/29/2023 16:07:03 10/27/19 24 10/28/2023 COMP. METAB OLIC PANEL (14) BUN 6 mg/dL 6-20 Not Available [facility] ([facility]) [address], [place], [address], 10/29/2023 16:07:03 10/27/19 24 10/28/2023 COMP. METAB OLIC PANEL (14) creatinine 0.73 mg/dL 0.57-1 .00 Not Available [facility] ([facility]) [address], [place], [address], 10/29/2023 16:07:03 10/27/19 24 10/28/2023 COMP. METAB OLIC PANEL (14) BUN/creatini ne ratio 8 9-23 below low normal Not Available [facility] ([facility]) [address], [place], [address], 10/29/2023 16:07:03 10/27/19 24 10/28/2023 COMP. METAB OLIC PANEL (14) sodium 139 mmol/ L 134-14 4 Not Available [facility] ([facility]) [address] [facility] [place], [address], 10/29/2023 16:07:03 10/27/19 24 10/28/2023 COMP. METAB OLIC PANEL (14) potassium 4.0 mmol/ L 3.5-5. 2 Not Available [facility] ([facility]) [address] [facility] [place], [address], 10/29/2023 16:07:03 10/27/19 24 10/28/2023 COMP. METAB OLIC PANEL (14) chloride 102 mmol/ L 96-106 Not Available [facility] ([facility]) [address] [facility] [place], [address], 10/29/2023 16:07:03 10/27/19 24 10/28/2023 COMP. METAB OLIC PANEL (14) carbon dioxide, total 21 mmol/ L 20-29 Not Available [facility] ([facility]) [address] [facility] [place], [address], 10/29/2023 16:07:03 10/27/19 24 10/28/2023 COMP. METAB OLIC PANEL (14) calcium 9.5 mg/dL 8.7-10 .2 Not Available [facility] ([facility]) [address] [facility] [place], [address], 10/29/2023 16:07:03 10/27/19 24 10/28/2023 COMP. METAB OLIC PANEL (14) protein, total 7.5 g/dL 6.0-8. 5 Not Available [facility] ([facility]) [address] [facility] [place], [address], 10/29/2023 16:07:03 10/27/19 24 10/28/2023 COMP. METAB OLIC PANEL (14) albumin 4.7 g/dL 4.0-5. 0 Not Available [facility] ([facility]) [address] [facility] [place], [address], 10/29/2023 16:07:03 10/27/19 24 10/28/2023 COMP. METAB OLIC PANEL (14) globulin, total 2.8 g/dL 1.5-4. 5 Not Available [facility] ([facility]) [address] [facility], [place], [address], 10/29/2023 16:07:03 10/27/19 24 10/28/2023 COMP. METAB OLIC PANEL (14) A/G ratio 1.7 1.2-2. 2 Not Available [facility] ([facility]) [address] [facility], [place], [address], 10/29/2023 16:07:03 10/27/19 24 10/28/2023 COMP. METAB OLIC PANEL (14) bilirubin, total <0.2 mg/dL 0.0-1. 2 Not Available [facility] ([facility]) [address] [facility] [place], [address], 10/29/2023 16:07:03 10/27/19 24 10/28/2023 COMP. METAB OLIC PANEL (14) alkaline phosphatase 46 IU/L 44-121 Not Available [facility] ([facility]) [address] [facility] [place], [address], 10/29/2023 16:07:03 10/27/19 24 10/28/2023 COMP. METAB OLIC PANEL (14) AST (SGOT) 19 IU/L 0-40 Not Available [facility] ([facility]) [address] [facility] [place], [address], 10/29/2023 16:07:03 10/27/19 24 10/28/2023 COMP. METAB OLIC PANEL (14) ALT (SGPT) 13 IU/L 0-32 Not Available [facility] ([facility]) [address] [facility], [place], [address], 10/29/2023 16:07:03 10/27/19 24 10/28/2023 VITAM IN [...] um and D. Marcus townsend [place]: [facility] . 2. Ange cabrera MF, Chester mcarthur [place], Diana off-F errar i MONTERO, et al. Evalu ation , treat ment, and preve ntion of vitam in D defic iency : an Endoc rine Socie ty clini amarjit pract ice guide line. JCEM. 2010; 96(7) :1911 -30. Not Available [facility] ([facility]) [address] [facility], [place], [address], 10/29/2023 16:07:04 10/27/19 24 10/28/2023 T-TRA NSGLU [...] tive enter opath y. Not Available [facility] ([facility]) [address] [facility], [place], [address], 10/29/2023 16:07:05 10/27/19 24 10/28/2023 MONON UCLEO SIS, QUAL W/REF MARCELL mononucleosi s test, qual Negati ve negati ve The sensi tivit y of Heter ophil e antib carla testi ng is 80-90 %. Epste in Gao IgM testi ng offer s highe r sensi tivit y. Not Available [facility] ([facility]) [address] [facility], [place], [address], 10/29/2023 16:07:05 10/27/19 24 10/28/2023 MONON UCLEO [...] antib odies to EBNA. Not Available [facility] ([facility]) [address] [facility], [place], [address], 10/29/2023 16:07:05 10/27/19 24 10/29/2023 MONON UCLEO SIS, QUAL W/REF MARCELL ebv Ab vca, IgM <36.0 U/mL 0.0-35 .9 Negat az <36.0 Equiv ocal 36.0 - 43.9 Posit az >43.9 Not Available [facility] ([facility]) [address] [facility], [place], [address], 10/29/2023 16:07:05 10/27/19 24 10/29/2023 MONON UCLEO SIS, QUAL W/REF MARCELL ebv Ab vca, IgG >600.0 U/mL 0.0-17 .9 above high normal Negat az <18.0 Equiv ocal 18.0 - 21.9 Posit az >21.9 Not Available [facility] ([facility]) [address] [facility], [place], [address], 10/29/2023 16:07:05 10/27/19 24 10/29/2023 MONON UCLEO SIS, QUAL W/REF MARCELL ebv nuclear antigen Ab, IgG >600.0 U/mL 0.0-17 .9 above high normal Negat az <18.0 Equiv ocal 18.0 - 21.9 Posit az >21.9 Not Available [facility] ([facility]) [address] [facility], [place], [address], 10/29/2023 16:07:05 10/27/19 24 10/28/2023 SEDIM ENTAT ION RATE- WESTE RGREN sedimentatio n rate-westerg omi 5 mm/HR 0-32 Not Available [facility] ([facility]) [address] [place], [address], 10/29/2023 16:07:06 10/27/19 24 10/28/2023 IMMUN OGLOB ULIN A, QN, SERUM immunoglobul in A, qn, serum 235 mg/dL 87-352 Not Available [facility] ([facility]) [address] [place], [address], 10/29/2023 16:07:06 03/07/20 24 03/07/2024 strep group A, DNA, swab Strep ID NOW negati ve Not Available In-Office Order Internal Use Only DO Not Attach Compendium DO Not Attach Compendium, Do Not Delete/merge, [id number] 03/07/2024 13:53:03 Result Notes None recorded. Problems Name Problem SNOMED Code Status Onset Date Resolution Date Notes Provider Name and Address Organization Details Recorded Time Upper respirat ory infectio n 81712442 Completed 03/10/2016 Karlene Santana MD [address] [place] [address], , [facility] 6 13:56:40 Sinusiti s [id number] Completed 10/06/2022 Karlene Santana MD [address] [place] [address], , [facility] 3 14:34:43 On examinat ion - mouth rash Completed 03/10/2016 Karlene Santana MD [address] [place] [address], , [facility] 6 13:56:53 Asthma without status asthmati cus [id number] Completed 03/10/2016 Karlene Santana MD [address] [place] [address], , [facility] 6 13:56:48 Verruca vulgaris 14676059 Completed 10/06/2022 Karlene Santana MD [address] [place] [address], , [facility] 3 14:34:48 Knee pain Active chronic, sees ortho, started PT, referred to Rheum, has +HLA B27 Karlene Santana MD [address] [place] [address], , [facility] 2 15:15:13 Idiopath ic scoliosi s [id number] Completed 08/09/2018 Karlene Santana MD [address] [place] [address], , [facility] 9 13:27:40 Nervous system symptoms Completed 10/06/2022 Karlene Santana MD [address] [place] [address], , [facility] 3 14:34:33 Viral disease 00137930 Completed 09/23/2011 Not Available [facility] 3 03:01:41 Viral disease 22395847 Completed 10/18/2012 Not Available [facility] 3 03:01:41 Influenz a with respirat ory manifest ation other than pneumoni a Completed 04/21/2011 Not Available [facility] 3 03:01:41 Acute pharyngi tis 992495331 Completed 03/10/2016 Karlene Santana MD [address] [place] [address], , [facility] 6 13:56:37 Acute pharyngi tis 790487717 Completed 10/18/2012 Karlene Santana MD [address] [place] [address], , [facility] 6 13:56:37 Acute bronchio litis 9661534 Completed 04/21/2011 Not Available [facility] 3 03:01:41 Pain in throat 703544823 Completed 04/21/2011 Not Available [facility] 3 03:01:41 Acute upper respirat ory infectio n 27666741 Completed 09/23/2011 Not Available [facility] 3 03:01:41 Pneumoni a 097790502 Completed 04/21/2011 Not Available [facility] 3 03:01:41 Non-supp urative otitis media with eustachi an tube disorder 542923335 Completed 04/21/2011 Not Available [facility] 3 03:01:41 Otitis externa 1325894 Completed 04/21/2011 Not Available [facility] 3 03:01:41 Conjunct ivitis 5533200 Completed 04/21/2011 Not Available [facility] 3 03:01:41 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 and needed OT, then needed accommod ations yearly for academic issues, IEP in high school Karlene Santana MD [address] [place] [address], , [facility] 1 10:14:13 Acute asthma 858597638 Completed 10/18/2012 Not Available [facility] 3 03:01:41 Acute asthma 582253513 Completed 04/21/2011 Not Available [facility] 3 03:01:41 Streptoc occal sore throat 37949094 Completed 04/21/2011 Not Available [facility] 3 03:01:41 Nonvenom ous insect bite of multiple sites 566678484 Completed 200604/21/2011 Not Available [facility] 3 03:01:41 Acute upper respirat ory infectio n 34190721 Completed 200604/21/2011 Not Available [facility] 3 03:01:41 Acute pharyngi tis 956989063 Completed 200704/21/2011 Karlene Santana MD [address] [place], [place] [address], , [facility] 6 13:56:37 Acute maxillar y sinusiti s 73157659 Completed 200704/21/2011 Not Available [facility] 3 03:01:41 Lymphade nopathy 91041891 Completed 200704/21/2011 Not Available [facility] 3 03:01:41 Diaper rash 60234301 Completed 200704/21/2011 Not Available [facility] 3 03:01:41 Viral disease 83236132 Completed 200804/21/2011 Not Available [facility] 3 03:01:41 Noninfec tious gastroen teritis 31198529 Completed 200804/21/2011 Not Available [facility] 3 03:01:41 Allergic rhinitis 03957971 Active 2008 tested neg at allergis t 2022 for common environm ental allergen s Karlene Santana MD [address] [place], [place] [address], , [facility] 3 14:19:41 Asthma 210481179 Completed 200802/08/2018 Karlene Santana MD [address] [place], [place] [address], , [facility] 8 08:56:16 Moderate persiste nt asthma 881263398 Active 2017 onset 12/2008, followed by Dr. Paulino/Jesusita love, on Advair and Sing Karlene Santana MD [address] [place] [address], , [facility] 1 10:14:53 Vocal cord dysfunct ion 083739312 Active 2017 vocal cord adductio n noted by Pulm but not clinical ly signific ant Karlene Santana MD [address] [place] [address], , [facility] 8 08:56:11 Dysmenor chika 074059985 Active 2018 improved on Davian Santana MD [address] [place] [address], , [facility] 3 14:34:32 Menorrha everett 202338264 Active 2018 Karlene Santana MD [address] [place] [address], , [facility] 9 14:38:15 School problem 019442499 Completed 201910/06/2022 multiple tardies and absences Karlene Santana MD [address] [place] [address], , [facility] 3 14:34:40 Perioral dermatit is 660762118 Active 2019 Tierney Sal DO [address] [place] [address], , [facility] 0 20:07:55 Acne 08838285 Active 2020 improved with Davian Santana MD [address] [place] [address], , [facility] 3 14:34:02 Pneumoni tis 893776482 Active 2020 summer 2020 Karlene Santana MD [address] [place] [address], , [facility] 1 10:52:32 Disturba nce of attentio n 21246981 Completed 202004/24/2021 Karlene Santana MD [address], [place], , [facility] 1 16:23:35 Child attentio n deficit disorder 879886177 Active 2020 +Vanderb ilts 2012, neuropsy ch eval 2012 Karlene Santana MD [address] [place] [address], , [facility] 10:13:29 Sleep disorder 68521438 Active 2020 Karlene Santana MD [address] [place] [address], , [facility] 15:21:51 Headache 10464189 Active 2020 worsenin g 2020 with college, referred to Neuro; starting cycloben zaprine Karlene Santana MD [address] [place] [address], , [facility] 2 15:13:42 Hemorrha gic cyst of ovary 536240314 Active 2021 R 5.6 x 4.4 x 5.1 cm, vol 64.8 cc 07/15/21 - 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 Karlene Santana MD [address] [place] [address], , [facility] 3 14:33:51 Diet educatio n Completed 202101/07/2022 Karlene Santana MD [address] [place] [address], , [facility] 2 15:13:18 Migraine without aura 19687823 Active 2021 refer to Neuro 08/2021 Karlene Santana MD [address] [place] [address], , [facility] 2 18:06:35 Depressi ve disorder 06958774 Active 2021 started Lexapro 11/2021, 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 Procedures Surgical History Date Name Laterality Status Provider Name and Address Organization Details Recorded Time 4 Pulse Oximetry completed Leelee Jenkins [address] [place] [address], , [facility] 03/11/2024 14:21:25 4 Wart removal completed Karlene Santana MD [address] [place] [address], , [facility] 10/19/2023 11:06:56 4 Wart removal completed Karlene Santana MD [address] [place] [address], , [facility] 10/13/2023 11:45:49 2 Wart removal completed Shree Plata MD [address] [place] [address], , [facility] 02/24/2022 12:31:34 2 Wart removal completed Shree Plata MD [address] [place] [address], , [facility] 07/22/2021 10:52:47 7 Knee arthroscopy/low rgery completed Karlene Santana MD [address] [place] [address], , [facility] 07/21/2017 09:11:04 6 Pulse Oximetry completed Karlene Santana MD [address] [place] [address], , [facility] 04/18/2016 17:03:29 5 Wart removal completed Karlene Santana MD [address], [place], , [facility] 12/29/2014 09:40:26 5 Nebulizer tx completed Karlene Santana MD [address], [place], , [facility] 11/22/2014 13:17:46 5 Pulse Oximetry completed Freeman Hernadez [facility] 09/27/2014 11:20:06 Imaging Results None recorded. [...] DateTime 11/16/2023 173.99 cm Beata Plascencia R.N. [facility] 11/16/2023 10:22:09 Date Recorded Body height Oxygen saturation Oxygen saturation in Arterial blood by Pulse oximetry Systolic And Diastolic Provider Name and Address Organization Details Last Updated DateTime 03/11/2024 173.99 cm 99 % 99 % 114/64 mm[Hg] Alexsandra Roberts CMA [facility] 13:56:52 Social History Question Answer Notes LastModified by Organizat ion Details LastModified Time Tobacco Smoking Status Never Smoker Not Available [facility] 04/17/2020 03:14:38 What Type Of Diet Are You Following? REGULAR [id number] Information not available 04/17/2020 Have There Been Any Changes To Your Family Or Social Situation? No [id number] Information not available 04/17/2020 Hard Of Hearing Or Deaf In One Or Both Ears? No Information not available 11/06/2015 Legally Blind In One Or Both Eyes? No Information not available 11/06/2015 Parent's Marital Status --11/24 Information not available 10/20/2013 Home Situation Mother --not Seeing Dad Due To Abuse- Has Guardian Ad Leidum Information not available 04/19/2011 Siblings Tonya (F) 02/14/96 Tatum (F) 03/31/98 Johnny (M) 01/01/05 Information not available 05/25/2015 Passive Smoke Exposure No [email or web address] Information not available 04/19/2011 Year In School [employer] Information not available 09/04/2021 Parent's Name Deepali Alaniz Information not available 04/19/2011 Parent's Name Johnny Alaniz [id number] [id number] Information not available 04/19/2011 DSS/DCF Custody No Information not available 11/06/2015 What Was The Date Of Your Most Recent Tobacco Screening? 08/09/2018 [id number] Information not available 04/17/2020 What Is The Name Of Your School? [employer] [id number] Information not available 04/17/2020 Do You Use Your Seat Belt Or Car Seat Routinely? Yes [id number] Information not available 04/17/2020 Are You Passively Exposed To Smoke? No Information not available 10/20/2013 How Much Tobacco Do You Smoke? No [id number] Information not available 04/17/2020 Have You Recently Traveled Abroad? No Information not available 08/07/2020 Year In School 1 [email or web address] Information not available 04/19/2011 Sex: Female Functional Status Question Answer Note LastModified by Organizat ion Details LastModified Time Do you use any illicit or recreational drugs? No Information not available 08/07/2020 Mental Status None recorded. 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 KEEPER PROBLEMS Y HEMATOLOGIC /ONCOLOGIC PROBLEMS N RENAL [...] Time varicella 06/09/20 07 completed Not Available [facility] 04/19/2011 03:16:44 Influenza, split virus, trivalent, preservative 03/24/20 11 completed Not Available [facility] 07/02/2019 02:35:18 IPV 02/09/20 04 completed Not Available [facility] 04/19/2011 03:18:43 DTaP, unspecified formulation 02/09/20 04 completed Not Available [facility] 04/19/2011 03:18:43 varicella 07/07/19 04 completed Not Available [facility] 04/19/2011 03:18:43 DTaP, unspecified formulation 02/04/20 03 completed Not Available [facility] 04/19/2011 03:18:43 DTaP, unspecified formulation 11/19/19 03 completed Not Available [facility] 04/19/2011 03:18:43 IPV 08/23/19 03 completed Not Available [facility] 04/19/2011 03:18:43 DTaP, unspecified formulation 08/23/19 03 completed Not Available [facility] 04/19/2011 03:18:43 IPV 11/19/19 03 completed Not Available [facility] 04/19/2011 03:18:43 MMR 06/05/20 06 completed Not Available [facility] 04/19/2011 03:18:43 MMR 11/29/19 04 completed Not Available [facility] 04/19/2011 03:18:43 Hep B, unspecified formulation 04/03/20 03 completed Not Available [facility] 04/19/2011 03:18:43 Hep B, unspecified formulation 06/22/19 03 completed Not Available [facility] 04/19/2011 03:18:43 Hib, unspecified formulation 11/19/19 03 completed Not Available [facility] 04/19/2011 03:18:43 Hib, unspecified formulation 11/29/19 04 completed Not Available [facility] 04/19/2011 03:18:43 Hib, unspecified formulation 08/23/19 03 completed Not Available [facility] 04/19/2011 03:18:43 Hib, unspecified formulation 02/04/20 03 completed Not Available [facility] 04/19/2011 03:18:43 Hep B, unspecified formulation 07/20/19 03 completed Not Available [facility] 04/19/2011 03:18:43 pneumococcal conjugate PCV 7 11/19/19 03 completed Not Available [facility] 04/19/2011 03:18:43 pneumococcal conjugate PCV 7 07/07/19 04 completed Not Available [facility] 04/19/2011 03:19:20 pneumococcal conjugate PCV 7 08/23/19 03 completed Not Available [facility] 04/19/2011 03:18:43 pneumococcal conjugate PCV 7 02/04/20 03 completed Not Available [facility] 04/19/2011 03:18:43 Influenza, split virus, trivalent, preservative 06/17/19 13 completed Not Available [facility] 07/02/2019 02:35:26 Influenza, split virus, quadrivalent, PF 03/04/20 13 completed Not Available [facility] 07/02/2019 02:35:35 Influenza, split virus, quadrivalent, PF 03/20/20 14 completed Not Available [facility] 07/02/2019 02:35:57 Tdap 05/26/20 14 completed Not Available [facility] 07/02/2019 02:33:47 meningococcal MCV4P 05/26/20 14 completed Not Available [facility] 07/02/2019 02:33:36 HPV, quadrivalent 05/26/20 14 completed Not Available [facility] 07/02/2019 02:34:15 HPV, quadrivalent 08/01/19 15 completed Not Available [facility] 07/02/2019 02:34:17 HPV, quadrivalent 12/02/19 15 completed Not Available [facility] 07/02/2019 02:36:07 Influenza, split virus, quadrivalent, PF 04/05/20 15 completed Not Available [facility] 07/02/2019 02:36:20 Influenza, split virus, quadrivalent, PF 04/14/20 16 completed Not Available [facility] 07/02/2019 02:37:13 COVID-19, mRNA, LNP-S, PF, 30 mcg/0.3 mL dose 09/25/19 21 [facility] 14:05:49 COVID-19, mRNA, LNP-S, PF, 30 mcg/0.3 mL dose 10/25/19 21 [facility]/04/2021 14:06:00 COVID-19, mRNA, LNP-S, PF, 100 mcg/0.5mL dose or 50 mcg/0.25mL dose 05/30/20 21 completed Kalpesh Ornelas [facility] 09/04/2021 14:07:01 Influenza, split virus, quadrivalent, PF 07/02/19 18 completed Not Available [facility] 07/02/2019 02:38:10 meningococcal MCV4P 08/09/19 19 completed Not Available [facility] 07/02/2019 02:38:57 Influenza, split virus, quadrivalent, PF 04/05/20 19 completed Not Available [facility] 07/02/2019 02:39:12 meningococcal B, OMV 08/09/19 20 cancelled patient objection Karlene Santana MD [address] [place] [address], , [facility] 08/09/2019 13:52:44 Influenza, split virus, quadrivalent, PF 03/10/20 20 [facility] 03/10/2020 14:24:45 Hep A, ped/adol, 2 dose 08/07/19 21 completed Karlene Santana MD [address] [place] [address], , [facility] 08/07/2020 14:03:05 meningococcal B, OMV 08/07/19 21 completed Karlene Santana MD [address] [place] [address], , [facility] 08/07/2020 14:03:05 Hep A, ped/adol, 2 dose 02/06/20 21 completed Mariella erickson, [facility] 02/05/2021 08:21:00 meningococcal B, OMV 02/06/20 21 [facility] 02/05/2021 08:21:00 Influenza, split virus, quadrivalent, PF 03/08/20 22 completed Karlene Santana MD [address] [place] [address], , [facility] 03/08/2022 10:52:18 Tdap 10/08/19 24 completed Karlene Santana MD [address] [place] [address], , [facility] 10/08/2023 17:23:36 DTaP, unspecified formulation 06/09/20 07 completed Not Available [facility] 04/19/2011 03:16:44 IPV 06/09/20 07 completed Not Available [facility] 04/19/2011 03:16:44 Past Encounters Encounter ID Performer Location Encounter Start Date Encounter Closed Date Diagnosis/Indication Diagnosis SNOMED-CT Code Diagnosis ICD10 Code Diagnosis IMO Codes Diagnosis Note [id number] Hans Yarbrough MD [facility] [address] [place] [address] 01/18/2007 15:55:16 01/18/2007 17:18:16 [id number] Hans Yarbrough MD [facility] [place] [facility] [address] [place] [address] 03/02/2007 09:20:55 03/02/2007 10:01:54 [id number] Hans Yarbrough MD [facility] [place] [facility] [address] [place] [address] 06/09/2007 14:15:04 06/09/2007 16:03:48 [id number] Hans Yarbrough MD [facility] [place] [facility] [address] [place] [address] 06/09/2007 14:15:04 06/09/2007 16:03:48 [id number] Hans Yarbrough MD [facility] [place] [address] [place] [address] 08/20/2007 10:57:22 08/20/2007 11:17:38 [id number] Shree Plata MD [facility] [address] [place] [address] 10/14/2007 15:42:44 02/22/2009 01:23:50 [id number] Hans Yarbrough MD [facility] [address] [address] 10/19/2007 10:35:29 10/19/2007 11:16:10 [id number] Freeman Hernadez MD [facility] [address] [place] [address] 11/09/2007 17:36:13 11/09/2007 18:16:56 [id number] Hans Yarbrough MD [facility] [place] [address] [place] [address] 05/12/2008 17:04:58 05/12/2008 17:34:20 [id number] Hans Yarbrough MD [facility] [place] [address] [place] [address] 07/12/2008 14:03:36 07/12/2008 14:51:19 [id number] Hans Yarbrough MD [facility] [place] [address] [place] [address] 4 07/25/2008 10:36:56 07/25/2008 11:06:57 [id number] Hans Yarbrough MD [facility] [place] [address] [place] [address] 08/14/2008 13:17:39 02/22/2009 01:23:50 [id number] Isa Palma MD [facility] [address] [place] [address] 10/28/2008 10:50:37 10/28/2008 11:27:44 [id number] Shree Plata MD [facility] [place] [address] [place] [address] 11/07/2008 14:31:35 11/07/2008 15:20:09 [id number] Hans Yarbrough MD [facility] [place] [address] [place] [address] 12/12/2008 17:08:10 12/12/2008 17:32:00 [id number] Freeman Hernadez MD [facility] [address] [place] [address] 12/18/2008 16:33:02 12/18/2008 17:13:33 [id number] Freeman Hernadez MD [facility] [address] [place] [address] 12/21/2008 13:05:00 12/21/2008 14:27:22 [id number] Freeman Hernadez MD [facility] [place] [address] [place] [address] 12/28/2008 10:57:32 12/28/2008 11:15:35 [id number] Hans Yarbrough MD [facility] [place] [address] [place] [address] 04/05/2009 10:21:51 04/05/2009 12:29:53 [id number] Martha Bella MD [facility] [address] [place] [address] 04/08/2009 12:57:27 04/08/2009 13:52:19 [id number] Hans Yarbrough MD [facility] [address] [place] [address] 04/09/2009 15:04:14 04/09/2009 16:51:38 [id number] Hans Yarbrough MD [facility] [place] [address] [place] [address] 05/15/2009 16:12:57 05/15/2009 17:21:24 [id number] Hans Yarbrough MD [facility] [place] [place] [address] 05/21/2009 14:00:45 05/21/2009 15:01:23 [id number] Hans Yarbrough MD [facility] [address] [place] [address] 05/25/2009 11:16:12 05/25/2009 11:58:59 [id number] Hans Yarbrough MD [facility] [place] [address] [place] [address] 07/24/2009 17:18:34 07/24/2009 17:43:16 [id number] Shree Plata MD [facility] [address] [place] [address] 08/31/2009 17:13:07 08/31/2009 17:36:57 [id number] Hans Yarbrough MD [facility] [address] [place] [address] 4 09/04/2009 16:00:08 09/04/2009 16:57:53 [id number] Hans Yarbrough MD [facility] [place] [address] [place] [address] 09/10/2009 15:46:08 09/10/2009 16:36:26 [id number] Hans Yarbrough MD [facility] [address] [place] [address] 09/14/2009 11:02:44 09/14/2009 15:12:59 [id number] Shree Plata MD [facility] [place] [address] [place] [address] 09/20/2009 16:32:13 09/20/2009 17:47:45 [id number] Hans Yarbrough MD [facility] [place] [address] [place] [address] 11/07/2009 16:39:38 11/08/2009 08:08:22 [id number] Hans Yarbrough MD [facility] [address] [place] [address] 01/04/2010 15:57:00 01/04/2010 16:50:34 [id number] Hans Yarbrough MD [facility] [place] [address] [place] [address] 01/08/2010 12:47:46 01/08/2010 14:42:12 [id number] Shree Plata MD [facility] [address] [place] [address] 02/28/2010 16:53:36 02/28/2010 17:54:51 [id number] Shree Plata MD [facility] [address] [place] [address] 4 02/28/2010 16:53:55 02/28/2010 16:55:32 [id number] Hans Yarbrough MD [facility] [address] [place] [address] 4 05/06/2010 12:57:39 05/06/2010 13:55:43 [id number] Martha Bella MD [facility] [address] [place] [address] 07/04/2010 10:15:06 07/04/2010 11:12:04 [id number] Hans Yarbrough MD [facility] [address] [place] [address] 08/27/2010 16:22:49 08/27/2010 17:15:08 [id number] Hans Yarbrough MD [facility] [address] [place] [address] 09/06/2010 12:53:57 09/06/2010 13:27:03 [id number] Hans Yarbrough MD [facility] [address] [place] [address] 09/13/2010 10:29:20 09/13/2010 11:04:13 [id number] Hans Yarbrough MD [facility] [address] [place] [address] 4 10/21/2010 13:32:17 10/21/2010 14:02:50 [id number] Karlene Santana MD [facility] [address] [place] [address] 10/31/2010 13:32:35 10/31/2010 14:24:36 [id number] Karlene Santana MD [facility] [address] [place] [address] 11/07/2010 11:44:04 11/07/2010 12:23:03 [id number] Martha Bella MD [facility] [address] [place] [address] 04/23/2011 13:32:49 04/23/2011 13:54:44 [id number] Freeman Hernadez MD [facility] [address] [place] [address] 06/18/2011 16:29:57 06/18/2011 17:14:35 [id number] Freeman Hernadez MD [facility] [address] [place] [address] 4 06/19/2011 10:57:31 06/19/2011 11:31:36 [id number] Freeman Hernadez MD [facility] [address] [place] [address] 4 09/23/2011 16:11:31 09/23/2011 16:57:43 [id number] Isa Palma MD [facility] [address] [place] [address] 4 11/05/2011 10:17:40 11/05/2011 12:19:01 [id number] Karlene Santana MD [facility] [address] [place] [address] 4 01/29/2012 11:41:16 01/29/2012 12:45:31 [id number] Freeman Hernadez MD [facility] [address] [place] [address] 4 03/09/2012 10:58:19 03/09/2012 11:45:29 [id number] Freeman Hernadez MD [facility] [address] [place] [address] 4 07/15/2012 11:29:47 07/15/2012 13:20:52 [id number] Karlene Santana MD [address] [address] 09/22/2012 12:47:56 09/22/2012 14:58:57 [id number] Freeman Hernadez MD [facility] [address] [address] 10/18/2012 15:15:50 10/18/2012 16:30:47 [id number] Karlene Santana MD [facility] [address] [address] 10/28/2012 16:52:04 10/28/2012 17:43:48 [id number] Shree Plata MD [address] [address] 4 07/21/2013 16:59:25 07/21/2013 17:44:21 Upper respiratory infection [id number] Shree Plata MD [address] [address] 10/20/2013 12:53:31 10/20/2013 13:15:48 Acute pharyngitis 081599561 [id number] Shree Plaat MD [address] [address] 4 10/25/2013 11:01:19 10/25/2013 11:38:39 Sinusitis 90941335 [id number] Karlene Santana MD [address] [address] 4 11/16/2013 14:30:34 11/17/2013 08:23:16 Acute pharyngitis [id number] Asthma 993908101 [id number] Karlene Santana MD [address] [address] 4 12/19/2013 14:26:31 12/19/2013 14:55:05 On examination - mouth rash 621009135 [id number] Karlene Santana MD [address] [address] 4 01/09/2014 16:42:01 01/09/2014 17:09:45 Upper respiratory infection 96008817 Asthma wit hout status asthmaticus 15042168 [id number] Karlene Santana MD [place] [address] 01/12/2014 13:20:12 01/12/2014 14:12:36 Sinusitis 56495917 [id number] Karlene Santana MD [address] [address] 4 02/24/2014 14:53:27 02/24/2014 15:20:14 Sinusitis 89162025 Asthma 464937566 [id number] Karlene Santana MD [address] [address] 4 03/20/2014 15:27:56 03/20/2014 15:43:38 Influenza vaccine needed 8043814714 106 [id number] Karlene Santana MD [address] [address] 4 05/26/2014 09:57:08 05/26/2014 11:33:44 Well child [id number] Isa Palma MD [address] [address] 4 06/04/2014 13:09:52 06/04/2014 13:46:54 Acute pharyngitis 123166848 Upper resp iratory infection 79079770 Asthma 810371411 [id number] Karlene Santana MD [address] [address] 4 07/12/2014 11:16:15 07/12/2014 12:12:30 Asthma without status asthmaticus 24689748 Acute pharyngitis 832473709 [id number] Nathalie Sepulveda MD [address] [address] 07/15/2014 11:30:03 07/15/2014 11:57:50 Asthma 946949010 Cough 85415960 [id number] Martha Bella MD [address] [address] 4 08/01/2014 09:40:57 08/01/2014 09:54:25 Administration of viral vaccine [id number] Shot only HPV [id number] Freeman Hernadez MD [address] [address] 4 09/27/2014 10:59:46 09/27/2014 11:25:57 Acute pharyngitis 624209885 Upper resp iratory infection 43919084 [id number] Karlene Santana MD [address] [address] 4 11/19/2014 11:54:20 11/19/2014 12:28:21 Acute pharyngitis 059511505 Asthma wit hout status asthmaticus 32335217 [id number] Karlene Santana MD [address] [address] 4 11/22/2014 13:03:04 11/22/2014 14:34:24 Asthma without status asthmaticus 84496585 [id number] Karlene Santana MD [address] [address] 4 11/24/2014 16:29:59 11/24/2014 16:57:23 Asthma without status asthmaticus 59119365 Sinusitis 06367429 [id number] Isa Palma MD [address] [address] 4 12/01/2014 09:12:26 12/01/2014 09:57:22 Administration of viral vaccine 13270305 Shot only HPV [id number] Karlene Santana MD [address] [address] 4 12/29/2014 09:20:52 12/29/2014 09:43:14 Verruca vulgaris 13101717 [id number] Karlene Santana MD [address] [address] 4 01/25/2015 16:27:51 01/25/2015 17:09:37 Knee pain 70463301 [id number] Shree Plata MD [address] [address] 4 03/05/2015 10:58:50 03/05/2015 11:41:53 Acute pharyngitis 654994665 Upper resp iratory infection 79341159 [id number] Lalo Walden MD [address] [address] 4 03/12/2015 16:18:46 03/12/2015 17:01:51 Asthma 096542484 Looks well without any evidence of wheeze despite no nebs today. Stressed importance of continuing sick plan - will do advair BID and albuterol q4hr. If not improving or worsening will RTO but do not think she needs oral steroids at this point. 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 Sx Care for pain/disco mfort. F/u if not getting better over the next 3 days or worsening- sooner prn. Streptococ amarjit sore throat 92989139 J02.0 [id number] Karlene Santana MD [address] [address] 03/10/2016 13:41:39 03/10/2016 14:38:57 Acute pharyngitis 171530645 J02.9 [id number] Karlene Santana MD [address] [address] 4 03/17/2016 15:51:55 03/17/2016 16:49:04 Acute asthma 703607362 J45.901 Acute sinusitis 59636008 J01.90 Fatigue 66614323 R53.83 [id number] Karlene Santana MD [address] [address] 04/18/2016 16:26:27 04/18/2016 17:07:11 Acute asthma 968771945 J45.901 Anxiety 90875692 F41.9 [id number] Karlene Santana MD [address] [address] 4 04/22/2016 16:12:30 04/22/2016 17:07:27 Acute asthma 831730083 J45.901 Acute bronchitis 1756629 2 J20.9 [id number] Karlene Santana MD [address] [address] 4 06/23/2016 12:53:15 06/23/2016 14:01:40 Well child 632887536 Z00.129 Asthma 750851670 J45.90 9 Idiopathic scoliosis 203 874052 M41.119 Knee pain 66684821 M25.5 69 M25.562 Anxiety 17551999 F41.9 [id number] Karlene Santana MD [address] [address] 4 09/12/2016 11:01:16 09/12/2016 11:52:09 Streptococcal sore throat 46098385 J02.0 Pain in cheek 664129002 R51 [id number] Karlene Santana MD [address] [address] 4 09/17/2016 09:43:00 09/17/2016 12:56:01 Acute asthma 050617091 J45.901 Streptococ amarjit sore throat 19794418 J02.0 [id number] Karlene Santana MD [address] [address] 4 09/19/2016 17:06:59 09/19/2016 17:54:48 Acute asthma 968056869 J45.901 [id number] Anita BEY, [employer], PhD [address] [address] 09/22/2016 13:35:11 09/22/2016 15:55:19 Cough 87056608 R05 Lingering cough after asthma exacerbati on Streptococ amarjit sore throat 06540800 J02.0 Resolving - still on meds Acute asthma 484892713 J 45.901 Finished Prednisone , still on nebulizerN o wheeze, but cough persists [id number] Karlene Santana MD [address] [address] 11/25/2016 10:48:29 11/25/2016 12:29:26 Acute pharyngitis 135248449 J02.9 Acute asthma 133904750 J 45.901 [id number] Anita BEY, [employer] SUPER[employer], PhD [address] [address] 04/13/2017 11:36:51 04/13/2017 13:40:33 Acute pharyngitis 537379461 J02.9 [id number] Karlene Santana MD [address] [address] 04/15/2017 13:55:36 04/15/2017 15:16:45 Acute asthma 682377271 J45.901 Acute otitis media 66041 03 H66.91 [id number] Shree Plata MD [address] [address] 4 04/30/2017 14:02:00 04/30/2017 14:54:28 Pain in throat 441228047 R07.0 Viral syndrome 742301558 B34.9 [id number] Shree Plata MD [address] [address] 4 06/25/2017 16:52:27 06/25/2017 17:15:18 Acute pharyngitis 381521522 J02.9 [id number] Karlene Santana MD [address] [place] [address] 07/02/2017 15:07:13 07/02/2017 17:03:37 Well child 092616195 Z00.129 Normal weight 07226042 Z 68.52 Active or passive immunization 499858591 Z23 Asthma 012180668 J45.90 9 Knee pain 08735176 M25.5 69 M25.562 Developmen gwen academic disorder 9558638 F81.9 [id number] Karlene Santana MD [address] [address] 10/28/2017 11:26:28 10/28/2017 13:49:09 Acute asthma 130908503 J45.901 Upper resp iratory infection 35418192 J06.9 Headache 89710409 R51 Disorder o f nasal cavity 115611627 J34.9 [id number] Karlene Santana MD [address] [address] 4 11/03/2017 11:29:29 11/03/2017 13:01:05 Acute asthma 135836351 J45.901 Acute sinusitis 93450672 J01.90 Headache 98319292 R51 [id number] Shree Plata MD [address] [address] 03/05/2018 10:22:36 03/05/2018 12:40:44 Acute pharyngitis 603773397 J02.9 [id number] Karlene Santana MD [address] [address] 4 03/09/2018 14:40:48 03/09/2018 15:38:57 Acute asthma 146888110 J45.901 [id number] Karlene Santana MD [address] [address] 03/16/2018 16:57:31 03/16/2018 17:59:07 Acute asthma 430317362 J45.901 Vocal cord dysfunction 536642660 R49.9 Allergic rhinitis 017420 04 J30.9 [id number] Martha Bella MD [address] [address] 4 04/14/2018 14:44:56 04/14/2018 15:10:35 Acute pharyngitis 710603731 J02.9 URI sx tx f/u prn- temp control- sore throat r/o strep but likely viral illness disc with parent Posterior rhinorrhea 758 65834 R09.82 saline nasal spray [id number] RODRÍGUEZ SINGH DO [facility] [address] [place] [address] 06/01/2018 12:14:56 06/02/2018 08:20:15 Acute pharyngitis 590538998 J02.9 Upper resp iratory infection 48278229 J06.9 Asthma 994921755 J45.90 9 Exposure t o Bordetella pertussis 783748434 Z20.818 [id number] Karlene Santana MD [address] [address] 4 08/09/2018 12:48:24 08/09/2018 15:15:50 Active or passive immunization 765418923 Z23 Well child 733780283 Z00 .129 Normal weight 78740843 Z 68.52 Moderate p ersistent asthma 176597659 J45.40 Anxiety 32872633 F41.9 Developmen gwen academic disorder 0071784 F81.9 Knee pain 41368891 M25.5 69 M25.562 [id number] Karlene Santana MD [address] [address] 02/08/2019 14:04:16 02/08/2019 16:07:56 Dysmenorrhea 609807483 N94.6 Menorrhagia 514525188 N9 2.0 [id number] Karlene Santana MD [address] [address] 04/05/2019 13:53:46 04/05/2019 16:34:50 Dysmenorrhea 087192668 N94.6 Menorrhagia 855859347 N9 2.0 Active or passive immunization 880958796 Z23 [id number] Isa Palma MD 50 [address] [address] 4 04/21/2019 10:14:14 04/21/2019 17:52:22 Acute pharyngitis 350310041 J02.9 Asthma 862629518 J45.90 9 [id number] RODRÍGUEZ SINGH DO [address] [address] 4 05/30/2019 16:11:45 05/30/2019 17:45:36 Acute pharyngitis 626621488 J02.9 Lymphadenopathy 81627339 R59.0 [id number] Karlene Santana MD [address] [address] 4 08/09/2019 12:54:13 08/09/2019 16:54:13 Well child 732715948 Z00.129 Normal weight 58952035 Z 68.52 Active or passive immunization 611702339 Z23 Acne 18175443 L70.9 Developmen gwen academic disorder 8129435 F81.9 Moderate p ersistent asthma 009489389 J45.40 Anxiety 27156745 F41.9 Dysmenorrhea 365353401 N 94.6 Menorrhagia 050359849 N9 2.0 [id number] Tierney Sal, DO [facility] [address] [address] 4 08/17/2019 12:53:15 08/17/2019 13:44:55 Dysuria 26965391 R30.0 Urinary tr act infectious disease 36383029 N39.0 [id number] Tierney Sal DO [address] [address] 4 12/12/2019 15:57:01 12/12/2019 16:42:21 Contact dermatitis 61912638 L25.9 [id number] Tierney Sal DO [address] [address] 4 12/23/2019 17:37:28 12/23/2019 18:09:06 Perioral dermatitis 772221031 L71.0 [id number] Martha Bella MD [address] [address] 4 03/10/2020 10:32:21 03/10/2020 14:03:46 Active or passive immunization 603798965 Z23 [id number] Karlene Santana MD [facility] [address] [address] 4 08/07/2020 12:45:51 08/07/2020 14:25:10 Active or passive immunization 731398305 Z23 Adult heal th examination 615129564 Z00.00 Normal bod y mass index 58944942 Z68.1 Anxiety 01301431 F41.9 Developmen gwen academic disorder 1342733 F81.9 Knee pain 13218112 M25.5 69 M25.562 Moderate p ersistent asthma 229944331 J45.40 [id number] Shree Plata MD [facility] [address] [address] 4 08/14/2020 15:54:59 08/14/2020 18:37:44 Nasal congestion 45050486 R09.81 Ear problem 146478249 H9 3.92 [id number] Karlene Santana MD [address] [address] 4 09/04/2020 15:29:41 09/04/2020 16:41:33 Impacted third molar tooth 319335336 K01.1 [id number] Shree Plata MD [facility] [address] [address] 4 11/18/2020 09:36:58 11/18/2020 10:01:16 Asthma 125059774 J45.909 [id number] Tierney Sal DO [facility] [address] [address] 4 11/28/2020 11:28:06 11/28/2020 14:11:25 Dysfunction of eustachian tube 55224824 H69.90 [id number] Karlene Santana MD [address] [address] 2 12/28/2020 09:46:00 12/28/2020 12:49:04 Acne 70287394 L70.9 [id number] ALVARO MODI MD PVP [facility] [address] [place] [address] 4 02/05/2021 08:12:35 02/05/2021 17:27:30 Active or passive immunization 680507380 Z23 [id number] Isa Palma MD [address] [address] 4 03/22/2021 16:57:23 03/23/2021 00:52:19 Viral syndrome 164224965 B34.9 Asthma 729104542 J45.90 9 [id number] Karlene Santana MD [address] [address] 4 03/27/2021 13:56:14 03/27/2021 17:04:38 Anxiety 45357225 F41.9 Disturbanc e of attention 80867207 R41.840 Developmen gwen academic disorder 8853347 F81.9 Child atte ntion deficit disorder 511662513 F90.9 Sleep disorder 76671151 G47.9 [id number] Shree Plata MD [address] [address] 4 03/26/2021 16:17:27 03/26/2021 16:51:24 Asthma 628347212 J45.909 [id number] Karlene Santana MD [address] [address] 4 04/24/2021 15:53:56 04/24/2021 17:00:43 Headache 63274004 R51.9 Moderate p ersistent asthma 267960218 J45.40 Anxiety 21862707 F41.9 Child atte ntion deficit disorder 056535619 F90.9 Developmen gwen academic disorder 0375150 F81.9 [id number] Tierney Sal, [address] [address] 4 07/15/2021 14:14:22 07/15/2021 17:03:01 Dysuria 32174588 R30.0 Abdominal pain 32364243 R10.9 Lower abdominal pain 545 86561 R10.30 [id number] Shree Plata MD [address] [address] 4 07/22/2021 10:33:07 07/22/2021 10:54:00 Verruca vulgaris 50780710 B07.9 [id number] Karlene Santana MD [address] [address] 4 09/04/2021 13:56:00 09/04/2021 15:54:47 Adult health examination 831347645 Z00.00 Diet education 60687924 Z71.3 Exercises education, guidance, and counseling 669999107 Z71.82 Normal bod y mass index 17028576 Z68.1 Developmen gwen academic disorder 1116706 F81.9 Child atte ntion deficit disorder 776740088 F90.9 Anxiety 48037239 F41.9 Migraine without aura 56 074427 G43.009 Moderate p ersistent asthma 675294581 J45.40 [id number] Karlene Santana MD [address] [address] 4 09/11/2021 14:36:33 09/11/2021 15:07:17 Acute sinusitis 29656499 J01.90 [id number] Karlene Santana MD [address] [address] 4 12/04/2021 09:51:55 12/04/2021 13:02:24 Anxiety 65540506 F41.9 Child atte ntion deficit disorder 795704851 F90.9 Depressive disorder 3548 9007 F32.A Developmen gwen academic disorder 3241763 F81.9 Headache 57533272 R51.9 [id number] Karlene Santana MD [address] [address] 4 01/07/2022 13:53:47 01/07/2022 15:23:43 Anxiety 80659584 F41.9 Child atte ntion deficit disorder 700376157 F90.9 Depressive disorder 3548 9007 F32.A Anterior knee pain 26769 3006 M25.569 [id number] Tierney Sal DO [address] [address] 4 01/27/2022 16:37:36 01/28/2022 07:30:05 Suspected COVID-19 898529926 Z20.822 Fever 827863339 R50.9 Acute pharyngitis 380320 003 J02.9 [id number] Shree Plata MD [address] [address] 4 02/24/2022 11:35:53 02/24/2022 12:32:30 Verruca vulgaris 30060793 B07.9 [id number] Lalo Walden MD [address] [address] 2 03/17/2022 16:31:37 03/18/2022 07:56:25 Suspected COVID-19 668615258 Z20.822 Will isolate pending covid results Sinusitis 61873519 J32.9 clinical dx - will treat with PO amox. Will call by end of week if not improving and will switch to augmentin. Reviewed nasal saline/net tipot. [id number] Tierney Sal DO [address] [address] 4 06/26/2022 13:51:26 06/27/2022 07:14:30 Suspected COVID-19 739200181 Z20.822 Acute pharyngitis 147847 003 J02.9 Headache 72906082 R51.9 [id number] Karlene Santana MD [address] [address] 4 07/09/2022 10:48:40 07/09/2022 14:41:03 Acute sinusitis 87479031 J01.90 Moderate p ersistent asthma 155507979 J45.40 [id number] Karlene Santana MD [address] [address] 4 07/31/2022 13:40:08 07/31/2022 14:30:36 Suspected COVID-19 029629501 Z20.822 Acute sinusitis 93429474 J01.90 Exacerbati on of moderate persistent asthma 622781117 J45.41 [id number] Karlene Santana MD [address] [address] 4 10/06/2022 12:39:26 10/06/2022 14:49:09 Active or passive immunization 572635033 Z23 Adult [facility] examination 549183151 Z00.00 Diet education 98562104 Z71.3 Exercises education, guidance, and counseling 597053715 Z71.82 Normal bod y mass index 96365236 Z68.20 Hyperlipid emia screening 189848422 Z13.220 Developmen gwen academic disorder 8242653 F81.9 Depressive disorder 3548 9007 F32.A Anxiety 50189772 F41.9 Child atte ntion deficit disorder 385121920 F90.9 Acne 84195450 L70.9 Allergic rhinitis 827949 04 J30.9 Dysmenorrhea 377687964 N 94.6 Migraine without aura 56 298060 G43.009 Moderate p ersistent asthma 710298485 J45.40 [id number] ALVARO MODI MD [address] [address] 4 10/19/2022 08:28:49 10/19/2022 10:26:02 Acute pharyngitis 178219292 J02.9 [id number] ALVARO MODI MD [address] [address] 4 11/11/2022 09:37:10 11/11/2022 12:52:54 Diarrhea 76462459 R19.7 [id number] Karlene Santana MD [address] [address] 4 12/09/2022 09:09:43 12/09/2022 10:33:59 Acute pharyngitis 363038056 J02.9 Suspected COVID-19 47921 4004 Z20.822 [id number] Shree Plata MD [address] [address] 4 01/01/2023 13:58:20 01/01/2023 14:32:08 Acute pharyngitis 885078976 J02.9 [id number] Nidia Carias MD [address] [address] 4 01/02/2023 09:35:56 01/02/2023 10:04:46 Cough 67436066 R05.9 Exacerbati on of moderate persistent asthma 109348107 J45.41 [id number] Nidia Carias MD [address] [address] 4 01/07/2023 16:35:27 01/08/2023 07:10:09 Acute sinusitis 60867501 J01.90 Exacerbati on of moderate persistent asthma 208995059 J45.41 [id number] Lalo Walden MD [address] [address] 4 03/21/2023 12:11:38 03/21/2023 13:22:50 Reactive lymphadenopathy 913207138 R59.1 Preauricul ar node - suspect related to acne but will need to monitor closely. She knows to call if increasing in size, red overlying, more painful, fevers, etc. [id number] Karlene Santana MD [address] [address] 4 06/03/2023 13:27:48 06/03/2023 14:41:45 Exacerbation of moderate persistent asthma 354544565 J45.41 [id number] ALVARO MODI MD [address] [address] 4 06/07/2023 11:33:21 06/07/2023 12:43:16 Atypical pneumonia 028524710 J18.9 Acute left otitis media 433436239 H66.92 Asthma 272609190 J45.90 9 [id number] Shree Plata MD [address] [address] 4 06/16/2023 13:32:38 06/16/2023 13:50:49 Upper respiratory infection 98848659 J06.9 [id number] Karlene Santana MD [address] [address] 4 07/21/2023 10:46:12 07/21/2023 12:54:53 Otalgia of right ear 7858365950 H92.01 Exacerbati on of mild persistent asthma 216587915 J45.31 [id number] Isa Palma MD [address] [address] 4 09/18/2023 12:49:25 09/18/2023 13:56:54 Acute pharyngitis 292678152 J02.9 Viral syndrome 397253556 B34.9 [id number] Karlene Santana MD [address] [address] 4 09/23/2023 13:46:22 09/23/2023 14:29:28 Exacerbation of moderate persistent asthma 979282129 J45.41 [id number] Karlene Santana MD [address] [address] 4 10/08/2023 15:02:09 10/08/2023 17:25:57 Active or passive immunization 353993238 Z23 Adult heal th examination 139950244 Z00.00 Normal bod y mass index 48248892 Z68.21 Hyperlipid emia screening 527566024 Z13.220 Diet education 88211515 Z71.3 Exercises education, guidance, and counseling 883747212 Z71.82 Child atte ntion deficit disorder 720277857 F90.9 Depressive disorder 3548 9007 F32.A Developmen gwen academic disorder 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 Moderate p ersistent asthma 709995200 J45.40 Headache 50707329 R51.9 Anxiety 09860446 F41.9 [id number] Karlene Santana MD [address] [address] 4 10/13/2023 10:53:29 10/13/2023 12:31:05 Verruca plantaris 53532502 B07.0 [id number] Karlene Santana MD [address] [address] 4 10/19/2023 10:49:01 10/19/2023 11:47:08 Verruca plantaris 67942434 B07.0 [id number] ALVARO MODI MD [address] [address] 4 10/27/2023 12:49:03 10/27/2023 19:03:34 Fatigue 56674919 R53.83 Plantar wa rt of left foot 2318470779 8340586 B07.0 [id number] Karlene Santana MD [address] [address] 4 11/16/2023 10:20:33 11/16/2023 15:13:03 Fatigue 01307572 R53.83 Verruca plantaris 456253 08 B07.0 [id number] RACHNA KNIGHT DO [address] [address] 4 02/16/2024 13:24:25 02/16/2024 19:36:36 Migraine 97353965 G43.909 Neck pain 47710470 M54.2 [id number] Karlene Santana MD [address] [address] 4 03/07/2024 13:49:39 03/07/2024 14:18:41 Acute pharyngitis 181192120 J02.9 Postviral cough 68594352 4 R05.3 [id number] Leelee HairTarik Jenkins [address] [address] 4 03/11/2024 13:39:42 03/16/2024 16:52:55 Exacerbation of moderate persistent asthma 169899734 J45.41 Acute sinusitis 84391593 J01.90 [id number] Shree Plata MD [address] [address] 4 03/19/2024 11:19:49 03/19/2024 12:29:45 Atypical pneumonia 697042695 J18.9 Health Concerns Section Related Observation LastModified by Organization Detai ls LastModified Time None Recorded Concern Status LastModified by Organization Details LastModified Time None Recorded Advance Directives Directive None Recorded Payers Insurance Date Sequence Insurance Name Policy Number Policy Haines Covered Member ID Haines Member ID Guarantor Name 10/19/2023 1 [facility] - HEALTH NET PLAN (MEDICAID HMO) [id number] Usha Alaniz [id number] Deepali Alaniz 03/20/2024 1 [facility] [id number] Johnny Alaniz [id number] Deepali Alaniz 06/25/2021 1 [facility] [id number] Johnny Sofia Rushingdeborah [id number] Deepali Katty 03/19/2024 2 [place] Usha De Lunahdeydeborah [id number] Deepali Alaniz 01/28/2014 1 [facility] BL[facility] - HMO [facility] (HMO) [id number] Chandlerjosé miguel Polhedyk [id number] Deepali Alaniz 01/28/2014 1 [facility]: BLUE CHOICE [place] - PLAN 2 (POS) [id number] Chandlerjosé miguel Polhedyk [id number] 2 Deepali Alaniz 10/19/2023 2 [facility]MEDICAID HMO) [id number] Usha De Lunahedydeborah [id number] Deepali Alaniz 07/12/2014 1 [facility]: HMO [facility] [id number] Chandlerjosé miguel Katty [id number] Deepali Alaniz Notes Date Note Type Note Provider Name and Address Organization Details Recorded Time 11/16/2023 text/html RS Sick Visit Narrative HistoryReported by PatientPt here for recheck of fatigue and warts.Pt reports swollen lymph nodes and tonsil stones on and off.No recent sick sxs.Had screening labs done for ?thyroid disorder. 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 Rx'd [...] good amt of sleep. Karlene Santana MD [address] [place] [address], [place], [place], , [facility] 11/16/2023 12:58:04 02/16/2024 text/html RS Sick Visit Narrative HistoryReported by PatientUsha is a 23yo F here for Ongoing [...] to see different neurologist - Currently seeing [facility], Dr. Hutson. Is on amitryptaline nightly with no relief in migraine frequency. Tried Excedrin, tylenol and ibuprofen without much relief. No OTC meds taken today. Had swollen gland to R axilla 1 week ago - was tender to touch. No redness noticed. Now resolved. Afebrile, no cough, no congestion.ROS as noted in the HPI RACHNA KNIGHT DO [address], [place], , [facility] 02/16/2024 17:52:44 03/07/2024 text/html RS Sick Visit Narrative HistoryReported by PatientPt coming in w/continued congestion x2 weeks.Had covid 2 weeks ago. Sxs seemed to be resolving but then started w/ST 2 days ago. Resolved after 1 day. Now having sneezing and congestion but rare nasal drainage. Nonproductive cough Karlene Santana MD [address], [place], , [facility] 03/07/2024 14:08:54 03/11/2024 text/html RS Sick Visit Narrative HistoryReported by PatientPt is here for a cough x 1-2wks. [...] patient got sick with other viral illness locex, sudafed OTC Leelee Jenkins [address], [place], , [facility] 03/16/2024 10:06:41 03/19/2024 text/html RS Sick Visit Narrative HistoryReported by PatientPt here for continued cough, MONTERO/sinus pressure, and [...] meds taken recently. Shree Plata MD [address], [place], , [facility] 03/19/2024 12:29:15 OBGyn Episode No OBEpisode recorded.
== END 2025-03-09 10:34 | disposition home or self-care (01) ==
LOC: HO.HPS 10:08
PROVIDERS: PCP Physician Assistant Medical; Visit Provider Hospitalist
DX: J45.40 Moderate persistent asthma, uncomplicated (principal); T78.40XA Allergy, unspecified, initial encounter; L20.82 Flexural eczema
CPT/HCPCS: 99213

== ENCOUNTER 2025-06-02 09:47 | Outpatient (AMB) | payer OTHER, MEDICAID, SELFPAY ==
--- OUTSIDE RECORDS SUMMARY | 2025-05-27 23:59 | XMS_ITS | Continuity of Care Document ---
Author Organization [facility] Address [address], [address], [address] [place] [phone] Care Team Providers Care Component Assembler Supervisor Name Role Phone Capri Soliz Primary Care Physician Encounter [facility] Date(s): 04/27/25 - 05/27/25 [facility] [address], [address] [place] [id number] Encounter Type: Triage Allergies, Adverse Reactions, Alerts Substance Criticality Severity Reaction Reaction Severity Status albuterol Unable to assess criticality Persistent Moderate Tremors Tachycardia Active house dust mite allergen extract Active oxyCODONE Unable to assess criticality Persistent Moderate Vomiting Itching Hallucinations Active Immunizations Given and Recorded Vaccine Date Status Refusal Reason influenza virus vaccine, inactivated 04/26/25 Doroteo rded influenza virus vaccine, inactivated 03/22/24 Give n influenza virus vaccine, inactivated 03/07/21 Doroteo rded SARS-CoV-2(COVID-19)mRNA-LNP vac([id number]) 04/26/25 Recorded SARS-CoV-2(COVID-19)mRNA-LNP vac([id number]) 05/13/23 Recorded hepatitis B adult vaccine 04/24/25 Given hepatitis B adult vaccine 11/21/24 Given hepatitis B adult vaccine 1 10/21/24 Given pneumococcal 23-valent vaccine 07/18/24 Recorded diphtheria/tetanus/pertussis, acel(DTaP) 2 10/08/23 Recorded diphtheria/tetanus/pertussis, acel(DTaP) 3 05/26/14 Recorded diphtheria/tetanus/pertussis, acel(DTaP) 06/09/07 Recorded diphtheria/tetanus/pertussis, acel(DTaP) 02/09/04 Recorded diphtheria/tetanus/pertussis, acel(DTaP) 02/03/03 Recorded diphtheria/tetanus/pertussis, acel(DTaP) 02 Recorded diphtheria/tetanus/pertussis, acel(DTaP) 02 Recorded tetanus/diphtheria/pertussis, acel(Tdap) 10/08/23 Recorded tetanus/diphtheria/pertussis, acel(Tdap) 05/26/14 Recorded Influenza Virus Vaccine (oldterm) 4 03/08/22 Recor ded Influenza Virus Vaccine (oldterm) 5 03/10/20 Recor ded Influenza Virus Vaccine (oldterm) 6 04/05/19 Recor ded Influenza Virus Vaccine (oldterm) 7 07/02/17 Recor ded Influenza Virus Vaccine (oldterm) 8 04/14/16 Recor ded Influenza Virus Vaccine (oldterm) 9 04/05/15 Recor ded Influenza Virus Vaccine (oldterm) 10 03/20/14 Doroteo rded Influenza Virus Vaccine (oldterm) 11 03/04/13 Doroteo rded Influenza Virus Vaccine (oldterm) 12 06/17/12 Doroteo rded Influenza Virus Vaccine (oldterm) 13 03/24/11 Doroteo rded SARS-CoV-2 (COVID-19) mRNA-1273 vaccine 10/06/21 R ecorded SARS-CoV-2 (COVID-19) mRNA-1273 vaccine 05/31/21 R ecorded SARS-CoV-2 mRNA (sphbxco-oxue-erkyr) vax 14 05/30/21 Recorded SARS-CoV-2 mRNA (aipqyfm-zplo-aceig) vax 15 10/24/20 Recorded SARS-CoV-2 mRNA (ezyowwi-ufke-dhsua) vax 16 09/24/20 Recorded Hepatitis A Vaccine (oldterm) 17 02/05/21 Recorded Hepatitis A Vaccine (oldterm) 18 08/07/20 Recorded meningococcal group B vaccine 19 02/05/21 Recorded meningococcal group B vaccine 20 08/07/20 Recorded SARS-CoV-2 (COVID-19) mRNA BNT-162b2 vac 10/16/20 Recorded Meningococcal Conjugate Vaccine 21 08/09/18 Record ed Meningococcal Conjugate Vaccine 22 05/26/14 Record ed Human Papillomavirus Vaccine 23 12/01/14 Recorded Human Papillomavirus Vaccine 24 08/01/14 Recorded Human Papillomavirus Vaccine 25 05/26/14 Recorded Poliovirus Vaccine, Inactivated 06/09/07 Recorded [...] Vaccine (old term) 02 Recorded 1Result Comment: FORMERLY NAMED [facility] [id number] 2Result Comment: Unit: Unknown Route: Intramuscular use 3Result Comment: Regional Environmental Manager: Sanofi Pasteur 4Result Comment: Regional Environmental Manager: Sanofi Pasteur 5Result Comment: Regional Environmental Manager: [employer] 6Result Comment: Regional Environmental Manager: [employer] 7Result Comment: Unit: Unknown Regional Environmental Manager: [employer] 8Result Comment: Regional Environmental Manager: [employer] 9Result Comment: Regional Environmental Manager: [employer] 10Result Comment: Unit: Unknown Regional Environmental Manager: [employer] 11Result Comment: Regional Environmental Manager: Sanofi Pasteur 12Result Comment: Regional Environmental Manager: Sanofi Pasteur 13Result Comment: Regional Environmental Manager: Sanofi Pasteur 14Result Comment: Unit: Unknown Regional Environmental Manager: [employer] 15Result Comment: Regional Environmental Manager: [employer] Inc 16Result Comment: Regional Environmental Manager: [employer] Inc 17Result Comment: Regional Environmental Manager: [employer] 18Result Comment: Regional Environmental Manager: [employer] 19Result Comment: Unit: Unknown Regional Environmental Manager: [employer] 20Result Comment: Unit: Unknown Regional Environmental Manager: [employer] 21Result Comment: Regional Environmental Manager: Sanofi Pasteur 22Result Comment: Regional Environmental Manager: Sanofi Pasteur 23Result Comment: Regional Environmental Manager: [employer] 24Result Comment: Regional Environmental Manager: [employer] 25Result Comment: Regional Environmental Manager: [employer] Medications amitriptyline 25 mg oral tablet 25 mg, 1, tablet, By Mouth, 3 times a day, # 90 tablet, Refills 5, Tot. Refills 5, Maintenance, 10/27/24 10:07:00 AM EDT, Route to Pharmacy Electronically, [facility] #[id number], Partial fill upon patient request if the prescription is for a schedule II opioid drug., 175.26, cm, 10/27/24 9:34:00 EDT, Height, 71.81, kg, 06/28/24 14:43:00 EST, Dry Weight Start Date: 10/27/24 Status: Ordered Medication Dispense Status: Completed Quantity: 90.0 Unit: tablet Total Allowed Fills: 6 Fills Dispensed: 0 atomoxetine 80 mg oral capsule 30 each, 0 Refill(s), TAKE 1 CAPSULE BY MOUTH EVERY MORNING, 0 Refills, 03/15/24 10:12:00 AM EDT, Partial fill upon patient request if the prescription is for a schedule II opioid drug. Start Date: 03/15/24 Status: Ordered Medication Dispense Status: Completed Total Allowed Fills: 1 Fills Dispensed: 0 azelastine 137 mcg/inh (0.1%) nasal spray 1 sprays = 137 mcg, Nares, Both, 2 times a day, PRN as needed for allergy symptoms, # 30 mL, 0 Refills, Maintenance, 04/11/25 12:02:00 PM EDT, [place], [facility] #[id number], Partial fill upon patient request if the prescription is for a schedule II opioid drug., 1 sprays Nares, Both 2 times a d ay,PRN:as needed for allergy symptoms, 175.26, cm, 04/11/25 11:30:00 EDT, Height, 71.81, kg, 06/28/24 14:43:00 EST, Dry Weight Start Date: 04/11/25 Status: Ordered Medication Dispense Status: Completed Quantity: 30.0 Unit: mL Total Allowed Fills: 1 Fills Dispensed: 0 Benefiber oral powder for reconstitution See Instructions, 4 Gm dissolved in 4 to 8 oz of beverage- hot or cold taking by mouth daily. May inrease up to 3 times a day as needed., # 245 Gm, 2 Refills, Maintenance, 03/25/24 4:26:00 PM EDT, REC Powder, [facility] #[id number], Partial fill upon patient request if the prescription is for a schedule II opioid drug., 4 Gm dissolved in 4 to 8 oz of beverage- hot or cold taking by mouth daily. May inrease up to 3 times a day as needed., 175.26, cm, 03/25/24 16:03:00 EDT, Height Start Date: 03/25/24 Status: Ordered Medication Dispense Status: Completed Quantity: 245.0 Unit: g Total Allowed Fills: 3 Fills Dispensed: 0 Indications: Constipation, unspecified; Breztri Aerosphere inhalation aerosol 2 inhalation, Inhalation, 2 times a day, for 30 days, rinse mouth and throat after use, # 10.7 Gm, Physician Stop 11/10/24 10:17:00 AM EDT Start Date: 10/11/24 Stop Date: 11/10/24 Status: Ordered Medication Dispense Status: Completed Quantity: 10.7 Unit: g Total Allowed Fills: 1 Fills Dispensed: 0 buPROPion 100 mg/12 hours (SR) oral tablet, extended release 1 tablet = 100 mg, By Mouth, Daily, # 90 tablet, 0 Refills, Maintenance, 10/19/24 12:46:00 PM EDT, ERTablet Start Date: 10/19/24 Stop Date: 01/17/25 Status: Ordered Medication Dispense Status: Completed Quantity: 90.0 Unit: tablet Total Allowed Fills: 1 Fills Dispensed: 0 cloNIDine 0.1 mg oral tablet Refills 0, Maintenance, 04/11/25 11:38:00 AM EDT, Partial fill upon patient request if the prescription is for a schedule II opioid drug. Start Date: 04/11/25 Status: Ordered Medication Dispense Status: Completed Total Allowed Fills: 1 Fills Dispensed: 0 cloNIDine 0.2 mg oral tablet Refills 0, Maintenance, 04/11/25 11:37:00 AM EDT, Partial fill upon patient request if the prescription is for a schedule II opioid drug. Start Date: 04/11/25 Status: Ordered Medication Dispense Status: Completed Total Allowed Fills: 1 Fills Dispensed: 0 diclofenac 3% topical gel = 0.5 Gm, Topically, 2 times a day, PRN Pain , Moderate, # 50 Gm, 4 Refills, Maintenance, 10/11/24 10:29:00 AM EDT, Gel, [facility] #[id number], 0.5 Gm Topically 2 times a day,x30 days,PRN:Pain ,Moderate, 175.26, cm, 10/11/24 9:39:00 EDT, Height, 71.81, kg, 06/28/24 14:43:00 EST, Dry Weight Start Date: 10/11/24 Stop Date: 03/10/25 Status: Ordered Medication Dispense Status: Completed Quantity: 50.0 Unit: g Total Allowed Fills: 5 Fills Dispensed: 0 Indications: Cervicalgia; Emgality Prefilled Pen 120 mg/mL subcutaneous solution = 240 mg, Subcutaneous Injection, Once, Loading Dose, 30 day supply, # 2 kit, 0 Refills, Soft Stop,04/26/25 3:58:00 PM EST, [facility] #[id number], Partial fill upon patient request if the prescription is for a schedule II opioid drug., 175.26, cm, 04/11/25 11:30:00 EDT, Height, 71.81, kg, 06/28/24 14:43:00 EST, Dry Weight Start Date: 04/26/25 Status: Ordered Medication Dispense Status: Completed Quantity: 2.0 Unit: kit Total Allowed Fills: 1 Fills Dispensed: 0 Indications: Migraine, unspecified, not intractable, without status migrainosus; Emgality Prefilled Pen 120 mg/mL subcutaneous solution = 120 mg, Subcutaneous Injection, Once, Maintenance Dose every 28 days, # 1 kit, 5 Refills, Soft Stop, 04/26/25 3:58:00 PM EST, [facility] #[id number], Partial fill upon patient request if the prescription is for a schedule II opioid drug., 175.26, cm, 04/11/25 11:30:00 EDT, Height, 71.81, kg,06/28/24 14:43:00 EST, Dry Weight Start Date: 04/26/25 Status: Ordered Medication Dispense Status: Completed Quantity: 1.0 Unit: kit Total Allowed Fills: 6 Fills Dispensed: 0 Indications: Migraine, unspecified, not intractable, without status migrainosus; ethinyl estradiol-etonogestrel 0.015 mg-0.120 mg/24 hours vaginal ring 3 each, 0 Refill(s), INSERT 1 RING VAGINALLY FOR 3 WEEKS THEN REMOVE FOR 1 WEEK, 0 Refills, 03/15/2410:12:00 AM EDT, Partial fill upon patient request if the prescription is for a schedule II opioid drug. Start Date: 03/15/24 Status: Ordered Medication Dispense Status: Completed Total Allowed Fills: 1 Fills Dispensed: 0 fluticasone 50 mcg/inh nasal spray 1 sprays = 50 mcg, Nares, Both, 2 times a day, PRN Congestion, # 16 Gm, 11 Refills, Maintenance, 10/11/24 10:14:00 AM EDT, [place], [facility] #[id number], 1 sprays Nares, Both 2 times a day,x30 days,PRN:Congestion, 175.26, cm, 10/11/24 9:39:00 EDT, Height, 71.81, kg, 06/28/24 14:43:00 EST, Dry Weight Start Date: 10/11/24 Stop Date: 10/06/25 Status: Ordered Medication Dispense Status: Completed Quantity: 16.0 Unit: g Total Allowed Fills: 12 Fills Dispensed: 0 Indications: Other seasonal allergic rhinitis; ketoconazole 2% topical shampoo See Instructions, Apply to affected areas 2 to 3 times per week. Apply for 5 minutes then rinse offp, # 120 mL, 5 Refills, Soft Stop, 10/11/24 10:35:00 AM EDT, [facility] #[id number], Partial fill upon patient request if the prescription is for a schedule II opioid drug., Apply to affected areas 2 to 3 times per week. Apply for 5 minutes then rinse offp, 175.26, cm, 10/11/24 9:39:00 EDT, Height, 71.81, kg, 06/28/24 14:43:00 EST, Dry Weight Start Date: 10/11/24 Status: Ordered Medication Dispense Status: Completed Quantity: 120.0 Unit: mL Total Allowed Fills: 6 Fills Dispensed: 0 Indications: Atopic dermatitis, unspecified; levalbuterol 45 mcg/inh inhalation aerosol 2 inhalation = 90 mcg, Inhalation, Every 4 hours, PRN Wheezing/Shortness of Breath, # 15 Gm, 5 Refills, Maintenance, 11/24/24 1:42:00 PM EDT, [facility] #[id number], Albuterol D/C'd due to intolerance., 175.26, cm, 11/24/24 13:06:00 EDT, Height, 71.81, kg, 06/28/24 14:43:00 EST, Dry Weight Start Date: 11/24/24 Stop Date: 05/23/25 Status: Ordered Medication Dispense Status: Completed Quantity: 15.0 Unit: g Total Allowed Fills: 6 Fills Dispensed: 0 Indications: Mild intermittent asthma, uncomplicated; Lexapro 5 mg oral tablet 2 tablet = 10 mg, By Mouth, Daily, 0 Refills, Maintenance, 10/27/22 1:05:00 PM EDT, Partial fill upon patient request if the prescription is for a schedule II opioid drug. Start Date: 10/27/22 Status: Ordered Medication Dispense Status: Completed Total Allowed Fills: 1 Fills Dispensed: 0 lidocaine 10% topical cream See Instructions, apply to injection site 30-60 minutes prior to injection., # 20 Gm, 0 Refills, Maintenance, 05/23/25 9:43:00 AM EST, [facility] #[id number], Partial fill upon patient request ifthe prescription is for a schedule II opioid drug., apply to injection site 30-60 minutes prior to injection., 175.26, cm, 05/18/25 12:36:00 EST, Height, 71.81, kg, 06/28/24 14:43:00 EST, Dry Weight Start Date: 05/23/25 Status: Ordered Medication Dispense Status: Completed Quantity: 20.0 Unit: g Total Allowed Fills: 1 Fills Dispensed: 0 MiraLax oral powder for reconstitution = 17 Gm, By Mouth, Daily, # 1 bottle, 0 Refills, Maintenance, 01/06/12 12:12:21 AM EDT Start Date: 01/06/12 Status: Ordered Medication Dispense Status: Completed Quantity: 1.0 Unit: bottle Total Allowed Fills: 1 Fills Dispensed: 0 montelukast 10 mg oral tablet 10 mg, 1, tablet, By Mouth, Daily, # 90 tablet, Refills 4, Tot. Refills 4, Maintenance, 01/04/26 10:25:00 AM EDT, Route to Pharmacy Electronically, [facility] #[id number], 175.26, cm, 10/19/24 12:45:00 EDT, Height, 71.81, kg, 06/28/24 14:43:00 EST, Dry Weight Start Date: 01/04/26 Stop Date: 03/30/27 Status: Ordered Medication Dispense Status: Completed Quantity: 90.0 Unit: tablet Total Allowed Fills: 5 Fills Dispensed: 0 Indications: Moderate persistent asthma, uncomplicated; Other seasonal allergic rhinitis; SUMAtriptan 50 mg oral tablet 1 tablet, By Mouth, Daily, PRN as needed for migraine headache, may repeat dose in 2 hours if needed, # 10 tablet, 11 Refills, Maintenance, 10/11/24 10:27:00 AM EDT, [facility] #[id number], 175.26, cm, 10/11/24 9:39:00 EDT, Height, 71.81, kg, 06/28/24 14:43:00 EST, Dry Weight Start Date: 10/11/24 Stop Date: 02/08/25 Status: Ordered Medication Dispense Status: Completed Quantity: 10.0 Unit: tablet Total Allowed Fills: 12 Fills Dispensed: 0 Indications: Migraine without aura, not intractable, without status migrainosus; Xyzal 5 mg oral tablet 1 tablet = 5 mg, By Mouth, Daily in PM, PRN Congestion, # 90 tablet, 5 Refills, Maintenance, 10/11/24 10:13:00 AM EDT, Tablet, [facility] #[id number], 1 tablet By Mouth Daily in PM,x90 days,PRN:Congestion, 175.26, cm, 10/11/24 9:39:00 EDT, Height, 71.81, kg, 06/28/24 14:43:00 EST, Dry Weight Start Date: 10/11/24 Stop Date: 04/04/26 Status: Ordered Medication Dispense Status: Completed Quantity: 90.0 Unit: tablet Total Allowed Fills: 6 Fills Dispensed: 0 Indications: Other seasonal allergic rhinitis; Problem List Condition Confirmation Course Effective Dates Status Health Status Informant Abnormal urinalysis Confirmed Active Atopic dermatitis Confirmed Active ADHD (attention deficit hyperactivity disorder) Confirmed Active Chronic constipation Confirmed Active Chronic neck pain Confirmed Active Fatigue Confirmed Active BRBPR (bright red blood per rectum) Confirmed Active Generalized anxiety disorder Confirmed Active 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 Confirmed Active Migraine without aura 1 Confirmed 09/04/21 Active Mild major depression Confirmed Active Psychophysiological insomnia Confirmed Active Need for hepatitis B vaccination Confirmed Active Need for varicella vaccine Confirmed Active Seasonal allergies Confirmed Active Axillary swelling Confirmed Active Oral contraceptive use Confirmed Active 1Outside Source Comment: refer to Neuro 08/2021 Social History Social History Type Response Smoking Status Never (less than 100 in lifetime) entered on: 10/11/24 Sexual Orientation Self described orien tation: ; Straight or heterosexual Sex Sex Representation Female (finding) Patient Care team information Care Team Personnel Name: Capri Soliz Position: S PCO Associate Professional Member Role: PCP Address: [address] [place] [address] [address] Telecom: Care Team Related Persons Name: JULES ERIC Name: LUCILA ERIC Name: LUCILA ERIC Name: SAQIB ERIC Name: SAQIB ERIC Name: SAQIB ERIC Insurance Providers Guarantor name: SAQIB JEANETH Health Plan Information #: 1 Payer: [employer] OPEN [employer]ESS Payer Identifier: NA Member Number: [id number] Group Number: [id number] Subscriber Identifier: NA Relationship to Subscriber: self Coverage Type: Managed Care (Private) Coverage Verification Date: DARLENE Telecom: NA Address: NA Health Plan Information #: 2 Payer: [employer] Payer Identifier: DARLENE Member Number: [id number] Group Number: [id number] Subscriber Identifier: DARLENE Relationship to Subscriber: self Coverage Type: MEDICAID Coverage Verification Date: DARLENE Telecom: NA Address: NA
[2025-06-02 09:53] VITALS: BP 126/60; PULSE 124; O2SAT 97; BMI 22.5
--- NOTE | 2025-06-02 09:53 | MHC.OFFVIS ---
Vital Signs 06/02/25 09:53 Height 5 ft 9 in Weight 152 lb 1.903 oz BMI 22.5 BP 126/60 Blood Pressure Location Lt brachial Position Sitting Pulse 124 H Pulse Source Pulse Oximeter Pulse Oximetry (%) 97 Oxygen Delivery Method Room Air Intake Visit Reasons: sob, wheezing cough School Lunch Manager Required: No Aeronautical Products Sales Engineer: Aeronautical Products Sales Engineer offered & declined Allergies oxycodone Allergy (Intermediate, Verified 06/02/25 09:57) Hallucinations HPI Comments Details: The patient is a 24-year-old woman with a known history of childhood asthma. She does have lifelong asthma and she has been followed closely by pediatric Pulmonary for many years. She has been on Wixela for many years and also at times may take additional Flovent HFA in case she is having a flare-up. And she also has a rescue inhaler. She states that throughout the year she will need prednisone between 5-8 times. The last time was over the fall where she had 3 courses of prednisone to try to finally settled on her symptoms. She does not like to take prednisone and she would like to avoid. She has had allergy testing in the past and is been negative that she is aware of. The patient did have a chest x-ray which we personally reviewed together demonstrating hyperinflation of the lungs. She has not had formal pulmonary function studies. Therefore, based on ongoing symptoms will go ahead and optimize her respiratory therapy by switching her from Wixela to Trelegy 200 mcg. She will continue the Singulair for now though she does carry a diagnosis of depression and once her symptoms are better we can see about maybe removing the singular just in case. In addition to that will assess blood work including allergy testing to assess to see biologics will be a reasonable option for the patient. Will plan to follow-up after the PFTs. 08/31/2024 the patient is here for pulmonary follow-up visit. Overall she is doing better. She did have the flu and did develop significant asthma afterwards. She did require prednisone. Definitely is doing better. We did review her blood work. No significant allergies that we can appreciate. . And seems like she has a additional blood work including IgG pneumococcal titers were also reassuring suggesting a robust immune system. She did have pulmonary function studies which we did review. She had a little bit of small airways disease which is suspected with a history of asthma. She has been using the Trelegy has been effective. Although she has not been taking it regularly. Going to the spring she should try to get daily. If she would like to be in any inhaler that could be easily titrated up and down the may be Breztri may be a good better option for her in the future. But she can call and I can send a prescription. Otherwise the patient is doing well plan to follow-up in 6-8 months. If she has any difficulties prior to that she will call for an earlier assessment. 03/09/2025 the patient is here for pulmonary follow-up visit. Overall she is doing well. She was able to have the asbestos removed from her house. They also found mold damage in the bathroom because of the water leaking issue. That was also abated. 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 Overall she feels like her health is overall better. She is responding well to the Breztri. The patient has stopped using the Singulair because she was getting allergy testing. She does have does have dust mite allergies. She should consider going back on the Singulair specially with significant allergies and postnasal drip. She is using nasal sprays. She can also use her nasal rinse specially at nighttime to minimize allergic reactions. Overall the patient is doing well. She typically has a hard time in the winter time so will have her come back in June. If she is doing okay though she can always push out her appointment to a later time. As far as the asbestos exposure her last chest x-ray was reassuring without any evidence of any acute disease. Will plan to have serial chest x-rays moving forward. 06/02/2025 the patient is here for sick visit. She has been sick for about couple weeks. She started developing a URI symptoms and then it went into her lungs. She started developing asthma symptoms. She did go to an urgent care she was placed on prednisone and the patient was also been using her nebulized treatments. Although she is still not better. She is having significant chest congestion with greenish phlegm. She feels very diaphoretic at times. Denies any fevers or chills. She is also tachycardic. Just does not feel well. On exam she does have rhonchi throughout but no crackles to suggest pneumonia. Her last chest x-ray was in February so therefore will hold off on imaging at this time. That x-ray was personally by me and it was clear. The patient will start on antibiotic doxycycline. She will give her 48 hours if no better she can start Augmentin. And she will continue with a longer prednisone taper. She continues use her nebulizer but have to be careful with the tachycardia. Will have her get blood work to assess that specially since she has not any better in significant tachycardia noted. The patient does not have a history of diabetes. Will go ahead and check a blood sugar as well. [facility] Medical History (Updated 06/04/25 @ 22:24 by Josué Hatfield MD) Eczema Allergies Asthma Social History Patient Tobacco Use Status: Never used Tobacco Review of Systems Const Reports no additional complaints and Reports fatigue Eyes Reports no additional complaints ENT Reports nasal congestion and Reports nasal discharge Card Denies chest pain Resp Reports chest congestion, Reports cough, Denies hemoptysis and Reports wheezing GI Reports no additional complaints Musc Reports no additional complaints Skin/Breast Reports rash Endo Reports fatigue Leroy/Lymph Reports no additional complaints Aller/Immun Reports wheezing Physical Exam Vital Signs: Last Vital Signs Pulse 124 H 06/02/25 09:53 BP 126/60 06/02/25 09:53 Pulse Ox 97 06/02/25 09:53 Oxygen Delivery Method Room Air 06/02/25 09:53 BMI result Body Mass Index 22.5 Const General: healthy appearing HEENT Head: Yes normocephalic Throat: Yes cobblestoning Eyes General: appearance normal, both eyes and all related structures Neck Neck: Yes supple Chest Chest palpation & inspection: normal inspection of the chest Resp Effort & Inspection: normal respiratory effort, Actively coughing and prolonged expiratory phase Auscultation: wheezes and diminished lung sounds Cardio Jugular venous distension: JVD Heart sounds: S1 normal heart sound present and S2 normal heart sound present GI Palpation (GI): Soft to palpation Skin General skin exam: no rashes or lesions noted Extrem General: Yes no clubbing, cyanosis or edema Assessment & Plan Assessment & Plan (1) Asthma: Code(s): J45.909 - Unspecified asthma, uncomplicated Category: Medical Qualifiers: Asthma complication type: with acute exacerbation Asthma persistence: persistent Asthma severity: moderate Qualified Code(s): J45.41 - Moderate persistent asthma with (acute) exacerbation (2) Allergies: Code(s): T78.40XA - Allergy, unspecified, initial encounter Category: Medical Qualifiers: Encounter type: initial encounter Qualified Code(s): T78.40XA - Allergy, unspecified, initial encounter (3) Eczema: Code(s): L30.9 - Dermatitis, unspecified Category: Medical Qualifiers: Eczema type: flexural Qualified Code(s): L20.82 - Flexural eczema Plan Prednisone taper start Doxycycline, if no better will add Augmentin Mucinex DM Bloodwork continue Breztri NEW as needed continue singulair nasal spray nasal rinsing F/U 4-6 months Orders: Orders Complete Blood Count Auto Diff 06/02/25 J45.40 - Moderate persistent asthma, uncomplicated Basic Metabolic Panel 06/02/25 J45.40 - Moderate persistent asthma, uncomplicated Erythrocyte Sedimentation Rate 06/02/25 J45.40 - Moderate persistent asthma, uncomplicated TSH reflex Free T4 06/02/25 J45.40 - Moderate persistent asthma, uncomplicated Immunoglobulins,IgG IgA IgM 06/02/25 J45.40 - Moderate persistent asthma, uncomplicated D Dimer High Sensitivity 06/02/25 J45.40 - Moderate persistent asthma, uncomplicated Medications: New prednisone PO daily; Take 6 tabs daily x 3 days, then 5 tabs x 3 days, then 4 tabs x 3 days, then 3 tabs x 3 days, then 2 tabs daily x 3 days, then 1 tab x 3 days to complete. 63 tabs 0RF 18 days amoxicillin-pot clavulanate 875-125 mg 1 tab PO BID 20 tabs 0RF 10 days Coding Level of Care Code Est Pt Level 4 (30948) Diagnoses Moderate persistent asthma with acute exacerbation J45.41 Asthma complication type: with acute exacerbation Asthma persistence: persistent Asthma severity: moderate Allergy, initial encounter T78.40XA Encounter type: initial encounter Flexural eczema L20.82 Eczema type: flexural Time Spent (min) 16
--- OUTSIDE RECORDS SUMMARY | 2025-06-02 10:43 | XMS_ITS | Clinical Summary ---
Author Organization [facility] Address [address] [place] [address] Phone Care Team Providers Care Capsule Inspector Name Role Phone Karlene Santana MD Primary Care Provider [phone] Encounters Date Type Department Care Team Description 05/22/2025 9:00 AM EST Treatment [address] [id number] Gabino Townsend, CHEMA Chronic pain of both knees (Primary Dx) 05/10/2025 10:00 AM EST Treatment [address] [phone] Henry Watson, PT Chronic pain of both knees (Primary Dx); Patellofemoral disorder of left knee 05/08/2025 9:30 AM EST Treatment [address] [phone] Henry Watson, PT Patellofemoral disorder of left knee (Primary Dx); Chronic pain of both knees 04/24/2025 11:00 AM EST Evaluation [address] [phone] Henry Watson, PT Chronic pain of both knees (Primary Dx); Patellofemoral disorder of left knee 04/24/2025 Plan of Care Documentation [address] [phone] from Last 3 Months Social History Tobacco Use Types Packs/Day Years Used Date Smoking Tobacco: Never Assessed Comments Unknown Sex and Gender Information Value Date Recorded Sex Assigned at Not on file Legal Sex Female 8:03 PM EDT Gender Identity Not on file Sexual Orientation Not on file Plan of Treatment Upcoming Encounters Date Type Department Care Team (Late st Contact Info) Description 06/05/2025 10:30 AM EST [facility] [address] [phone] Henry Watson, PT 06/07/2025 9:30 AM EST Treatment [facility] [address] [phone] Henry Watson, PT 06/12/2025 10:00 AM EST [facility] [address] [phone] Henry Watson, PT Health Maintenance Due Date Last Done Comments Gonorrhea/Chlamydia Screening 2002 HIV Screening 04/13/2023 Hepatitis C Screening 04/13/2023 Social Influencers of Health Screening 04/13/2023 Cervical Cancer Screening: Pap Smear 2023 Depression Screening 06/15/2024 DTaP,Tdap,and Td Vaccines (10 - Td or Tdap) 10/07/2033 10/08/2023, 10/08/2023, 05/26/2014, Additional history exists Pneumococcal Vaccine: Pediatrics (0 to 5 Years) and At-Risk Patients (6 to 49 Years) (2 of 2 - PCV20 or PCV21) 2052 07/18/2024, 07/07/2003, 02/03/2003, Additional history exists RSV Immunization Adult Patients (1 - 1-dose 75+ series) 2077 HIB Vaccines Completed 11/29/2003, 01/14, 2002, Additional history exists MMR Vaccines Completed 06/05/2006, 11/29/2003 IPV Vaccines Completed 06/09/2007, 01/14, 2002, Additional history exists Varicella Vaccines Completed 06/09/2007, 07/07/2003 HPV Vaccines Completed 12/01/2014, 07/16, 05/26/2014 Meningococcal ACWY Vaccine Completed 08/09/2018, Hepatitis A Vaccines Completed 02/05/2021, 08/07/19 Meningococcal B Vaccine Completed 02/05/2021, 08/07 Hepatitis B Vaccines Completed 04/24/2025, 11/21/2024, 10/21/2024, Additional history exists COVID-19 Vaccine Completed 04/26/2025, , 10/06/2021, Additional history exists Influenza Vaccine Completed 04/26/2025, , 03/08/2022, Additional history exists RSV Immunization Patients Under 20 months Aged Out No longer eligible based on patient's age to complete this topic Insurance MEDICAID - [place] [facility] Care Teams Capsule Inspector Relationship Specialty Start Date End Date Karlene Santana MD [address] [place] [phone] PCP - General 03/30/23
== END 2025-06-02 10:22 | disposition home or self-care (01) ==
LOC: HO.HPS 09:48
PROVIDERS: PCP Physician Assistant Medical; Visit Provider Hospitalist
DX: J45.41 Moderate persistent asthma with (acute) exacerbation (principal); T78.40XA Allergy, unspecified, initial encounter; L20.82 Flexural eczema
CPT/HCPCS: 99214

== ENCOUNTER 2025-06-02 09:47 | Outpatient (REF) | payer OTHER, MEDICAID, SELFPAY ==
[2025-06-02 10:41] LABS: MANUAL DIFF FLAG NO
[2025-06-02 10:54] LABS: Hematocrit 46.2 % (37.0-47.0); Hemoglobin 15.1 g/dl (12.0-16.0); Imm Gran Abs Auto 0.09 X10*3/uL (0.00-0.03); Imm Gran Pct Auto 0.6 % (0.0-0.4); Lymphocytes Absolute Auto 4.0 X10*3/uL (1.2-4.9); Mean Corpuscular HGB Conc 32.7 g/dl (31.0-35.0); Mean Corpuscular Hemoglobin 27.6 pg (27.0-33.0); Mean Corpuscular Volume 84.5 fL (80.0-98.0); NRBC Abs Auto 0.000 X10*3/uL (0.0-0.012); NRBC Pct Auto 0.0 /100WBC (0.0-0.2); Platelet Count 410 X10*3/uL (160-400); Red Blood Count 5.47 X10*6/uL (4.20-5.50); White Blood Count 14.8 X10*3/uL (4.8-10.8)
[2025-06-02 11:31] LABS: D Dimer High Sensitivity < 150 NG/ML
[2025-06-02 11:40] LABS: Anion Gap 13 (12-20); Blood Urea Nitrogen 11 mg/dL (9-16); Calcium 9.7 mg/dL (8.4-10.2); Carbon Dioxide 28 mmol/L (22-29); Chloride 103 mmol/L (96-108); Estimated Glomerular Filt Rate > 60; Potassium 3.9 mmol/L (3.3-5.1); Sodium 140 mmol/L (135-145)
== END 2025-06-02 09:48 | disposition home or self-care (01) ==
LOC: HO.LAB 09:47
PROVIDERS: PCP Physician Assistant Medical; Visit Provider Hospitalist
DX: J45.41 Moderate persistent asthma with (acute) exacerbation (principal); T78.40XA Allergy, unspecified, initial encounter; L20.82 Flexural eczema; R91.1 Solitary pulmonary nodule; Z13.21 Encounter for screening for nutritional disorder
CPT/HCPCS: 36415; 80048; 82784; 82785; 84443; 85025; 85379; 85652; 86003; 86038; 86200; 86331; 86606; 86609